=== PATIENT | female | born 1945 | race Caucasian/White ===

== ENCOUNTER 2016-05-15 10:58 | Inpatient (IN) | payer MEDICARE, BC ==
[~2016-05-15] VITALS: Ht 157.5 cm; Wt 60.0 kg
[~2016-05-15 10:58] MED LIST: ASPI325T PO; CARB25TA12 PO; DONE10TA7 PO; DULC100C PO; HYDR-3533 PO; LYRI50CA PO; NITR1CAP36 PO; NYST15T TOPICAL; ONDA4TAB7 PO; ROTI4DIS T-DERMAL; TOVI4TAB PO; ZYPR5TAB PO
[2016-05-15 11:01] VITALS: BP 112/54; PULSE 69; RESP 16; TEMP 97.5; O2SAT 88
[2016-05-15 11:15] VITALS: BP 113/63; PULSE 65; RESP 21; O2SAT 100
[2016-05-15 11:24] VITALS: BP 113/63; PULSE 71; RESP 20; O2SAT 100
[2016-05-15] MEDS ORDERED: SODIUM CHLOR 0.9% 1000 ML INJ 1,000 ML IV SCH (11:28)
--- NOTE | 2016-05-15 12:07 | RADRPT ---
EXAM DATE/TIME: 05/15/2016 11:49 [facility] COMPARISON: CHEST SINGLE AP, April 10, 2015, 21:19. INDICATIONS : Patient has had a cough and felt weak for five days. MEDICAL HISTORY : Parkinson's. cerebrovascular disease. SURGICAL HISTORY : None. ENCOUNTER: Initial ACUITY: 4 - 6 days PAIN SCORE: 0/10 LOCATION: chest FINDINGS: The heart is normal in size. The mediastinal contours are within normal limits. There are small areas of platelike atelectasis seen in both lungs. These are improved when compared to previous. There are mild degenerative changes in the thoracic spine. CONCLUSION: 1. Small areas of platelike atelectasis seen. Improved compared to previous. No acute abnormality. Faheem Yin MD on May 15, 2016 at 12:03 Board Certified Radiologist. This report was verified electronically.
[2016-05-15 12:20] LABS: AUTOMATED NEUTROPHIL # 11.7 TH/MM3 (1.8-7.7); BASOPHIL # 0.1 TH/MM3 (0-0.2); BASOPHIL % 0.4 % (0.0-2.0); EOSINOPHIL # 0.2 TH/MM3 (0-0.4); EOSINOPHIL % 1.5 % (0.0-4.0); HEMATOCRIT 41.6 % (35.0-46.0); HEMO FLAGS DIFF FINAL; LYMPHOCYTE # 2.3 TH/MM3 (1.0-4.8); MEAN CELL VOLUME 86.3 FL (80.0-100.0); MEAN CORPUSCULAR HEMOGLOBIN 28.9 PG (27.0-34.0); MEAN CORPUSCULAR HGB CONC 33.4 % (32.0-36.0); MONO % 8.1 % (0.0-8.0); PLATELET COUNT 256 TH/MM3 (150-450); RED BLOOD COUNT 4.83 MIL/MM3 (4.00-5.30); RED CELL DISTRIBUTION WIDTH 16.5 % (11.6-17.2); WHITE BLOOD COUNT 15.6 TH/MM3 (4.0-11.0)
[2016-05-15 12:33] LABS: APTT (PATIENT) 28.5 SEC (24.3-30.1); PROTHROMBIN TIME - PATIENT 10.6 SEC (9.8-11.6)
[2016-05-15 12:37] LABS: ALT (GPT) 6 U/L (10-53); ANION GAP 11 MEQ/L (5-15); AST (GOT) 12 U/L (15-37); BICARBONATE 25.6 MEQ/L (21.0-32.0); BLOOD UREA NITROGEN 26 MG/DL (7-18); CHLORIDE 105 MEQ/L (98-107); GLOMERULAR FILTRATION RATE 97 ML/MIN (>89); MAGNESIUM 2.2 MG/DL (1.5-2.5); POTASSIUM 3.9 MEQ/L (3.5-5.1); SODIUM (NA) 142 MEQ/L (136-145)
[2016-05-15 12:39] LABS: ALKALINE PHOSPHATASE 96 U/L (45-117); TOTAL BILIRUBIN ADULT 0.8 MG/DL (0.2-1.0)
[2016-05-15 13:37] VITALS: BP 122/58; PULSE 61; RESP 20; O2SAT 5; O2SAT 98
--- NOTE | 2016-05-15 14:05 | PD ---
HPI Chief Complaint: Abnormal Results Time Seen by Provider: 13:58 Travel History International Travel<30 days: No Contact w/Intl Traveler<30days: No Traveled to known affect area: No History of Present Illness HPI 70-year-old female that presents to the ED for evaluation of hypertension as well as hypoxia. Patient reports that she was being seen by her doctor Dr. Lucio today for her regular checkup for cough that she's developed for the past 5 days and they found out that she was hypotensive and hypoxic on exam. Patient was told to come here immediately. Patient reports no complaints other than the cough. Patient does have a history of Parkinson's and is essentially bedridden. She does have a history of decubitus ulcer to the buttox that has been seen and evaluated by the physician. She denies any problems with it. She states that the main reason she was being seen today for the cough that is productive for the past 5 days. She states that she does have some family members sick in the house. Including a small child. Patient has a suprapubic urinary catheter secondary to urinary retention and being bedridden. Patient has a history of MRSA. No chest pain or shortness of breath. She voices no major complaints other than the cough. No pain. PFSH Past Medical History Hx Anticoagulant Therapy: Yes (325 MG ASA DAILY) Arthritis: No Asthma: Yes Autoimmune Disease: No Blood Disorders: No Anxiety: No Depression: No Heart Rhythm Problems: No Cancer: No Cardiovascular Problems: Yes (ORTHOSTATIC HYPOTENSION) High Cholesterol: No Chemotherapy: No Congestive Heart Failure: No COPD: No Cerebrovascular Accident: Yes (TIA 2013) Diabetes: No Diminished Hearing: No Endocrine: No Gastrointestinal Disorders: Yes (hx constipation) GERD: No Glaucoma: No Genitourinary: Yes (incontinence, frequent UTI's,suprapubic cath ) Headaches: No Hepatitis: No Hiatal Hernia: No Hypertension: No Immune Disorder: No Implanted Vascular Access Dvce: Yes Kidney Stones: No Medical other: Yes (CONFUSION/DISORIENTATION, PRESSURE ULCER LEFT BUTTOCKS WITH WOUND VAC) Musculoskeletal: Yes (non ambulatory hx of back surgery and cervical spine) Neurologic: Yes (NEUROPATHY FEET, PARKINSON'S, short term memory loss, confusion) Parkinson's Disease: Yes Psychiatric: Yes (r/t parkinson's, confused, short term memory loss) Reproductive: No Respiratory: Yes (ASTHMA) Integumentary: Yes (PRESSURE ULCER LEFT BUTTOCKS WITH WOUND VAC @ 120HHMG) Immunizations Current: Yes Migraines: No Myocardial Infarction: No Radiation Therapy: No Renal Failure: No Seizures: Yes Sickle Cell Disease: No Sleep Apnea: No Thyroid Disease: No Ulcer: No PNEUMOCCOCAL Vaccine (Year): 2007 ?: Not Menopausal: Yes : 0 Past Surgical History Abdominal Surgery: No AICD: No Appendectomy: Yes Arteriovenous Shunt: No Body Medical Devices: CERVICAL HARDWARE Cardiac Surgery: No Cholecystectomy: No Ear Surgery: No Endocrine Surgery: No Eye Surgery: Yes (BILATERAL CATARACT SURGERY) Genitourinary Surgery: Yes (SP CATHETER PLACED X 3 LAST PLACEMENT ONE MONTH AGO ) Gynecologic Surgery: Yes (HYSTERECTOMY) Hysterectomy: Yes Insulin Pump: No Joint Replacement: No Neurologic Surgery: Yes (LUMBAR SURGERY X 2, CERVICAL FUSION) Oral Surgery: No Pacemaker: No Thoracic Surgery: No Other Surgery: Yes (ULNAR NERVE REPAIR LEFT- 1996) Social History Alcohol Use: Yes (RARELY) Tobacco Use: No Substance Use: No Allergies-Medications (Allergen,Severity, Reaction): Coded Allergies: *MDRO Multi-Drug Resistant Organism (Verified Adverse Reaction, Unknown, ) ESBL+E.COLI (urine) - 2011, 2012, 2014, 01/04/16; (blood) - 2011 VRE (urine/blood) - 2011 Reported Meds & Prescriptions Reported Meds & Active Scripts Active Toviaz ER (Fesoterodine Fumarate) 4 mg Chevy 4 Mg PO DAILY Reported Nitrofurantoin Macrocrystal 100 Mg Cap 100 Mg PO QID Donepezil 10 Mg Tab 10 Mg PO DAILY Lyrica (Pregabalin) 50 Mg Cap 50 Mg PO TID Zyprexa (Olanzapine) 5 Mg Tab 5 Mg PO HS Neupro Patch 24 HR (Rotigotine Patch 24 HR) 4 Mg/24 Hr Patch 4 Mg T-DERMAL DAILY Nystatin Topical (Nystatin) 100,000 unit/gm Cream 1 Applic TOPICAL DAILY PRN Carbidopa-Levodopa 25-250 Mg Tab 1 Tab PO TID Review of Systems General / Constitutional: Positive: Fever, Chills Eyes: No: Diploplia, Blurred Vision, Photophobia, Drainage, Redness, Foreign Body Sensation, Pain, Tearing, Blind Spots, Visual changes, Blindness, Other HENT: Positive: Rhinitis, No: Headaches, Vertigo, Lightheadedness, Sore Throat , Rhinorrhea, Congestion, Nosebleed, Neck Stiffness, Neck Pain, Masses, Gingival Bleeding, Dental Difficulties, Ear Discharge, Earache, Other Cardiovascular: No: Chest Pain or Discomfort, Palpitations, Irregular Rhythm, Tachycardia, Diaphoresis, Syncope, Dyspnea on exertion, Varicosities, Edema, Cyanosis, Varicosities, Phlebitis, Claudication, Other Respiratory: Positive: Cough, No: Shortness of Breath, Wheezing, Sneezing, Orthopnea, Hemoptysis, Stridor, Night Sweats, Pleuritic Pain, Other Gastrointestinal: No: Nausea, Vomiting, Diarrhea, Abdominal Pain, Hematemesis, Hematochezia, Constipation, Changes in Bowel Habits, Indigestion, Dysphagia, Loss of Appetite, Other Genitourinary: No: Urgency, Frequency, Dysuria, Nocturia, Hematuria, Decreased Urinary Output, Oliguria, Hesitancy, Dribbling, Incontinence, Pelvic Pain, Flank Pain, Dyspareunia, Discharge, Dysmenorrhea, Menorrhagia, Metorrhagia, Vaginal Bleeding, Other Musculoskeletal: No: Myalgias, Arthralgias, Limited ROM, Weakness, Cramping, Edema, Pain, Atrophy, Other Skin: No Rash, No Itching, No Dryness, No Lumps, No Hives, No Change in Pigmentation, No Change in nails, No Alopecia, No Lesions, No Breast Lumps, No Breast Tenderness, No Breast Swelling, No Other Neurologic: No: Weakness, Dizziness, Syncope, Focal Abnormalities, Coordination Problem, Tremor, Ataxia, Headache, Change in Mentation, Slurred Speech, Paresthesia, Incontinence, Seizures, Sensory Disturbance, Other Psychiatric: No: Anxiety, Depression, Suicidal Ideations, Disorder of Thought, Mood Disorder, Substance Abuse, Homicidal Ideation, Other Endocrine: No: Heat Intolerance, Cold Intolerance, Polyuria, Polydipsia, Other Hematologic/Lymphatic: No: Easy Bruising, Lymph Node Enlargement, Other Physical Exam Narrative GENERAL: SKIN: Warm and dry. Patient has a stage III decubitus ulcer to the back of the sacrum. Some discharge noted but no sign of severe infection. Per seems to be improving. Slightly tender to touch. HEAD: Atraumatic. Normocephalic. EYES: Pupils equal and round 4 mm reactive to light and accommodation. No scleral icterus. No injection or drainage. ENT: No nasal bleeding or discharge. Mucous membranes pink and moist. Tongue is midline. No uvula deviation. NECK: Trachea midline. No JVD. CARDIOVASCULAR: Regular rate and rhythm. Tongue is midline. No uvula deviation. RESPIRATORY: No accessory muscle use. Clear to auscultation. Breath sounds equal bilaterally. GASTROINTESTINAL: Abdomen soft, non-tender, nondistended. Hepatic and splenic margins not palpable. MUSCULOSKELETAL: Extremities without clubbing, cyanosis, or edema. No obvious deformities. Full range of motion of the upper and lower extremities bilaterally. 2+ pulses bilaterally. NEUROLOGICAL: Awake and alert. No obvious cranial nerve deficits. Motor grossly within normal limits. Five out of 5 muscle strength in the arms and legs. Normal speech. PSYCHIATRIC: Appropriate mood and affect; insight and judgment normal. Data Data Last Documented VS Vital Signs Date Time Temp Pulse Resp B/P Pulse Ox O2 Delivery O2 Flow Rate FiO2 05/15/16 14:21 61 20 130/57 98 Room Air 05/15/16 11:01 97.5 Orders Electrocardiogram (05/15/16 11:28) Complete Blood Count With Diff (05/15/16 11:28) Comprehensive Metabolic Panel (05/15/16 11:28) Prothrombin Time / Inr (Pt) (05/15/16 11:28) Act Partial Throm Time (Ptt) (05/15/16 11:28) Blood Culture (05/15/16 11:28) Urinalysis - C+S If Indicated (05/15/16 11:28) Magnesium (Mg) (05/15/16 11:28) Influenzae A/B Antigen (05/15/16 11:28) Chest, Single Ap (05/15/16 11:28) Iv Access Insert/Monitor (05/15/16 11:28) Ecg Monitoring (05/15/16 11:28) Oximetry (05/15/16 11:28) Lactic Acid (05/15/16 11:28) Sodium Chlor 0.9% 1000 Ml Inj (Ns 1000 M (05/15/16 11:28) Ceftriaxone Inj (Rocephin Inj) (05/15/16 14:15) Continue Castorena/Suprapubic Cath (05/15/16 14:05) Ct Pulmonary Angiogram (05/15/16 14:20) Admit To Inpatient (05/15/16 ) Inpatient Certification (05/15/16 ) Diet Regular Basic (05/15/16 Dinner) Vital Signs (Adult) HAMMAD.Q4H (05/15/16 14:22) Consult Wound / Ostomy Nurse (05/15/16 ) Dext 5%-Nacl 0.9% 1... W/Potassium Chlor (05/15/16 16:00) Admit Order (Ed Use Only) (05/15/16 15:26) Labs Laboratory Tests Test 05/15/16 05/15/16 11:40 15:25 White Blood Count 15.6 TH/MM3 Red Blood Count 4.83 MIL/MM3 Hemoglobin 13.9 GM/DL Hematocrit 41.6 % Mean Corpuscular Volume 86.3 FL Mean Corpuscular Hemoglobin 28.9 PG Mean Corpuscular Hemoglobin 33.4 % Concent Red Cell Distribution Width 16.5 % Platelet Count 256 TH/MM3 Mean Platelet Volume 8.1 FL Neutrophils (%) (Auto) 75.0 % Lymphocytes (%) (Auto) 15.0 % Monocytes (%) (Auto) 8.1 % Eosinophils (%) (Auto) 1.5 % Basophils (%) (Auto) 0.4 % Neutrophils # (Auto) 11.7 TH/MM3 Lymphocytes # (Auto) 2.3 TH/MM3 Monocytes # (Auto) 1.3 TH/MM3 Eosinophils # (Auto) 0.2 TH/MM3 Basophils # (Auto) 0.1 TH/MM3 CBC Comment DIFF FINAL Differential Comment Prothrombin Time 10.6 SEC Prothromb Time International 1.0 RATIO Ratio Activated Partial 28.5 SEC Thromboplast Time Sodium Level 142 MEQ/L Potassium Level 3.9 MEQ/L Chloride Level 105 MEQ/L Carbon Dioxide Level 25.6 MEQ/L Anion Gap 11 MEQ/L Blood Urea Nitrogen 26 MG/DL Creatinine 0.61 MG/DL Estimat Glomerular Filtration 97 ML/MIN Rate Random Glucose 100 MG/DL Lactic Acid Level 1.0 mmol/L Calcium Level 9.9 MG/DL Magnesium Level 2.2 MG/DL Total Bilirubin 0.8 MG/DL Aspartate Amino Transf 12 U/L (AST/SGOT) Alanine Aminotransferase 6 U/L (ALT/SGPT) Alkaline Phosphatase 96 U/L Total Protein 7.5 GM/DL Albumin 3.6 GM/DL Urine Color YELLOW Urine Turbidity CLOUDY Urine pH 5.5 Urine Specific [place] 1.019 Urine Protein 30 mg/dL Urine Glucose (UA) NEG mg/dL Urine Ketones 40 mg/dL Urine Occult Blood MOD Urine Nitrite POS Urine Bilirubin NEG Urine Urobilinogen LESS THAN 2.0 MG/DL Urine Leukocyte Esterase LARGE Urine RBC 182 /hpf Urine WBC /hpf Urine WBC Clumps MANY Urine Squamous Epithelial 3 /hpf Cells Urine Bacteria MANY /hpf Microscopic Urinalysis Comment CULTURE INDICATED MDM Medical Decision Making Medical Screen Exam Complete: Yes Emergency Medical Condition: Yes Medical Record Reviewed: Yes Interpretation(s) CBC & BMP Diagram 05/15/16 11:40 lactic WNL Last Impressions Chest X-Ray 05/15/16 1128 Signed Impressions: Service Date/Time: , May 15, 2016 11:49 - CONCLUSION: 1. Small areas of platelike atelectasis seen. Improved compared to previous. No acute abnormality. Faheem Yin MD Differential Diagnosis Pneumonia versus leukocytosis versus sepsis versus electrolyte abnormality versus hypotension versus bacteremia versus cystitis Narrative Course 70-year-old female that presents to the ED for evaluation of hypotension and hypoxia. Patient was properly examined here and was found to have signs and symptoms consistent with appears to be infection. No sign of sepsis at this time. Patient's vitals are reassuring here. O2 stat is within normal limits. Labs and imaging were ordered. Labs and imaging showed leukocytosis but no sign of obvious infection but from patient's history this is likely UTI. Case was discussed in my attending Dr Hernandez who recommends admission. Case discussed with Dr. Valencia that over the phone who recommends CTA to rule out PE and agrees to admission. Patient was admitted to her. Sepsis Criteria SIRS Criteria (2 or more): WBC > 87330, < 4000 or > 10% bands Diagnosis Primary Impression: UTI (urinary tract infection) Qualified Code: N30.00 - Acute cystitis without hematuria Additional Impression: Encephalopathy acute Parveen Fisher May 15, 2016 14:05
[2016-05-15] MEDS ORDERED: cefTRIAXone INJ 1,000 MG in SODIUM CHLORIDE 0.9% INJ 100 ML IV ONE (14:15)
[2016-05-15 14:21] VITALS: BP 130/57; PULSE 61; RESP 20; O2SAT 98
[2016-05-15] MEDS ORDERED: IOHEXOL 350 MG/ML 10 ML VIAL (for RAD DIAG) IV ONE (15:45)
[2016-05-15 15:50] LABS: BACTERIA, URINE MANY /hpf; BLOOD, URINE MOD (NEG); COMMENT (UR) CULTURE INDICATED; CULTURE IF INDICATED CULTURE INDICATED; GLUCOSE,URINE NEG (NEG); KETONE, URINE 40 mg/dL (NEG); NITRITE,URINE POS (NEG); PH, URINE 5.5 (5.0-8.5); SQUAMOUS EPITHELIAL CELL URINE 3 /hpf (0-5); URINE COLOR YELLOW (YELLW/STRAW)
--- NOTE | 2016-05-15 16:04 | RADRPT ---
EXAM DATE/TIME: 05/15/2016 15:43 [facility] COMPARISON: No previous studies available for comparison. INDICATIONS : Abnormal labs with chest pain and shortness of breath. IV CONTRAST: 75 cc Omnipaque 350 (iohexol) IV RADIATION DOSE: 23.20 CTDIvol (mGy) MEDICAL HISTORY : Cardiovascular disease. Seizures. SURGICAL HISTORY : Hysterectomy. Appendectomy. ENCOUNTER: Initial ACUITY: 1 day PAIN SCALE: 6/10 LOCATION: chest TECHNIQUE: Volumetric scanning of the chest was performed using a pulmonary embolism protocol MIP images were re constructed. Using automated exposure control and adjustment of the mA and/or kV according to patien t size, radiation dose was kept as low as reasonably achievable to obtain optimal diagnostic quality images. FINDINGS: PULMONARY ARTERIES: No filling defects are seen in the pulmonary arteries through the segmental level. LUNGS: There is no consolidation or pneumothorax . No concerning pulmonary nodule is visualized. PLEURAE: There is no pleural thickening or pleural effusion. MEDIASTINUM: There is good visualization of the great vessels of the middle mediastinum. No evidence of mediastin al or hilar adenopathy/mass. MUSCULOSKELETAL: Within normal limits for patient age. MISCELLANEOUS: The visualized upper abdominal organs demonstrate no acute abnormality. CONCLUSION: Normal examination. Mild atelectasis both lung bases Bon Quiroz MD on May 15, 2016 at 16:01 Board Certified Radiologist. This report was verified electronically.
--- NOTE | 2016-05-15 16:45 | HHI.HP ---
HPI Service [facility] Primary Care Physician Shira Drake MD Admission Diagnosis acute cystitis, leukocytosis, hypotension Diagnoses: Chief Complaint: Cough, low blood pressures and decreased oxygen saturation Travel History International Travel<30 Days: No Contact w/Intl Traveler <30 Da: No Traveled to Known Affected Are: No History of Present Illness Patient is a 70-year-old female with advanced Parkinson's disease, total care, bedbound for over a year now, she has a suprapubic catheter in place for the last 15 months this was just changed yesterday by a nurse electrical controls technician and change every month. Baseline she is incontinent of stools and urine. She was brought in today because patient was complaining of cough and on evaluation by the nurses electrical controls technician he had a systolic blood pressure of 70 with decreased oxygen saturation. I called primary physician and was instructed to come here. Patient and family states she eats well there was no fever or chills. As stated has been having 5 days of nonproductive cough. Denies any difficulty in swallowing. Stools are occasionally constipation occasionally would need manual disimpaction periodically. She also has a chronic wound sacral decubitus stage II which is dressed with alginate dressing daily. She also doesn't care center every 2 weeks. Per family was very involved his wound is improving. At the ER patient was given 1 L of normal saline bolus, and placed on O2 nasal cannula. Right now on evaluation blood pressures is improved. Her O2 sat is 98% on room air. Review of Systems Constitutional: DENIES: Diaphoretic episodes, Fatigue, Fever, Weight gain, Weight loss, Chills, Dizziness, Change in appetite, Night Sweats Endocrine: DENIES: Abnorml menstrual pattern, Heat/cold intolerance, Polydipsia , Polyuria, Polyphagia Eyes: DENIES: Blurred vision, Diplopia, Eye inflammation, Eye pain, Vision loss , Photosensitivity, Double Vision Ears, nose, mouth, throat: DENIES: Tinnitus, Hearing loss, Vertigo, Nasal discharge, Oral lesions, Throat pain, Hoarseness, Ear Pain, Running Nose, Epistaxis, Sinus Pain, Toothache, Odynophagia Respiratory: COMPLAINS OF: Cough Cardiovascular: DENIES: Chest pain, Palpitations, Syncope, Dyspnea on Exertion , PND, Lower Extremity Edema, Orthopnea, Claudication Gastrointestinal: DENIES: Abdominal pain, Black stools, Bloody stools, Constipation, Diarrhea, Nausea, Vomiting, Difficulty Swallowing, Anorexia Genitourinary: DENIES: Abnormal vaginal bleeding, Dysmenorrhea, Dyspareunia, Sexual dysfunction, Urinary frequency, Urinary incontinence, Urgency, Hematuria , Dysuria, Nocturia, Vaginal discharge Musculoskeletal: DENIES: Joint pain, Muscle aches, Stiffness, Joint Swelling, Back pain, Neck pain Integumentary: DENIES: Abnormal pigmentation, Pruritus, Rash, Nail changes, Breast masses, Breast skin changes, Nipple discharge Hematologic/lymphatic: DENIES: Bruising, Lymphadenopathy Immunologic/allergic: DENIES: Eczema, Urticaria Neurologic: COMPLAINS OF: Poor Balance (patient is bedbound) Psychiatric: DENIES: Anxiety, Confusion, Mood changes, Depression, Hallucinations, Agitation, Suicidal Ideation, Homicidal Ideation, Delusions Past Family Social History Past Medical History Advanced Parkinson's disease History of recurrent cystitis/sepsis. She was out he was here last on last admission with wound infection growing Arely, ESBL Escherichia coli, Pseudomonas, She completed a course of Zosyn and micafungin. Stage II decubitus ulcer, Past Surgical History Suprapubic catheter placement Reported Medications A, 50 mg 3 times a day Nystatin oral 4 times a day 12 I as ER 4 mg daily Zyprexa 5 mg at bedtime Levodopa 25/253 times a day Neptazane 10 mg daily Macrodantin 100 mg 4 times a day Rivastigmine patch 4 mg every 24 hours Allergies: Coded Allergies: *MDRO Multi-Drug Resistant Organism (Verified Adverse Reaction, Unknown, ) ESBL+E.COLI (urine) - 2011, 2012, 2014, 01/04/16; (blood) - 2011 VRE (urine/blood) - 2011 Family History Noncontributory Social History Not currently smoking or drinking alcohol Physical Exam Vital Signs Vital Signs Date Time Temp Pulse Resp B/P Pulse Ox O2 Delivery O2 Flow Rate FiO2 05/15/16 14:21 61 20 130/57 98 Room Air 05/15/16 13:37 61 20 122/58 98 Room Air 05/15/16 11:24 71 20 113/63 100 Room Air 05/15/16 11:15 65 21 113/63 100 05/15/16 11:01 97.5 69 16 112/54 88 Room Air Physical Exam GENERAL: Awake alert oriented 3 in no apparent distress. SKIN: No rashes, ecchymoses or lesions. Cool and dry. HEAD: Atraumatic. Normocephalic. No temporal or scalp tenderness. EYES: Pupils equal round and reactive. Extraocular motions intact. No scleral icterus. ENT: Nose without bleeding,Throat without erythema, tonsillar hypertrophy or exudate. Uvula midline. No oral thrush NECK: Trachea midline. No JVD or lymphadenopathy. Supple, nontender, no meningeal signs. CARDIOVASCULAR: Regular rate and rhythm without murmurs, gallops, or rubs. RESPIRATORY: Clear to auscultation. Breath sounds equal bilaterally. No wheezes , rales, or rhonchi. GASTROINTESTINAL: Abdomen soft, non-tender, nondistended. No guarding. Positive suprapubic catheter in place, mild erythema opening MUSCULOSKELETAL: Extremities without clubbing, cyanosis, or edema. No joint tenderness, effusion, or edema noted. No calf tenderness. Negative Homans sign bilaterally. Sacral area with stage III decubitus ulcer NEUROLOGICAL: Awake and alert. Cranial nerves II through XII intact. Motor with advanced Parkinson's very limited movement Normal speech. Laboratory Laboratory Tests Test 05/15/16 05/15/16 11:40 15:25 White Blood Count 15.6 Red Blood Count 4.83 Hemoglobin 13.9 Hematocrit 41.6 Mean Corpuscular Volume 86.3 Mean Corpuscular Hemoglobin 28.9 Mean Corpuscular Hemoglobin 33.4 Concent Red Cell Distribution Width 16.5 Platelet Count 256 Mean Platelet Volume 8.1 Neutrophils (%) (Auto) 75.0 Lymphocytes (%) (Auto) 15.0 Monocytes (%) (Auto) 8.1 Eosinophils (%) (Auto) 1.5 Basophils (%) (Auto) 0.4 Neutrophils # (Auto) 11.7 Lymphocytes # (Auto) 2.3 Monocytes # (Auto) 1.3 Eosinophils # (Auto) 0.2 Basophils # (Auto) 0.1 CBC Comment DIFF FINAL Differential Comment Prothrombin Time 10.6 Prothromb Time International 1.0 Ratio Activated Partial 28.5 Thromboplast Time Sodium Level 142 Potassium Level 3.9 Chloride Level 105 Carbon Dioxide Level 25.6 Anion Gap 11 Blood Urea Nitrogen 26 Creatinine 0.61 Estimat Glomerular Filtration 97 Rate Random Glucose 100 Lactic Acid Level 1.0 Calcium Level 9.9 Magnesium Level 2.2 Total Bilirubin 0.8 Aspartate Amino Transf 12 (AST/SGOT) Alanine Aminotransferase 6 (ALT/SGPT) Alkaline Phosphatase 96 Total Protein 7.5 Albumin 3.6 Urine Color YELLOW Urine Turbidity CLOUDY Urine pH 5.5 Urine Specific [place] 1.019 Urine Protein 30 Urine Glucose (UA) NEG Urine Ketones 40 Urine Occult Blood MOD Urine Nitrite POS Urine Bilirubin NEG Urine Urobilinogen LESS THAN 2.0 Urine Leukocyte Esterase LARGE Urine RBC 182 Urine WBC Urine WBC Clumps MANY Urine Squamous Epithelial 3 Cells Urine Bacteria MANY Microscopic Urinalysis Comment CULTURE INDICATED Date/Time Procedure Status Source Growth 05/15/16 15:25 Urine Culture Received Urine Random Urine Pending 05/15/16 11:40 Aerobic Blood Culture Received Blood Peripheral Pending 05/15/16 11:40 Anaerobic Blood Culture Received Blood Peripheral Pending 05/15/16 11:28 Influenza Types A,B Antigen (ALONA) - Final Complete Nasal Washing NEGATIVE FOR FLU A AND B ANTIGEN.... Result Diagram: 05/15/16 1140 05/15/[address] Angiography 05/15/16 1420 Signed Impressions: Service Date/Time: May 15:43 - CONCLUSION: Normal examination. Mild atelectasis both lung bases Bon Quiroz MD Chest X-Ray 05/15/16 1128 Signed Impressions: Service Date/Time: May 11:49 - CONCLUSION: 1. Small areas of platelike atelectasis seen. Improved compared to previous. No acute abnormality. Faheem Yin MD Septic Shock Reassessment Heart: Regular rate and rhythm Lungs: Clear Skin: Warm Peripheral Pulses: Bounding Right Radial Bounding Left Radial Bounding Right Popliteal Bounding Left Popliteal Bounding Right Dorsalis Pedis Bounding Left Dorsalis Pedis Bounding Right Posterior Tibial Bounding Left Posterior Tibial Capillary Refill: Brisk Assessment and Plan Assessment and Plan Patient is a very pleasant 70-year-old female with history of advanced Parkinson 's disease bedbound presenting with Hypotension hypoxemia improved with fluids Sepsis secondary to recurrent cystitis - persistent pyuria from suprapubic catheter last- per family the suprapubic catheter was just changed yesterday We'll change her suprapubic catheter again today Blood and urine Cultures has been sent Based on last cultures from previous admission+ ESBL, Pseudomonas, Arely start on meropenem IV and IV Fluconazole- d/w pharmacy re- dosing We'll get ID consult for recommendation Transient hypoxemia - resolved with IV fluids get a CTA of the chest to rule out pulmonary embolism since patient is bedbound this was negative. History of advanced Parkinson's We'll continue on medications Acute kidney injury prerenal Status post 1 L normal saline bolus Start patient on normal saline IV Stage III decubitus ulcer. We'll continue on alginate wound dressing change daily We'll ask our wound care team to follow patient in-house Lovenox for DVT prophylaxis We did discuss advanced directives with her and family at bedside. Patient is a DO NOT RESUSCITATE Code Status DO NOT RESUSCITATE Physician Certification 2 Midnight Certification Type: Admission for Inpatient Services Order for Inpatient Services The services are ordered in accordance with Medicare regulations or non- Medicare payer requirements, as applicable. In the case of services not specified as inpatient-only, they are appropriately provided as inpatient services in accordance with the 2-midnight benchmark. Estimated LOS (days): 3 days is the estimated time the patient will need to remain in the hospital, assuming treatment plan goals are met and no additional complications. Post-Hospital Plan: Not yet determined Nilda Valencia MD May 15, 2016 16:45
[2016-05-15] MEDS: POTASSIUM CHLORIDE INJ 10 MEQ in DEXT 5%-NACL 0.9% 1000 ML INJ 1,000 ML IV SCH (17:25)
[2016-05-15] MEDS ORDERED: cefTAZidime INJ 1,000 MG in SODIUM CHLORIDE 0.9% INJ 100 ML IV SCH (18:00)
[2016-05-15] MEDS ORDERED: AZTREONAM INJ 1,000 MG in SODIUM CHLORIDE 0.9% INJ 100 ML IV SCH (18:00)
[2016-05-15] MEDS ORDERED: VANCOMYCIN INJ 1,000 MG in SODIUM CHLOR 0.9% 250 ML INJ 250 ML IV SCH (18:15)
[2016-05-15] MEDS ORDERED: Vancomycin Consult Pharmacy XX SCH (18:30)
[2016-05-15] MEDS ORDERED: VANCOMYCIN INJ 1,250 MG in SODIUM CHLOR 0.9% 250 ML INJ 250 ML IV SCH (20:00)
[2016-05-15] MEDS ORDERED: FLUCONAZOLE 100 MG PREMIX BAG 50 ML IV SCH (20:00)
[2016-05-15] MEDS: ENOXAPARIN SODIUM 30 MG/0.3 ML SYRINGE SQ SCH (20:28)
[2016-05-15] MEDS: MEROPENEM 1000 MG/NS 100 ML IV SCH ×2 (20:28)
[2016-05-15 20:50] VITALS: BP 97/60; PULSE 106; RESP 17; TEMP 96.2; O2SAT 93
[2016-05-16 00:11] VITALS: BP 94/59; PULSE 102; RESP 18; TEMP 98.8; O2SAT 93
[2016-05-16] MEDS: MEROPENEM 1000 MG/NS 100 ML IV SCH ×6 (03:40→21:03)
[2016-05-16 04:24] VITALS: BP 99/60; PULSE 97; RESP 17; TEMP 97.7; O2SAT 97
[2016-05-16] MEDS: POTASSIUM CHLORIDE INJ 10 MEQ in DEXT 5%-NACL 0.9% 1000 ML INJ 1,000 ML IV SCH ×2 (04:45→16:52)
[2016-05-16 08:00] VITALS: BP 87/53; PULSE 83; RESP 13; TEMP 97.5; O2SAT 93
[2016-05-16] MEDS ORDERED: SODIUM CHLOR 0.9% 1000 ML INJ 1,000 ML IV ONE (09:30)
--- NOTE | 2016-05-16 09:46 | HHI.PR ---
Subjective Remarks awake and alert, no complains no fever or chills riddle draining concentrated dark urine Objective Vitals Vital Signs Date Time Temp Pulse Resp B/P Pulse Ox O2 Delivery O2 Flow Rate FiO2 05/16/16 08:00 97.5 83 13 87/53 93 05/16/16 04:24 97.7 97 17 99/60 97 05/16/16 00:11 98.8 102 18 94/59 93 05/15/16 20:50 96.2 106 17 97/60 93 05/15/16 14:21 61 20 130/57 98 Room Air 05/15/16 13:37 61 20 122/58 98 Room Air 05/15/16 11:24 71 20 113/63 100 Room Air 05/15/16 11:15 65 21 113/63 100 05/15/16 11:01 97.5 69 16 112/54 88 Room Air I/O 05/15/16 05/15/16 05/15/16 05/16/16 05/16/16 05/16/16 07:00 15:00 23:00 07:00 15:00 23:00 Intake Total 586 ml 1115 ml Output Total 70 ml 50 ml Balance 516 ml 1065 ml Intake Oral 360 ml 280 ml IV Total 226 ml 835 ml Output Urine Total 70 ml 50 ml # Voids 3 4 # Bowel Movements 0 Result Diagram: 05/15/16 1140 05/16/16 [address] Angiography 05/15/16 1420 Signed Impressions: Service Date/Time: May 15:43 - CONCLUSION: Normal examination. Mild atelectasis both lung bases Bon Quiroz MD Chest X-Ray 05/15/16 1128 Signed Impressions: Service Date/Time: May 11:49 - CONCLUSION: 1. Small areas of platelike atelectasis seen. Improved compared to previous. No acute abnormality. Faheem Yin MD Objective Remarks awake and alert, oriented x 3 anicteric lungs no rales regular rhythm abdomen- suprapubic catheter -opening with erythema extremities no edema, both UE- flexed across the chest A/P Assessment and Plan Patient is a very pleasant 70-year-old female with history of advanced Parkinson 's disease bedbound presenting with Sepsis secondary to recurrent cystitis - persistent pyuria on chronic SC We'll change her suprapubic catheter again today Blood and urine Cultures has been sent- ff Based on last cultures from previous admission+ ESBL, Pseudomonas, Arely. Cultires from yesterday still pending started on meropenem IV , Fluconazole, and IV Vancomycin- d/w pharmacy re- dosing We'll get ID consult for recommendation bolus 1 L increase IV rate Transient hypoxemia - resolved with IV fluids CTA negative for PE History of advanced Parkinson's We'll continue on medications Acute kidney injury prerenal normal saline bolus Increase IV rate 125 cc/hr Stage III decubitus ulcer. We'll continue on alginate wound dressing change q 3 days wound care team to follow patient in-house Lovenox for DVT prophylaxis Patient is a DO NOT RESUSCITATE Consider hospice if condition deteriorates Nilda Valencia MD May 16, 2016 09:46
[2016-05-16] MEDS ORDERED: INFLUENZA VIRUS VACCINE (QUADRIVALENT) 0.5 ML SYR IM ONE (10:00)
[2016-05-16] MEDS ORDERED: PNEUMOCOCCAL POLYVALENT INJ 25 MCG/0.5 ML SYR IM ONE (10:00)
[2016-05-16 10:55] LABS: AUTOMATED NEUTROPHIL # 7.6 TH/MM3 (1.8-7.7); BASOPHIL % 0.4 % (0.0-2.0); EOSINOPHIL # 0.2 TH/MM3 (0-0.4); EOSINOPHIL % 2.2 % (0.0-4.0); HEMATOCRIT 38.4 % (35.0-46.0); HEMO FLAGS DIFF FINAL; LYMPH % 20.8 % (9.0-44.0); LYMPHOCYTE # 2.4 TH/MM3 (1.0-4.8); MEAN CELL VOLUME 87.4 FL (80.0-100.0); MEAN CORPUSCULAR HEMOGLOBIN 28.5 PG (27.0-34.0); MEAN CORPUSCULAR HGB CONC 32.6 % (32.0-36.0); MONO % 10.6 % (0.0-8.0); PLATELET COUNT 224 TH/MM3 (150-450); RED BLOOD COUNT 4.39 MIL/MM3 (4.00-5.30); RED CELL DISTRIBUTION WIDTH 16.4 % (11.6-17.2); WHITE BLOOD COUNT 11.5 TH/MM3 (4.0-11.0)
[2016-05-16 11:17] LABS: BICARBONATE 23.1 MEQ/L (21.0-32.0); POTASSIUM 3.3 MEQ/L (3.5-5.1)
[2016-05-16 12:00] VITALS: BP 105/72; PULSE 95; RESP 20; TEMP 96.4; O2SAT 99
[2016-05-16 12:40] LABS: LACTIC ACID GHOST NOT REPORTABLE
--- NOTE | 2016-05-16 12:58 | PD.ID.CON ---
History of Present Illness Service ID Consult Requested By Dr Valencia Reason for Consult UTI Primary Care Physician Shira Drake MD Diagnoses: History of Present Illness Pt is a poor historian 2/2 dementia History from the chart and from the who is at b/s 70 yo F with advanced Parkinson dz, bed ridden was admitted to the hospital with lethargy and dry cough Earlier she was seen at her PCP office and was noted to be hjypoxic and hypotensive She has abnormal UA with prominent pyuria SHe has SP catheter in place and it was changed 2 days ago - per changed monthly She has h/o recurrent UTIs including urosepsis, H/o ESBL Her CTA was negative for infiltrates or PE Pt's MS is back to her normal now Her bl clx are negative @ 24 hrs, urineis growing GNB Review of Systems ROS Limitations: Poor Historian Past Family Social History Allergies: Coded Allergies: *MDRO Multi-Drug Resistant Organism (Verified Adverse Reaction, Unknown, ) ESBL+E.COLI (urine) - 2011, 2012, 2014, 01/04/16; (blood) - 2011 VRE (urine/blood) - 2011 Past Medical History Advanced Parkinson's disease History of recurrent cystitis/sepsis. She was out he was here last on last admission with wound infection growing Arely, ESBL Escherichia coli, Pseudomonas, She completed a course of Zosyn and micafungin. Stage II decubitus ulcer, Past Surgical History Suprapubic catheter placement Active Ordered Medications Medications where reviewed in EMR Antibiotics Include: fluconazol vanco meropenem Family History Noncontributory Social History No drugs Not currently smoking or drinking alcohol Lives amd cared for at home Physical Exam Vital Signs Vital Signs Date Time Temp Pulse Resp B/P Pulse Ox O2 Delivery O2 Flow Rate FiO2 05/16/16 12:00 96.4 95 20 105/72 99 05/16/16 08:00 97.5 83 13 87/53 93 05/16/16 04:24 97.7 97 17 99/60 97 05/16/16 00:11 98.8 102 18 94/59 93 05/15/16 20:50 96.2 106 17 97/60 93 05/15/16 14:21 61 20 130/57 98 Room Air 05/15/16 13:37 61 20 122/58 98 Room Air Physical Exam CONSTITUTIONAL/GENERAL: This is an adequately nourished elderly female patient , in no apparent distress. TUBES/LINES/DRAINS: SKIN: No jaundice, rashes, or lesions. Ecchymoses on upper extremities. + Stage III- IV sacral wound with minimal odorless drainage no e/o infx. Skin temperature appropriate. Not diaphoretic. HEAD: Atraumatic. Normocephalic. EYES: Pupils equal and round and reactive. Extraocular motions intact. No scleral icterus. No injection or drainage. Fundi not examined. ENT: Hearing grossly normal. Nose without bleeding or purulent drainage. Throat without visible erythema, exudates, masses, or lesions. NECK: Trachea midline. Supple, nontender. No palpable thyroid enlargement or nodularity. CARDIOVASCULAR: Regular rate and rhythm without murmurs, gallops, or rubs. No JVD. Peripheral pulses symmetric. RESPIRATORY/CHEST: Symmetric, unlabored respirations. Clear to auscultation. Breath sounds equal bilaterally. No wheezes, rales, or rhonchi. GASTROINTESTINAL: Abdomen soft, non-tender, nondistended. No hepato-splenomegaly , or palpable masses. No guarding. Bowel sounds present. GENITOURINARY: Without palpable bladder distension. Sp catheter in place with clear yellow urine MUSCULOSKELETAL: Extremities without clubbing, cyanosis, or edema. No joint tenderness or effusion noted. No calf tenderness. No mottling or clubbing. Cogwheel rigidity present LYMPHATICS: No palpable cervical or supraclavicular adenopathy. NEUROLOGICAL: Awake and alert. Motor and sensory grossly within normal limits. Follows commands. Talks, Mildly confused (at baseline) Moves all extremities. PSYCHIATRIC: calm and coperative Laboratory Laboratory Tests Test 05/15/16 05/16/16 05/16/16 15:25 04:16 10:36 Urine Color YELLOW Urine Turbidity CLOUDY Urine pH 5.5 Urine Specific [place] 1.019 Urine Protein 30 Urine Glucose (UA) NEG Urine Ketones 40 Urine Occult Blood MOD Urine Nitrite POS Urine Bilirubin NEG Urine Urobilinogen LESS THAN 2.0 Urine Leukocyte Esterase LARGE Urine RBC 182 Urine WBC Urine WBC Clumps MANY Urine Squamous Epithelial 3 Cells Urine Bacteria MANY Microscopic Urinalysis Comment CULTURE INDICATED Creatinine 0.54 0.72 Estimat Glomerular Filtration 112 80 Rate White Blood Count 11.5 Red Blood Count 4.39 Hemoglobin 12.5 Hematocrit 38.4 Mean Corpuscular Volume 87.4 Mean Corpuscular Hemoglobin 28.5 Mean Corpuscular Hemoglobin 32.6 Concent Red Cell Distribution Width 16.4 Platelet Count 224 Mean Platelet Volume 7.8 Neutrophils (%) (Auto) 66.0 Lymphocytes (%) (Auto) 20.8 Monocytes (%) (Auto) 10.6 Eosinophils (%) (Auto) 2.2 Basophils (%) (Auto) 0.4 Neutrophils # (Auto) 7.6 Lymphocytes # (Auto) 2.4 Monocytes # (Auto) 1.2 Eosinophils # (Auto) 0.2 Basophils # (Auto) 0.0 CBC Comment DIFF FINAL Differential Comment Sodium Level 144 Potassium Level 3.3 Chloride Level 112 Carbon Dioxide Level 23.1 Anion Gap 9 Blood Urea Nitrogen 11 Random Glucose 107 Lactic Acid Level 2.4 Calcium Level 8.7 Date/Time Procedure Status Source Growth 05/15/16 15:25 Urine Culture Received Urine Random Urine Pending 05/15/16 11:40 Aerobic Blood Culture - Preliminary Resulted Blood Peripheral NO GROWTH IN 1 DAY 05/15/16 11:40 Anaerobic Blood Culture - Preliminary Resulted Blood Peripheral NO GROWTH IN 1 DAY 05/15/16 11:28 Influenza Types A,B Antigen (ALONA) - Final Complete Nasal Washing NEGATIVE FOR FLU A AND B ANTIGEN.... Result Diagram: 05/16/16 1036 05/16/[address] Angiography 05/15/16 1420 Signed Impressions: Service Date/Time: May 15:43 - CONCLUSION: Normal examination. Mild atelectasis both lung bases Bon Quiroz MD Chest X-Ray 05/15/16 1128 Signed Impressions: Service Date/Time: May 11:49 - CONCLUSION: 1. Small areas of platelike atelectasis seen. Improved compared to previous. No acute abnormality. Faheem Yin MD Assessment and Plan Assessment and Plan UTI, growing GNB H/o ESBL, PSAE Cough, no e/o PNA ? URI Sepsis, MS back to normal - cont meropenem - dc vanco - dc fluiconzole - fu urine and blood clx - final rec's per clx report Discussed Condition With family @ b/s Mine Wolf MD 3, 2017 12:58
[2016-05-16 16:00] VITALS: BP 100/68; PULSE 84; RESP 16; TEMP 99.5; O2SAT 97
[2016-05-16] MEDS: ENOXAPARIN SODIUM 30 MG/0.3 ML SYRINGE SQ SCH (16:52)
[2016-05-16] MEDS ORDERED: POTASSIUM CHLORIDE 10 MEQ CONTROLLED RELEASE TAB PO ONE (17:15)
[2016-05-16 20:38] VITALS: BP 98/66; PULSE 92; RESP 16; TEMP 98.6; O2SAT 95
--- NOTE | 2016-05-16 23:37 | EKG ---
Date Performed: 05/15/2016 Time Performed: 12:31:17 PTAGE: 70 years EKG: SINUS BRADYCARDIA MODERATE T-WAVE ABNORMALITY, CONSIDER ANTERIOR ISCHEMIA ABNORMAL ECG INTE RPRETATION BASED ON A DEFAULT AGE OF 40 YEARS PREVIOUS TRACING : 04/10/2015 21.50 DOCTOR: Garrett Gonzalez Interpretating Date/Time 05/16/2016 23:34:41
[2016-05-17 00:27] VITALS: BP 128/84; PULSE 94; RESP 17; TEMP 98.2; O2SAT 95
[2016-05-17 05:12] VITALS: BP 123/56; PULSE 89; RESP 17; TEMP 97.4; O2SAT 99
[2016-05-17 06:12] LABS: BICARBONATE 22.5 MEQ/L (21.0-32.0); POTASSIUM 3.6 MEQ/L (3.5-5.1)
[2016-05-17] MEDS: POTASSIUM CHLORIDE INJ 10 MEQ in DEXT 5%-NACL 0.9% 1000 ML INJ 1,000 ML IV SCH ×2 (06:14→08:07)
[2016-05-17] MEDS: MEROPENEM 1000 MG/NS 100 ML IV SCH ×6 (06:15→22:05)
[2016-05-17 08:00] VITALS: BP 118/72; PULSE 72; RESP 16; TEMP 98.2; O2SAT 96
--- NOTE | 2016-05-17 11:55 | HHI.PR ---
Subjective Remarks at bedside po intake very good patient with o complains of chills, feels "good" Objective Vitals Vital Signs Date Time Temp Pulse Resp B/P Pulse Ox O2 Delivery O2 Flow Rate FiO2 05/17/16 08:00 98.2 72 16 118/72 96 05/17/16 05:12 97.4 89 17 123/56 99 05/17/16 00:27 98.2 94 17 128/84 95 05/16/16 20:38 98.6 92 16 98/66 95 05/16/16 16:00 99.5 84 16 100/68 97 05/16/16 12:00 96.4 95 20 105/72 99 I/O 05/16/16 05/16/16 05/16/16 05/17/16 05/17/16 05/17/16 07:00 15:00 23:00 07:00 15:00 23:00 Intake Total 1115 ml 2264 ml 360 ml 280 ml Output Total 50 ml 100 ml 600 ml 500 ml Balance 1065 ml 2164 ml -240 ml -220 ml Intake Oral 280 ml 360 ml 360 ml 280 ml IV Total 835 ml 904 ml Other 1000 ml Output Urine Total 50 ml 100 ml 600 ml 500 ml # Voids 4 2 # Bowel Movements 0 1 Result Diagram: 05/16/16 1036 05/17/16 [address] Angiography 05/15/16 1420 Signed Impressions: Service Date/Time: May 15:43 - CONCLUSION: Normal examination. Mild atelectasis both lung bases Bon Quiroz MD Chest X-Ray 05/15/16 1128 Signed Impressions: Service Date/Time: May 11:49 - CONCLUSION: 1. Small areas of platelike atelectasis seen. Improved compared to previous. No acute abnormality. Faheem Yin MD Objective Remarks awake and alert, oriented x 3 anicteric lungs no rales regular rhythm abdomen- suprapubic catheter site dry with mild erythema extremities no edema, both UE- flexed across the chest stage 2 sacral decubitus ulcer Urinary Catheter: Yes [place] insert reason: Prolonged Immobilization Date of Insertion: May 16, 2016 A/P Assessment and Plan Patient is a very pleasant 70-year-old female with history of advanced Parkinson 's disease bedbound presenting with Gram negative UTI secondary to recurrent cystitis - with chronic Suprapubic catheter septic on presentation Gram + cocci on 1 set of blood culture- possibly contaminant- will d/w ID SC changed 3/3 Blood culture- negative so far. ID ff. On Meropenem Transient hypoxemia - resolved CTA negative for PE History of advanced Parkinson's We'll continue on medications Acute kidney injury prerenal- improved Mild hypernatremia Hypokalemia change IVF to D51/2 NS + KCL - decrease rate 70 cc/hr KCL 20 meq po daily Stage III decubitus ulcer. We'll continue on alginate wound dressing change q 3 days wound care team to follow patient in-house Lovenox for DVT prophylaxis Patient is a DO NOT RESUSCITATE takes care of all her needs- he does decubitus care, everything for her Nilda Valencia MD May 17, 2016 11:55
[2016-05-17 12:00] VITALS: BP 119/57; PULSE 99; RESP 18; TEMP 98.2; O2SAT 93
[2016-05-17] MEDS ORDERED: Vancomycin Consult Pharmacy 1 EA OTHER SCH (12:45)
[2016-05-17] MEDS: D5-1/2 NS + KCL 20 MEQ INJ 1,000 ML IV SCH (14:13)
[2016-05-17 16:00] VITALS: BP 130/58; PULSE 95; RESP 16; TEMP 98.7; O2SAT 95
[2016-05-17] MEDS: ENOXAPARIN SODIUM 30 MG/0.3 ML SYRINGE SQ SCH (17:40)
[2016-05-17] MEDS: VANCOMYCIN INJ 1,250 MG in SODIUM CHLOR 0.9% 250 ML INJ 250 ML IV SCH (17:41)
[2016-05-17 20:00] VITALS: BP 117/72; PULSE 95; RESP 16; TEMP 99; O2SAT 95
[2016-05-18] VITALS: BP 104/56; PULSE 84; RESP 16; TEMP 98.7; O2SAT 95
[2016-05-18] MEDS: D5-1/2 NS + KCL 20 MEQ INJ 1,000 ML IV SCH ×2 (02:03→05:46)
[2016-05-18] MEDS: MEROPENEM 1000 MG/NS 100 ML IV SCH ×6 (05:13→20:43)
[2016-05-18 07:13] LABS: AUTOMATED NEUTROPHIL # 5.5 TH/MM3 (1.8-7.7); BASOPHIL # 0.1 TH/MM3 (0-0.2); BASOPHIL % 0.5 % (0.0-2.0); EOSINOPHIL # 0.4 TH/MM3 (0-0.4); EOSINOPHIL % 3.6 % (0.0-4.0); HEMATOCRIT 39.4 % (35.0-46.0); HEMO FLAGS DIFF FINAL; LYMPH % 28.7 % (9.0-44.0); LYMPHOCYTE # 2.9 TH/MM3 (1.0-4.8); MEAN CELL VOLUME 86.3 FL (80.0-100.0); MEAN CORPUSCULAR HEMOGLOBIN 28.5 PG (27.0-34.0); MONO % 11.9 % (0.0-8.0); NEUT % 55.3 % (16.0-70.0); PLATELET COUNT 229 TH/MM3 (150-450); RED BLOOD COUNT 4.57 MIL/MM3 (4.00-5.30)
[2016-05-18 07:21] LABS: BICARBONATE 25.8 MEQ/L (21.0-32.0); POTASSIUM 3.5 MEQ/L (3.5-5.1)
[2016-05-18 08:00] VITALS: BP 126/70; PULSE 84; RESP 16; TEMP 97.3; O2SAT 97
[2016-05-18 12:00] VITALS: BP 108/56; PULSE 78; RESP 17; TEMP 96.1; O2SAT 98
--- NOTE | 2016-05-18 13:21 | HHI.PR ---
Subjective Remarks No acute events overnight. Afebrile, vital signs stable. Patient is confused this morning, per her this is baseline. Urine is clear. She complains of lower abdominal pain. Last bowel movement approximately 6 days ago. Objective Vitals Vital Signs Date Time Temp Pulse Resp B/P Pulse Ox O2 Delivery O2 Flow Rate FiO2 05/18/16 12:00 96.1 78 17 108/56 98 05/18/16 08:00 97.3 84 16 126/70 97 05/18/16 00:00 98.7 84 16 104/56 95 05/17/16 20:00 99.0 95 16 117/72 95 05/17/16 16:00 98.7 95 16 130/58 95 I/O 05/17/16 05/17/16 05/17/16 05/18/16 05/18/16 05/18/16 06:59 14:59 22:59 06:59 14:59 22:59 Intake Total 280 ml 1138 ml 240 ml 120 ml 140 ml Output Total 500 ml 1100 ml 650 ml 1000 ml Balance -220 ml 38 ml -410 ml -880 ml 140 ml Intake Oral 280 ml 360 ml 240 ml 120 ml IV Total 778 ml 140 ml Output Urine Total 500 ml 1100 ml 650 ml 1000 ml # Bowel Movements 0 0 0 Result Diagram: 05/18/16 0545 05/18/16 [address] Angiography 05/15/16 1420 Signed Impressions: Service Date/Time: May 15:43 - CONCLUSION: Normal examination. Mild atelectasis both lung bases Bon Quiroz MD Chest X-Ray 05/15/16 1128 Signed Impressions: Service Date/Time: May 11:49 - CONCLUSION: 1. Small areas of platelike atelectasis seen. Improved compared to previous. No acute abnormality. Faheem Yin MD Objective Remarks Gen.: No acute distress Head: Normocephalic. Atraumatic. EENT: Pupils equal round and reactive to light. Nose without drainage. Airway intact. Throat without injection. Cardiovascular: Regular rate and rhythm. No murmurs, rubs or gallops. Respiratory: Lungs clear to auscultation bilaterally. No wheezes or rhonchi. Abdomen: Soft, diffusely tender to palpation, nondistended. No peritoneal signs. : [place] with clear yellow urine Musculoskeletal: No gross deformities. No edema. Skin: No obvious rashes or erythema. Neuro: Sensory and motor grossly intact. Cranial nerves II through XII grossly intact. 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 (2) Bacteremia ICD Code: R78.81 Status: Resolved (3) UTI (urinary tract infection) ICD Code: N39.0 Status: Acute (4) Parkinsons disease ICD Code: G20 Status: Chronic (5) Neurogenic bladder ICD Code: N31.9 Status: Chronic (6) Constipation ICD Code: K59.00 Status: Acute (7) Hypokalemia ICD Code: E87.6 Status: Acute (8) Hypernatremia ICD Code: E87.0 Status: Acute Assessment and Plan Patient is a very pleasant 70-year-old female with history of advanced Parkinson 's disease bedbound presenting with: Gram negative UTI secondary to recurrent cystitis - with chronic Suprapubic catheter septic on presentation Urine culture positive for Pseudomonas Suprapubic catheter changed 3/3 ID following, on meropenem Gram + cocci on 1 set of blood culture- likely contaminant Started Vanc per ID Repeat blood cultures no growth 3 days Transient hypoxemia - resolved CTA negative for PE History of advanced Parkinson's We'll continue on medications Acute kidney injury prerenal-resolved Mild hypernatremia-resolved Hypokalemia Continue IVF to D51/2 NS + KCL at 70 cc/hour KCL 20 meq po daily Stage III decubitus ulcer. We'll continue on alginate wound dressing change q 3 days Rotate patient every 2 hours wound care team to follow patient in-house Constipation Started Colace Lovenox for DVT prophylaxis Patient is a DO NOT RESUSCITATE takes care of all her needs- he does decubitus care, everything for her Problem Qualifiers (1) UTI (urinary tract infection): Qualified Code: N30.00 - Acute cystitis without hematuria Bess Bethea MD R3 May 18, 2016 13:21
[2016-05-18 16:00] VITALS: BP 111/58; PULSE 84; RESP 18; TEMP 98.1; O2SAT 96
[2016-05-18] MEDS: ENOXAPARIN SODIUM 30 MG/0.3 ML SYRINGE SQ SCH (17:36)
[2016-05-18] MEDS: VANCOMYCIN INJ 1,250 MG in SODIUM CHLOR 0.9% 250 ML INJ 250 ML IV SCH (17:37)
[2016-05-18] MEDS ORDERED: PHARMACY ORDERED LAB XX ONE (19:45)
[2016-05-18 20:00] VITALS: BP 105/57; PULSE 96; RESP 16; TEMP 97; O2SAT 96
[2016-05-18] MEDS ORDERED: DOCUSATE SODIUM 100 MG CAP PO SCH (21:00)
[2016-05-19] VITALS: BP 115/78; PULSE 93; RESP 16; TEMP 98.8; O2SAT 95
[2016-05-19] MEDS: MEROPENEM 1000 MG/NS 100 ML IV SCH ×4 (04:47→12:00)
[2016-05-19] MEDS: D5-1/2 NS + KCL 20 MEQ INJ 1,000 ML IV SCH (04:48)
[2016-05-19 05:52] LABS: AUTOMATED NEUTROPHIL # 5.5 TH/MM3 (1.8-7.7); BASOPHIL # 0.1 TH/MM3 (0-0.2); BASOPHIL % 1.1 % (0.0-2.0); EOSINOPHIL # 0.4 TH/MM3 (0-0.4); EOSINOPHIL % 3.4 % (0.0-4.0); HEMATOCRIT 39.7 % (35.0-46.0); HEMO FLAGS DIFF FINAL; LYMPHOCYTE # 3.2 TH/MM3 (1.0-4.8); MEAN CELL VOLUME 85.6 FL (80.0-100.0); MEAN CORPUSCULAR HEMOGLOBIN 28.6 PG (27.0-34.0); MEAN CORPUSCULAR HGB CONC 33.4 % (32.0-36.0); MONO % 13.3 % (0.0-8.0); NEUT % 52.2 % (16.0-70.0); PLATELET COUNT 231 TH/MM3 (150-450); RED BLOOD COUNT 4.63 MIL/MM3 (4.00-5.30); WHITE BLOOD COUNT 10.6 TH/MM3 (4.0-11.0)
[2016-05-19 06:12] LABS: BICARBONATE 22.6 MEQ/L (21.0-32.0)
[2016-05-19 08:00] VITALS: BP 119/58; PULSE 100; RESP 18; TEMP 97.1; O2SAT 98
[2016-05-19 12:00] VITALS: BP 125/57; PULSE 95; RESP 16; TEMP 96.3; O2SAT 97
--- NOTE | 2016-05-19 13:26 | HHI.PR ---
Subjective Remarks Follow up UTI, electrolyte abnormalities. The patient has no complaints at this time. She and her state that she is ready to go home. Objective Vitals Vital Signs Date Time Temp Pulse Resp B/P Pulse Ox O2 Delivery O2 Flow Rate FiO2 05/19/16 12:00 96.3 95 16 125/57 97 05/19/16 08:00 97.1 100 18 119/58 98 05/19/16 00:00 98.8 93 16 115/78 95 05/18/16 20:00 97.0 96 16 105/57 96 05/18/16 16:00 98.1 84 18 111/58 96 I/O 05/18/16 05/18/16 05/18/16 05/19/16 05/19/16 05/19/16 07:00 15:00 23:00 07:00 15:00 23:00 Intake Total 120 ml 1266 ml 240 ml 120 ml 1248 ml Output Total 1000 ml 1850 ml 300 ml 1400 ml Balance -880 ml -584 ml -60 ml -1280 ml 1248 ml Intake Oral 120 ml 480 ml 240 ml 120 ml IV Total 786 ml 1248 ml Output Urine Total 1000 ml 1850 ml 300 ml 1400 ml # Bowel Movements 0 0 0 0 Result Diagram: 05/19/16 0539 05/19/16 [address] Angiography 05/15/16 1420 Signed Impressions: Service Date/Time: May 15:43 - CONCLUSION: Normal examination. Mild atelectasis both lung bases Bon Quiroz MD Chest X-Ray 05/15/16 1128 Signed Impressions: Service Date/Time: May 11:49 - CONCLUSION: 1. Small areas of platelike atelectasis seen. Improved compared to previous. No acute abnormality. Faheem Yin MD Objective Remarks General: Elderly female in no acute distress. Heart: Regular rate and rhythm. No murmur. Lungs: Clear to auscultation bilaterally. No wheezes, rales, or rhonchi. Breathing is nonlabored. Abdomen: Soft, nontender, nondistended. Extremities: No lower extremity edema. Psych: Alert, confused. 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 Sepsis secondary to UTI: Patient had tachycardia, leukocytosis, lactic acidosis. Improved. Continue antibiotics. 2. Recurrent cystitis, gram-negative UTI: Urine culture growing Pseudomonas. Patient has chronic indwelling suprapubic catheter. Appreciate infectious disease recommendations. 3. Bacteremia: Staph epidermidis in 1 culture bottle. Antibiotics per infectious disease. Repeat blood cultures are negative so far. 4. Advanced Parkinson's disease: Continue home medications. 5. Acute kidney injury: Prerenal. Resolved. 6. Hypernatremia: Resolved. 7. Hypokalemia: Resolved. 8. Stage III decubitus ulcer: Continue alginate wound dressing change every 3 days. Rotate patient every 2 hours. Appreciate wound care recommendations. 9. Constipation: Continue Colace. 10. DVT prophylaxis: Lovenox. 11. CODE STATUS: DO NOT RESUSCITATE Discharge Planning Discharge home today. Problem Qualifiers (1) UTI (urinary tract infection): Qualified Code: N30.00 - Acute cystitis without hematuria Anastacio Bravo MD May 19, 2016 13:26
[2016-05-19] MEDS ORDERED: LEVO500T3 PO (13:49)
--- NOTE | 2016-05-19 13:51 | HHI.DCPOC ---
Discharge Care Plan Diagnosis: (1) Parkinsons disease (2) Neurogenic bladder (3) UTI (urinary tract infection) (4) Sacral wound (5) Encephalopathy acute (6) Sepsis (7) Hypokalemia (8) Bacteremia (9) Hypernatremia Goals to Promote Your Health * To prevent worsening of your condition and complications * To maintain your health at the optimal level Directions to Meet Your Goals Take your medications as prescribed Follow your dietary instruction Follow activity as directed Keep your appointments as scheduled Take your immunizations and boosters as scheduled If your symptoms worsen call your PCP, if no PCP go to Urgent Care Center or Emergency Room Smoking is Dangerous to Your Health. Avoid second hand smoke Call the 24-hour hour crisis hotline for domestic abuse at Anastacio Bravo MD May 19, 2016 13:51
--- NOTE | 2016-05-19 13:52 | HHI.FF ---
Face to Face Verification Diagnosis: (1) Neurogenic bladder (2) Parkinsons disease (3) Sepsis (4) Sacral wound (5) UTI (urinary tract infection) Physical Therapy Order: Evaluate and Treat Home Health Nursing Order: Wound care and dressing changes Nursing assessment with vital signs Cast[place]na catheter maintenance I have seen patient Anastasiya Cali on 05/19/16. My clinical findings support the need for the requested home health care services because: Ltd mobility - disease progression Limited ability to care for self I certify that my clinical findings support that this patient is homebound because: [id number] bed/chair Anastacio Bravo MD May 19, 2016 13:52
--- NOTE | 2016-05-19 14:37 | HHI.IDPN ---
Subjective Subjective Remarks afebrile per MS back to b/l Antibiotics meropenem vanco Allergies: Coded Allergies: *MDRO Multi-Drug Resistant Organism (Verified Adverse Reaction, Unknown, ) ESBL+E.COLI (urine) - 2011, 2012, 2014, 01/04/16; (blood) - 2011 VRE (urine/blood) - 2011 Objective . Vital Signs Date Time Temp Pulse Resp B/P Pulse Ox O2 Delivery O2 Flow Rate FiO2 05/19/16 12:00 96.3 95 16 125/57 97 05/19/16 08:00 97.1 100 18 119/58 98 05/19/16 00:00 98.8 93 16 115/78 95 05/18/16 20:00 97.0 96 16 105/57 96 05/18/16 16:00 98.1 84 18 111/58 96 05/18/16 05/18/16 05/19/16 15:00 23:00 07:00 Intake Total 1266 ml 240 ml 120 ml Output Total 1850 ml 300 ml 1400 ml Balance -584 ml -60 ml -1280 ml Intake Oral 480 ml 240 ml 120 ml IV Total 786 ml Output Urine Total 1850 ml 300 ml 1400 ml # Bowel Movements 0 0 0 . Laboratory Tests Test 05/18/16 05/19/16 05:45 05:39 White Blood Count 10.0 TH/MM3 10.6 TH/MM3 Red Blood Count 4.57 MIL/MM3 4.63 MIL/MM3 Hemoglobin 13.0 GM/DL 13.2 GM/DL Hematocrit 39.4 % 39.7 % Mean Corpuscular Volume 86.3 FL 85.6 FL Mean Corpuscular Hemoglobin 28.5 PG 28.6 PG Mean Corpuscular Hemoglobin 33.0 % 33.4 % Concent Red Cell Distribution Width 16.0 % 16.0 % Platelet Count 229 TH/MM3 231 TH/MM3 Mean Platelet Volume 8.1 FL 7.8 FL Neutrophils (%) (Auto) 55.3 % 52.2 % Lymphocytes (%) (Auto) 28.7 % 30.0 % Monocytes (%) (Auto) 11.9 % 13.3 % Eosinophils (%) (Auto) 3.6 % 3.4 % Basophils (%) (Auto) 0.5 % 1.1 % Neutrophils # (Auto) 5.5 TH/MM3 5.5 TH/MM3 Lymphocytes # (Auto) 2.9 TH/MM3 3.2 TH/MM3 Monocytes # (Auto) 1.2 TH/MM3 1.4 TH/MM3 Eosinophils # (Auto) 0.4 TH/MM3 0.4 TH/MM3 Basophils # (Auto) 0.1 TH/MM3 0.1 TH/MM3 CBC Comment DIFF FINAL DIFF FINAL Differential Comment Hematology Comments Laboratory Tests Test 05/18/16 05/19/16 05:45 05:39 Sodium Level 145 MEQ/L 143 MEQ/L Potassium Level 3.5 MEQ/L 4.0 MEQ/L Chloride Level 111 MEQ/L 110 MEQ/L Carbon Dioxide Level 25.8 MEQ/L 22.6 MEQ/L Anion Gap 8 MEQ/L 10 MEQ/L Blood Urea Nitrogen 3 MG/DL 6 MG/DL Creatinine 0.49 MG/DL 0.58 MG/DL Estimat Glomerular Filtration 125 ML/MIN 103 ML/MIN Rate Random Glucose 85 MG/DL 89 MG/DL Calcium Level 9.1 MG/DL 9.0 MG/DL Imaging Last Impressions CT Angiography 05/15/16 1420 Signed Impressions: Service Date/Time: May 15:43 - CONCLUSION: Normal examination. Mild atelectasis both lung bases Bon Quiroz MD Chest X-Ray 05/15/16 1128 Signed Impressions: Service Date/Time: May 11:49 - CONCLUSION: 1. Small areas of platelike atelectasis seen. Improved compared to previous. No acute abnormality. Faheem Yin MD Physical Exam CONSTITUTIONAL/GENERAL: This is an adequately nourished elderly female patient , in no apparent distress. TUBES/LINES/DRAINS: SKIN: No jaundice, rashes, or lesions EYES: No scleral icterus. No injection or drainage. Fundi not examined. CARDIOVASCULAR: Regular rate and rhythm without murmurs, gallops, or rubs. No JVD. Peripheral pulses symmetric. RESPIRATORY/CHEST: Symmetric, unlabored respirations. Clear to auscultation. Breath sounds equal bilaterally. No wheezes, rales, or rhonchi. GASTROINTESTINAL: Abdomen soft, non-tender, nondistended. No hepato-splenomegaly , or palpable masses. No guarding. Bowel sounds present. GENITOURINARY: Without palpable bladder distension. Sp catheter in place with clear yellow urine MUSCULOSKELETAL: Extremities without clubbing, cyanosis, or edema. N NEUROLOGICAL: Awake and alert. Less interactive today Assessment & Plan Remarks UTI, growing GNB H/o ESBL, PSAE lacy S Cough, no e/o PNA ? URI Sepsis, MS back to normal Staph epi low grade bactermeia, doubt clin significance -dc meropenem - dc vanco - start levaquine 500 x 10 days to complete 2 week course dw at b/s dw Dr Lyle OK to dc home Mine Wolf MD May 19, 2016 14:36
[2016-05-19] MEDS ORDERED: LEVOFLOXACIN 500 MG TAB PO SCH (14:45)
[2016-05-20] MEDS ORDERED: LEVOFLOXACIN 500 MG TAB PO SCH (09:00)
[2016-05-20] MEDS ORDERED: PHARMACY ORDERED LAB XX ONE (16:45)
[2016-06-04] MEDS ORDERED: BENZ100 PO (15:34)
[2016-06-04] MEDS ORDERED: ASCO500C PO (15:34)
--- NOTE | 2016-07-15 15:02 | HHI.DS ---
cc: Shira Drake MD Discharge Summary Admission Date May 15, 2016 at 15:29 Discharge Date: May 19, 2016 Admitting Diagnosis acute cystitis, leukocytosis, hypotension (1) UTI (urinary tract infection) ICD Code: N39.0 (2) Sacral wound ICD Code: S31.000A (3) Bacteremia ICD Code: R78.81 (4) Parkinsons disease ICD Code: G20 (5) Neurogenic bladder ICD Code: N31.9 (6) Constipation ICD Code: K59.00 (7) Hypokalemia ICD Code: E87.6 (8) Hypernatremia ICD Code: E87.0 Procedures None Brief History - From Admission Patient is a 70-year-old female with advanced Parkinson's disease, total care, bedbound for over a year now, she has a suprapubic catheter in place for the last 15 months this was just changed yesterday by a nurse button maker and installer and change every month. Baseline she is incontinent of stools and urine. She was brought in today because patient was complaining of cough and on evaluation by the nurses button maker and installer he had a systolic blood pressure of 70 with decreased oxygen saturation. I called primary physician and was instructed to come here. Patient and family states she eats well there was no fever or chills. As stated has been having 5 days of nonproductive cough. Denies any difficulty in swallowing. Stools are occasionally constipation occasionally would need manual disimpaction periodically. She also has a chronic wound sacral decubitus stage II which is dressed with alginate dressing daily. She also doesn't care center every 2 weeks. Per family was very involved his wound is improving. At the ER patient was given 1 L of normal saline bolus, and placed on O2 nasal cannula. Right now on evaluation blood pressures is improved. Her O2 sat is 98% on room air. Imaging Last Impressions CT Angiography 05/15/16 1420 Signed Impressions: Service Date/Time: May 15:43 - CONCLUSION: Normal examination. Mild atelectasis both lung bases Bon Quiroz MD Chest X-Ray 05/15/16 1128 Signed Impressions: Service Date/Time: May 11:49 - CONCLUSION: 1. Small areas of platelike atelectasis seen. Improved compared to previous. No acute abnormality. Faheem Yin MD PE at Discharge General: Elderly female in no acute distress. Heart: Regular rate and rhythm. No murmur. Lungs: Clear to auscultation bilaterally. No wheezes, rales, or rhonchi. Breathing is nonlabored. Abdomen: Soft, nontender, nondistended. Extremities: No lower extremity edema. Psych: Alert, confused. Hospital Course The patient was admitted for management of sepsis secondary to recurrent cystitis. Hypotension improved with IV fluids. Infectious disease was consulted. She was continued on IV antibiotics. She continued to improve throughout the hospitalization. Infectious disease changed her to oral Levaquin. She was cleared for discharge home. Pt Condition on Discharge: Stable Discharge Disposition: Disch w/ Home Health Serv Discharge Time: > 30 minutes Discharge Instructions DIET: Follow Instructions for: As Tolerated, No Restrictions Activities you can perform: Regular-No Restrictions Follow up Referrals: PCP Follow-up - 1 Week SNF/[facility]/ with Nurse practice management consultant [phone] Continued Medications: Donepezil (Donepezil) 10 Mg Tab 10 MG PO DAILY Dementia #30 Ref 0 TAB Fesoterodine ER (Toviaz ER) 4 mg Chevy 4 MG PO DAILY Overactive bladder #60 Ref 2 TAB Nystatin Topical (Nystatin Topical) 100,000 unit/gm Cream 1 APPLIC TOPICAL DAILY PRN RASH #15 Ref 0 GM Olanzapine (Zyprexa) 5 Mg Tab 5 MG PO HS #30 Ref 0 TAB Pregabalin (Lyrica) 50 Mg Cap 50 MG PO TID #90 Ref 0 CAP Rotigotine Patch 24 HR (Neupro Patch 24 HR) 4 Mg/24 Hr Patch 4 MG T-DERMAL DAILY Parkinson Disease Mgmt Ref 0 PATCH Discontinued Medications: Nitrofurantoin Macrocrystal (Nitrofurantoin Macrocrystal) 100 Mg Cap 100 MG PO QID CAP Anastacio Bravo MD July 15, 2016 15:02
== END 2016-05-19 15:50 | disposition home health service (06) | DRG 698 ==
LOC: NEPE 10:58 → NEDA 15:29 → N07A 18:08
PROVIDERS: ADMIT Family Medicine; ATTEND Family Medicine
PROC: 0T9B70Z Drainage of Bladder with Drainage Device, Via Natural or Artificial Opening (ICD-10-PCS; principal; 2016-05-16)
DX: T83.510A Infection and inflammatory reaction due to cystostomy catheter, initial encounter (principal); A41.9 Sepsis, unspecified organism; G93.40 Encephalopathy, unspecified; N17.9 Acute kidney failure, unspecified; L89.153 Pressure ulcer of sacral region, stage 3; N30.00 Acute cystitis without hematuria; E87.2 Acidosis; G20 Parkinson's disease; R09.02 Hypoxemia; Z74.01 Bed confinement status; Z66 Do not resuscitate; Y73.1 Therapeutic (nonsurgical) and rehabilitative gastroenterology and urology devices associated with adverse incidents; Z86.14 Personal history of Methicillin resistant Staphylococcus aureus infection; J45.909 Unspecified asthma, uncomplicated; Z86.73 Personal history of transient ischemic attack (TIA), and cerebral infarction without residual deficits; Z87.440 Personal history of urinary (tract) infections; R41.3 Other amnesia; G62.9 Polyneuropathy, unspecified; F03.90 Unspecified dementia, unspecified severity, without behavioral disturbance, psychotic disturbance, mood disturbance, and anxiety; N31.9 Neuromuscular dysfunction of bladder, unspecified; E87.6 Hypokalemia; K59.00 Constipation, unspecified; Z23 Encounter for immunization
CPT/HCPCS: 71010; 71275; 80048; 80053; 81001; 82565; 83605; 83735; 85025; 85610; 85730; 87040; 87077; 87086; 87186; 87205; 87804; 90471; 90472; 90686; 90732; 93005; 96374; G0008; G0009; J0696; J1450; J1650; J2185; J3370; J3480; J7030; J7042; J7050; Q2038; Q9967

== ENCOUNTER 2016-06-05 14:40 | Inpatient (IN) | payer MEDICARE, BC ==
[~2016-06-05] VITALS: Ht 165.1 cm; Wt 64.8 kg
[2016-06-05] VITALS (13 sets, daily range): BP systolic 74–150; BP diastolic 54–89; PULSE 82–113; RESP 14–18; TEMP 99.7; O2SAT 93–100
[~2016-06-05 14:40] MED LIST changes: +ASCO500C PO; -ASPI325T PO; +BENZ100 PO; -DULC100C PO; -HYDR-3533 PO; -NITR1CAP36 PO; -ONDA4TAB7 PO
[2016-06-05] MEDS ORDERED: CARBIDOPA/LEVODOPA 25 MG/250 MG TAB PO ONE ×2 (15:15→15:30)
[2016-06-05] MEDS ORDERED: SODIUM CHLOR 0.9% 1000 ML INJ 1,000 ML IV SCH (15:16)
[2016-06-05] MEDS ORDERED: VANCOMYCIN INJ 1,000 MG in SODIUM CHLOR 0.9% 250 ML INJ 250 ML IV ONE (15:30)
[2016-06-05] MEDS ORDERED: SODIUM CHLOR 0.9% 1000 ML INJ 1,000 ML IV ONE ×2 (15:30)
[2016-06-05] MEDS ORDERED: SODIUM CHLORIDE 0.9% FLUSH 10 ML FLUSH IVF PRN (15:30)
[2016-06-05] MEDS ORDERED: PIPERACIL-TAZO 4.5 GM PREMIX 100 ML IV ONE (15:30)
[2016-06-05 15:38] LABS: AUTOMATED NEUTROPHIL # 29.1 TH/MM3 (1.8-7.7); BASOPHIL # 0.1 TH/MM3 (0-0.2); BASOPHIL % 0.3 % (0.0-2.0); HEMATOCRIT 41.6 % (35.0-46.0); LYMPH % 4.1 % (9.0-44.0); LYMPHOCYTE # 1.3 TH/MM3 (1.0-4.8); MEAN CELL VOLUME 86.1 FL (80.0-100.0); MEAN CORPUSCULAR HEMOGLOBIN 28.3 PG (27.0-34.0); MEAN CORPUSCULAR HGB CONC 32.9 % (32.0-36.0); MONO % 5.7 % (0.0-8.0); NEUT % 89.9 % (16.0-70.0); PLATELET COUNT 262 TH/MM3 (150-450); RED BLOOD COUNT 4.83 MIL/MM3 (4.00-5.30); RED CELL DISTRIBUTION WIDTH 15.4 % (11.6-17.2); WHITE BLOOD COUNT 32.4 TH/MM3 (4.0-11.0)
[2016-06-05 15:46] LABS: BLOOD GAS BASE EXCESS -6.9 mmol/L (-2-2); BLOOD GAS HCO3 18 mmol/L (22-26); BLOOD GAS METHEMOGLOBIN 0.5 % (0-2); BLOOD GAS O2 HGB SATURATION 96 % (90-100); BLOOD GAS OXYGEN CONTENT 15.1 Vol % (12.0-20.0); BLOOD GAS PCO2 31 mmHg (38-42); BLOOD GAS PO2 98 mmHG (61-120); BLOOD GAS TOTAL HGB 11.1 G/DL (12.0-16.0); CRITICAL VALUE NO; DRAW SITE RT RADIAL; LITER FLOW 2 L/M; NUMBER OF ARTERIAL PUNCTURES 1; OXYGEN DEVICE NASAL CANNULA; STAT YES; TEMP CORR TO 98.6; ULNAR PULSE PRESENT
--- NOTE | 2016-06-05 15:46 | PD ---
HPI Chief Complaint: Altered Mental Status Time Seen by Provider: 15:16 Travel History International Travel<30 days: No Contact w/Intl Traveler<30days: No Traveled to known affect area: No History of Present Illness HPI 70-year-old female came to the emergency room with history of unresponsiveness/ altered mental status. She came from home and her called 911 when he could not wake her up this afternoon. Unknown last time she was seen to be her baseline mental status which is GCS of 15 as per paramedics. Patient has history of dementia and Parkinson's disease. As per the paramedics her temperature was 100.2 axillary and blood pressure was in the 90s systolic. Her GCS was 8 upon arrival but she was maintaining her airway and oxygen saturation was 97% on 2 L of oxygen. Heart rate was in the 90s. Her rectal temperature in the emergency room was 99.2. Blood sugar as per EMS was 122. Patient has an indwelling suprapubic catheter. [facility] Past Medical History Narrative Medical List of her past medical, surgical, social and family history was reviewed from the nursing note. Hx Anticoagulant Therapy: Yes (325 MG ASA DAILY) Arthritis: No Asthma: Yes Autoimmune Disease: No Blood Disorders: No Anxiety: No Depression: No Heart Rhythm Problems: No Cancer: No Cardiovascular Problems: Yes (ORTHOSTATIC HYPOTENSION) High Cholesterol: No Chemotherapy: No Congestive Heart Failure: No COPD: No Cerebrovascular Accident: Yes (TIA 2013) Dementia: Yes Diabetes: No Diminished Hearing: No Endocrine: No Gastrointestinal Disorders: Yes (hx constipation) GERD: No Glaucoma: No Genitourinary: Yes (incontinence, frequent UTI's,suprapubic cath ) Headaches: No Hepatitis: No Hiatal Hernia: No Hypertension: No Immune Disorder: No Implanted Vascular Access Dvce: Yes Kidney Stones: No Musculoskeletal: Yes (non ambulatory hx of back surgery and cervical spine) Neurologic: Yes (NEUROPATHY FEET, PARKINSON'S, short term memory loss, confusion) Parkinson's Disease: Yes Psychiatric: Yes (r/t parkinson's, confused, short term memory loss) Reproductive: No Respiratory: Yes (ASTHMA) Integumentary: Yes (PRESSURE ULCER LEFT BUTTOCKS WITH WOUND VAC @ 120HHMG) Immunizations Current: Yes Migraines: No Myocardial Infarction: No Radiation Therapy: No Renal Failure: No Seizures: Yes Sickle Cell Disease: No Sleep Apnea: No Thyroid Disease: No Ulcer: No PNEUMOCCOCAL Vaccine (Year): 2007 Menopausal: Yes : 0 Past Surgical History Abdominal Surgery: No AICD: No Appendectomy: Yes Arteriovenous Shunt: No Body Medical Devices: CERVICAL HARDWARE Cardiac Surgery: No Cholecystectomy: No Ear Surgery: No Endocrine Surgery: No Eye Surgery: Yes (BILATERAL CATARACT SURGERY) Genitourinary Surgery: Yes (SP CATHETER PLACED X 3 LAST PLACEMENT ONE MONTH AGO ) Gynecologic Surgery: Yes (HYSTERECTOMY) Hysterectomy: Yes Insulin Pump: No Joint Replacement: No Neurologic Surgery: Yes (LUMBAR SURGERY X 2, CERVICAL FUSION) Oral Surgery: No Pacemaker: No Thoracic Surgery: No Other Surgery: Yes (ULNAR NERVE REPAIR LEFT- 1996) Social History Alcohol Use: No Tobacco Use: No Substance Use: No Allergies-Medications (Allergen,Severity, Reaction): Coded Allergies: *MDRO Multi-Drug Resistant Organism (Verified Adverse Reaction, Unknown, ) ESBL+E.COLI (urine) - 2011, 2012, 2014, 01/04/16; (blood) - 2011; (urine & blood)-06/05/16 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 Reported Meds & Prescriptions Reported Meds & Active Scripts Active Toviaz ER (Fesoterodine Fumarate) 4 mg Chevy 4 Mg PO DAILY Reported Vitamin C (Ascorbic Acid) 500 Mg Cap 500 Mg PO BID Tessalon Perles (Benzonatate) 100 Mg Cap 100 Mg PO TID PRN Donepezil 10 Mg Tab 10 Mg PO DAILY Lyrica (Pregabalin) 50 Mg Cap 50 Mg PO TID Zyprexa (Olanzapine) 5 Mg Tab 5 Mg PO HS Neupro Patch 24 HR (Rotigotine Patch 24 HR) 4 Mg/24 Hr Patch 4 Mg T-DERMAL DAILY Nystatin Topical (Nystatin) 100,000 unit/gm Cream 1 Applic TOPICAL DAILY PRN Carbidopa-Levodopa 25-250 Mg Tab 1 Tab PO 4 X DAILY Narrative Medication Rest of her home medications reviewed from the nursing note. Review of Systems Except as stated in HPI: all other systems reviewed are Neg Physical Exam Narrative GENERAL: Unresponsive, GCS of 8, mouth open and breathing spontaneously, rigid SKIN: Warm and dry. HEAD: Atraumatic. Normocephalic. EYES: Pupils equal and round. No scleral icterus. No injection or drainage. ENT: No nasal bleeding or discharge. Dry mucous membrane NECK: Trachea midline. No JVD. CARDIOVASCULAR: Regular rate and rhythm. No murmur appreciated. RESPIRATORY: No accessory muscle use. Clear to auscultation. Breath sounds equal bilaterally. GASTROINTESTINAL: Abdomen soft, non-tender, nondistended. Hepatic and splenic margins not palpable. MUSCULOSKELETAL: No obvious deformities. No clubbing. No cyanosis. No edema. NEUROLOGICAL: GCS of 8, rigid PSYCHIATRIC: Unable to assess Data Data Last Documented VS Orders Carbidopa-Levodopa 25-250 Mg (Sinemet 25 (06/05/16 15:15) Electrocardiogram (06/05/16 15:16) Ammonia (06/05/16 15:16) Complete Blood Count With Diff (06/05/16 15:16) Comprehensive Metabolic Panel (06/05/16 15:16) Creatine Kinase (Cpk) (06/05/16 15:16) Prothrombin Time / Inr (Pt) (06/05/16 15:16) Troponin I (06/05/16 15:16) Thyroid Stimulating Hormone (06/05/16 15:16) Lactic Acid Sepsis Protocol (06/05/16 15:16) Urinalysis - C+S If Indicated (06/05/16 15:16) Arterial Blood Gas (Abg) (06/05/16 15:16) Blood Culture (06/05/16 15:16) Chest, Single Ap (06/05/16 15:16) Ct Brain W/O Iv Contrast(Rout) (06/05/16 15:16) Blood Glucose (06/05/16 15:16) Ecg Monitoring (06/05/16 15:16) Iv Access Insert/Monitor (06/05/16 15:16) Oximetry (06/05/16 15:16) Sodium Chloride 0.9% Flush (Ns Flush) (06/05/16 15:30) Sodium Chlor 0.9% 1000 Ml Inj (Ns 1000 M (06/05/16 15:16) Drug Screen, Random Urine (06/05/16 15:16) Alcohol (Ethanol) (06/05/16 15:16) Salicylates (Aspirin) (06/05/16 15:16) Tylenol (Acetaminophen) (06/05/16 15:16) Sodium Chlor 0.9% 1000 Ml Inj (Ns 1000 M (06/05/16 15:30) Sodium Chlor 0.9% 1000 Ml Inj (Ns 1000 M (06/05/16 15:30) Piperacil-Tazo 4.5 Gm Premix (Zosyn 4.5 (06/05/16 15:30) Vancomycin Inj (Vancomycin Inj) (06/05/16 15:30) Carbidopa-Levodopa 25-250 Mg (Sinemet 25 (06/05/16 15:30) Urine Culture (06/05/16 15:23) ^ Infusion (06/05/16 ) Norepinephrine-Dextrose Drip (Levophed-D (06/05/16 16:15) Lactic Acid Sepsis Protocol (06/05/16 16:01) Piperacil-Tazo 2.25 Gm Premix (Zosyn 2.2 (06/05/16 23:00) Vancomycin Consult Pharmacy (Vancomycin (06/05/16 16:15) Admit Order (Ed Use Only) (06/05/16 16:13) Carbidopa-Levodopa 25-250 Mg (Sinemet 25 (06/06/16 09:00) CKMB (06/05/16 15:23) CKMB% (06/05/16 15:23) Labs Laboratory Tests Test 06/05/16 15:23 White Blood Count 32.4 TH/MM3 Red Blood Count 4.83 MIL/MM3 Hemoglobin 13.7 GM/DL Hematocrit 41.6 % Mean Corpuscular Volume 86.1 FL Mean Corpuscular Hemoglobin 28.3 PG Mean Corpuscular Hemoglobin 32.9 % Concent Red Cell Distribution Width 15.4 % Platelet Count 262 TH/MM3 Mean Platelet Volume 8.6 FL Neutrophils (%) (Auto) 89.9 % Lymphocytes (%) (Auto) 4.1 % Monocytes (%) (Auto) 5.7 % Eosinophils (%) (Auto) 0.0 % Basophils (%) (Auto) 0.3 % Neutrophils # (Auto) 29.1 TH/MM3 Lymphocytes # (Auto) 1.3 TH/MM3 Monocytes # (Auto) 1.9 TH/MM3 Eosinophils # (Auto) 0.0 TH/MM3 Basophils # (Auto) 0.1 TH/MM3 CBC Comment AUTO DIFF Differential Total Cells 100 Counted Neutrophils % (Manual) 78 % Band Neutrophils % 8 % Lymphocytes % 9 % Monocytes % 5 % Neutrophils # (Manual) 27.9 TH/MM3 Differential Comment FINAL DIFF MANUAL Platelet Estimate NORMAL Platelet Morphology Comment NORMAL Acanthocytes OCC Urine Color DARK-YELLOW Urine Turbidity CLOUDY Urine pH 6.0 Urine Specific [place] 1.023 Urine Protein 300 mg/dL Urine Glucose (UA) NEG mg/dL Urine Ketones TRACE mg/dL Urine Occult Blood LARGE Urine Nitrite POS Urine Bilirubin NEG Urine Urobilinogen LESS THAN 2.0 MG/DL Urine Leukocyte Esterase LARGE Urine RBC /hpf Urine WBC /hpf Urine WBC Clumps MOD Urine Squamous Epithelial 5 /hpf Cells Urine Bacteria MANY /hpf Urine Mucus MANY /lpf Urine Yeast (Budding) FEW Microscopic Urinalysis Comment CATH-CULTURE IND MDM Medical Decision Making Medical Screen Exam Complete: Yes Emergency Medical Condition: Yes Medical Record Reviewed: Yes Interpretation(s) Twelve-lead EKG was reviewed by me. Normal sinus rhythm, normal axis, nonspecific ST-T wave changes, motion artifact. Heart rate of 99 bpm. Differential Diagnosis Sepsis, hypovolemic shock, catatonia from Parkinson Narrative Course 3:43 PM patient after arrival was given 1 L of IV fluid bolus under pressure bag and blood pressure slowly went up to 111 systolic. Nurses were having a hard time getting a second line and labs. Given her soft blood pressure decided to put a central line. Please refer to my procedure note. Patient tolerated the central line procedure well. 2 more liters were ordered through the central line. Patient's blood pressure has continued to be above 100 systolic. I have also ordered Zosyn and vancomycin for sepsis coverage. In addition my opinion patient seems to be rigid from her Parkinson's. I ordered her Sinemet 2 tablets to be crushed and given here NICOLE. Awaiting for the blood test result and the chest x-ray for line placement. Patient has been taken over for CAT scan. Awaiting for the CAT scan to be done and resulted. Patient will require admission. 3:56 PM patient has significant leukocytosis with a white count of 34,000 and left shift. Lactic acid is elevated. Awaiting for the rest of the chemistry and the CAT scan to come back. The UA was grossly infected. Chest x-ray does not show any infiltrate and the line is in good place. I put a call out for the pharmacy clinical coordinator. Patient is in septic shock. Patient seems to be a little more awake at this point. GCS is 12. 4 PM the fourth liter finished and her recent cycle blood pressure is 88 systolic. GCS was 10 at this point. I have ordered norepinephrine drip to be started. She continues to maintain her airway and oxygen saturation is 96%. Awaiting for the pharmacy clinical coordinator to call back. Critical Care Narrative Aggregate critical care time was 75 minutes. Time to perform other separately billable procedures was not included in the critical care time. My time did not include minutes spent treating any other patients simultaneously or on activities that did not directly contribute to the patient's treatment. The services I provided to this patient were to treat and/or prevent clinically significant deterioration that could result in: Altered mental status, hypotension I provided critical care services requiring my management, as noted below: Chart data review, documentation time, medication orders and management, vital sign assessments/reviewing monitor data, ordering and reviewing lab tests, ordering and interpreting/reviewing x-rays and diagnostic studies, care of the patient and discussion of the patient with the admitting physicians. Procedures Procedure Narrative CENTRAL VENOUS LINE: The site was prepped with Betadine and sterilely draped. It was infiltrated with 1% lidocaine plain. The deep vein was cannulated using normal Seldinger technique. A triple lumen central line was placed in the right subclavian site and secured with simple interrupted suture. The site was sterilely dressed. The patient tolerated the procedure well. EKG Prior to Arrival: No Diagnosis Primary Impression: Septic shock Additional Impressions: Altered mental status Qualified Code: R40.1 - Stupor UTI (urinary tract infection) Qualified Code: N39.0 - Urinary tract infection without hematuria, site unspecified Renal failure Elevated troponin I level Admitting Information Admitting Physician Requests: Admit Margie Romo MD Jun 05, 2016 15:46 Arterial Blood 1.0 % Carboxyhemoglobin Arterial Blood Methemoglobin 0.5 % Blood Gas Hemoglobin 11.1 G/DL Oxygen Delivery Device NASAL CANNULA Blood Gas Liter Flow 2 L/M MDM Medical Decision Making Medical Screen Exam Complete: Yes Emergency Medical Condition: Yes Medical Record Reviewed: Yes Interpretation(s) Twelve-lead EKG was reviewed by me. Normal sinus rhythm, normal axis, nonspecific ST-T wave changes, motion artifact. Heart rate of 99 bpm. Differential Diagnosis Sepsis, hypovolemic shock, catatonia from Parkinson Narrative Course 3:43 PM patient after arrival was given 1 L of IV fluid bolus under pressure bag and blood pressure slowly went up to 111 systolic. Nurses were having a hard time getting a second line and labs. Given her soft blood pressure decided to put a central line. Please refer to my procedure note. Patient tolerated the central line procedure well. 2 more liters were ordered through the central line. Patient's blood pressure has continued to be above 100 systolic. I have also ordered Zosyn and vancomycin for sepsis coverage. In addition my opinion patient seems to be rigid from her Parkinson's. I ordered her Sinemet 2 tablets to be crushed and given here NICOLE. Awaiting for the blood test result and the chest x-ray for line placement. Patient has been taken over for CAT scan. Awaiting for the CAT scan to be done and resulted. Patient will require admission. 3:56 PM patient has significant leukocytosis with a white count of 34,000 and left shift. Lactic acid is elevated. Awaiting for the rest of the chemistry and the CAT scan to come back. The UA was grossly infected. Chest x-ray does not show any infiltrate and the line is in good place. I put a call out for the pharmacy clinical coordinator. Patient is in septic shock. Patient seems to be a little more awake at this point. GCS is 12. 4 PM the fourth liter finished and her recent cycle blood pressure is 88 systolic. GCS was 10 at this point. I have ordered norepinephrine drip to be started. She continues to maintain her airway and oxygen saturation is 96%. Awaiting for the pharmacy clinical coordinator to call back. Critical Care Narrative Aggregate critical care time was 75 minutes. Time to perform other separately billable procedures was not included in the critical care time. My time did not include minutes spent treating any other patients simultaneously or on activities that did not directly contribute to the patient's treatment. The services I provided to this patient were to treat and/or prevent clinically significant deterioration that could result in: Altered mental status, hypotension I provided critical care services requiring my management, as noted below: Chart data review, documentation time, medication orders and management, vital sign assessments/reviewing monitor data, ordering and reviewing lab tests, ordering and interpreting/reviewing x-rays and diagnostic studies, care of the patient and discussion of the patient with the admitting physicians. Procedures Procedure Narrative CENTRAL VENOUS LINE: The site was prepped with Betadine and sterilely draped. It was infiltrated with 1% lidocaine plain. The deep vein was cannulated using normal Seldinger technique. A triple lumen central line was placed in the right subclavian site and secured with simple interrupted suture. The site was sterilely dressed. The patient tolerated the procedure well. EKG Prior to Arrival: No Diagnosis Primary Impression: Septic shock Additional Impressions: Altered mental status Qualified Code: R40.1 - Stupor UTI (urinary tract infection) Qualified Code: N39.0 - Urinary tract infection without hematuria, site unspecified Renal failure Elevated troponin I level Admitting Information Admitting Physician Requests: Admit Margie Romo MD Jun 05, 2016 15:46
[2016-06-05 15:51] LABS: HEMO FLAGS AUTO DIFF
--- NOTE | 2016-06-05 15:51 | RADRPT ---
EXAM DATE/TIME: 06/05/2016 15:28 [facility] COMPARISON: CHEST SINGLE AP, May 15, 2016, 11:49. INDICATIONS : Syncope. MEDICAL HISTORY : Cardiovascular disease. Seizures. SURGICAL HISTORY : Hysterectomy. Appendectomy. ENCOUNTER: Initial ACUITY: 1 day PAIN SCORE: Non-responsive. LOCATION: Bilateral chest FINDINGS: There is minimal scarring in the left lower lobe. Right lung is clear. No effusion is present. Cardia c contours are stable. Right subclavian central line is present in satisfactory position. CONCLUSION: No acute disease Roverto Johnson MD on June 05, 2016 at 15:48 Board Certified Radiologist. This report was verified electronically.
[2016-06-05 15:52] LABS: BACTERIA, URINE MANY /hpf; BLOOD, URINE LARGE (NEG); GLUCOSE,URINE NEG (NEG); KETONE, URINE TRACE mg/dL (NEG); MUCUS URINE MANY /lpf (OCC); NITRITE,URINE POS (NEG); SQUAMOUS EPITHELIAL CELL URINE 5 /hpf (0-5); URINE COLOR DARK-YELLOW (YELLW/STRAW)
[2016-06-05 15:53] LABS: COMMENT (UR) CATH-CULTURE IND; CULTURE IF INDICATED CATH CULTURE IND
[2016-06-05 16:00] LABS: AMPHETAMINE, URINE NEG (NEG); BARBITURATES, URINE NEG (NEG); COCAINE, URINE NEG (NEG)
[2016-06-05 16:02] LABS: ALT (GPT) 9 U/L (10-53); ANION GAP 10 MEQ/L (5-15); AST (GOT) 26 U/L (15-37); BICARBONATE 24.6 MEQ/L (21.0-32.0); BLOOD UREA NITROGEN 36 MG/DL (7-18); CHLORIDE 107 MEQ/L (98-107); GLOMERULAR FILTRATION RATE 21 ML/MIN (>89); SODIUM (NA) 142 MEQ/L (136-145)
[2016-06-05 16:04] LABS: ACETAMINOPHEN LESS THAN 2.0 MCG/ML (10.0-30.0); POTASSIUM 4.4 MEQ/L (3.5-5.1)
--- NOTE | 2016-06-05 16:10 | RADRPT ---
EXAM DATE/TIME: 06/05/2016 15:49 [facility] COMPARISON: CT BRAIN W/O CONTRAST, April 10, 2015, 22:28. INDICATIONS : Altered mental status. RADIATION DOSE: 32.25 CTDIvol (mGy) MEDICAL HISTORY : Cerebrovascular disease. Parkinsons. Dementia.Seizures. SURGICAL HISTORY : Fusion, cervical. ENCOUNTER: Initial ACUITY: 1 day PAIN SCALE: Non-responsive LOCATION: cranial TECHNIQUE: Multiple contiguous axial images were obtained of the head. Using automated exposure control and adj ustment of the mA and/or kV according to patient size, radiation dose was kept as low as reasonably a chievable to obtain optimal diagnostic quality images. FINDINGS: CEREBRUM: The ventricles are normal for age. No evidence of midline shift, mass lesion, hemorrhage or acute in farction. No extra-axial fluid collections are seen. Mild periventricular and subcortical white carolann er small vessel ischemic changes are noted bilaterally. POSTERIOR FOSSA: The cerebellum and brainstem are intact. The 4th ventricle is midline. The cerebellopontine angle i s unremarkable. EXTRACRANIAL: The visualized portion of the orbits is intact. SKULL: The calvaria is intact. No evidence of skull fracture. CONCLUSION: 1. Mild periventricular and subcortical white matter small vessel ischemic changes bilaterally. 2. No acute infarct, acute hemorrhage, mass effect or extra-axial fluid collections. Ruy Donahue MD on June 05, 2016 at 16:07 Board Certified Radiologist. This report was verified electronically.
[2016-06-05] MEDS ORDERED: Vancomycin Consult Pharmacy 1 EA OTHER SCH (16:15)
--- NOTE | 2016-06-05 16:15 | HHI.HP ---
HPI Service Critical Care Medicine Primary Care Physician Shira Drake MD Admission Diagnosis septic shock, UTI, altered mental status Diagnosis: (1) Septic shock Diagnosis: Principal (2) UTI (urinary tract infection) Diagnosis: Principal (3) Acute metabolic encephalopathy Diagnosis: Principal (4) Acute kidney failure Diagnosis: Principal (5) Lactic acidosis Diagnosis: Principal (6) Infection due to ESBL-producing Escherichia coli Diagnosis: Secondary (7) Parkinsons disease Diagnosis: Secondary (8) Neurogenic bladder Diagnosis: Secondary (9) Sacral decubitus ulcer, stage IV Diagnosis: Secondary Chief Complaint: Septic shock Acute metabolic encephalopathy Travel History International Travel<30 Days: No Contact w/Intl Traveler <30 Da: No Traveled to Known Affected Are: No Sepsis Criteria SIRS Criteria (2 or more): Temp > 100.9 or < 96.8, WBC > 43718, < 4000 or > 10 % bands Sepsis Criteria (SIRS+source): Infect source susp/known Severe Sepsis (+one): Lactate >2, Acute Oliguria/Renal Failure Septic Shock Criteria: Unresponsive to 30ml/kg fluid bolus Criteria Outcome: Meets septic shock criteria History of Present Illness Patient is a 70-year-old female who is bedbound from advanced Parkinson's disease, dementia, sacral decubitus ulcer, history of TIA who was brought to emergency room with history of unresponsiveness and altered mental status. Apparently was unable to wake her up this afternoon. Her baseline GCS is 15 as per paramedics. EMS reported a temperature of 100.2 axillary and blood pressure was in the 90s systolic, GCS 8 and maintaining airway. In the ER initial systolic blood pressure was 65, patient received a total of 5 L normal saline boluses. Despite aggressive resuscitation patient remained hypotensive and Dr. Romo placed the right subclavian central line. Levophed to be started. I evaluated the patient in the emergency department, she looks critically ill and in septic shock. White count was 32.4 with 90% neutrophils, creatinine was 2.28 and UA showed evidence of UTI. Patient received vancomycin and Zosyn in the ED. I will continue vancomycin and start patient on meropenem renally dosed due to history of ESBL E coli. Also placed on Diflucan 100 mg IV daily. Patient has a large stage IV sacral decubitus ulcer but this does not look infected. Patient has a history of recurrent cystitis and sepsis. Previous urine cultures were reviewed. 05/15/16 culture PSAE sensitive to Zosyn, urine culture on 01/04/16 had ESBL Escherichia coli, Pseudomonas and enterococcus. Review of Systems ROS Limitations: Clinical Condition, Altered Mental Status Past Family Social History Allergies: Coded Allergies: *MDRO Multi-Drug Resistant Organism (Verified Adverse Reaction, Unknown, ) ESBL+E.COLI (urine) - 2011, 2012, 2014, 01/04/16; (blood) - 2011 VRE (urine/blood) - 2011 Past Medical History Advanced Parkinson's disease History of recurrent cystitis and sepsis. Previous UTI with Arely, ESBL Escherichia coli, Pseudomonas, and enterococcus Stage II decubitus ulcer, TIA Past Surgical History Suprapubic catheter placement Appendectomy Hysterectomy Spinal surgery Reported Medications Vitamin C (Ascorbic Acid) 500 Mg Cap 500 Mg PO BID Tessalon Perles (Benzonatate) 100 Mg Cap 100 Mg PO TID PRN Donepezil 10 Mg Tab 10 Mg PO DAILY Lyrica (Pregabalin) 50 Mg Cap 50 Mg PO TID Zyprexa (Olanzapine) 5 Mg Tab 5 Mg PO HS Neupro Patch 24 HR (Rotigotine Patch 24 HR) 4 Mg/24 Hr Patch 4 Mg T-DERMAL DAILY Nystatin Topical (Nystatin) 100,000 unit/gm Cream 1 Applic TOPICAL DAILY PRN Carbidopa-Levodopa 25-250 Mg Tab 1 Tab PO 4 X DAILY Active Ordered Medications Reviewed Family History Reviewed Social History No current alcohol or tobacco use Physical Exam Vital Signs Vital Signs Date Time Temp Pulse Resp B/P Pulse Ox O2 Delivery O2 Flow Rate FiO2 06/05/16 15:51 96 Nasal Cannula 2 06/05/16 15:14 101 18 106/54 93 Nasal Cannula 2 06/05/16 14:57 99.7 96 18 119/68 95 Room Air 06/05/16 14:44 91 18 74/89 Physical Exam GENERAL: Unresponsive, opens eyes to the nurse with care activity. Appears dehydrated hypotensive and critically ill SKIN: Warm and dry. Stage IV sacral decubitus ulcer without evidence of infection HEAD: Atraumatic. Normocephalic. EYES: Pupils equal and round. No scleral icterus. No injection or drainage. ENT: No nasal bleeding or discharge. Dry mucous membrane. Airway patent NECK: Trachea midline. No JVD. CARDIOVASCULAR: Regular rate and rhythm. No murmur appreciated. Hypotensive RESPIRATORY: No accessory muscle use. Clear to auscultation except for few coarse rhonchi GASTROINTESTINAL: Abdomen soft, non-tender, nondistended. Hepatic and splenic margins not palpable. Suprapubic catheter in place with cloudy urine output MUSCULOSKELETAL: 3+ pedal edema of bilateral extremities. Extension deformity of bilateral foot. Upper extremity with contractures NEUROLOGICAL: GCS probably 8-9, rigid. Partially opens eyes to sternal rub. No spontaneous movements noted. Hard to assess GCS due to advanced Parkinson's disease and dementia Laboratory Laboratory Tests Test 06/05/16 06/05/16 15:23 15:36 White Blood Count 32.4 Red Blood Count 4.83 Hemoglobin 13.7 Hematocrit 41.6 Mean Corpuscular Volume 86.1 Mean Corpuscular Hemoglobin 28.3 Mean Corpuscular Hemoglobin 32.9 Concent Red Cell Distribution Width 15.4 Platelet Count 262 Mean Platelet Volume 8.6 Neutrophils (%) (Auto) 89.9 Lymphocytes (%) (Auto) 4.1 Monocytes (%) (Auto) 5.7 Eosinophils (%) (Auto) 0.0 Basophils (%) (Auto) 0.3 Neutrophils # (Auto) 29.1 Lymphocytes # (Auto) 1.3 Monocytes # (Auto) 1.9 Eosinophils # (Auto) 0.0 Basophils # (Auto) 0.1 CBC Comment AUTO DIFF Urine Color DARK-YELLOW Urine Turbidity CLOUDY Urine pH 6.0 Urine Specific [place] 1.023 Urine Protein 300 Urine Glucose (UA) NEG Urine Ketones TRACE Urine Occult Blood LARGE Urine Nitrite POS Urine Bilirubin NEG Urine Urobilinogen LESS THAN 2.0 Urine Leukocyte Esterase LARGE Urine RBC Urine WBC Urine WBC Clumps MOD Urine Squamous Epithelial 5 Cells Urine Bacteria MANY Urine Mucus MANY Urine Yeast (Budding) FEW Microscopic Urinalysis Comment CATH-CULTURE IND Sodium Level 142 Potassium Level 4.4 Chloride Level 107 Carbon Dioxide Level 24.6 Anion Gap 10 Blood Urea Nitrogen 36 Creatinine 2.28 Estimat Glomerular Filtration 21 Rate Random Glucose 111 Lactic Acid Level 2.8 Calcium Level 10.0 Aspartate Amino Transf 26 (AST/SGOT) Alanine Aminotransferase 9 (ALT/SGPT) Ammonia 30 Albumin 3.0 Salicylates Level LESS THAN 1.7 Urine Opiates Screen NEG Acetaminophen Level LESS THAN 2.0 Urine Barbiturates Screen NEG Urine Amphetamines Screen NEG Urine Benzodiazepines Screen NEG Urine Cocaine Screen NEG Urine Cannabinoids Screen NEG Ethyl Alcohol Level 3 Blood Gas Puncture Site RT RADIAL Blood Gas Patient Temperature 98.6 Blood Gas HCO3 18 Blood Gas Base Excess -6.9 Blood Gas Oxygen Saturation 96 Arterial Blood pH 7.36 Arterial Blood Partial 31 Pressure CO2 Arterial Blood Partial 98 Pressure O2 Arterial Blood Oxygen Content 15.1 Arterial Blood 1.0 Carboxyhemoglobin Arterial Blood Methemoglobin 0.5 Blood Gas Hemoglobin 11.1 Oxygen Delivery Device NASAL CANNULA Blood Gas Liter Flow 2 Date/Time Procedure Status Source Growth 06/05/16 15:25 Aerobic Blood Culture Received Blood Peripheral Pending 06/05/16 15:25 Anaerobic Blood Culture Received Blood Peripheral Pending 06/05/16 15:23 Urine Culture Received Urine Catheterized Urine Pending Result Diagram: 06/05/16 1523 06/05/16 1523 Imaging Chest x-ray without acute infiltrate Septic Shock Reassessment Heart: Regular rate and rhythm Lungs: Course Skin: Dry Peripheral Pulses: Weak Right Radial Weak Left Radial Capillary Refill: >2 seconds Assessment and Plan Assessment and Plan NEURO: Acute metabolic encephalopathy Advanced Parkinson's disease -Continue Neupro patch and Sinemet -Hold Zyprexa and Lyrica -Avoid sedation. Encephalopathy seems to be metabolic RESP: Respiratory insufficiency -Nasal cannula oxygen -GCS 8-9, protecting airway at this time -DuoNeb every 6 hours when necessary, aggressive pulmonary toilet CV: Septic shock Lactic acidosis Mild troponin elevation -Normal saline IV fluids 5L bolus and 150 ml per dian -Levophed to keep MAP>65 -Trend lactic acid -Mild troponin elevation due to sepsis and renal failure. GI: -Nothing by mouth, IV Protonix : Acute kidney failure -Renal failure secondary to dehydration and HTN -Monitor renal function closely. Continue suprapubic catheter. -Aggressive hydration as above ID: Septic shock UTI History of ESBL Escherichia coli UTI in the past Stage IV decubitus ulcer -IV vancomycin and Zosyn given in the ED. -Previous urine cultures from 01/04/16 growing ESBL Escherichia coli, Pseudomonas and enterococcus -Continue IV vancomycin. Start renally dosed meropenem and consult ID -Wound care consulted HEME: Leukocytosis -Monitor CBC, CMP, coags ENDO: -Electrolyte replacement as needed PROPH: -Bilateral lower extremity SCDs. Lovenox 30 mg subcutaneous daily. IV Protonix 40 mg daily LINES: -Right subclavian central line placed by Dr. Romo 06/05/16 CC time 82 min Code Status Full Discussed Condition With Dr. Romo Problem Qualifiers (1) UTI (urinary tract infection): Qualified Code: N39.0 - Urinary tract infection without hematuria, site unspecified Saima Layne MD Jun 05, 2016 16:15
[2016-06-05 16:22] LABS: ALKALINE PHOSPHATASE 91 U/L (45-117); CREATINE KINASE 333 U/L (26-192); TOTAL BILIRUBIN ADULT 0.8 MG/DL (0.2-1.0)
[2016-06-05] MEDS ORDERED: MISCELLANEOUS PHARMACY INFORMATION XX PRN (16:30)
[2016-06-05] MEDS ORDERED: ASP: Path resistant to other antimicrobials, culture proven XX PRN (16:30)
[2016-06-05] MEDS ORDERED: MISCELLANEOUS NURSING INFORMATION XX SCH (16:30)
[2016-06-05] MEDS ORDERED: RESP: ALBUTEROL 2.5 MG/IPRATROPIUM 0.5 MG NEB (PRN) INH (16:30)
[2016-06-05] MEDS ORDERED: CHLORHEXIDINE GLUCONATE 2 % 1 PACK (2 CLOTHS) TOP PRN (16:30)
[2016-06-05 16:35] LABS: CKMB 4.2 NG/ML (0.5-3.6)
[2016-06-05] MEDS ORDERED: VANCOMYCIN 500 MG/NS 100 ML IV ONE ×2 (17:00)
[2016-06-05 17:03] LABS: BANDS 8 % (0-6); NEUTROPHIL # MANUAL DIFF 27.9 TH/MM3 (1.8-7.7); POLYS (SEG NEUTROPHILS) 78 % (16-70); WBC DIFF SAMPLE 100
[2016-06-05 17:05] LABS: ACANTHOCYTES OCC (NORMAL); PLATELET ESTIMATE SMEAR NORMAL (NORMAL); PLATELET MORPHOLOGY NORMAL (NORMAL); SCAN/DIFF FINAL DIFF MANUAL
[2016-06-05] MEDS: NOREPINEPHRINE-DEXTROSE DRIP 250 ML IV SCH (17:07)
[2016-06-05 17:29] LABS: LACTIC ACID GHOST NOT REPORTABLE
[2016-06-05] MEDS ORDERED: FLUCONAZOLE 100 MG PREMIX BAG 50 ML IV SCH (18:00)
[2016-06-05] MEDS: ENOXAPARIN SODIUM 30 MG/0.3 ML SYRINGE SQ SCH (18:15)
[2016-06-05] MEDS: SODIUM CHLOR 0.9% 1000 ML INJ 1,000 ML IV SCH (18:16)
[2016-06-05] MEDS: MEROPENEM INJ 500 MG in SODIUM CHLORIDE 0.9% INJ 100 ML IV SCH (18:29)
[2016-06-05 19:24] LABS: INTERNATIONAL NORMALIZED RATIO 1.2 RATIO; PROTHROMBIN TIME - PATIENT 13.5 SEC (9.8-11.6)
[2016-06-05] MEDS ORDERED: PIPERACIL-TAZO 2.25 GM PREMIX 50 ML IV SCH (23:00)
[2016-06-06] VITALS (16 sets, daily range): BP systolic 97–130; BP diastolic 50–70; PULSE 79–102; RESP 14–23; TEMP 98–99.4; O2SAT 99–100
[2016-06-06] MEDS: SODIUM CHLOR 0.9% 1000 ML INJ 1,000 ML IV SCH ×4 (01:18→19:07)
[2016-06-06] MEDS: CHLORHEXIDINE GLUCONATE 2 % 1 PACK (2 CLOTHS) TOP SCH (04:00)
[2016-06-06] MEDS: MEROPENEM INJ 500 MG in SODIUM CHLORIDE 0.9% INJ 100 ML IV SCH (05:10)
[2016-06-06 06:06] LABS: BASOPHIL % 0.1 % (0.0-2.0); EOSINOPHIL % 0.2 % (0.0-4.0); HEMATOCRIT 35.9 % (35.0-46.0); HEMO FLAGS DIFF FINAL; LYMPH % 7.2 % (9.0-44.0); LYMPHOCYTE # 1.9 TH/MM3 (1.0-4.8); MEAN CELL VOLUME 87.2 FL (80.0-100.0); MEAN CORPUSCULAR HEMOGLOBIN 28.5 PG (27.0-34.0); MEAN CORPUSCULAR HGB CONC 32.6 % (32.0-36.0); MONO % 6.6 % (0.0-8.0); NEUT % 85.9 % (16.0-70.0); PLATELET COUNT 201 TH/MM3 (150-450); RED BLOOD COUNT 4.12 MIL/MM3 (4.00-5.30); RED CELL DISTRIBUTION WIDTH 15.8 % (11.6-17.2); WHITE BLOOD COUNT 26.8 TH/MM3 (4.0-11.0)
[2016-06-06 06:34] LABS: ALKALINE PHOSPHATASE 86 U/L (45-117); ALT (GPT) 8 U/L (10-53); ANION GAP 10 MEQ/L (5-15); AST (GOT) 35 U/L (15-37); BICARBONATE 21.2 MEQ/L (21.0-32.0); BLOOD UREA NITROGEN 23 MG/DL (7-18); CHLORIDE 117 MEQ/L (98-107); GLOMERULAR FILTRATION RATE 68 ML/MIN (>89); MAGNESIUM 1.6 MG/DL (1.5-2.5); SODIUM (NA) 148 MEQ/L (136-145); TOTAL BILIRUBIN ADULT 0.6 MG/DL (0.2-1.0)
--- NOTE | 2016-06-06 08:22 | RADRPT ---
EXAM DATE/TIME: 06/06/2016 03:22 [facility] COMPARISON: CHEST SINGLE AP, June 05, 2016, 15:28. INDICATIONS : Short of breath MEDICAL HISTORY : Cardiovascular disease. SURGICAL HISTORY : Hysterectomy. Appendectomy. ENCOUNTER: Subsequent ACUITY: 2 days PAIN SCORE: Non-responsive. LOCATION: chest FINDINGS: Right subclavian central line is stable in position. Aeration is diminished with bilateral basilar an d perihilar infiltrates or atelectasis. No significant effusion suspected heart size is grossly stabl e. CONCLUSION: Worsening aeration Roverto Johnson MD on June 06, 2016 at 8:20 Board Certified Radiologist. This report was verified electronically.
[2016-06-06] MEDS: CARBIDOPA/LEVODOPA 25 MG/250 MG TAB PO SCH ×3 (08:28→20:25)
[2016-06-06] MEDS: PANTOPRAZOLE SODIUM 40 MG VIAL IV SCH (08:28)
[2016-06-06] MEDS ORDERED: SODIUM PHOSPHATE INJ 30 MMOL in SODIUM CHLOR 0.9% 250 ML INJ 240 ML IV PRN (08:45)
[2016-06-06] MEDS ORDERED: POTASSIUM PHOSPHATE MONOBASIC 500 MG TAB PO PRN (08:45)
[2016-06-06] MEDS ORDERED: POTASSIUM CHLOR 20 MEQ PREMIX 100 ML IV PRN ×2 (08:45)
[2016-06-06] MEDS ORDERED: POTASSIUM PHOSPHATE INJ 30 MMOL in SODIUM CHLOR 0.9% 250 ML INJ 250 ML IV PRN (08:45)
[2016-06-06] MEDS ORDERED: POTASSIUM PHOSPHATE MONOBASIC 500 MG TAB PO/TUBE PRN (08:45)
[2016-06-06] MEDS ORDERED: MAGNESIUM SULFATE INJ 4 GM in SODIUM CHLORIDE 0.9% INJ 92 ML IV PRN (08:45)
[2016-06-06] MEDS ORDERED: POTASSIUM CHLOR 40 MEQ PREMIX 100 ML IV PRN (08:45)
[2016-06-06] MEDS ORDERED: MAGNESIUM SULFATE INJ 2 GM in SODIUM CHLORIDE 0.9% INJ 96 ML IV PRN (08:45)
[2016-06-06] MEDS ORDERED: MAGNESIUM OXIDE 400 MG TAB PO PRN (08:45)
[2016-06-06] MEDS ORDERED: ROTIGOTINE TOPICAL SCH (09:00)
[2016-06-06] MEDS ORDERED: CARBIDOPA/LEVODOPA 25 MG/250 MG TAB PO SCH (09:00)
[2016-06-06] MEDS ORDERED: FLUCONAZOLE 100 MG PREMIX BAG 50 ML IV SCH (09:30)
--- NOTE | 2016-06-06 09:33 | HHI.CCPN ---
Subjective Remarks/Hospital Course Patient is a 70-year-old female who is bedbound from advanced Parkinson's disease, dementia, sacral decubitus ulcer, history of TIA who was brought to emergency room with history of unresponsiveness and altered mental status. Apparently was unable to wake her up this afternoon. Her baseline GCS is 15 as per paramedics. EMS reported a temperature of 100.2 axillary and blood pressure was in the 90s systolic, GCS 8 and maintaining airway. In the ER initial systolic blood pressure was 65, patient received a total of 5 L normal saline boluses. Despite aggressive resuscitation patient remained hypotensive and Dr. Romo placed the right subclavian central line. Levophed to be started. I evaluated the patient in the emergency department, she looks critically ill and in septic shock. White count was 32.4 with 90% neutrophils, creatinine was 2.28 and UA showed evidence of UTI. Patient received vancomycin and Zosyn in the ED. I will continue vancomycin and start patient on meropenem renally dosed due to history of ESBL E coli. Also placed on Diflucan 100 mg IV daily. Patient has a large stage IV sacral decubitus ulcer but this does not look infected. Patient has a history of recurrent cystitis and sepsis. Previous urine cultures were reviewed. 05/15/16 culture PSAE sensitive to Zosyn, urine culture on 01/04/16 had ESBL Escherichia coli, Pseudomonas and enterococcus. SUBJ 06/06: Clinically improving, On 3 mcg /min of Levophed. Creatinine has normalized. Patient starting to verbalize able to state her name. Gram- negative rods and 4 out of 4 bottle. Urine output adequate. Currently receiving vancomycin, meropenem and Diflucan. ID consult is pending at this time Objective Vital Signs Date Time Temp Pulse Resp B/P Pulse Ox O2 Delivery O2 Flow Rate FiO2 06/06/16 08:16 100 Nasal Cannula 2.00 06/06/16 05:21 98.9 96 22 130/62 Intake and Output 06/05/16 06/05/16 06/05/16 07:59 15:59 23:59 Intake Total 921 ml Output Total 600 ml Balance 321 ml Result Diagram: 06/06/16 0500 06/06/16 0500 Other Results Laboratory Tests Test 06/05/16 15:36 Blood Gas Puncture Site RT RADIAL Blood Gas Patient Temperature 98.6 Blood Gas HCO3 18 mmol/L (22-26) Blood Gas Base Excess -6.9 mmol/L (-2-2) Blood Gas Oxygen Saturation 96 % (90-100) Arterial Blood pH 7.36 (7.380-7.420) Arterial Blood Partial 31 mmHg (38-42) Pressure CO2 Arterial Blood Partial 98 mmHG Pressure O2 (61-120) Arterial Blood Oxygen Content 15.1 Vol % (12.0-20.0) Arterial Blood 1.0 % (0-4) Carboxyhemoglobin Arterial Blood Methemoglobin 0.5 % (0-2) Blood Gas Hemoglobin 11.1 G/DL (12.0-16.0) Oxygen Delivery Device NASAL CANNULA Blood Gas Liter Flow 2 L/M Imaging Chest x-ray without acute infiltrate Objective Remarks GENERAL: More responsive today opens eyes states her name. SKIN: Warm and dry. Stage IV sacral decubitus ulcer without evidence of infection HEAD: Atraumatic. Normocephalic. EYES: Pupils equal and round. No scleral icterus. No injection or drainage. ENT: No nasal bleeding or discharge. Dry mucous membrane. Airway patent NECK: Trachea midline. No JVD. CARDIOVASCULAR: Regular rate and rhythm. No murmur appreciated. Hypotensive RESPIRATORY: No accessory muscle use. Clear to auscultation except for few coarse rhonchi GASTROINTESTINAL: Abdomen soft, mildly tender. Suprapubic catheter in place with cloudy urine output MUSCULOSKELETAL: 3+ pedal edema of bilateral extremities. Extension deformity of bilateral foot. NEUROLOGICAL: Opens eyes spontaneously, able to state her name. Moves, withdraws bilateral upper extremities. A/P Assessment and Plan NEURO: Acute metabolic encephalopathy Advanced Parkinson's disease -Continue Neupro patch and Sinemet -Holding Zyprexa and Lyrica -Avoid sedation. Encephalopathy seems to be metabolic, now improving RESP: Respiratory insufficiency -Nasal cannula oxygen -Protecting airway at this time -DuoNeb every 6 hours when necessary, aggressive pulmonary toilet CV: Septic shock Lactic acidosis Mild troponin elevation -s/p Normal saline IV fluids 5L bolus and continue 150 ml per hour infusion -Levophed to keep MAP>65-currently on 3 mcg/m wean to DC -Trend lactic acid -Mild troponin elevation due to sepsis and renal failure. GI: -Nothing by mouth, IV Protonix -Speech consulted for swallow eval-diet per speech recommendation : Acute kidney failure -Renal failure secondary to dehydration and hypotension -Monitor renal function closely. Continue suprapubic catheter. -Aggressive hydration as above ID: Septic shock Gram-negative bacteremia 4 out of 4 bottles UTI History of ESBL Escherichia coli UTI in the past Stage IV decubitus ulcer -Continue IV vancomycin, meropenem and Diflucan. IV vancomycin and Zosyn given in the ED. -Previous urine cultures from 01/04/16 growing ESBL Escherichia coli, Pseudomonas and enterococcus -06/05 blood culture 06/17 bottles GNR -06/05 Urine culture pending -Wound care consulted HEME: Leukocytosis -Monitor CBC, CMP, coags ENDO: -Electrolyte replacement as needed PROPH: -Bilateral lower extremity SCDs. Lovenox 30 mg subcutaneous daily. IV Protonix 40 mg daily LINES: -Right subclavian central line placed by Dr. Romo 06/05/16 CC time 32 min PT/OT/Speech consulted Saima Layne MD Jun 06, 2016 09:33
[2016-06-06] MEDS: NOREPINEPHRINE-DEXTROSE DRIP 250 ML IV SCH (11:43)
[2016-06-06] MEDS ORDERED: SODIUM CHLOR 0.9% 1000 ML INJ 1,000 ML IV ONE (12:00)
[2016-06-06] MEDS ORDERED: MEROPENEM INJ 1,000 MG in SODIUM CHLORIDE 0.9% INJ 100 ML IV SCH (13:00)
[2016-06-06] MEDS: MEROPENEM 1000 MG/NS 100 ML IV SCH ×4 (13:26→20:25)
[2016-06-06] MEDS: POTASSIUM CHLOR 40 MEQ PREMIX 100 ML IV PRN ×2 (13:27→15:08)
--- NOTE | 2016-06-06 14:57 | PD.ID.CON ---
History of Present Illness Service ID Consult Requested By Dr Muller Reason for Consult ESBL + E.coli bactermeia Primary Care Physician Shira Drake MD Diagnoses: History of Present Illness Pt is demented, unable to provide history Pt known to gilberto from her recent hospitalisation 2/2 UTI (pseudomonas) Hx from chart and her family at /s Pt is 70 yo female with h/o recurrent UTIs who has SP cath which is changed monthly SHe ws recently dc'd on levaquine for tx of her lacy S PSAE UTI and was doing OK. [facility] nurse had a trouble with her SP cath and she was taken to Dr Dunn office (her urologist) Apparently Dr Dunn was able to fix the problem and pt went home Next day family took her to the hospital because they found her unresponsive On ER presentation she has leukocytosis of 32 K and low grade fever; markedly abnormal UA with innumerable WBC, many bacteria, +LE and blood Today her blood clx and urine clx are growing GNB. Blood isolate was ID" d by [employer] as POSITIVE FOR ESCHERICHIA COLI with CTX-M CLASS A EXTENDED SPECTRUM BETA-LACTAMASE RESISTANCE MARKER (ESBL) DETECTED BY [employer] NUCLEIC ACID TEST. THE FOLLOWING RESISTANCE MARKERS WERE NOT DETECTED BY [employer] NUCLEIC ACID TEST: KPC, NDM, VIM, IMP, OXA. Pt was started on Meropenem yday SHe is doing much better She is on small dose of pressors and she is awake and conversant and almost at b /l with her mmental status Review of Systems ROS Limitations: Clinical Condition, Altered Mental Status, Poor Historian Past Family Social History Allergies: Coded Allergies: *MDRO Multi-Drug Resistant Organism (Verified Adverse Reaction, Unknown, ) ESBL+E.COLI (urine) - 2011, 2012, 2014, 01/04/16; (blood) - 2011 VRE (urine/blood) - 2011 MRSA PCR Screen POSITIVE- 06/05/16 Past Medical History Advanced Parkinson's disease History of recurrent cystitis/sepsis. She was out he was here last on last admission with wound infection growing Arely, ESBL Escherichia coli, Pseudomonas, She completed a course of Zosyn and micafungin. Stage II decubitus ulcer, Past Surgical History Suprapubic catheter placement Active Ordered Medications Medications where reviewed in EMR Antibiotics Include: meropenem vancomycin Family History Noncontributory Social History No drugs Not currently smoking or drinking alcohol Lives amd cared for at home Physical Exam Vital Signs Vital Signs Date Time Temp Pulse Resp B/P Pulse Ox O2 Delivery O2 Flow Rate FiO2 06/06/16 12:00 79 06/06/16 12:00 98.6 79 14 110/56 99 06/06/16 10:00 94 06/06/16 08:16 100 Nasal Cannula 2.00 06/06/16 08:00 89 06/06/16 08:00 99.4 89 17 115/54 100 06/06/16 07:00 100 Nasal Cannula 2.00 06/06/16 07:00 86 06/06/16 05:21 98.9 96 22 130/62 100 06/06/16 05:00 96 06/06/16 03:00 95 06/06/16 01:00 100 06/06/16 00:00 98.0 96 18 97/50 100 06/05/16 23:00 93 06/05/16 23:00 93 06/05/16 21:20 100 Nasal Cannula 2.00 06/05/16 21:00 113 06/05/16 20:30 100 Nasal Cannula 2.00 06/05/16 20:30 99.7 109 14 150/57 100 06/05/16 20:00 98 Nasal Cannula 2.00 06/05/16 19:06 123/56 06/05/16 18:51 98 18 123/56 99 Nasal Cannula 2 06/05/16 18:35 102 18 119/60 97 Nasal Cannula 2 06/05/16 17:12 82 18 112/59 96 Nasal Cannula 2 06/05/16 15:51 96 Nasal Cannula 2 06/05/16 15:14 101 18 106/54 93 Nasal Cannula 2 06/05/16 14:57 99.7 96 18 119/68 95 Room Air Physical Exam CONSTITUTIONAL/GENERAL: This is an adequately nourished elderly female patient , in no apparent distress. TUBES/LINES/DRAINS: SKIN: No jaundice, rashes, or lesions. Ecchymoses on upper extremities. Skin temperature appropriate. Not diaphoretic. HEAD: Atraumatic. Normocephalic. EYES: Pupils equal and round and reactive. Extraocular motions intact. No scleral icterus. No injection or drainage. Fundi not examined. ENT: Hearing grossly normal. Nose without bleeding or purulent drainage. Throat without visible erythema, exudates, masses, or lesions. NECK: Trachea midline. Supple, nontender. No palpable thyroid enlargement or nodularity. CARDIOVASCULAR: Regular rate and rhythm without murmurs, gallops, or rubs. No JVD. Peripheral pulses symmetric. RESPIRATORY/CHEST: Symmetric, unlabored respirations. Clear to auscultation. Breath sounds equal bilaterally. No wheezes, rales, or rhonchi. GASTROINTESTINAL: Abdomen soft, non-tender, nondistended. No hepato-splenomegaly , or palpable masses. No guarding. Bowel sounds present. GENITOURINARY: Without palpable bladder distension. Sp catheter in place with cloudy yellow urine MUSCULOSKELETAL: Extremities without clubbing, cyanosis, or edema. No joint tenderness or effusion noted. No calf tenderness. No mottling or clubbing. Cogwheel rigidity present LYMPHATICS: No palpable cervical or supraclavicular adenopathy. NEUROLOGICAL: Awake but somewhat lethargic. Motor and sensory grossly within normal limits. Follows commands. Talks, More confused than baseline Moves all extremities. PSYCHIATRIC: calm and coperative Laboratory Laboratory Tests Test 06/05/16 06/05/16 06/05/16 06/05/16 15:23 15:36 17:54 18:27 Sodium Level 142 Potassium Level 4.4 Chloride Level 107 Carbon Dioxide Level 24.6 Anion Gap 10 Blood Urea Nitrogen 36 Creatinine 2.28 Estimat Glomerular Filtration 21 Rate Random Glucose 111 Lactic Acid Level 2.8 1.6 Calcium Level 10.0 Total Bilirubin 0.8 Aspartate Amino Transf 26 (AST/SGOT) Alanine Aminotransferase 9 (ALT/SGPT) Alkaline Phosphatase 91 Ammonia 30 Total Creatine Kinase 333 Creatine Kinase MB 4.2 Creatine Kinase MB % 1.3 Troponin I 0.32 0.33 Total Protein 7.6 Albumin 3.0 Thyroid Stimulating Hormone 0.946 3rd Gen Salicylates Level LESS THAN 1.7 Urine Opiates Screen NEG Acetaminophen Level LESS THAN 2.0 Urine Barbiturates Screen NEG Urine Amphetamines Screen NEG Urine Benzodiazepines Screen NEG Urine Cocaine Screen NEG Urine Cannabinoids Screen NEG Ethyl Alcohol Level 3 White Blood Count 32.4 Red Blood Count 4.83 Hemoglobin 13.7 Hematocrit 41.6 Mean Corpuscular Volume 86.1 Mean Corpuscular Hemoglobin 28.3 Mean Corpuscular Hemoglobin 32.9 Concent Red Cell Distribution Width 15.4 Platelet Count 262 Mean Platelet Volume 8.6 Neutrophils (%) (Auto) 89.9 Lymphocytes (%) (Auto) 4.1 Monocytes (%) (Auto) 5.7 Eosinophils (%) (Auto) 0.0 Basophils (%) (Auto) 0.3 Neutrophils # (Auto) 29.1 Lymphocytes # (Auto) 1.3 Monocytes # (Auto) 1.9 Eosinophils # (Auto) 0.0 Basophils # (Auto) 0.1 CBC Comment AUTO DIFF Differential Total Cells 100 Counted Neutrophils % (Manual) 78 Band Neutrophils % 8 Lymphocytes % 9 Monocytes % 5 Neutrophils # (Manual) 27.9 Differential Comment FINAL DIFF MANUAL Platelet Estimate NORMAL Platelet Morphology Comment NORMAL Acanthocytes OCC Urine Color DARK-YELLOW Urine Turbidity CLOUDY Urine pH 6.0 Urine Specific [place] 1.023 Urine Protein 300 Urine Glucose (UA) NEG Urine Ketones TRACE Urine Occult Blood LARGE Urine Nitrite POS Urine Bilirubin NEG Urine Urobilinogen LESS THAN 2.0 Urine Leukocyte Esterase LARGE Urine RBC Urine WBC Urine WBC Clumps MOD Urine Squamous Epithelial 5 Cells Urine Bacteria MANY Urine Mucus MANY Urine Yeast (Budding) FEW Microscopic Urinalysis Comment CATH-CULTURE IND Blood Gas Puncture Site RT RADIAL Blood Gas Patient Temperature 98.6 Blood Gas HCO3 18 Blood Gas Base Excess -6.9 Blood Gas Oxygen Saturation 96 Arterial Blood pH 7.36 Arterial Blood Partial 31 Pressure CO2 Arterial Blood Partial 98 Pressure O2 Arterial Blood Oxygen Content 15.1 Arterial Blood 1.0 Carboxyhemoglobin Arterial Blood Methemoglobin 0.5 Blood Gas Hemoglobin 11.1 Oxygen Delivery Device NASAL CANNULA Blood Gas Liter Flow 2 Prothrombin Time 13.5 Prothromb Time International 1.2 Ratio Test 06/05/16 06/06/16 20:15 05:00 Nasal Screen MRSA (PCR) POSITIVE White Blood Count 26.8 Red Blood Count 4.12 Hemoglobin 11.7 Hematocrit 35.9 Mean Corpuscular Volume 87.2 Mean Corpuscular Hemoglobin 28.5 Mean Corpuscular Hemoglobin 32.6 Concent Red Cell Distribution Width 15.8 Platelet Count 201 Mean Platelet Volume 8.0 Neutrophils (%) (Auto) 85.9 Lymphocytes (%) (Auto) 7.2 Monocytes (%) (Auto) 6.6 Eosinophils (%) (Auto) 0.2 Basophils (%) (Auto) 0.1 Neutrophils # (Auto) 23.0 Lymphocytes # (Auto) 1.9 Monocytes # (Auto) 1.8 Eosinophils # (Auto) 0.0 Basophils # (Auto) 0.0 CBC Comment DIFF FINAL Differential Comment Sodium Level 148 Potassium Level 3.0 Chloride Level 117 Carbon Dioxide Level 21.2 Anion Gap 10 Blood Urea Nitrogen 23 Creatinine 0.83 Estimat Glomerular Filtration 68 Rate Random Glucose 98 Calcium Level 9.0 Phosphorus Level 1.8 Magnesium Level 1.6 Total Bilirubin 0.6 Aspartate Amino Transf 35 (AST/SGOT) Alanine Aminotransferase 8 (ALT/SGPT) Alkaline Phosphatase 86 Total Protein 5.9 Albumin 2.3 Date/Time Procedure Status Source Growth 06/06/16 12:53 Urine Culture Received Urine Catheterized Urine Pending 06/05/16 15:25 Aerobic Blood Culture - Preliminary Resulted Blood Peripheral Escherichia Coli 06/05/16 15:25 Anaerobic Blood Culture - Preliminary Resulted Gram Negative Jah 06/05/16 15:23 Urine Culture - Preliminary Resulted Urine Catheterized Urine Gram Negative Jah Result Diagram: 06/06/16 0500 06/06/16 0500 Imaging Last Impressions Chest X-Ray 06/06/16 0000 Signed Impressions: Service Date/Time: Monday, June 06, 2016 03:22 - CONCLUSION: Worsening aeration Roverto Johnson MD Head CT 06/05/16 1516 Signed Impressions: Service Date/Time: May 15:49 - CONCLUSION: 1. Mild periventricular and subcortical white matter small vessel ischemic changes bilaterally. 2. No acute infarct, acute hemorrhage, mass effect or extra- axial fluid collections. Ruy Donahue MD Assessment and Plan Assessment and Plan Sepsis 2/2 UTI; ESBL+ E.coli - clinically improved UTI, growing GNB, probably E.coli H/o ESBL, PSAE H/o recent PSAE UTI - cont meropenem - dc vanco; fluconazol - can change to ertapenem once urine clx final and no e/o co-inf with PSAE Discussed Condition With Dr Roverto JERRY family @ b/s Mine Wolf MD Jun 06, 2016 14:57
--- NOTE | 2016-06-06 16:31 | PQ ---
Physician Query Response Document PATIENT: WILBER MARVIN : 1945 ADMIT DATE: 06/05/2016 4:15 PM DISCH DATE: RESPONDING PROVIDER #: sjohn QUERY TEXT: Cause and Effect Relationship Please clarify in documentation the relationship, if any, between UTI _and_SUPRAPUBIC CATHETER Such as: -- Conditions are due to or associated -- Unrelated to each other -- Other, please specify FOR ANY QUESTIONS, [place] [id number] - [facility] DEPT The patient's Clinical Indicators include: 06/05/16 Admission Diagnosis septic shock, UTI, altered mental status PER H PER ASSESSMENT AND PLAN: ID: Septic shock UTI History of ESBL Escherichia coli UTI in the past Stage IV decubitus ulcer -IV vancomycin and Zosyn given in the ED. -Previous urine cultures from 01/04/16 growing ESBL Escherichia coli, Pseudomonas and enterococcus -Continue IV vancomycin. Start renally dosed meropenem and consult ID -Wound care consulted Query created by: Homa Layne on 06/06/2016 12:20 PM RESPONSE TEXT: UTI associated with chronic suprapubic catheter Electronically signed by: Saima Layne MD 06/06/2016 4:28 PM
[2016-06-06] MEDS ORDERED: FOSPHENYTOIN INJ 1,000 MGPE in SODIUM CHLORIDE 0.9% INJ 50 ML IV ONE (17:30)
--- NOTE | 2016-06-06 17:50 | MG ---
cc: MEGAN AGUILAR MD Lab No: [id number] Date: 06/06/2016 Age: 70 Sex: F Race: DATE OF : 1945 70-year-old female with history of mental status changes. Frontal periodic discharges at times occurring in generalized fashion triphasic waveforms frontal sharps with underlying 1-3 Hz delta activity and theta intrusion 20-75 microvolts. Photic stimulation. No change. Single lead Electrocardiogram showing alot of artifact making it uninterpretable INTERPRETATION Moderate to severe encephalopathy with frequent sometimes rhythmic frontal sharp waves, bipolar type of appearance, still triphasic waveforms. Clinical correlation. eMgan Aguilar MD MG/ /5:09 PM /5:46 PM
[2016-06-06] MEDS ORDERED: VANCOMYCIN INJ 1,250 MG in SODIUM CHLOR 0.9% 250 ML INJ 250 ML IV SCH (18:00)
[2016-06-06] MEDS: PREGABALIN 25 MG CAP PO SCH (18:16)
[2016-06-06] MEDS: DONEPEZIL HCL 5 MG TAB PO SCH (18:16)
[2016-06-06] MEDS: ENOXAPARIN SODIUM 30 MG/0.3 ML SYRINGE SQ SCH (18:16)
[2016-06-06] MEDS: FOSPHENYTOIN INJ 200 MGPE in SODIUM CHLORIDE 0.9% INJ 50 ML IV SCH (20:24)
[2016-06-06] MEDS: OLANZapine 5 MG TAB PO SCH (20:25)
[2016-06-06] MEDS ORDERED: FOSPHENYTOIN SODIUM 100 MG PE/2 ML VIAL IV SCH (21:00)
[2016-06-07] VITALS (13 sets, daily range): BP systolic 86–133; BP diastolic 52–104; PULSE 68–99; RESP 13–20; TEMP 98.2–101.6; O2SAT 97–100
[2016-06-07] MEDS: ACETAMINOPHEN 325 MG TAB PO PRN (00:19)
[2016-06-07] MEDS: SODIUM CHLOR 0.9% 1000 ML INJ 1,000 ML IV SCH ×4 (01:47→21:19)
[2016-06-07] MEDS: CARBIDOPA/LEVODOPA 25 MG/250 MG TAB PO SCH ×4 (03:00→21:18)
[2016-06-07] MEDS: CHLORHEXIDINE GLUCONATE 2 % 1 PACK (2 CLOTHS) TOP SCH (04:00)
[2016-06-07] MEDS: MEROPENEM 1000 MG/NS 100 ML IV SCH ×6 (05:00→21:18)
[2016-06-07 06:05] LABS: AUTOMATED NEUTROPHIL # 14.6 TH/MM3 (1.8-7.7); BASOPHIL # 0.1 TH/MM3 (0-0.2); BASOPHIL % 0.4 % (0.0-2.0); EOSINOPHIL # 0.2 TH/MM3 (0-0.4); HEMATOCRIT 37.2 % (35.0-46.0); HEMO FLAGS DIFF FINAL; LYMPH % 8.1 % (9.0-44.0); LYMPHOCYTE # 1.4 TH/MM3 (1.0-4.8); MEAN CELL VOLUME 86.2 FL (80.0-100.0); MEAN CORPUSCULAR HEMOGLOBIN 27.9 PG (27.0-34.0); MEAN CORPUSCULAR HGB CONC 32.4 % (32.0-36.0); MONO % 7.2 % (0.0-8.0); NEUT % 83.3 % (16.0-70.0); PLATELET COUNT 166 TH/MM3 (150-450); RED BLOOD COUNT 4.32 MIL/MM3 (4.00-5.30); RED CELL DISTRIBUTION WIDTH 15.8 % (11.6-17.2); WHITE BLOOD COUNT 17.5 TH/MM3 (4.0-11.0)
[2016-06-07 06:53] LABS: ALT (GPT) 9 U/L (10-53); ANION GAP 9 MEQ/L (5-15); AST (GOT) 28 U/L (15-37); BICARBONATE 22.7 MEQ/L (21.0-32.0); BLOOD UREA NITROGEN 9 MG/DL (7-18); CHLORIDE 114 MEQ/L (98-107); GLOMERULAR FILTRATION RATE 114 ML/MIN (>89); MAGNESIUM 1.5 MG/DL (1.5-2.5); POTASSIUM 3.5 MEQ/L (3.5-5.1); SODIUM (NA) 146 MEQ/L (136-145)
[2016-06-07 07:00] LABS: ALKALINE PHOSPHATASE 89 U/L (45-117); TOTAL BILIRUBIN ADULT 0.7 MG/DL (0.2-1.0)
[2016-06-07] MEDS: PREGABALIN 25 MG CAP PO SCH ×3 (08:41→18:13)
[2016-06-07] MEDS: PANTOPRAZOLE SODIUM 40 MG VIAL IV SCH (08:42)
[2016-06-07] MEDS: FOSPHENYTOIN INJ 200 MGPE in SODIUM CHLORIDE 0.9% INJ 50 ML IV SCH ×2 (08:42→21:21)
[2016-06-07] MEDS: DONEPEZIL HCL 5 MG TAB PO SCH (08:42)
--- NOTE | 2016-06-07 09:26 | HHI.CCPN ---
Subjective Remarks/Hospital Course Patient is a 70-year-old female who is bedbound from advanced Parkinson's disease, dementia, sacral decubitus ulcer, history of TIA who was brought to emergency room with history of unresponsiveness and altered mental status. Apparently was unable to wake her up this afternoon. Her baseline GCS is 15 as per paramedics. EMS reported a temperature of 100.2 axillary and blood pressure was in the 90s systolic, GCS 8 and maintaining airway. In the ER initial systolic blood pressure was 65, patient received a total of 5 L normal saline boluses. Despite aggressive resuscitation patient remained hypotensive and Dr. Romo placed the right subclavian central line. Levophed to be started. I evaluated the patient in the emergency department, she looks critically ill and in septic shock. White count was 32.4 with 90% neutrophils, creatinine was 2.28 and UA showed evidence of UTI. Patient received vancomycin and Zosyn in the ED. I will continue vancomycin and start patient on meropenem renally dosed due to history of ESBL E coli. Also placed on Diflucan 100 mg IV daily. Patient has a large stage IV sacral decubitus ulcer but this does not look infected. Patient has a history of recurrent cystitis and sepsis. Previous urine cultures were reviewed. 05/15/16 culture PSAE sensitive to Zosyn, urine culture on 01/04/16 had ESBL Escherichia coli, Pseudomonas and enterococcus. SUBJ 06/06: Clinically improving, On 3 mcg /min of Levophed. Creatinine has normalized. Patient starting to verbalize able to state her name. Gram- negative rods and 4 out of 4 bottle. Urine output adequate. Currently receiving vancomycin, meropenem and Diflucan. ID consult is pending at this time 06/07: Improved mentation. On 3mcg Levophed, just turned off. Tmax 101.4. Urine output excellent. WBC count has decreased to 17.5. EKG from yesterday showed bifrontal sharps-neurology consult is pending Objective Vital Signs Date Time Temp Pulse Resp B/P Pulse Ox O2 Delivery O2 Flow Rate FiO2 06/07/16 06:00 86 06/07/16 04:00 98.2 13 133/62 100 06/06/16 20:28 Nasal Cannula 2.00 Intake and Output 06/06/16 06/06/16 06/07/16 08:00 16:00 00:00 Intake Total 1246 ml 2788 ml 1127 ml Output Total 700 ml 1000 ml 700 ml Balance 546 ml 1788 ml 427 ml Result Diagram: 06/07/1630 06/07/16 0530 Imaging Chest x-ray without acute infiltrate Objective Remarks GENERAL: More responsive today opens eyes states her name, much more alert SKIN: Warm and dry. Stage IV sacral decubitus ulcer without evidence of infection HEAD: Atraumatic. Normocephalic. EYES: Pupils equal and round. No scleral icterus. No injection or drainage. ENT: No nasal bleeding or discharge. Dry mucous membrane. Airway patent NECK: Trachea midline. No JVD. CARDIOVASCULAR: Regular rate and rhythm. No murmur appreciated. = RESPIRATORY: No accessory muscle use. Clear to auscultation except for few coarse rhonchi GASTROINTESTINAL: Abdomen soft, mildly tender. Suprapubic catheter in place with cloudy urine output MUSCULOSKELETAL: 3+ pedal edema of bilateral extremities. Extension deformity of bilateral foot. NEUROLOGICAL: Opens eyes spontaneously, more awake, alert, oriented. Moves bilateral upper extremities. Urinary Catheter: Yes Assessment to: Continue A/P Assessment and Plan NEURO: Acute metabolic encephalopathy Advanced Parkinson's disease Bifrontal sharps on EEG -Continue Neupro patch and Sinemet -Resumed Zyprexa and Lyrica 06/06 -Avoid sedation. Encephalopathy seems to be metabolic, now resolved -D/W Dr. Brown 06/07/16- he may start AED RESP: Respiratory insufficiency -Nasal cannula oxygen -DuoNeb every 6 hours when necessary, aggressive pulmonary toilet CV: Septic shock Lactic acidosis Mild troponin elevation -s/p Normal saline IV fluids 5L bolus and continue 150 ml per hour infusion -Levophed to keep MAP>65-currently on 3 mcg/m wean to DC -Trend lactic acid -Mild troponin elevation due to sepsis and renal failure. GI: -Diet per speech recommendation : Acute kidney failure -Renal failure secondary to dehydration and hypotension-resolved -Monitor renal function closely. Continue suprapubic catheter. -Aggressive hydration as above ID: Septic shock ESBL Ecoi bacteremia 4 out of 4 bottles UTI with GNR, possible ESBL Escherichia coli History of ESBL Escherichia coli UTI in the past Stage IV decubitus ulcer -Continue IV meropenem. Vanc and Diflucan DCd by ID on 06/06/16. IV vancomycin and Zosyn given in the ED. -Previous urine cultures from 01/04/16 growing ESBL Escherichia coli, Pseudomonas and enterococcus -06/05 blood culture 06/17 bottles GNR -06/05 Urine culture pending -Wound care on board HEME: Leukocytosis -Monitor CBC, CMP, coags ENDO: -Electrolyte replacement as needed PROPH: -Bilateral lower extremity SCDs. Lovenox 40 mg subcutaneous daily. IV Protonix 40 mg daily LINES: -Right subclavian central line placed by Dr. Romo 06/05/16 CC time 30 min PT/OT/Speech following D/W Saima Stark MD Jun 07, 2016 09:26
--- NOTE | 2016-06-07 11:18 | EKG ---
Date Performed: 06/05/2016 Time Performed: 15:34:40 PTAGE: 70 years EKG: Sinus rhythm LOW QRS VOLTAGE IN PRECORDIAL LEADS BORDERLINE ECG PREVIOUS TRACING : 05/15/2016 12.31 DOCTOR: Garrett Gonzalez Interpretating Date/Time 06/07/2016 11:15:19
--- NOTE | 2016-06-07 12:50 | PD.CONS ---
History of Present Illness Service Neurology Consult Requested By [facility] Reason for Consult confusion,abnormal eeg Primary Care Physician Shira Drake MD History of Present Illness 70-year-old female who is bedbound from advanced Parkinson's disease, dementia, sacral decubitus ulcer, history of TIA who was brought to emergency room with history of unresponsiveness and altered mental status. found to be hypotensive. started on pressors and sent to icu. on iv abx for uti. found to have e.coli bacteremia. has had multiple admissions for uti/cystitis. uses a walker at baseline. takes sinemet qid. states she see's Dr. Zambrano for PD tx. denies vo, cp, dyspnea. Review of Systems ROS Limitations: as above and admit hp Past Family Social History Allergies: Coded Allergies: *MDRO Multi-Drug Resistant Organism (Verified Adverse Reaction, Unknown, ) ESBL+E.COLI (urine) - 2011, 2012, 2014, 01/04/16; (blood) - 2011 VRE (urine/blood) - 2011 Past Medical History Advanced Parkinson's disease History of recurrent cystitis and sepsis. Previous UTI with Arely, ESBL Escherichia coli, Pseudomonas, and enterococcus Stage II decubitus ulcer, TIA Past Surgical History Suprapubic catheter placement Appendectomy Hysterectomy Spinal surgery Reported Medications Vitamin C (Ascorbic Acid) 500 Mg Cap 500 Mg PO BID Tessalon Perles (Benzonatate) 100 Mg Cap 100 Mg PO TID PRN Donepezil 10 Mg Tab 10 Mg PO DAILY Lyrica (Pregabalin) 50 Mg Cap 50 Mg PO TID Zyprexa (Olanzapine) 5 Mg Tab 5 Mg PO HS Neupro Patch 24 HR (Rotigotine Patch 24 HR) 4 Mg/24 Hr Patch 4 Mg T-DERMAL DAILY Nystatin Topical (Nystatin) 100,000 unit/gm Cream 1 Applic TOPICAL DAILY PRN Carbidopa-Levodopa 25-250 Mg Tab 1 Tab PO 4 X DAILY Active Ordered Medications Reviewed Family History Reviewed Social History No current alcohol or tobacco use Review of Systems All other ROS: ROS reviewed as documented in chart Past Family Social History Allergies: Coded Allergies: *MDRO Multi-Drug Resistant Organism (Verified Adverse Reaction, Unknown, ) ESBL+E.COLI (urine) - 2011, 2012, 2014, 01/04/16; (blood) - 2011 VRE (urine/blood) - 2011 MRSA PCR Screen POSITIVE- 06/05/16 Active Ordered Medications Current Medications Medications (Trade) Dose Ordered Sig/Johnny Route Start Time Stop Time Status Last Admin (NS Flush) 2 ml UNSCH PRN IVF 06/05/16 15:30 Patient Own Medication PT OWN MED: NEUPRO PATCH 4 MG/24 ... DAILY TOPICAL 06/06/16 09:00 Hold Carbidopa/ Levodopa 1 tab 1 tab Q6H PO 06/06/16 09:00 06/07/16 08:42 (NS 1000 ml Inj) 1,000 ml @ 150 mls/hr Q6H40M IV 06/05/16 16:27 06/07/16 01:47 (Tylenol) 650 mg Q6H PRN PO 06/05/16 16:30 06/07/16 00:19 (Protonix Inj) 40 mg DAILY IV 06/06/16 09:00 06/07/16 08:42 (Lovenox Inj) 30 mg Q24H SQ 06/05/16 17:00 06/06/16 18:16 Miscellaneous Information 1 Q361D XX 06/05/16 16:30 (Chlorhexidine 2% Cloth) 3 pack Taper DAILY@04 TOP 06/06/16 04:00 06/02/17 03:59 06/07/16 04:00 Chlorhexidine Gluconate 3 pack 3 pack UNSCH PRN TOP 06/05/16 16:30 Potassium Chloride 100 ml @ 50 mls/hr Q2H PRN IV 06/06/16 08:45 06/06/16 15:08 Potassium Chloride 100 ml @ 50 mls/hr Q2H PRN IV 06/06/16 08:45 Potassium Chloride 100 ml @ 25 mls/hr UNSCH PRN IV 06/06/16 08:45 06/07/16 08:41 Potassium Chloride 100 ml @ 50 mls/hr Q2H PRN IV 06/06/16 08:45 (Magnesium Sulfate Inj/NS Inj) 100 ml @ 50 mls/hr UNSCH PRN IV 06/06/16 08:45 Magnesium Oxide 800 mg 800 mg UNSCH PRN PO 06/06/16 08:45 (Magnesium Sulfate Inj/NS Inj) 100 ml @ 50 mls/hr UNSCH PRN IV 06/06/16 08:45 Potassium Phosphate 2000 mg 2,000 mg Q4H PRN PO 06/06/16 08:45 (Sodium Phosphate Inj/NS 250 ml Inj) 250 ml @ 42 mls/hr UNSCH PRN IV 06/06/16 08:45 Potassium Phosphate 2000 mg 2,000 mg UNSCH PRN PO/TUBE 06/06/16 08:45 Potassium Phosphate 30 mmol/ Sodium Chloride 260 ml @ 42 mls/hr UNSCH PRN IV 06/06/16 08:45 (Merrem Inj/NS Inj) 100 ml @ 200 mls/hr Q8H IV 06/06/16 13:00 06/07/16 05:00 (Aricept) 10 mg DAILY PO 06/06/16 17:00 06/07/16 08:42 (ZyPREXA) 5 mg HS PO 06/06/16 21:00 06/06/16 20:25 Pregabalin 50 mg 50 mg TID PO 06/06/16 18:00 06/07/16 08:41 (Cerebyx Inj/NS Inj) 54 ml @ 216 mls/hr Q12HR IV 06/06/16 21:00 06/07/16 08:42 Exam I&O / VS 06/06/16 06/06/16 06/07/16 15:00 23:00 07:00 Intake Total 2788 ml 1127 ml 1566 ml Output Total 1000 ml 700 ml 2200 ml Balance 1788 ml 427 ml -634 ml Intake Oral 300 ml IV Total 2488 ml 1127 ml 1566 ml Output Urine Total 1000 ml 700 ml 2200 ml # Bowel Movements 0 Vital Signs Date Time Temp Pulse Resp B/P Pulse Ox O2 Delivery O2 Flow Rate FiO2 06/07/16 12:00 83 06/07/16 10:00 80 06/07/16 08:00 85 06/07/16 07:00 98 Nasal Cannula 2.00 06/07/16 06:00 86 06/07/16 04:00 98.2 69 13 133/62 100 06/07/16 04:00 89 06/07/16 02:00 89 06/07/16 00:00 89 06/07/16 00:00 101.4 82 13 125/57 100 06/06/16 22:00 98 06/06/16 20:28 99 Nasal Cannula 2.00 06/06/16 20:25 14 06/06/16 20:00 98.5 102 23 118/68 100 06/06/16 20:00 102 06/06/16 19:30 100 Nasal Cannula 2.00 06/06/16 18:00 91 06/06/16 16:00 98.7 99 17 125/70 100 06/06/16 16:00 99 06/06/16 14:00 97 General: Alert and Oriented, No acute distress Neurologic: Alert Psychiatric: Cooperative Exam Comments awake, ox 2-3. pcp [place], follows, facial hypomimia, severe bradykinesia, hypophonic speech, slow eom, face sym, moderate ue rigidity, minimal tremors, able to move arms slowly, legs weak 1-2/5, msr tr-1+, no clonus, planter flexor Review/Management Diagnosis/Plan: (1) Acute metabolic encephalopathy Plan: 2/2 infection/cerebral hypoperfusion improved after iv abx and bp augmentation e.coli bacteremia eeg reviewed; changes likely 2/2 infection; also possibly 2/2 iv abx alb 2.2, dil 2.8, corrected 5.185 recs iv cerebryx while being tx'd for infection follow levels; continue same dose of cerebryx for now follow exam d/w ccm (2) Parkinsons disease Plan: increase sinemet to 1.5 tabs 5x/day (3) Infection due to ESBL-producing Escherichia coli Plan: iv abx (4) Sepsis Plan: ccm following Problem Qualifiers (1) Sepsis: Qualified Code: A41.51 - Sepsis due to Escherichia coli Marvin Brown MD Jun 07, 2016 12:50
[2016-06-07] MEDS ORDERED: PILL SPLITTER OTHER PRN (13:15)
[2016-06-07] MEDS: REMOVE OLD PATCH T-DERMAL SCH (14:00)
--- NOTE | 2016-06-07 14:25 | HHI.IDPN ---
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 Vital Signs Date Time Temp Pulse Resp B/P Pulse Ox O2 Delivery O2 Flow Rate FiO2 06/07/16 12:00 83 06/07/16 10:00 80 06/07/16 08:19 100 Nasal Cannula 2.00 06/07/16 08:00 85 06/07/16 07:00 98 Nasal Cannula 2.00 06/07/16 06:00 86 06/07/16 04:00 98.2 69 13 133/62 100 06/07/16 04:00 89 06/07/16 02:00 89 06/07/16 00:00 89 06/07/16 00:00 101.4 82 13 125/57 100 06/06/16 22:00 98 06/06/16 20:28 99 Nasal Cannula 2.00 06/06/16 20:25 14 06/06/16 20:00 98.5 102 23 118/68 100 06/06/16 20:00 102 06/06/16 19:30 100 Nasal Cannula 2.00 06/06/16 18:00 91 06/06/16 16:00 98.7 99 17 125/70 100 06/06/16 16:00 99 06/06/16 06/06/16 06/07/16 15:00 23:00 07:00 Intake Total 2788 ml 1127 ml 1566 ml Output Total 1000 ml 700 ml 2200 ml Balance 1788 ml 427 ml -634 ml Intake Oral 300 ml IV Total 2488 ml 1127 ml 1566 ml Output Urine Total 1000 ml 700 ml 2200 ml # Bowel Movements 0 . Laboratory Tests Test 06/05/16 06/06/16 06/07/16 15:23 05:00 05:30 White Blood Count 32.4 TH/MM3 26.8 TH/MM3 17.5 TH/MM3 Red Blood Count 4.83 MIL/MM3 4.12 MIL/MM3 4.32 MIL/MM3 Hemoglobin 13.7 GM/DL 11.7 GM/DL 12.1 GM/DL Hematocrit 41.6 % 35.9 % 37.2 % Mean Corpuscular Volume 86.1 FL 87.2 FL 86.2 FL Mean Corpuscular Hemoglobin 28.3 PG 28.5 PG 27.9 PG Mean Corpuscular Hemoglobin 32.9 % 32.6 % 32.4 % Concent Red Cell Distribution Width 15.4 % 15.8 % 15.8 % Platelet Count 262 TH/MM3 201 TH/MM3 166 TH/MM3 Mean Platelet Volume 8.6 FL 8.0 FL 7.8 FL Neutrophils (%) (Auto) 89.9 % 85.9 % 83.3 % Lymphocytes (%) (Auto) 4.1 % 7.2 % 8.1 % Monocytes (%) (Auto) 5.7 % 6.6 % 7.2 % Eosinophils (%) (Auto) 0.0 % 0.2 % 1.0 % Basophils (%) (Auto) 0.3 % 0.1 % 0.4 % Neutrophils # (Auto) 29.1 TH/MM3 23.0 TH/MM3 14.6 TH/MM3 Lymphocytes # (Auto) 1.3 TH/MM3 1.9 TH/MM3 1.4 TH/MM3 Monocytes # (Auto) 1.9 TH/MM3 1.8 TH/MM3 1.3 TH/MM3 Eosinophils # (Auto) 0.0 TH/MM3 0.0 TH/MM3 0.2 TH/MM3 Basophils # (Auto) 0.1 TH/MM3 0.0 TH/MM3 0.1 TH/MM3 CBC Comment AUTO DIFF DIFF FINAL DIFF FINAL Differential Total Cells 100 Counted Neutrophils % (Manual) 78 % Band Neutrophils % 8 % Lymphocytes % 9 % Monocytes % 5 % Neutrophils # (Manual) 27.9 TH/MM3 Differential Comment FINAL DIFF MANUAL Platelet Estimate NORMAL Platelet Morphology Comment NORMAL Acanthocytes OCC Laboratory Tests Test 06/05/16 06/05/16 06/05/16 06/06/16 15:23 17:54 18:27 05:00 Sodium Level 142 MEQ/L 148 MEQ/L Potassium Level 4.4 MEQ/L 3.0 MEQ/L Chloride Level 107 MEQ/L 117 MEQ/L Carbon Dioxide Level 24.6 MEQ/L 21.2 MEQ/L Anion Gap 10 MEQ/L 10 MEQ/L Blood Urea Nitrogen 36 MG/DL 23 MG/DL Creatinine 2.28 MG/DL 0.83 MG/DL Estimat Glomerular Filtration 21 ML/MIN 68 ML/MIN Rate Random Glucose 111 MG/DL 98 MG/DL Lactic Acid Level 2.8 mmol/L 1.6 mmol/L Calcium Level 10.0 MG/DL 9.0 MG/DL Total Bilirubin 0.8 MG/DL 0.6 MG/DL Aspartate Amino Transf 26 U/L 35 U/L (AST/SGOT) Alanine Aminotransferase 9 U/L 8 U/L (ALT/SGPT) Alkaline Phosphatase 91 U/L 86 U/L Ammonia 30 MCMOL/L Total Creatine Kinase 333 U/L Creatine Kinase MB 4.2 NG/ML Creatine Kinase MB % 1.3 % Troponin I 0.32 NG/ML 0.33 NG/ML Total Protein 7.6 GM/DL 5.9 GM/DL Albumin 3.0 GM/DL 2.3 GM/DL Thyroid Stimulating Hormone 0.946 uIU/ML 3rd Gen Phosphorus Level 1.8 MG/DL Magnesium Level 1.6 MG/DL Test 06/06/16 06/07/16 21:20 05:30 Potassium Level 3.4 MEQ/L 3.5 MEQ/L Sodium Level 146 MEQ/L Chloride Level 114 MEQ/L Carbon Dioxide Level 22.7 MEQ/L Anion Gap 9 MEQ/L Blood Urea Nitrogen 9 MG/DL Creatinine 0.53 MG/DL Estimat Glomerular Filtration 114 ML/MIN Rate Random Glucose 102 MG/DL Calcium Level 9.0 MG/DL Magnesium Level 1.5 MG/DL Total Bilirubin 0.7 MG/DL Aspartate Amino Transf 28 U/L (AST/SGOT) Alanine Aminotransferase 9 U/L (ALT/SGPT) Alkaline Phosphatase 89 U/L Total Protein 5.9 GM/DL Albumin 2.2 GM/DL Microbiology Date/Time Procedure Status Source Growth 06/05/16 15:20 Aerobic Blood Culture - Preliminary Resulted Blood Peripheral Escherichia Coli Esbl Positive 06/05/16 15:20 Anaerobic Blood Culture - Preliminary Resulted Escherichia Coli Esbl Positive 06/05/16 15:23 Urine Culture - Preliminary Resulted Urine Catheterized Urine Gram Negative Jah 06/05/16 15:25 Aerobic Blood Culture - Preliminary Resulted Blood Peripheral Escherichia Coli 06/05/16 15:25 Anaerobic Blood Culture - Preliminary Resulted Escherichia Coli Esbl Positive 06/06/16 12:53 Urine Culture - Preliminary Resulted Urine Catheterized Urine Gram Negative Jah Imaging Last Impressions Chest X-Ray 06/06/16 0000 Signed Impressions: Service Date/Time: Monday, June 06, 2016 03:22 - CONCLUSION: Worsening aeration Roverto Johnson MD Head CT 06/05/16 1516 Signed Impressions: Service Date/Time: May 15:49 - CONCLUSION: 1. Mild periventricular and subcortical white matter small vessel ischemic changes bilaterally. 2. No acute infarct, acute hemorrhage, mass effect or extra- axial fluid collections. Ruy Donahue MD Physical Exam CONSTITUTIONAL/GENERAL: This is an adequately nourished elderly female patient , in no apparent distress. TUBES/LINES/DRAINS: SKIN: No jaundice, rashes, or lesions. Ecchymoses on upper extremities. Skin temperature appropriate. Not diaphoretic. CARDIOVASCULAR: Regular rate and rhythm without murmurs, gallops, or rubs. No JVD. Peripheral pulses symmetric. RESPIRATORY/CHEST: Symmetric, unlabored respirations. Clear to auscultation. Breath sounds equal bilaterally. No wheezes, rales, or rhonchi. GASTROINTESTINAL: Abdomen soft, non-tender, nondistended. No hepato-splenomegaly , or palpable masses. No guarding. Bowel sounds present. GENITOURINARY: Without palpable bladder distension. SP catheter in place with cloudy yellow urine MUSCULOSKELETAL: Extremities without clubbing, cyanosis, + trace edema. Cogwheel rigidity present LYMPHATICS: No palpable cervical or supraclavicular adenopathy. NEUROLOGICAL: Awake but remains lethargic. Motor and sensory grossly within normal limits. Follows commands. Talks incoherently More confused than baseline Moves all extremities. PSYCHIATRIC: flat affect Assessment & Plan Remarks Sepsis 2/2 UTI; ESBL+ E.coli - clinically improved UTI, growing GNB, probably E.coli - dw micro: E.coli ; a;so another GNB which is beta hemolytic in the a'1 sdt one; H/o ESBL, PSAE H/o recent PSAE UTI Fever Improving WBC - cont meropenem for now - change to ertapenem if urine has just E.coli, no PSAE - fu urine and bl clx untill final - rechk bl clx if persistent fever dw family @ bs dw RN Luciano,Mine A. MD Jun 07, 2016 14:25
[2016-06-07] MEDS: ROTIGOTINE TOPICAL SCH (16:22)
[2016-06-07] MEDS: ENOXAPARIN SODIUM 30 MG/0.3 ML SYRINGE SQ SCH (16:22)
[2016-06-07] MEDS ORDERED: PHARMACY ORDERED LAB XX ONE (17:45)
[2016-06-07] MEDS: OLANZapine 5 MG TAB PO SCH (21:00)
[2016-06-07] MEDS ORDERED: TERBUTALINE INJ 1 MG/ML AMP SQ PRN (23:45)
[2016-06-07] MEDS ORDERED: NOREPINEPHRINE-DEXTROSE DRIP 250 ML IV SCH (23:45)
[2016-06-08] VITALS (12 sets, daily range): BP systolic 80–123; BP diastolic 46–66; PULSE 70–96; RESP 16–20; TEMP 98.2–99.2; O2SAT 94–100
[2016-06-08] MEDS: CHLORHEXIDINE GLUCONATE 2 % 1 PACK (2 CLOTHS) TOP SCH (04:00)
[2016-06-08] MEDS: SODIUM CHLOR 0.9% 1000 ML INJ 1,000 ML IV SCH ×4 (04:10→21:59)
--- NOTE | 2016-06-08 04:28 | RADRPT ---
EXAM DATE/TIME: 06/08/2016 03:17 [facility] COMPARISON: CHEST SINGLE AP, June 06, 2016, 3:22. INDICATIONS : Shortness of breath, possible pulmonary disease. MEDICAL HISTORY : Cardiovascular disease. SURGICAL HISTORY : Appendectomy. Hysterectomy. ENCOUNTER: Subsequent ACUITY: 4 - 6 days PAIN SCORE: Non-responsive. LOCATION: Bilateral chest FINDINGS: A single portable frontal view of the chest shows a new left lower lobe infiltrate. Right lung is steve ar. No effusions. Heart is normal in size. Right subclavian central line observed. Tip within the mid right atrium. A degenerative spine. CONCLUSION: Left lower lobe infiltrate. Shaun Cuellar Jr., MD on June 08, 2016 at 4:25 Board Certified Radiologist. This report was verified electronically.
[2016-06-08 05:16] LABS: AUTOMATED NEUTROPHIL # 8.9 TH/MM3 (1.8-7.7); BASOPHIL % 0.4 % (0.0-2.0); EOSINOPHIL # 0.2 TH/MM3 (0-0.4); EOSINOPHIL % 1.6 % (0.0-4.0); HEMATOCRIT 31.6 % (35.0-46.0); HEMO FLAGS DIFF FINAL; LYMPH % 12.5 % (9.0-44.0); LYMPHOCYTE # 1.5 TH/MM3 (1.0-4.8); MEAN CELL VOLUME 84.8 FL (80.0-100.0); MEAN CORPUSCULAR HEMOGLOBIN 29.3 PG (27.0-34.0); MEAN CORPUSCULAR HGB CONC 34.5 % (32.0-36.0); MONO % 10.8 % (0.0-8.0); NEUT % 74.7 % (16.0-70.0); PLATELET COUNT 144 TH/MM3 (150-450); RED BLOOD COUNT 3.73 MIL/MM3 (4.00-5.30); RED CELL DISTRIBUTION WIDTH 15.3 % (11.6-17.2); WHITE BLOOD COUNT 11.8 TH/MM3 (4.0-11.0)
[2016-06-08 05:21] LABS: ALT (GPT) LESS THAN 6 U/L (10-53); ANION GAP 6 MEQ/L (5-15); AST (GOT) 15 U/L (15-37); BICARBONATE 24.6 MEQ/L (21.0-32.0); BLOOD UREA NITROGEN 5 MG/DL (7-18); CHLORIDE 111 MEQ/L (98-107); GLOMERULAR FILTRATION RATE 205 ML/MIN (>89); MAGNESIUM 1.8 MG/DL (1.5-2.5); SODIUM (NA) 142 MEQ/L (136-145)
[2016-06-08 05:23] LABS: ALKALINE PHOSPHATASE 70 U/L (45-117); TOTAL BILIRUBIN ADULT 0.5 MG/DL (0.2-1.0)
[2016-06-08] MEDS: MEROPENEM 1000 MG/NS 100 ML IV SCH ×6 (05:51→21:59)
[2016-06-08] MEDS: CARBIDOPA/LEVODOPA 25 MG/250 MG TAB PO SCH ×5 (05:52→21:59)
[2016-06-08] MEDS ORDERED: ALBUMIN HUMAN 25% 25 GM/100 ML BAGP IV ONE (08:00)
[2016-06-08] MEDS: POTASSIUM CHLOR 40 MEQ PREMIX 100 ML IV PRN ×2 (08:52→11:40)
[2016-06-08] MEDS: FOSPHENYTOIN INJ 200 MGPE in SODIUM CHLORIDE 0.9% INJ 50 ML IV SCH ×2 (08:52→21:59)
[2016-06-08] MEDS: PREGABALIN 25 MG CAP PO SCH ×3 (08:53→17:22)
[2016-06-08] MEDS: DONEPEZIL HCL 5 MG TAB PO SCH (08:53)
[2016-06-08] MEDS: PANTOPRAZOLE SODIUM 40 MG VIAL IV SCH (08:54)
--- NOTE | 2016-06-08 09:38 | HHI.CCPN ---
Subjective Remarks/Hospital Course Patient is a 70-year-old female who is bedbound from advanced Parkinson's disease, dementia, sacral decubitus ulcer, history of TIA who was brought to emergency room with history of unresponsiveness and altered mental status. Apparently was unable to wake her up this afternoon. Her baseline GCS is 15 as per paramedics. EMS reported a temperature of 100.2 axillary and blood pressure was in the 90s systolic, GCS 8 and maintaining airway. In the ER initial systolic blood pressure was 65, patient received a total of 5 L normal saline boluses. Despite aggressive resuscitation patient remained hypotensive and Dr. Romo placed the right subclavian central line. Levophed to be started. I evaluated the patient in the emergency department, she looks critically ill and in septic shock. White count was 32.4 with 90% neutrophils, creatinine was 2.28 and UA showed evidence of UTI. Patient received vancomycin and Zosyn in the ED. I will continue vancomycin and start patient on meropenem renally dosed due to history of ESBL E coli. Also placed on Diflucan 100 mg IV daily. Patient has a large stage IV sacral decubitus ulcer but this does not look infected. Patient has a history of recurrent cystitis and sepsis. Previous urine cultures were reviewed. 05/15/16 culture PSAE sensitive to Zosyn, urine culture on 01/04/16 had ESBL Escherichia coli, Pseudomonas and enterococcus. SUBJ 06/06: Clinically improving, On 3 mcg /min of Levophed. Creatinine has normalized. Patient starting to verbalize able to state her name. Gram- negative rods and 4 out of 4 bottle. Urine output adequate. Currently receiving vancomycin, meropenem and Diflucan. ID consult is pending at this time 06/07: Improved mentation. On 3mcg Levophed, just turned off. Tmax 101.4. Urine output excellent. WBC count has decreased to 17.5. EKG from yesterday showed bifrontal sharps-neurology consult is pending 06/08: Patient was started back on Levophed overnight for hypotension currently remains on 1 mcg/min. I will start IV albumin and midodrine in an attempt to wean Levophed. Chest x-ray today shows new left lower lobe infiltrate. Sputum culture ordered and vancomycin added. Tmax 101.6 but currently afebrile. Objective Vital Signs Date Time Temp Pulse Resp B/P Pulse Ox O2 Delivery O2 Flow Rate FiO2 06/08/16 07:38 Nasal Cannula 2.00 06/08/16 06:00 84 06/08/16 04:00 98.2 16 104/55 98 Intake and Output 06/07/16 06/07/16 06/08/16 08:00 16:00 00:00 Intake Total 1566 ml 1623 ml 1070 ml Output Total 2200 ml 1000 ml 500 ml Balance -634 ml 623 ml 570 ml Result Diagram: 06/08/16 0450 06/08/16 0450 Other Results Microbiology Date/Time Procedure Status Source Growth 06/05/16 15:20 Aerobic Blood Culture - Final Complete Blood Peripheral Escherichia Coli Esbl Positive 06/05/16 15:20 Anaerobic Blood Culture - Final Complete Escherichia Coli Esbl Positive 06/05/16 15:25 Aerobic Blood Culture - Final Complete Blood Peripheral Escherichia Coli Esbl Positive 06/05/16 15:25 Anaerobic Blood Culture - Final Complete Escherichia Coli Esbl Positive Imaging Chest x-ray without acute infiltrate Objective Remarks GENERAL: Alert awake oriented SKIN: Warm and dry. Stage IV sacral decubitus ulcer without evidence of infection HEAD: Atraumatic. Normocephalic. EYES: Pupils equal and round. No scleral icterus. No injection or drainage. ENT: No nasal bleeding or discharge. Dry mucous membrane. Airway patent NECK: Trachea midline. No JVD. CARDIOVASCULAR: Regular rate and rhythm. No murmur appreciated. RESPIRATORY: No accessory muscle use. Clear to auscultation except for few coarse rhonchi GASTROINTESTINAL: Abdomen soft, mildly tender. Suprapubic catheter in place with cloudy urine output MUSCULOSKELETAL: 3+ pedal edema of bilateral extremities. Extension deformity of bilateral foot. NEUROLOGICAL: Opens eyes spontaneously, more awake, alert, oriented. Moves bilateral upper extremities. A/P Assessment and Plan NEURO: Acute metabolic encephalopathy Advanced Parkinson's disease Bifrontal sharps on EEG -Continue Neupro patch and Sinemet -Resumed Zyprexa and Lyrica 06/06 -Encephalopathy seems to be metabolic, now resolved -Neurology Dr. Brown seen patient on 06/07/16- started on fosphenytoin for bifrontal spikes -Dilantin level remains subtherapeutic-defer to neurology RESP: Respiratory insufficiency Left lower lobe infiltrate/pneumonia -Nasal cannula oxygen -DuoNeb every 6 hours when necessary, aggressive pulmonary toilet -See ID section for antibiotics CV: Septic shock Lactic acidosis Mild troponin elevation -s/p Normal saline IV fluids 5L bolus and 75 ml per hour infusion -Levophed to keep MAP>65-currently on 1 mcg/m wean to DC -Start midodrine 5 mg by mouth 3 times a day. IV albumin 25 g 1 and every 12 -Mild troponin elevation due to sepsis and renal failure. GI: -Diet per speech recommendation. IV Protonix : Acute kidney failure -Renal failure secondary to dehydration and hypotension-resolved -Monitor renal function closely. Continue suprapubic catheter. -Aggressive hydration as above ID: Septic shock ESBL Ecoi bacteremia 4 out of 4 bottles UTI with GNR, possible ESBL Escherichia coli Left lower lobe infiltrate/pneumonia History of ESBL Escherichia coli UTI in the past Stage IV decubitus ulcer -Continue IV meropenem. Vanc and Diflucan DCd by ID on 06/06/16. Restart IV vancomycin and pharmacy to dose due to new left lower lobe infiltrate, Tmax 101.6 -06/05 blood culture 4/4 bottles ESBL Escherichia coli -06/05 Urine culture ESBL Escherichia coli -Wound care following -Previous urine cultures from 01/04/16 growing ESBL Escherichia coli, Pseudomonas and enterococcus HEME: Leukocytosis -improving -Monitor CBC, CMP, coags ENDO: -Electrolyte replacement as needed PROPH: -Bilateral lower extremity SCDs. Lovenox 40 mg subcutaneous daily. IV Protonix 40 mg daily LINES: -Right subclavian central line placed by Dr. Romo 06/05/16 Level [address] [facility] [address]. Flores to assume care in am PT/OT/Speech following D/W Saima Stark MD Jun 08, 2016 09:38
[2016-06-08] MEDS ORDERED: Vancomycin Consult Pharmacy 1 EA OTHER SCH (09:45)
--- NOTE | 2016-06-08 09:54 | HHI.PR ---
Review/Management Diagnosis/Plan: (1) Acute metabolic encephalopathy Plan: 2/2 infection/cerebral hypoperfusion improved after iv abx and bp augmentation e.coli bacteremia eeg reviewed; changes likely 2/2 infection; also possibly 2/2 iv abx 06/08 alb 1.9, dil 5.2, corrected 10.8 recs neuro stable follow exam (2) Parkinsons disease Plan: sinemet has been increased to 1.5 tabs 5x/day (3) Infection due to ESBL-producing Escherichia coli Plan: iv abx (4) Sepsis Plan: ccm following Subjective Subjective Comments bp drops No headache No chest pain No dyspnea Active Medications Current Medications Medications (Trade) Dose Ordered Sig/Johnny Route Start Time Stop Time Status Last Admin Sodium Chloride 2 ml 2 ml UNSCH PRN IVF 06/05/16 15:30 (NS 1000 ml Inj) 1,000 ml @ 150 mls/hr Q6H40M IV 06/05/16 16:27 06/08/16 04:10 (Tylenol) 650 mg Q6H PRN PO 06/05/16 16:30 06/07/16 00:19 (Protonix Inj) 40 mg DAILY IV 06/06/16 09:00 06/08/16 08:54 (Lovenox Inj) 30 mg Q24H SQ 06/05/16 17:00 06/07/16 16:22 Miscellaneous Information 1 Q361D XX 06/05/16 16:30 (Chlorhexidine 2% Cloth) 3 pack Taper DAILY@04 TOP 06/06/16 04:00 06/02/17 03:59 06/08/16 04:00 Chlorhexidine Gluconate 3 pack 3 pack UNSCH PRN TOP 06/05/16 16:30 Potassium Chloride 100 ml @ 50 mls/hr Q2H PRN IV 06/06/16 08:45 06/08/16 08:52 Potassium Chloride 100 ml @ 50 mls/hr Q2H PRN IV 06/06/16 08:45 Potassium Chloride 100 ml @ 25 mls/hr UNSCH PRN IV 06/06/16 08:45 06/07/16 08:41 Potassium Chloride 100 ml @ 50 mls/hr Q2H PRN IV 06/06/16 08:45 (Magnesium Sulfate Inj/NS Inj) 100 ml @ 50 mls/hr UNSCH PRN IV 06/06/16 08:45 Magnesium Oxide 800 mg 800 mg UNSCH PRN PO 06/06/16 08:45 (Magnesium Sulfate Inj/NS Inj) 100 ml @ 50 mls/hr UNSCH PRN IV 06/06/16 08:45 06/07/16 13:38 Potassium Phosphate 2000 mg 2,000 mg Q4H PRN PO 06/06/16 08:45 (Sodium Phosphate Inj/NS 250 ml Inj) 250 ml @ 42 mls/hr UNSCH PRN IV 06/06/16 08:45 Potassium Phosphate 2000 mg 2,000 mg UNSCH PRN PO/TUBE 06/06/16 08:45 Potassium Phosphate 30 mmol/ Sodium Chloride 260 ml @ 42 mls/hr UNSCH PRN IV 06/06/16 08:45 (Merrem Inj/NS Inj) 100 ml @ 200 mls/hr Q8H IV 06/06/16 13:00 06/08/16 05:51 (Aricept) 10 mg DAILY PO 06/06/16 17:00 06/08/16 08:53 (ZyPREXA) 5 mg HS PO 06/06/16 21:00 06/07/16 21:00 Pregabalin 50 mg 50 mg TID PO 06/06/16 18:00 06/08/16 08:53 (Cerebyx Inj/NS Inj) 54 ml @ 216 mls/hr Q12HR IV 06/06/16 21:00 06/08/16 08:52 Patient Own Medication PT OWN MED: NEUPRO PATCH 4 MG/24 ... Q24H TOPICAL 06/07/16 14:00 06/07/16 16:22 Miscellaneous Information 1 Q24H T-DERMAL 06/07/16 14:00 06/07/16 14:00 Miscellaneous 1 ea 1 ea UNSCH PRN OTHER 06/07/16 13:15 (Levophed-Dextrose Drip) 250 ml @ 0 mls/hr TITRATE IV 06/07/16 23:45 06/08/16 05:51 (Brethine Inj) 1 mg UNSCH PRN SQ 06/07/16 23:45 (Albumin 25% Inj) 25 gm Q12H IV 06/08/16 08:00 06/10/16 07:59 Midodrine 5 mg 5 mg TID@,,17 PO 06/08/16 12:00 Vancomycin HCl 1000 mg/Sodium Chloride 250 ml @ 250 mls/hr ONCE ONCE IV 06/08/16 11:00 06/08/16 11:59 (Vancomycin Consult Pharmacy) 0 ml @ 0 mls/hr UNSCH OTHER 06/08/16 09:45 Allergies Allergies Coded Allergies *MDRO Multi-Drug Resistant Organism (Verified Adverse Reaction, Unknown, ) Review of Systems All other ROS: ROS reviewed as documented in chart Exam I&O / VS 06/07/16 06/07/16 06/08/16 15:00 23:00 07:00 Intake Total 1623 ml 1070 ml 1287 ml Output Total 1000 ml 500 ml 600 ml Balance 623 ml 570 ml 687 ml Intake Oral 100 ml IV Total 1623 ml 1070 ml 1187 ml Output Urine Total 1000 ml 500 ml 600 ml Vital Signs Date Time Temp Pulse Resp B/P Pulse Ox O2 Delivery O2 Flow Rate FiO2 06/08/16 07:38 Nasal Cannula 2.00 06/08/16 06:00 84 06/08/16 04:00 72 06/08/16 04:00 98.2 72 16 104/55 98 06/08/16 02:00 75 06/08/16 00:00 80 06/08/16 00:00 99.2 80 18 123/60 98 06/07/16 22:00 87 06/07/16 20:00 101.6 95 20 86/52 97 06/07/16 20:00 95 06/07/16 19:00 97 Nasal Cannula 2.00 06/07/16 18:00 74 06/07/16 16:00 99.8 99 17 118/58 99 06/07/16 16:00 82 06/07/16 14:00 77 06/07/16 12:00 83 06/07/16 12:00 99.5 81 16 87/58 99 06/07/16 10:00 80 General: Alert and Oriented, No acute distress Neurologic: Alert Psychiatric: Cooperative Exam Comments awake, ox 2-3. being fed breakfast by nurse, follows, facial hypomimia, severe bradykinesia, hypophonic speech, slow eom, face sym, moving ue to gravity Objective Micro and Labs Laboratory Tests Test 06/08/16 04:50 White Blood Count 11.8 Red Blood Count 3.73 Hemoglobin 10.9 Hematocrit 31.6 Mean Corpuscular Volume 84.8 Mean Corpuscular Hemoglobin 29.3 Mean Corpuscular Hemoglobin 34.5 Concent Red Cell Distribution Width 15.3 Platelet Count 144 Mean Platelet Volume 8.2 Neutrophils (%) (Auto) 74.7 Lymphocytes (%) (Auto) 12.5 Monocytes (%) (Auto) 10.8 Eosinophils (%) (Auto) 1.6 Basophils (%) (Auto) 0.4 Neutrophils # (Auto) 8.9 Lymphocytes # (Auto) 1.5 Monocytes # (Auto) 1.3 Eosinophils # (Auto) 0.2 Basophils # (Auto) 0.0 CBC Comment DIFF FINAL Differential Comment Sodium Level 142 Potassium Level 3.0 Chloride Level 111 Carbon Dioxide Level 24.6 Anion Gap 6 Blood Urea Nitrogen 5 Creatinine 0.32 Estimat Glomerular Filtration 205 Rate Random Glucose 95 Calcium Level 8.3 Magnesium Level 1.8 Total Bilirubin 0.5 Aspartate Amino Transf 15 (AST/SGOT) Alanine Aminotransferase LESS THAN 6 (ALT/SGPT) Alkaline Phosphatase 70 Total Protein 5.0 Albumin 1.9 Phenytoin (Dilantin) Level 5.2 Date/Time Procedure Status Source Growth 06/08/16 09:08 Aerobic Blood Culture Received Blood Peripheral Pending 06/08/16 09:08 Anaerobic Blood Culture Received Blood Peripheral Pending 06/06/16 12:53 Urine Culture - Preliminary Resulted Urine Catheterized Urine Gram Negative Jah 06/05/16 15:25 Aerobic Blood Culture - Final Complete Blood Peripheral Escherichia Coli Esbl Positive 06/05/16 15:25 Anaerobic Blood Culture - Final Complete Escherichia Coli Esbl Positive Problem Qualifiers (1) Sepsis: Qualified Code: A41.51 - Sepsis due to Escherichia coli Marvin Brown MD Jun 08, 2016 09:53
[2016-06-08] MEDS ORDERED: VANCOMYCIN INJ 1,000 MG in SODIUM CHLOR 0.9% 250 ML INJ 250 ML IV ONE (11:00)
[2016-06-08] MEDS: MIDODRINE 5 MG TAB PO SCH ×2 (11:35→17:22)
[2016-06-08] MEDS: ALBUMIN HUMAN 25% 25 GM/100 ML BAGP IV SCH ×2 (11:36→20:06)
--- NOTE | 2016-06-08 12:42 | HHI.IDPN ---
Subjective Subjective Remarks ID Xcover for , asked to see pt by is a 70 yo CF with Parkinsons disease advanced, h/o recurrent UTIs who has SP cath which is changed monthly H/o leakage around the suprapubic cath, follows Family took her to the hospital because they found her unresponsive On ER presentation she has leukocytosis of 32 K and low grade fever; markedly abnormal UA with innumerable WBC, many bacteria, +LE and blood Continues to spike fever overnight. Concern for seizures started on Cerebyx IV. No overt witnessed seizures per RN s/b neurologist. off all pressors awake but still appears confused, mumbles away. ESBL E.coli in urine, pseudomonas species plus dar in urine. ESBL E.coli bacteremia and Pseudomonas bacteremia No rash No diarrhea Antibiotics meropenem IV Vanco IV Lines Line sites with no e.o infection Past Medical History reviewed Allergies: Coded Allergies: *MDRO Multi-Drug Resistant Organism (Verified Adverse Reaction, Unknown, ) ESBL+E.COLI (urine) - 2011, 2012, 2014, 01/04/16; (blood) - 2011 VRE (urine/blood) - 2011 MRSA PCR Screen POSITIVE- 06/05/16 Objective . Vital Signs Date Time Temp Pulse Resp B/P Pulse Ox O2 Delivery O2 Flow Rate FiO2 06/08/16 12:00 87 06/08/16 10:00 85 06/08/16 08:00 95 Nasal Cannula 2.00 06/08/16 08:00 82 06/08/16 07:38 Nasal Cannula 2.00 06/08/16 06:00 84 06/08/16 04:00 72 06/08/16 04:00 98.2 72 16 104/55 98 06/08/16 02:00 75 06/08/16 00:00 80 06/08/16 00:00 99.2 80 18 123/60 98 06/07/16 22:00 87 06/07/16 20:00 101.6 95 20 86/52 97 06/07/16 20:00 95 06/07/16 19:00 97 Nasal Cannula 2.00 06/07/16 18:00 74 06/07/16 16:00 99.8 99 17 118/58 99 06/07/16 16:00 82 06/07/16 14:00 77 06/07/16 06/07/16 06/08/16 15:00 23:00 07:00 Intake Total 1623 ml 1070 ml 1287 ml Output Total 1000 ml 500 ml 600 ml Balance 623 ml 570 ml 687 ml Intake Oral 100 ml IV Total 1623 ml 1070 ml 1187 ml Output Urine Total 1000 ml 500 ml 600 ml . Laboratory Tests Test 06/07/16 06/08/16 05:30 04:50 White Blood Count 17.5 TH/MM3 11.8 TH/MM3 Red Blood Count 4.32 MIL/MM3 3.73 MIL/MM3 Hemoglobin 12.1 GM/DL 10.9 GM/DL Hematocrit 37.2 % 31.6 % Mean Corpuscular Volume 86.2 FL 84.8 FL Mean Corpuscular Hemoglobin 27.9 PG 29.3 PG Mean Corpuscular Hemoglobin 32.4 % 34.5 % Concent Red Cell Distribution Width 15.8 % 15.3 % Platelet Count 166 TH/MM3 144 TH/MM3 Mean Platelet Volume 7.8 FL 8.2 FL Neutrophils (%) (Auto) 83.3 % 74.7 % Lymphocytes (%) (Auto) 8.1 % 12.5 % Monocytes (%) (Auto) 7.2 % 10.8 % Eosinophils (%) (Auto) 1.0 % 1.6 % Basophils (%) (Auto) 0.4 % 0.4 % Neutrophils # (Auto) 14.6 TH/MM3 8.9 TH/MM3 Lymphocytes # (Auto) 1.4 TH/MM3 1.5 TH/MM3 Monocytes # (Auto) 1.3 TH/MM3 1.3 TH/MM3 Eosinophils # (Auto) 0.2 TH/MM3 0.2 TH/MM3 Basophils # (Auto) 0.1 TH/MM3 0.0 TH/MM3 CBC Comment DIFF FINAL DIFF FINAL Differential Comment Laboratory Tests Test 06/06/16 06/07/16 06/08/16 21:20 05:30 04:50 Potassium Level 3.4 MEQ/L 3.5 MEQ/L 3.0 MEQ/L Sodium Level 146 MEQ/L 142 MEQ/L Chloride Level 114 MEQ/L 111 MEQ/L Carbon Dioxide Level 22.7 MEQ/L 24.6 MEQ/L Anion Gap 9 MEQ/L 6 MEQ/L Blood Urea Nitrogen 9 MG/DL 5 MG/DL Creatinine 0.53 MG/DL 0.32 MG/DL Estimat Glomerular Filtration 114 ML/MIN 205 ML/MIN Rate Random Glucose 102 MG/DL 95 MG/DL Calcium Level 9.0 MG/DL 8.3 MG/DL Magnesium Level 1.5 MG/DL 1.8 MG/DL Total Bilirubin 0.7 MG/DL 0.5 MG/DL Aspartate Amino Transf 28 U/L 15 U/L (AST/SGOT) Alanine Aminotransferase 9 U/L LESS THAN 6 U/L (ALT/SGPT) Alkaline Phosphatase 89 U/L 70 U/L Total Protein 5.9 GM/DL 5.0 GM/DL Albumin 2.2 GM/DL 1.9 GM/DL Microbiology Date/Time Procedure Status Source Growth 06/05/16 15:20 Aerobic Blood Culture - Final Complete Blood Peripheral Escherichia Coli Esbl Positive 06/05/16 15:20 Anaerobic Blood Culture - Final Complete Escherichia Coli Esbl Positive 06/05/16 15:23 Urine Culture - Preliminary Resulted Urine Catheterized Urine Escherichia Coli Esbl Positive Pseudomonas Species 06/05/16 15:25 Aerobic Blood Culture - Final Complete Blood Peripheral Escherichia Coli Esbl Positive 06/05/16 15:25 Anaerobic Blood Culture - Final Complete Escherichia Coli Esbl Positive 06/06/16 12:53 Urine Culture - Preliminary Resulted Urine Catheterized Urine Escherichia Coli Esbl Positive Pseudomonas Species Yeast Species 06/08/16 09:00 Aerobic Blood Culture Received Blood Peripheral Pending 06/08/16 09:00 Anaerobic Blood Culture Received Blood Peripheral Pending 06/08/16 09:08 Aerobic Blood Culture Received Blood Peripheral Pending 06/08/16 09:08 Anaerobic Blood Culture Received Blood Peripheral Pending Imaging Last 24 hours Impressions Chest X-Ray 06/08/16 0600 Signed Impressions: Service Date/Time: Wednesday, June 08, 2016 03:17 - CONCLUSION: Left lower lobe infiltrate. Shaun Cuellar Jr., MD Chest X-Ray 06/06/16 0000 Signed Impressions: Service Date/Time: Monday, June 06, 2016 03:22 - CONCLUSION: Worsening aeration Roverto Johnson MD Head CT 06/05/16 1516 Signed Impressions: Service Date/Time: May 15:49 - CONCLUSION: 1. Mild periventricular and subcortical white matter small vessel ischemic changes bilaterally. 2. No acute infarct, acute hemorrhage, mass effect or extra- axial fluid collections. Ruy Donahue MD Physical Exam CONSTITUTIONAL/GENERAL: This is an adequately nourished elderly female patient , in no apparent distress. TUBES/LINES/DRAINS: SKIN: No jaundice, rashes, or lesions. Ecchymoses on upper extremities. Skin temperature appropriate. Not diaphoretic. CARDIOVASCULAR: Regular rate and rhythm without murmurs, gallops, or rubs. No JVD. Peripheral pulses symmetric. RESPIRATORY/CHEST: Symmetric, unlabored respirations. Clear to auscultation. Breath sounds equal bilaterally. No wheezes, rales, or rhonchi. GASTROINTESTINAL: Abdomen soft, non-tender, nondistended. No hepato-splenomegaly , or palpable masses. No guarding. Bowel sounds present. GENITOURINARY: Without palpable bladder distension. SP catheter in place with cloudy yellow urine MUSCULOSKELETAL: Extremities without clubbing, cyanosis, + trace edema. Cogwheel rigidity present LYMPHATICS: No palpable cervical or supraclavicular adenopathy. NEUROLOGICAL: Awake but remains lethargic. Motor and sensory grossly within normal limits. Follows commands. Talks incoherently More confused than baseline Moves all extremities. PSYCHIATRIC: flat affect Assessment & Plan Remarks Sepsis 2/2 bacteremia and UTI ESBL E.coli in urine, pseudomonas species plus dar in urine: Suprapubic cath related cystitis. ESBL E.coli bacteremia and Pseudomonas bacteremia Aspiration pneumonia in health care setting. acute metabolic encephalopathy: ? seizures, metabolic, meds. Advanced parkinsons disease. H/o ESBL, PSAE UTIs in past. H/o recent PSAE UTI was on levaquin. Fever persistent. Improving WBC Recs: Continue Meropenem IV (if overt seizures would recommend switching to Zerbaxa IV as Meropenem can reduce seizure threshold: d/w ) Continue Vanco IV for now. Start high dose diflucan ? fungemia vs fungal cystitis. Sputum cultures if possible. follow repeat blood cultures Urology consult to address suprapubic catheter ok to place order on Thursday. rechk bl clx if persistent fever Swallow eval: concern for ongoing aspiration. jasvir JERRY and to place pt NPO irina if seizure concerns and aspiration risk. dw family @ [facility]y RN Reviewed MAR has several meds that can cause fevers as well. Critical thinking, decision making. Fabienne Vidales MD Jun 08, 2016 12:42
[2016-06-08] MEDS: ROTIGOTINE TOPICAL SCH (13:07)
[2016-06-08] MEDS: REMOVE OLD PATCH T-DERMAL SCH (13:07)
[2016-06-08] MEDS: FLUCONAZOLE 400 MG PREMIX BAG 200 ML IV SCH (17:22)
[2016-06-08] MEDS: ENOXAPARIN SODIUM 30 MG/0.3 ML SYRINGE SQ SCH (17:22)
[2016-06-08] MEDS: OLANZapine 5 MG TAB PO SCH (21:00)
[2016-06-08] MEDS: VANCOMYCIN INJ 750 MG in SODIUM CHLOR 0.9% 250 ML INJ 250 ML IV SCH (21:59)
[2016-06-09] VITALS (15 sets, daily range): BP systolic 109–128; BP diastolic 54–68; PULSE 69–92; RESP 15–22; TEMP 97.8–98.8; O2SAT 95–99
[2016-06-09] MEDS: CHLORHEXIDINE GLUCONATE 2 % 1 PACK (2 CLOTHS) TOP SCH (04:00)
[2016-06-09 05:09] LABS: AUTOMATED NEUTROPHIL # 7.5 TH/MM3 (1.8-7.7); BASOPHIL % 0.3 % (0.0-2.0); EOSINOPHIL # 0.3 TH/MM3 (0-0.4); EOSINOPHIL % 2.9 % (0.0-4.0); HEMATOCRIT 34.1 % (35.0-46.0); HEMO FLAGS DIFF FINAL; LYMPH % 15.7 % (9.0-44.0); LYMPHOCYTE # 1.7 TH/MM3 (1.0-4.8); MEAN CORPUSCULAR HEMOGLOBIN 27.9 PG (27.0-34.0); MEAN CORPUSCULAR HGB CONC 32.8 % (32.0-36.0); MONO % 11.8 % (0.0-8.0); NEUT % 69.3 % (16.0-70.0); PLATELET COUNT 142 TH/MM3 (150-450); RED BLOOD COUNT 4.01 MIL/MM3 (4.00-5.30); RED CELL DISTRIBUTION WIDTH 15.7 % (11.6-17.2); WHITE BLOOD COUNT 10.8 TH/MM3 (4.0-11.0)
[2016-06-09 05:11] LABS: ALKALINE PHOSPHATASE 69 U/L (45-117); ALT (GPT) LESS THAN 6 U/L (10-53); ANION GAP 8 MEQ/L (5-15); AST (GOT) 12 U/L (15-37); BICARBONATE 28.4 MEQ/L (21.0-32.0); BLOOD UREA NITROGEN 5 MG/DL (7-18); CHLORIDE 105 MEQ/L (98-107); GLOMERULAR FILTRATION RATE 205 ML/MIN (>89); POTASSIUM 3.3 MEQ/L (3.5-5.1); SODIUM (NA) 141 MEQ/L (136-145); TOTAL BILIRUBIN ADULT 0.6 MG/DL (0.2-1.0)
--- NOTE | 2016-06-09 05:51 | RADRPT ---
EXAM DATE/TIME: 06/09/2016 03:49 [facility] COMPARISON: CHEST SINGLE AP, June 08, 2016, 3:17. INDICATIONS : Shortness of breath, possible pulmonary disease. MEDICAL HISTORY : Cardiovascular disease. SURGICAL HISTORY : Appendectomy. Hysterectomy. ENCOUNTER: Subsequent ACUITY: 1 week PAIN SCORE: Non-responsive. LOCATION: Bilateral chest FINDINGS: A single view of the chest demonstrates worsening left basilar density and small pleural effusion. Mi nimal atelectasis in the right lung base. Right subclavian central line in stable position.. Osseous structures are intact. CONCLUSION: Worsening left basilar density and probable small pleural effusion. Jay Araujo MD on June 09, 2016 at 5:49 Board Certified Radiologist. This report was verified electronically.
[2016-06-09] MEDS: CARBIDOPA/LEVODOPA 25 MG/250 MG TAB PO SCH ×5 (06:21→20:56)
[2016-06-09] MEDS: MEROPENEM 1000 MG/NS 100 ML IV SCH ×6 (06:21→20:56)
[2016-06-09] MEDS: MIDODRINE 5 MG TAB PO SCH ×4 (06:21→16:59)
[2016-06-09] MEDS: SODIUM CHLOR 0.9% 1000 ML INJ 1,000 ML IV SCH (06:41)
[2016-06-09] MEDS: ALBUMIN HUMAN 25% 25 GM/100 ML BAGP IV SCH ×2 (08:01→20:59)
[2016-06-09] MEDS: PREGABALIN 25 MG CAP PO SCH ×3 (08:03→16:59)
[2016-06-09] MEDS: FOSPHENYTOIN INJ 200 MGPE in SODIUM CHLORIDE 0.9% INJ 50 ML IV SCH (08:04)
[2016-06-09] MEDS: PANTOPRAZOLE SODIUM 40 MG VIAL IV SCH (08:05)
[2016-06-09] MEDS: DONEPEZIL HCL 5 MG TAB PO SCH (08:06)
--- NOTE | 2016-06-09 09:30 | HHI.PR ---
Subjective Remarks in no acute distress. afebrile. BP fairly stable. reportedly had some questionable leakage around the suprapubic cath. the family at the bedside. d/w the RN and . Objective Vitals Vital Signs Date Time Temp Pulse Resp B/P Pulse Ox O2 Delivery O2 Flow Rate FiO2 06/09/16 08:09 95 Nasal Cannula 2.00 06/09/16 06:00 92 06/09/16 04:11 99 Nasal Cannula 2.00 06/09/16 04:00 82 06/09/16 04:00 97.8 82 20 128/63 98 06/09/16 02:00 79 06/09/16 00:00 80 06/09/16 00:00 97.8 80 22 109/57 99 06/08/16 22:00 82 06/08/16 20:00 98.6 80 20 91/46 97 06/08/16 20:00 80 06/08/16 19:00 97 Nasal Cannula 2.00 06/08/16 18:00 86 06/08/16 16:00 98.7 96 17 100/52 100 06/08/16 16:00 85 06/08/16 14:00 90 06/08/16 12:00 87 06/08/16 12:00 98.9 85 18 112/66 06/08/16 10:00 85 I/O 06/08/16 06/08/16 06/08/16 06/09/16 06/09/16 06/09/16 07:00 15:00 23:00 07:00 15:00 23:00 Intake Total 1287 ml 1666 ml 1164 ml 1402 ml Output Total 600 ml 1900 ml 1500 ml 1250 ml Balance 687 ml -234 ml -336 ml 152 ml Intake Oral 100 ml 20 ml IV Total 1187 ml 1666 ml 1164 ml 1382 ml Output Urine Total 600 ml 1900 ml 1500 ml 1250 ml # Bowel Movements 0 0 Result Diagram: 06/09/1641406/09/16414 Imaging Last Impressions Chest X-Ray 06/09/16 06 Signed Impressions: Service Date/Time: Thursday, June 09, 2016 03:49 - CONCLUSION: Worsening left basilar density and probable small pleural effusion. Jay Araujo MD Head CT 06/05/16 2216 Signed Impressions: Service Date/Time: May 15:49 - CONCLUSION: 1. Mild periventricular and subcortical white matter small vessel ischemic changes bilaterally. 2. No acute infarct, acute hemorrhage, mass effect or extra- axial fluid collections. Ruy Donahue MD Objective Remarks GENERAL: This is a well-nourished, well-developed patient, in no apparent distress. CARDIOVASCULAR: Regular rate and regular rhythm without murmurs, gallops, or rubs. RESPIRATORY: Clear to auscultation. Breath sounds equal bilaterally. No wheezes , rales, or rhonchi. GASTROINTESTINAL: Abdomen soft, non-tender, nondistended. Normal, active bowel sounds MUSCULOSKELETAL: Extremities without clubbing, cyanosis, or edema. NEURO: awake Medications and IVs Current Medications Carbidopa/Levodopa (Sinemet 25-250 Mg) 1 tab ONCE ONCE PO Last administered on 06/05/16 15:42; Start 06/05/16 at 15:15; Stop 06/05/16 at 15:16; Status DC Sodium Chloride 2 ml 2 ml UNSCH PRN IVF FLUSH AFTER USING IV ACCESS; Start at 15:30 Sodium Chloride 1,000 ml @ 1,000 mls/hr Q1H IV Last administered on 06/05/16 15:43; Start 06/05/16 at 15:16; Stop 06/05/16 at 16:15; Status DC Sodium Chloride 1,000 ml @ 999 mls/hr BOLUS ONCE IV Last administered on 06/05 15:43; Start 06/05/16 at 15:30; Stop 06/05/16 at 16:32; Status DC Sodium Chloride 1,000 ml @ 999 mls/hr BOLUS ONCE IV Last administered on 06/05 15:43; Start 06/05/16 at 15:30; Stop 06/05/16 at 16:32; Status DC Piperacillin Sod/ Tazobactam Sod 100 ml @ 200 mls/hr ONCE ONCE IV Last administered on 06/05/16 16:18; Start 06/05/16 at 15:30; Stop 06/05/16 at 15:59 ; Status DC Vancomycin HCl/ Sodium Chloride (Vancomycin Inj/ NS 250 ml Inj) 250 ml @ 250 mls/hr ONCE ONCE IV Last administered on 06/05/16 15:44; Start 06/05/16 at 15 :30; Stop 06/05/16 at 16:32; Status DC Carbidopa/ Levodopa 1 tab 1 tab ONCE ONCE PO Last administered on 06/05/16 16 :25; Start 06/05/16 at 15:30; Stop 06/05/16 at 15:32; Status DC Norepinephrine Bitartrate 250 ml @ 0 mls/hr TITRATE IV Last administered on 11:43; Start 06/05/16 at 16:15; Stop 06/07/16 at 09:13; Status DC Piperacillin Sod/ Tazobactam Sod 50 ml @ 100 mls/hr Q6H IV ; Start 06/05/16 at 23:00; Stop 06/05/16 at 23:00; Status DC Pharmacy Profile Note (Vancomycin Consult Pharmacy) 0 ml @ 0 mls/hr UNSCH OTHER ; Start 06/05/16 at 16:15; Stop 06/06/16 at 14:58; Status DC Carbidopa/Levodopa (Sinemet 25-250 Mg) 1 tab DAILY PO ; Start 06/06/16 at 09:00 ; Stop 06/06/16 at 09:00; Status DC Patient Own Medication PT OWN MED: NEUPRO PATCH 4 MG/24 ... DAILY TOPICAL ; Start 06/06/16 at 09:00; Status Cancel Carbidopa/Levodopa (Sinemet 25-250 Mg) 1 tab Q6H PO Last administered on 08:42; Start 06/06/16 at 09:00; Stop 06/07/16 at 12:51; Status DC Miscellaneous Medication (ASP Crit: Path resist to other, cult proven) 1 UNSCH X1 PRN XX PHARMACY DOCUMENTATION; Start 06/05/16 at 16:30; Stop 06/06/16 at 16: 29; Status DC Miscellaneous Medication 1 1 UNSCH X1 PRN XX PHARMACY DOCUMENTATION; Start at 16:30; Stop 06/06/16 at 16:29; Status DC Meropenem 500 mg/ Sodium Chloride 100 ml @ 200 mls/hr Q12H IV Last administered on 06/06/16 05:10; Start 06/05/16 at 17:00; Stop 06/06/16 at 11:26 ; Status DC Vancomycin HCl 500 mg/Sodium Chloride 100 ml @ 200 mls/hr ONCE ONCE IV Last administered on 06/05/16 18:30; Start 06/05/16 at 17:00; Stop 06/05/16 at 17:29 ; Status DC Sodium Chloride (NS 1000 ml Inj) 1,000 ml @ 150 mls/hr Q6H40M IV Last administered on 06/09/16 06:41; Start 06/05/16 at 16:27 Acetaminophen (Tylenol) 650 mg Q6H PRN PO PAIN 1-10 AND/OR FEVER >101F Last administered on 06/07/16 00:19; Start 06/05/16 at 16:30 Pantoprazole Sodium (Protonix Inj) 40 mg DAILY IV Last administered on 08:05; Start 06/06/16 at 09:00 Albuterol/ Ipratropium (Duoneb Neb) 1 ampule Q2HR NEB PRN INH WHEEZING; Start 06/05/16 at 16:30 Enoxaparin Sodium (Lovenox Inj) 30 mg Q24H SQ Last administered on 06/08/16 17 :22; Start 06/05/16 at 17:00 Miscellaneous Information 1 Q361D XX ; Start 06/05/16 at 16:30 Chlorhexidine Gluconate (Chlorhexidine 2% Cloth) 3 pack Taper DAILY@04 TOP Last administered on 06/09/16 04:00; Start 06/06/16 at 04:00; Stop 06/02/17 at 03:59 Chlorhexidine Gluconate 3 pack 3 pack UNSCH PRN TOP HYGIENIC CARE; Start at 16:30 Fluconazole/ Sodium Chloride 50 ml @ 50 mls/hr Q24H IV Last administered on 18:29; Start 06/05/16 at 18:00; Stop 06/06/16 at 14:59; Status DC Potassium Chloride 100 ml @ 50 mls/hr Q2H PRN IV For Potassium 2.8 - 3.2 mEq/ L Last administered on 06/08/16 11:40; Start 06/06/16 at 08:45 Potassium Chloride 100 ml @ 50 mls/hr Q2H PRN IV For Potassium 2.8 - 3.2 mEq/L ; Start 06/06/16 at 08:45 Potassium Chloride 100 ml @ 25 mls/hr UNSCH PRN IV For Potassium 3.3 - 3.5 mEq /L Last administered on 06/07/16 08:41; Start 06/06/16 at 08:45 Potassium Chloride 100 ml @ 50 mls/hr Q2H PRN IV For Potassium 3.3 - 3.5 mEq/ L Last administered on 06/09/16 08:06; Start 06/06/16 at 08:45 Magnesium Sulfate/ Sodium Chloride (Magnesium Sulfate Inj/NS Inj) 100 ml @ 50 mls/hr UNSCH PRN IV For Magnesium 0.9 - 1.1 mg/dL; Start 06/06/16 at 08:45 Magnesium Oxide 800 mg 800 mg UNSCH PRN PO For Magnesium 1.2 - 1.6 mg/dL; Start 06/06/16 at 08:45 Magnesium Sulfate/ Sodium Chloride (Magnesium Sulfate Inj/NS Inj) 100 ml @ 50 mls/hr UNSCH PRN IV For Magnesium 1.2 - 1.6 mg/dL Last administered on 13:38; Start 06/06/16 at 08:45 Potassium Phosphate 2000 mg 2,000 mg Q4H PRN PO For Phosphorus < 2.5 mg/dL; Start 06/06/16 at 08:45 Sodium Phosphate/ Sodium Chloride (Sodium Phosphate Inj/NS 250 ml Inj) 250 ml @ 42 mls/hr UNSCH PRN IV For Phosphorus < 2.5 mg/dL; Start 06/06/16 at 08:45 Potassium Phosphate 2000 mg 2,000 mg UNSCH PRN PO/TUBE SEE LABEL COMMENTS; Start 06/06/16 at 08:45 Potassium Phosphate 30 mmol/ Sodium Chloride 260 ml @ 42 mls/hr UNSCH PRN IV SEE LABEL COMMENTS; Start 06/06/16 at 08:45 Fluconazole/ Sodium Chloride 50 ml @ 50 mls/hr Q24H IV ; Start 06/06/16 at 09:30 ; Status UNV Vancomycin HCl/ Sodium Chloride (Vancomycin Inj/ NS 250 ml Inj) 262.5 ml @ 250 mls/hr Q24H IV ; Start 06/06/16 at 18:00; Stop 06/06/16 at 18:00; Status DC Miscellaneous Information SPECIFIC LAB TO BE DRAWN:VANCOMYCIN TROUGH DATE TO... ONCE ONCE XX ; Start 06/07/16 at 17:45; Stop 06/07/16 at 17:45; Status DC Meropenem 1000 mg/ Sodium Chloride 100 ml @ 200 mls/hr Q8H IV ; Start 06/06/16 at 13:00; Status UNV Sodium Chloride 1,000 ml @ 999 mls/hr BOLUS ONCE IV Last administered on 06/06 11:44; Start 06/06/16 at 12:00; Stop 06/06/16 at 13:00; Status DC Meropenem/Sodium Chloride (Merrem Inj/NS Inj) 100 ml @ 200 mls/hr Q8H IV Last administered on 06/09/16 06:21; Start 06/06/16 at 13:00 Donepezil HCl (Aricept) 10 mg DAILY PO Last administered on 06/09/16 08:06; Start 06/06/16 at 17:00 Olanzapine (ZyPREXA) 5 mg HS PO Last administered on 06/08/16 21:00; Start at 21:00 Pregabalin (Lyrica) 50 mg TID PO Last administered on 06/09/16 08:03; Start at 18:00 Fosphenytoin Sodium 200 mgpe 200 mgpe Q12HR IV ; Start 06/06/16 at 21:00; Stop 06/06/16 at 21:00; Status DC Fosphenytoin Sodium 1000 mgpe/ Sodium Chloride 70 ml @ 280 mls/hr ONCE ONCE IV Last administered on 06/06/16 17:30; Start 06/06/16 at 17:30; Stop at 18:01; Status DC Fosphenytoin Sodium/Sodium Chloride (Cerebyx Inj/NS Inj) 54 ml @ 216 mls/hr Q12HR IV Last administered on 06/09/16 08:04; Start 06/06/16 at 21:00 Carbidopa/Levodopa (Sinemet 25-250 Mg) 1.5 tab 5 TIMES A DAY PO Last administered on 06/09/16 06:21; Start 06/07/16 at 18:00 Patient Own Medication PT OWN MED: NEUPRO PATCH 4 MG/24 ... Q24H TOPICAL Last administered on 06/08/16 13:07; Start 06/07/16 at 14:00 Miscellaneous Information 1 Q24H T-DERMAL Last administered on 06/08/16 13:07 ; Start 06/07/16 at 14:00 Miscellaneous 1 ea 1 ea UNSCH PRN OTHER SEE LABEL COMMENTS; Start 06/07/16 at 13:15 Norepinephrine Bitartrate (Levophed-Dextrose Drip) 250 ml @ 0 mls/hr TITRATE IV Last administered on 06/08/16 05:51; Start 06/07/16 at 23:45 Terbutaline Sulfate (Brethine Inj) 1 mg UNSCH PRN SQ For Extravasation; Start 06/07/16 at 23:45 Albumin Human (Albumin 25% Inj) 25 gm ONCE ONCE IV Last administered on 08:52; Start 06/08/16 at 08:00; Stop 06/08/16 at 08:01; Status DC Albumin Human (Albumin 25% Inj) 25 gm Q12H IV Last administered on 06/09/16 08 :01; Start 06/08/16 at 08:00; Stop 06/10/16 at 07:59 Midodrine 5 mg 5 mg TID@07,12,17 PO Last administered on 06/09/16 06:21; Start 06/08/16 at 12:00 Vancomycin HCl 1000 mg/Sodium Chloride 250 ml @ 250 mls/hr ONCE ONCE IV Last administered on 06/08/16 11:35; Start 06/08/16 at 11:00; Stop 06/08/16 at 11:59 ; Status DC Pharmacy Profile Note 0 ml @ 0 mls/hr UNSCH OTHER ; Start 06/08/16 at 09:45 Vancomycin HCl/ Sodium Chloride (Vancomycin Inj/ NS 250 ml Inj) 257.5 ml @ 250 mls/hr Q12H IV Last administered on 06/08/16 21:59; Start 06/08/16 at 23:00 Miscellaneous Information SPECIFIC LAB TO BE MYRNA... ONCE ONCE XX ; Start at 22:45; Stop 06/09/16 at 22:46 Fluconazole/ Sodium Chloride (Diflucan 400 Mg Premix Bag) 200 ml @ 100 mls/hr Q24H IV Last administered on 06/08/16 17:22; Start 06/08/16 at 13:00 A/P Assessment and Plan A/P Acute metabolic encephalopathy Advanced Parkinson's disease Bifrontal sharps on EEG -Continue Sinemet -Resumed Zyprexa and Lyrica 06/06 -Encephalopathy seems to be metabolic -Neurology Dr. Brown seen patient - started on fosphenytoin for bifrontal spikes Respiratory insufficiency Left lower lobe infiltrate/pneumonia -Nasal cannula oxygen -DuoNeb every 6 hours when necessary, aggressive pulmonary toilet -See ID section for antibiotics Septic shock Lactic acidosis Mild troponin elevation -Levophed was dc'ed. -Started midodrine 5 mg by mouth 3 times a day. IV albumin 25 g 1 and every 12 -Mild troponin elevation due to sepsis and renal failure. -Diet per speech recommendation. IV Protonix Acute kidney failure questionable leak around the suprapubic cath. -Renal failure secondary to dehydration and hypotension-resolved -Monitor renal function closely. Continue suprapubic catheter. -Aggressive hydration as above -consult urology consult Septic shock ESBL Ecoi bacteremia 4 out of 4 bottles UTI with GNR, possible ESBL Escherichia coli Left lower lobe infiltrate/pneumonia History of ESBL Escherichia coli UTI in the past Stage IV decubitus ulcer -Continue IV meropenem. Vanc and Diflucan. -ID is following. -06/05 blood culture 4/4 bottles ESBL Escherichia coli -06/05 Urine culture ESBL Escherichia coli -Wound care following -Previous urine cultures from 01/04/16 growing ESBL Escherichia coli, Pseudomonas and enterococcus -repeated blood cultures pending. Leukocytosis -improving -Monitor CBC, CMP, coags hypokalemia -Electrolyte replacement as needed PROPH: -Bilateral lower extremity SCDs. Lovenox 40 mg subcutaneous daily. IV Protonix 40 mg daily will keep in ICU for now for close monitoring. Shantanu Galicia MD Jun 09, 2016 09:30
--- NOTE | 2016-06-09 09:53 | HHI.PR ---
Review/Management Diagnosis/Plan: (1) Acute metabolic encephalopathy Plan: 2/2 infection/cerebral hypoperfusion improved after iv abx and bp augmentation e.coli bacteremia eeg reviewed; changes likely 2/2 infection; also possibly 2/2 iv abx 06/09 alb 1.9, dil 10 corrected 20.8 recs hold dil today; reduce dose for am repeat eeg pd stable d/w pt/partner/sister follow exam (2) Parkinsons disease Plan: sinemet has been increased to 1.5 tabs 5x/day (3) Infection due to ESBL-producing Escherichia coli Plan: iv abx (4) Sepsis Plan: ccm following Subjective Subjective Comments No acute events reported No headache No chest pain No dyspnea Active Medications Current Medications Medications (Trade) Dose Ordered Sig/Johnny Route Start Time Stop Time Status Last Admin Sodium Chloride 2 ml 2 ml UNSCH PRN IVF 06/05/16 15:30 (NS 1000 ml Inj) 1,000 ml @ 150 mls/hr Q6H40M IV 06/05/16 16:27 06/09/16 06:41 (Tylenol) 650 mg Q6H PRN PO 06/05/16 16:30 06/07/16 00:19 (Protonix Inj) 40 mg DAILY IV 06/06/16 09:00 06/09/16 08:05 (Lovenox Inj) 30 mg Q24H SQ 06/05/16 17:00 06/08/16 17:22 Miscellaneous Information 1 Q361D XX 06/05/16 16:30 (Chlorhexidine 2% Cloth) 3 pack Taper DAILY@04 TOP 06/06/16 04:00 06/02/17 03:59 06/09/16 04:00 Chlorhexidine Gluconate 3 pack 3 pack UNSCH PRN TOP 06/05/16 16:30 Potassium Chloride 100 ml @ 50 mls/hr Q2H PRN IV 06/06/16 08:45 06/08/16 11:40 Potassium Chloride 100 ml @ 50 mls/hr Q2H PRN IV 06/06/16 08:45 Potassium Chloride 100 ml @ 25 mls/hr UNSCH PRN IV 06/06/16 08:45 06/07/16 08:41 Potassium Chloride 100 ml @ 50 mls/hr Q2H PRN IV 06/06/16 08:45 06/09/16 08:06 (Magnesium Sulfate Inj/NS Inj) 100 ml @ 50 mls/hr UNSCH PRN IV 06/06/16 08:45 Magnesium Oxide 800 mg 800 mg UNSCH PRN PO 06/06/16 08:45 (Magnesium Sulfate Inj/NS Inj) 100 ml @ 50 mls/hr UNSCH PRN IV 06/06/16 08:45 06/07/16 13:38 Potassium Phosphate 2000 mg 2,000 mg Q4H PRN PO 06/06/16 08:45 (Sodium Phosphate Inj/NS 250 ml Inj) 250 ml @ 42 mls/hr UNSCH PRN IV 06/06/16 08:45 Potassium Phosphate 2000 mg 2,000 mg UNSCH PRN PO/TUBE 06/06/16 08:45 Potassium Phosphate 30 mmol/ Sodium Chloride 260 ml @ 42 mls/hr UNSCH PRN IV 06/06/16 08:45 (Merrem Inj/NS Inj) 100 ml @ 200 mls/hr Q8H IV 06/06/16 13:00 06/09/16 06:21 (Aricept) 10 mg DAILY PO 06/06/16 17:00 06/09/16 08:06 (ZyPREXA) 5 mg HS PO 06/06/16 21:00 06/08/16 21:00 Pregabalin 50 mg 50 mg TID PO 06/06/16 18:00 06/09/16 08:03 (Cerebyx Inj/NS Inj) 54 ml @ 216 mls/hr Q12HR IV 06/06/16 21:00 06/09/16 08:04 Patient Own Medication PT OWN MED: NEUPRO PATCH 4 MG/24 ... Q24H TOPICAL 06/07/16 14:00 06/08/16 13:07 Miscellaneous Information 1 Q24H T-DERMAL 06/07/16 14:00 06/08/16 13:07 Miscellaneous 1 ea 1 ea UNSCH PRN OTHER 06/07/16 13:15 (Levophed-Dextrose Drip) 250 ml @ 0 mls/hr TITRATE IV 06/07/16 23:45 06/08/16 05:51 (Brethine Inj) 1 mg UNSCH PRN SQ 06/07/16 23:45 (Albumin 25% Inj) 25 gm Q12H IV 06/08/16 08:00 06/10/16 07:59 06/09/16 08:01 Midodrine 5 mg 5 mg TID@07,12,17 PO 06/08/16 12:00 06/09/16 06:21 Pharmacy Profile Note 0 ml @ 0 mls/hr UNSCH OTHER 06/08/16 09:45 (Vancomycin Inj/ NS 250 ml Inj) 257.5 ml @ 250 mls/hr Q12H IV 06/08/16 23:00 06/08/16 21:59 Miscellaneous Information SPECIFIC LAB TO BE MYRNA... ONCE ONCE XX 06/09/16 22:45 06/09/16 22:46 (Diflucan 400 Mg Premix Bag) 200 ml @ 100 mls/hr Q24H IV 06/08/16 13:00 06/08/16 17:22 Allergies Allergies Coded Allergies *MDRO Multi-Drug Resistant Organism (Verified Adverse Reaction, Unknown, ) Review of Systems All other ROS: ROS reviewed as documented in chart Exam I&O / VS 06/08/16 06/08/16 06/09/16 15:00 23:00 07:00 Intake Total 1666 ml 1164 ml 1402 ml Output Total 1900 ml 1500 ml 1250 ml Balance -234 ml -336 ml 152 ml Intake Oral 20 ml IV Total 1666 ml 1164 ml 1382 ml Output Urine Total 1900 ml 1500 ml 1250 ml # Bowel Movements 0 0 Vital Signs Date Time Temp Pulse Resp B/P Pulse Ox O2 Delivery O2 Flow Rate FiO2 06/09/16 09:03 19 06/09/16 08:09 95 Nasal Cannula 2.00 06/09/16 08:00 98.8 81 19 114/54 99 06/09/16 08:00 81 06/09/16 07:00 99 Nasal Cannula 2.00 06/09/16 06:00 92 06/09/16 04:11 99 Nasal Cannula 2.00 06/09/16 04:00 82 06/09/16 04:00 97.8 82 20 128/63 98 06/09/16 02:00 79 06/09/16 00:00 80 06/09/16 00:00 97.8 80 22 109/57 99 06/08/16 22:00 82 06/08/16 20:00 98.6 80 20 91/46 97 06/08/16 20:00 80 06/08/16 19:00 97 Nasal Cannula 2.00 06/08/16 18:00 86 06/08/16 16:00 98.7 96 17 100/52 100 06/08/16 16:00 85 06/08/16 14:00 90 06/08/16 12:00 87 06/08/16 12:00 98.9 85 18 112/66 06/08/16 10:00 85 General: Alert and Oriented, No acute distress Neurologic: Alert Psychiatric: Cooperative Exam Comments awake, ox 2-3. follows, facial hypomimia, severe bradykinesia, hypophonic speech , slow eom, face sym, moving ue to gravity; paraplegia x >1 yr Objective Micro and Labs Laboratory Tests Test 06/08/16 06/09/16 18:00 04:15 Potassium Level 3.6 3.3 White Blood Count 10.8 Red Blood Count 4.01 Hemoglobin 11.2 Hematocrit 34.1 Mean Corpuscular Volume 85.0 Mean Corpuscular Hemoglobin 27.9 Mean Corpuscular Hemoglobin 32.8 Concent Red Cell Distribution Width 15.7 Platelet Count 142 Mean Platelet Volume 8.2 Neutrophils (%) (Auto) 69.3 Lymphocytes (%) (Auto) 15.7 Monocytes (%) (Auto) 11.8 Eosinophils (%) (Auto) 2.9 Basophils (%) (Auto) 0.3 Neutrophils # (Auto) 7.5 Lymphocytes # (Auto) 1.7 Monocytes # (Auto) 1.3 Eosinophils # (Auto) 0.3 Basophils # (Auto) 0.0 CBC Comment DIFF FINAL Differential Comment Sodium Level 141 Chloride Level 105 Carbon Dioxide Level 28.4 Anion Gap 8 Blood Urea Nitrogen 5 Creatinine 0.32 Estimat Glomerular Filtration 205 Rate Random Glucose 94 Calcium Level 8.4 Total Bilirubin 0.6 Aspartate Amino Transf 12 (AST/SGOT) Alanine Aminotransferase LESS THAN 6 (ALT/SGPT) Alkaline Phosphatase 69 Total Protein 5.6 Albumin 2.9 Phenytoin (Dilantin) Level 10.0 Date/Time Procedure Status Source Growth 06/08/16 09:08 Aerobic Blood Culture Received Blood Peripheral Pending 06/08/16 09:08 Anaerobic Blood Culture Received Blood Peripheral Pending 06/06/16 12:53 Urine Culture - Preliminary Resulted Urine Catheterized Urine Escherichia Coli Esbl Positive Pseudomonas Species Yeast Species 06/05/16 15:25 Aerobic Blood Culture - Final Complete Blood Peripheral Escherichia Coli Esbl Positive 06/05/16 15:25 Anaerobic Blood Culture - Final Complete Escherichia Coli Esbl Positive Problem Qualifiers (1) Sepsis: Qualified Code: A41.51 - Sepsis due to Escherichia coli Marvin Brown MD Jun 09, 2016 09:53
[2016-06-09] MEDS: VANCOMYCIN INJ 750 MG in SODIUM CHLOR 0.9% 250 ML INJ 250 ML IV SCH (11:13)
--- NOTE | 2016-06-09 11:16 | PD.CONS ---
Consult Service Palliative Care Consult Requested By Dr Layne . Primary Care Physician Shira Drake MD Reason for Consultation a. To assist with evaluation and management of symptoms including: pain, agitation/hallucinations b. To assist medical decision maker(s) with: better understanding of current medical conditions; weighing benefits/burdens of medical treatment options; making medical treatment decisions. HPI History of Present Illness This 70-year-old female presents to the ED on 06/05/16, via EMS. She presented due to unresponsiveness/AMS, her notified EMS when he could not arouse her at afternoon. Not known when she was last at her normal mental status. Patient with history of dementia, Parkinson's disease. EMS noted temperature 100.2, hypotension 90s systolic, GCS 8, able to maintain her airway 97% on 2 L. Blood glucose 122. * ED course: Temperature 99.2. Patient noted to have an indwelling suprapubic catheter (changed monthly--follows outpatient with urology). Central line placed in the ED, initiated on IV fluids. Started on Zosyn and vancomycin,+ leukocytosis WBC 34. Lactic acid elevated at 2.8 . UA positive for UTI. Started on Sinemet for rigidity presumed to be secondary to Parkinson's. Admitted for further evaluation and management of sepsis. Later during ED course with persistent hypotension in the 80s, started on norepinephrine drip. Maintaining her airway. Patient noted to have prior culture from 05/15/69 =PSAE sensitive to Zosyn. * ID consulted 06/06 for ESBL + E.coli bactermeia; UTI= GNB, probably Escherichia coli. ID continues meropenem, DC Vanco and fluconazole, changed to ertapenem when cultures finalize * Neurology consultEEG done 06/06= moderate to severe encephalopathy with frequent sometimes rhythmic frontal sharp waves. Neurology notes acute metabolic encephalopathy likely secondary to infection, cerebral hypoperfusion some improvement after IV antibiotics and BP support. Notes EEG finding likely secondary to infection possibly secondary to IV antibiotics. Orders IV Cerebyx while in treated for infection, follow levels. Increased Sinemet dosing. * patient tolerating mechanical soft diet with thin liquids as per speech therapy evaluation. * 06/08 ESBL E.coli in urine, pseudomonas species plus dar in urine. ESBL E.coli bacteremia and Pseudomonas bacteremia--ID continues meropenem unless patient with seizures, continue Vanco, start high-dose Diflucan for fungemia versus fungal cystitis. Obtain sputum cultures if possible. Consult urology to follow and address suprapubic catheter. Concern for aspiration risk speech therapy repeat evaluation requested, CXR worsening: Worsening left basilar density and probable small pleural effusion * Palliative care was consulted to assist with clarification of goals of treatment. repeat swallow eval no ss/sx aspiration per ST Seen in room w family @ bedside. Also Present Sallie Terry, [employer] medical student. Pt is lethargic, awake at times, does not really participate. Confused , oriented to and family only. Appears comfortable. Function/Cognitive Trajectory Lives at home with spouse, niece. Per EMR has been bedbound for just over a year, and dependent for all care. Spouse is Primary caregiver. Suprapubic catheter has been in place for 15 months, changed monthly. She is incontinent of bowel and bladder. Reported to eat well. Nurse on-call visits in the home setting. Review of Systems ROS Limitations: Clinical Condition, Altered Mental Status, Poor Historian Constitutional: COMPLAINS OF: Weight loss (est 60 lbs in 1 yr), Change in appetite, Pain (buttock) Ears, nose, mouth, throat: COMPLAINS OF: Throat pain (recent sore throat, resolved few wk ago), DENIES: Oral lesions Respiratory: COMPLAINS OF: Cough (chronic x 6 mos), DENIES: Shortness of breath Cardiovascular: DENIES: Lower Extremity Edema Gastrointestinal: COMPLAINS OF: Constipation (intermittent), Diarrhea ( intermittent ), Difficulty Swallowing (? intermittent diff. 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 Reported Medications Toviaz ER (Fesoterodine Fumarate) 4 mg Chevy 4 Mg PO DAILY Vitamin C (Ascorbic Acid) 500 Mg Cap 500 Mg PO BID Tessalon Perles (Benzonatate) 100 Mg Cap 100 Mg PO TID PRN Donepezil 10 Mg Tab 10 Mg PO DAILY Lyrica (Pregabalin) 50 Mg Cap 50 Mg PO TID Zyprexa (Olanzapine) 5 Mg Tab 5 Mg PO HS Neupro Patch 24 HR (Rotigotine Patch 24 HR) 4 Mg/24 Hr Patch 4 Mg T-DERMAL DAILY Nystatin Topical (Nystatin) 100,000 unit/gm Cream 1 Applic TOPICAL DAILY PRN Carbidopa-Levodopa 25-250 Mg Tab 1 Tab PO 4 X DAILY . Current Medications Medications (Trade) Dose Ordered Sig/Johnny Route Start Time Stop Time Status Last Admin Sodium Chloride 2 ml 2 ml UNSCH PRN IVF 06/05/16 15:30 (NS 1000 ml Inj) 1,000 ml @ 150 mls/hr Q6H40M IV 06/05/16 16:27 06/09/16 06:41 (Tylenol) 650 mg Q6H PRN PO 06/05/16 16:30 06/07/16 00:19 (Protonix Inj) 40 mg DAILY IV 06/06/16 09:00 06/09/16 08:05 (Lovenox Inj) 30 mg Q24H SQ 06/05/16 17:00 06/08/16 17:22 Miscellaneous Information 1 Q361D XX 06/05/16 16:30 (Chlorhexidine 2% Cloth) 3 pack Taper DAILY@04 TOP 06/06/16 04:00 06/02/17 03:59 06/09/16 04:00 Chlorhexidine Gluconate 3 pack 3 pack UNSCH PRN TOP 06/05/16 16:30 Potassium Chloride 100 ml @ 50 mls/hr Q2H PRN IV 06/06/16 08:45 06/08/16 11:40 Potassium Chloride 100 ml @ 50 mls/hr Q2H PRN IV 06/06/16 08:45 Potassium Chloride 100 ml @ 25 mls/hr UNSCH PRN IV 06/06/16 08:45 06/07/16 08:41 Potassium Chloride 100 ml @ 50 mls/hr Q2H PRN IV 06/06/16 08:45 06/09/16 08:06 (Magnesium Sulfate Inj/NS Inj) 100 ml @ 50 mls/hr UNSCH PRN IV 06/06/16 08:45 Magnesium Oxide 800 mg 800 mg UNSCH PRN PO 06/06/16 08:45 (Magnesium Sulfate Inj/NS Inj) 100 ml @ 50 mls/hr UNSCH PRN IV 06/06/16 08:45 06/07/16 13:38 Potassium Phosphate 2000 mg 2,000 mg Q4H PRN PO 06/06/16 08:45 (Sodium Phosphate Inj/NS 250 ml Inj) 250 ml @ 42 mls/hr UNSCH PRN IV 06/06/16 08:45 Potassium Phosphate 2000 mg 2,000 mg UNSCH PRN PO/TUBE 06/06/16 08:45 Potassium Phosphate 30 mmol/ Sodium Chloride 260 ml @ 42 mls/hr UNSCH PRN IV 06/06/16 08:45 (Merrem Inj/NS Inj) 100 ml @ 200 mls/hr Q8H IV 06/06/16 13:00 06/09/16 06:21 (Aricept) 10 mg DAILY PO 06/06/16 17:00 06/09/16 08:06 (ZyPREXA) 5 mg HS PO 06/06/16 21:00 06/08/16 21:00 (Lyrica) 50 mg TID PO 06/06/16 18:00 06/09/16 08:03 Patient Own Medication PT OWN MED: NEUPRO PATCH 4 MG/24 ... Q24H TOPICAL 06/07/16 14:00 06/08/16 13:07 Miscellaneous Information 1 Q24H T-DERMAL 06/07/16 14:00 06/08/16 13:07 Miscellaneous 1 ea 1 ea UNSCH PRN OTHER 06/07/16 13:15 (Levophed-Dextrose Drip) 250 ml @ 0 mls/hr TITRATE IV 06/07/16 23:45 06/08/16 05:51 (Brethine Inj) 1 mg UNSCH PRN SQ 06/07/16 23:45 (Albumin 25% Inj) 25 gm Q12H IV 06/08/16 08:00 06/10/16 07:59 06/09/16 08:01 Midodrine 5 mg 5 mg TID@07,12,17 PO 06/08/16 12:00 06/09/16 06:21 Pharmacy Profile Note 0 ml @ 0 mls/hr UNSCH OTHER 06/08/16 09:45 (Vancomycin Inj/ NS 250 ml Inj) 257.5 ml @ 250 mls/hr Q12H IV 06/08/16 23:00 06/08/16 21:59 Miscellaneous Information SPECIFIC LAB TO BE ... ONCE ONCE XX 06/09/16 22:45 06/09/16 22:46 Fluconazole/ Sodium Chloride 200 ml @ 100 mls/hr Q24H IV 06/08/16 13:00 06/08/16 17:22 (Cerebyx Inj/NS Inj) 52.6 ml @ 216 mls/hr Q12HR IV 06/10/16 06:00 Family History family hx hypertension . Substance Use Tobacco:nonsmoker Alcohol:none Prescription med abuse:none Illicits:none . Psychosocial History to her spouse 50+ yrs. Lives at home w spouse, he is PCG. Bedbound/ dependent for at least the past year. Is a triplet, supported by her 2 sisters, as well as niece, and Spiritual/Cultural Factors Amish . Living Will: Copy in medical record Health Care Surrogate: Copy in medical record Date completed: August 2009 Health Care Surrogate(s): Fausto Cali, juan jose Leung . Documented care wishes: Living will details in the usual verbiage that if patient with terminal, end- stage or persistent vegetative condition with no chance of reasonable medical probability of recovery to [place] life-prolonging procedures be withheld for withdrawn when they would only serve to prolong artificially the process of dying, and be permitted to naturally with only the administration of medication deemed necessary to provide comfort care or alleviate pain. Ethical and Legal Issues Patient unable to participate in decision-making due to dementia, AMS. Her is designated HCS per her living will. Niece is secondary. Physical Exam Vital Signs Date Time Temp Pulse Resp B/P Pulse Ox O2 Delivery O2 Flow Rate FiO2 06/09/16 09:03 19 06/09/16 08:09 95 Nasal Cannula 2.00 06/09/16 08:00 98.8 81 19 114/54 99 06/09/16 08:00 81 06/09/16 07:00 99 Nasal Cannula 2.00 06/09/16 06:00 92 06/09/16 04:11 99 Nasal Cannula 2.00 06/09/16 04:00 82 06/09/16 04:00 97.8 82 20 128/63 98 06/09/16 02:00 79 06/09/16 00:00 80 06/09/16 00:00 97.8 80 22 109/57 99 06/08/16 22:00 82 06/08/16 20:00 98.6 80 20 91/46 97 06/08/16 20:00 80 06/08/16 19:00 97 Nasal Cannula 2.00 06/08/16 18:00 86 06/08/16 16:00 98.7 96 17 100/52 100 06/08/16 16:00 85 06/08/16 14:00 90 06/08/16 12:00 87 06/08/16 12:00 98.9 85 18 112/66 06/08/16 06/09/16 19:00 07:00 Intake Total 1666 ml 2566 ml Output Total 1900 ml 2750 ml Balance -234 ml -184 ml Intake Oral 20 ml IV Total 1666 ml 2546 ml Output Urine Total 1900 ml 2750 ml # Bowel Movements 0 Exam CONSTITUTIONAL/GENERAL: This is a frail, chronically ill appearing pt TUBES/LINES/DRAINS: PIV upper extremity, + subclavian central line , SP catheter with drainage back around; not visualized reported buttock wound , SCDs , NC SKIN: No jaundice, rashes, or lesions. No wounds seen anteriorly. Skin temperature appropriate. Not diaphoretic. HEAD: Atraumatic. Normocephalic. EYES: Pupils equal and round and reactive. Extraocular motions intact. No scleral icterus. No injection or drainage. Fundi not examined. ENT: Nose without bleeding or purulent drainage. Throat without visible erythema, exudates, masses, or lesions. NECK: Trachea midline. Supple, nontender. No palpable thyroid enlargement or nodularity. CARDIOVASCULAR: Regular rate and rhythm without murmurs. No JVD. Peripheral pulses symmetric.trace peripheral edema. RESPIRATORY/CHEST: Symmetric, unlabored respirations. On 2L. Clear to auscultation, decreased airmovement, she doesn't participate in requested deep breathing. Breath sounds equal bilaterally. GASTROINTESTINAL: Abdomen soft, non-tender, nondistended. No hepato-splenomegaly , or palpable masses. No guarding. Bowel sounds present. GENITOURINARY: Without palpable bladder distension. SP catheter in place. Wound bag around SP cath. MUSCULOSKELETAL: Extremities without clubbing, cyanosis. trace periph edema. No mottling or clubbing. LYMPHATICS: No palpable cervical or supraclavicular adenopathy. NEUROLOGICAL: Awake at times, falls asleep other times. Follows some simple commands though intermittently. Does move all 4 extremities weakly to command. Oriented to self and family only, confused to place, year etc. PSYCHIATRIC: No obvious anxiety/depression. + Hallucination, tells her the ceiling in the bathroom is following . Diagnostic Tests Laboratory Laboratory Tests Test 06/06/16 06/07/16 06/08/16 06/08/16 21:20 05:30 04:50 18:00 Potassium Level 3.4 MEQ/L 3.5 MEQ/L 3.0 MEQ/L 3.6 MEQ/L (3.5-5.1) (3.5-5.1) (3.5-5.1) (3.5-5.1) White Blood Count 17.5 TH/MM3 11.8 TH/MM3 (4.0-11.0) (4.0-11.0) Red Blood Count 4.32 MIL/MM3 3.73 MIL/MM3 (4.00-5.30) (4.00-5.30) Hemoglobin 12.1 GM/DL 10.9 GM/DL (11.6-15.3) (11.6-15.3) Hematocrit 37.2 % 31.6 % (35.0-46.0) (35.0-46.0) Mean Corpuscular Volume 86.2 FL 84.8 FL (80.0-100.0) (80.0-100.0) Mean Corpuscular Hemoglobin 27.9 PG 29.3 PG (27.0-34.0) (27.0-34.0) Mean Corpuscular Hemoglobin 32.4 % 34.5 % Concent (32.0-36.0) (32.0-36.0) Red Cell Distribution Width 15.8 % 15.3 % (11.6-17.2) (11.6-17.2) Platelet Count 166 TH/MM3 144 TH/MM3 (150-450) (150-450) Mean Platelet Volume 7.8 FL 8.2 FL (7.0-11.0) (7.0-11.0) Neutrophils (%) (Auto) 83.3 % 74.7 % (16.0-70.0) (16.0-70.0) Lymphocytes (%) (Auto) 8.1 % 12.5 % (9.0-44.0) (9.0-44.0) Monocytes (%) (Auto) 7.2 % (0.0-8.0) 10.8 % (0.0-8.0) Eosinophils (%) (Auto) 1.0 % (0.0-4.0) 1.6 % (0.0-4.0) Basophils (%) (Auto) 0.4 % (0.0-2.0) 0.4 % (0.0-2.0) Neutrophils # (Auto) 14.6 TH/MM3 8.9 TH/MM3 (1.8-7.7) (1.8-7.7) Lymphocytes # (Auto) 1.4 TH/MM3 1.5 TH/MM3 (1.0-4.8) (1.0-4.8) Monocytes # (Auto) 1.3 TH/MM3 1.3 TH/MM3 (0-0.9) (0-0.9) Eosinophils # (Auto) 0.2 TH/MM3 0.2 TH/MM3 (0-0.4) (0-0.4) Basophils # (Auto) 0.1 TH/MM3 0.0 TH/MM3 (0-0.2) (0-0.2) CBC Comment DIFF FINAL DIFF FINAL Differential Comment Sodium Level 146 MEQ/L 142 MEQ/L (136-145) (136-145) Chloride Level 114 MEQ/L 111 MEQ/L (98-107) (98-107) Carbon Dioxide Level 22.7 MEQ/L 24.6 MEQ/L (21.0-32.0) (21.0-32.0) Anion Gap 9 MEQ/L (5-15) 6 MEQ/L (5-15) Blood Urea Nitrogen 9 MG/DL (7-18) 5 MG/DL (7-18) Creatinine 0.53 MG/DL 0.32 MG/DL (0.50-1.00) (0.50-1.00) Estimat Glomerular Filtration 114 ML/MIN 205 ML/MIN Rate (>89) (>89) Random Glucose 102 MG/DL 95 MG/DL (74-106) (74-106) Calcium Level 9.0 MG/DL 8.3 MG/DL (8.5-10.1) (8.5-10.1) Magnesium Level 1.5 MG/DL 1.8 MG/DL (1.5-2.5) (1.5-2.5) Total Bilirubin 0.7 MG/DL 0.5 MG/DL (0.2-1.0) (0.2-1.0) Aspartate Amino Transf 28 U/L (15-37) 15 U/L (15-37) (AST/SGOT) Alanine Aminotransferase 9 U/L (10-53) LESS THAN 6 (ALT/SGPT) U/L (10-53) Alkaline Phosphatase 89 U/L (45-117) 70 U/L (45-117) Total Protein 5.9 GM/DL 5.0 GM/DL (6.4-8.2) (6.4-8.2) Albumin 2.2 GM/DL 1.9 GM/DL (3.4-5.0) (3.4-5.0) Random Vancomycin Level 4.0 COMMENT Phenytoin (Dilantin) Level 2.8 MCG/ML 5.2 MCG/ML (10.0-20.0) (10.0-20.0) Test 06/09/16 04:15 White Blood Count 10.8 TH/MM3 (4.0-11.0) Red Blood Count 4.01 MIL/MM3 (4.00-5.30) Hemoglobin 11.2 GM/DL (11.6-15.3) Hematocrit 34.1 % (35.0-46.0) Mean Corpuscular Volume 85.0 FL (80.0-100.0) Mean Corpuscular Hemoglobin 27.9 PG (27.0-34.0) Mean Corpuscular Hemoglobin 32.8 % Concent (32.0-36.0) Red Cell Distribution Width 15.7 % (11.6-17.2) Platelet Count 142 TH/MM3 (150-450) Mean Platelet Volume 8.2 FL (7.0-11.0) Neutrophils (%) (Auto) 69.3 % (16.0-70.0) Lymphocytes (%) (Auto) 15.7 % (9.0-44.0) Monocytes (%) (Auto) 11.8 % (0.0-8.0) Eosinophils (%) (Auto) 2.9 % (0.0-4.0) Basophils (%) (Auto) 0.3 % (0.0-2.0) Neutrophils # (Auto) 7.5 TH/MM3 (1.8-7.7) Lymphocytes # (Auto) 1.7 TH/MM3 (1.0-4.8) Monocytes # (Auto) 1.3 TH/MM3 (0-0.9) Eosinophils # (Auto) 0.3 TH/MM3 (0-0.4) Basophils # (Auto) 0.0 TH/MM3 (0-0.2) CBC Comment DIFF FINAL Differential Comment Sodium Level 141 MEQ/L (136-145) Potassium Level 3.3 MEQ/L (3.5-5.1) Chloride Level 105 MEQ/L (98-107) Carbon Dioxide Level 28.4 MEQ/L (21.0-32.0) Anion Gap 8 MEQ/L (5-15) Blood Urea Nitrogen 5 MG/DL (7-18) Creatinine 0.32 MG/DL (0.50-1.00) Estimat Glomerular Filtration 205 ML/MIN Rate (>89) Random Glucose 94 MG/DL (74-106) Calcium Level 8.4 MG/DL (8.5-10.1) Phosphorus Level 1.2 MG/DL (2.5-4.9) Total Bilirubin 0.6 MG/DL (0.2-1.0) Aspartate Amino Transf 12 U/L (15-37) (AST/SGOT) Alanine Aminotransferase LESS THAN 6 (ALT/SGPT) U/L (10-53) Alkaline Phosphatase 69 U/L (45-117) Total Protein 5.6 GM/DL (6.4-8.2) Albumin 2.9 GM/DL (3.4-5.0) Phenytoin (Dilantin) Level 10.0 MCG/ML (10.0-20.0) Result Diagram: 06/09/16 0415 06/09/16 0415 Microbiology Microbiology Date/Time Procedure Status Source Growth 06/06/16 12:53 Urine Culture - Preliminary Resulted Urine Catheterized Urine Escherichia Coli Esbl Positive Pseudomonas Species Yeast Species 06/08/16 09:00 Aerobic Blood Culture Received Blood Peripheral Pending 06/08/16 09:00 Anaerobic Blood Culture Received Blood Peripheral Pending 06/08/16 09:08 Aerobic Blood Culture Received Blood Peripheral Pending 06/08/16 09:08 Anaerobic Blood Culture Received Blood Peripheral Pending Imaging Last Impressions Chest X-Ray 06/09/16 0600 Signed Impressions: Service Date/Time: Thursday, June 09, 2016 03:49 - CONCLUSION: Worsening left basilar density and probable small pleural effusion. Jay Araujo MD Head CT 06/05/16 1516 Signed Impressions: Service Date/Time: May 15:49 - CONCLUSION: 1. Mild periventricular and subcortical white matter small vessel ischemic changes bilaterally. 2. No acute infarct, acute hemorrhage, mass effect or extra- axial fluid collections. Ruy Donahue MD Procedures 06/05 Triple-lumen right subclavian Patient/Family Conference Present at Family Conference: 2 sisters, Family Conference Time (mins): 60 Family Conference Location: Bedside Issues Discussed: Met at length with patient , 2 sisters at bedside. Discussion included: * Palliative care role, purpose, approach * Additional medical, psychosocial, and spiritual history * Patients general health, functional status, and cognitive changes in the months leading up to the current hospitalization * Patient/family understanding of the current medical problems * Patient/family understanding of prognosis * Patients goals of care as best understood from advance directives and/or conversations and/or values * Current medical treatment options and benefits/burdens of those options * Advanced directives, legally designated healthcare surrogate * CODE STATUSthey're going to talk more about resuscitation status for now full code * Questions answered to the best of my ability * Palliative care contact information provided Lengthy discussion with family members as per above. Much review of disease progression and trajectory; as well as recent hospitalizations in recurrent infections. Exploration patient remains high risk for continued infections, other combinations and setbacks related to both disease progression and debilitated status. Review of possible interventions in the future including feeding tube, resuscitation etc. All questions answered. No changes elected as of today however they're going to talk more regarding CODE STATUS. Goals for now semi-aggressive though they will be continuing to review her living will which details she would not want heroic or artificial measures and the presence of end-stage, terminal, or vegetative conditions. They also share that patient had about a year ago verbalized she had no quality of life and "just wanted to ". They are open to ongoing discussions regarding conditions prognosis and goals. Assessment and Plan Disease Oriented Problem List: (1) Suprapubic catheter dysfunction (2) Neuropathy (3) Urinary incontinence (4) Altered mental status (5) Renal failure (6) Septic shock (7) Lactic acidosis (8) Acute kidney failure (9) UTI (urinary tract infection) (10) Infection due to ESBL-producing Escherichia coli (11) Acute metabolic encephalopathy (12) Sacral decubitus ulcer, stage IV (13) Parkinsons disease (14) Neurogenic bladder Symptom Scale: (1) Neuropathy 0-10 Scale: Unable to quantify Comment: *chronic (2) Dyspnea 0-10 Scale: Unable to quantify Comment: worsening left basilar density, probable effusion -- ? aspiration . (3) Hallucinations (4) Malnutrition Pertinent Non-Medical Issues Psychosocial: to her spouse 50+ yrs. Lives at home w spouse, he is PCG. Bedbound/dependent for at least the past year. Is a triplet, supported by her 2 sisters, as well as niece, and Spiritual: Amish Legal:Patient unable to participate in decision-making due to dementia, AMS. Her is designated HCS per her living will. Niece is secondary. Ethical issues impacting care: Important Contacts Healthcare surrogate /spouse Fausto Viraj [phone] //[phone] alternate HCS niece Mere Leung [phone] . Prognosis This pt was admitted for AMS; metabolic encephalopathy 2/2 UTI, sepsis. She has known hx dementia, parkinson's, dependent for all care. Appears she can get through current acute hospitalization, however remains very high risk from complications, setbacks, and ongoing hospitalizations. . Code Status: Full Code Plan * Legal decision maker: Healthcare surrogate /spouse Fausto Cali [phone] //[phone] ; alternate [facility] niece Mere Leung [phone] * Goals: Lengthy discussion with family members as per above. Much review of disease progression and trajectory; as well as recent hospitalizations in recurrent infections. Exploration patient remains high risk for continued infections, other combinations and setbacks related to both disease progression and debilitated status. Review of possible interventions in the future including feeding tube, resuscitation etc. All questions answered. No changes elected as of today however they're going to talk more regarding CODE STATUS. Goals for now semi-aggressive though they will be continuing to review her living will which details she would not want heroic or artificial measures and the presence of end-stage, terminal, or vegetative conditions. They also share that patient had about a year ago verbalized she had no quality of life and "just wanted to ". They are open to ongoing discussions regarding conditions prognosis and goals. * CODE STATUS: Full code * SYMPTOMS: --neuropathy -chronic neuropathy bilateral lower extremities; currently appears comfortable, on lyrica --pain- reports pt has had ongoing pain to buttocks wound, and discomfort w turning/repositioning--likely multifactorial; on lyrica, has prn Tylenol available-- appearing comfortable now, could consider low dose opiates though cautious use 2/2 risk for resp decline r/t AMS --dyspnea - worsening CXR, passed swallowing eval, risk for further resp decline -- hallucinations/confusion- ongoing hx confusion/hallucinations, 2/2 disease process, likely worsened by sepsis. hallucinations do not appear distressing to pt at this time per family- could consider low dose Haldol if hallucinations/agitation becomes severe- avoid benzos, sedating agents . --Malnutrition--weight loss estimated 60 pounds in one year. Eats 2 small meals a day. Requires feeding by her . This will likely continue high risk for further decline, likely not consistently meet caloric demands. Likely require PEG tube at some point. * Palliative care will continue to follow during hospital course as condition evolves, to assist patient/decision-maker with understanding of medical conditions, weighing benefits/burdens of treatment options, for clarification of goals of treatment. Additionally will assist with any symptoms of palliative concern . Time Spent Total Floor Time (mins): 75 >50% Counseling/Coord of Care: Yes (d/w RN) Thank you for the opportunity to participate in the care of Ms. Cali. Attestation To help prompt me to consider important information that might be impacting today's encounter and assessment, information from prior notes written by myself or my colleagues may have been "brought forward" into today's note. My signature on this note, however, is an attestation that I personally performed the exam, history, and/or decision-making noted today, and, unless otherwise indicated, the interactions with patient, family, and staff as well as the review of records all occurred today. I also attest that the listed assessment and stated plan reflect my best clinical judgment today based on the combination of historical information, prior notes, and today's exam/ interactions. When time spent is documented, it refers only to time spent today by the signer, or if indicated, combined time spent today by collaborating physician/nurse practitioner. Sheryl Mckeon Jun 09, 2016 11:16
--- NOTE | 2016-06-09 13:12 | HHI.IDPN ---
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 Vital Signs Date Time Temp Pulse Resp B/P Pulse Ox O2 Delivery O2 Flow Rate FiO2 06/09/16 09:03 19 06/09/16 08:09 95 Nasal Cannula 2.00 06/09/16 08:00 98.8 81 19 114/54 99 06/09/16 08:00 81 06/09/16 07:00 99 Nasal Cannula 2.00 06/09/16 06:00 92 06/09/16 04:11 99 Nasal Cannula 2.00 06/09/16 04:00 82 06/09/16 04:00 97.8 82 20 128/63 98 06/09/16 02:00 79 06/09/16 00:00 80 06/09/16 00:00 97.8 80 22 109/57 99 06/08/16 22:00 82 06/08/16 20:00 98.6 80 20 91/46 97 06/08/16 20:00 80 06/08/16 19:00 97 Nasal Cannula 2.00 06/08/16 18:00 86 06/08/16 16:00 98.7 96 17 100/52 100 06/08/16 16:00 85 06/08/16 14:00 90 06/08/16 06/08/16 06/09/16 15:00 23:00 07:00 Intake Total 1666 ml 1164 ml 1402 ml Output Total 1900 ml 1500 ml 1250 ml Balance -234 ml -336 ml 152 ml Intake Oral 20 ml IV Total 1666 ml 1164 ml 1382 ml Output Urine Total 1900 ml 1500 ml 1250 ml # Bowel Movements 0 0 . Laboratory Tests Test 06/08/16 06/09/16 04:50 04:15 White Blood Count 11.8 TH/MM3 10.8 TH/MM3 Red Blood Count 3.73 MIL/MM3 4.01 MIL/MM3 Hemoglobin 10.9 GM/DL 11.2 GM/DL Hematocrit 31.6 % 34.1 % Mean Corpuscular Volume 84.8 FL 85.0 FL Mean Corpuscular Hemoglobin 29.3 PG 27.9 PG Mean Corpuscular Hemoglobin 34.5 % 32.8 % Concent Red Cell Distribution Width 15.3 % 15.7 % Platelet Count 144 TH/MM3 142 TH/MM3 Mean Platelet Volume 8.2 FL 8.2 FL Neutrophils (%) (Auto) 74.7 % 69.3 % Lymphocytes (%) (Auto) 12.5 % 15.7 % Monocytes (%) (Auto) 10.8 % 11.8 % Eosinophils (%) (Auto) 1.6 % 2.9 % Basophils (%) (Auto) 0.4 % 0.3 % Neutrophils # (Auto) 8.9 TH/MM3 7.5 TH/MM3 Lymphocytes # (Auto) 1.5 TH/MM3 1.7 TH/MM3 Monocytes # (Auto) 1.3 TH/MM3 1.3 TH/MM3 Eosinophils # (Auto) 0.2 TH/MM3 0.3 TH/MM3 Basophils # (Auto) 0.0 TH/MM3 0.0 TH/MM3 CBC Comment DIFF FINAL DIFF FINAL Differential Comment Laboratory Tests Test 06/08/16 06/08/16 06/09/16 04:50 18:00 04:15 Sodium Level 142 MEQ/L 141 MEQ/L Potassium Level 3.0 MEQ/L 3.6 MEQ/L 3.3 MEQ/L Chloride Level 111 MEQ/L 105 MEQ/L Carbon Dioxide Level 24.6 MEQ/L 28.4 MEQ/L Anion Gap 6 MEQ/L 8 MEQ/L Blood Urea Nitrogen 5 MG/DL 5 MG/DL Creatinine 0.32 MG/DL 0.32 MG/DL Estimat Glomerular Filtration 205 ML/MIN 205 ML/MIN Rate Random Glucose 95 MG/DL 94 MG/DL Calcium Level 8.3 MG/DL 8.4 MG/DL Magnesium Level 1.8 MG/DL Total Bilirubin 0.5 MG/DL 0.6 MG/DL Aspartate Amino Transf 15 U/L 12 U/L (AST/SGOT) Alanine Aminotransferase LESS THAN 6 U/L LESS THAN 6 U/L (ALT/SGPT) Alkaline Phosphatase 70 U/L 69 U/L Total Protein 5.0 GM/DL 5.6 GM/DL Albumin 1.9 GM/DL 2.9 GM/DL Phosphorus Level 1.2 MG/DL Microbiology Date/Time Procedure Status Source Growth 06/08/16 09:00 Aerobic Blood Culture - Preliminary Resulted Blood Peripheral NO GROWTH IN 1 DAY 06/08/16 09:00 Anaerobic Blood Culture - Preliminary Resulted Blood Peripheral NO GROWTH IN 1 DAY 06/08/16 09:08 Aerobic Blood Culture - Preliminary Resulted Blood Peripheral NO GROWTH IN 1 DAY 06/08/16 09:08 Anaerobic Blood Culture - Preliminary Resulted Blood Peripheral NO GROWTH IN 1 DAY Imaging Last Impressions Chest X-Ray 06/09/16 0600 Signed Impressions: Service Date/Time: Thursday, June 09, 2016 03:49 - CONCLUSION: Worsening left basilar density and probable small pleural effusion. Jay Araujo MD Head CT 06/05/16 1516 Signed Impressions: Service Date/Time: May 15:49 - CONCLUSION: 1. Mild periventricular and subcortical white matter small vessel ischemic changes bilaterally. 2. No acute infarct, acute hemorrhage, mass effect or extra- axial fluid collections. Ruy Donahue MD Physical Exam CONSTITUTIONAL/GENERAL: This is an adequately nourished elderly female patient , in no apparent distress. TUBES/LINES/DRAINS: SKIN: No jaundice, rashes, or lesions. Ecchymoses on upper extremities. Skin temperature appropriate. Not diaphoretic. CARDIOVASCULAR: Regular rate and rhythm without murmurs, gallops, or rubs. No JVD. Peripheral pulses symmetric. RESPIRATORY/CHEST: Symmetric, unlabored respirations. Clear to auscultation. Breath sounds equal bilaterally. No wheezes, rales, or rhonchi. GASTROINTESTINAL: Abdomen soft, non-tender, nondistended. No hepato-splenomegaly , or palpable masses. No guarding. Bowel sounds present. GENITOURINARY: Without palpable bladder distension. SP catheter in place with clear yellow urine MUSCULOSKELETAL: Extremities without clubbing, cyanosis, + trace edema. Cogwheel rigidity present LYMPHATICS: No palpable cervical or supraclavicular adenopathy. NEUROLOGICAL: Awake, more alert today . Motor and sensory grossly within normal limits. Follows commands. Talks incoherently and not much More confused than baseline Moves all extremities. PSYCHIATRIC: flat affect Assessment & Plan Remarks Sepsis 2/2 bacteremia and UTI ESBL E.coli in urine, pseudomonas species plus dar in urine: Suprapubic cath related cystitis. ESBL E.coli bacteremia and Pseudomonas bacteremia Aspiration pneumonia in health care setting. acute metabolic encephalopathy: ? seizures, metabolic, meds. Advanced parkinsons disease. H/o ESBL, PSAE UTIs in past. H/o recent PSAE UTI was on levaquin. Fever persistent. Improving WBC Recs: Continue Meropenem IV (if overt seizures would recommend switching to Zerbaxa IV as Meropenem can reduce seizure threshold: d/w ) dc Vanco IV if repeat BC remains neg for MRSA/MRSE cont high dose diflucan ? fungemia vs fungal cystitis. Sputum cultures if possible. follow repeat blood cultures dw Mine Barcenas MD Jun 09, 2016 13:12
[2016-06-09] MEDS: FLUCONAZOLE 400 MG PREMIX BAG 200 ML IV SCH (13:30)
[2016-06-09] MEDS: ROTIGOTINE TOPICAL SCH (13:31)
[2016-06-09] MEDS: REMOVE OLD PATCH T-DERMAL SCH (13:31)
[2016-06-09] MEDS: ENOXAPARIN SODIUM 30 MG/0.3 ML SYRINGE SQ SCH (16:59)
[2016-06-09] MEDS ORDERED: ALTEPLASE RECOMBINANT 2 MG VIAL IV FLUSH ONE (18:00)
[2016-06-09] MEDS: OLANZapine 5 MG TAB PO SCH (21:00)
[2016-06-09] MEDS ORDERED: PHARMACY ORDERED LAB XX ONE (22:45)
[2016-06-10] VITALS (14 sets, daily range): BP systolic 98–138; BP diastolic 51–68; PULSE 67–83; RESP 14–19; TEMP 97.4–98.6; O2SAT 95–98
[2016-06-10] MEDS: VANCOMYCIN INJ 750 MG in SODIUM CHLOR 0.9% 250 ML INJ 250 ML IV SCH ×3 (02:47→22:17)
[2016-06-10] MEDS: CHLORHEXIDINE GLUCONATE 2 % 1 PACK (2 CLOTHS) TOP SCH (04:00)
[2016-06-10] MEDS: MEROPENEM 1000 MG/NS 100 ML IV SCH ×6 (04:35→20:46)
[2016-06-10] MEDS: MIDODRINE 5 MG TAB PO SCH ×3 (04:35→17:37)
[2016-06-10] MEDS: CARBIDOPA/LEVODOPA 25 MG/250 MG TAB PO SCH ×5 (04:35→22:17)
[2016-06-10] MEDS ORDERED: FOSPHENYTOIN IV SCH (06:00)
[2016-06-10] MEDS ORDERED: SODIUM CHLORIDE IV SCH (06:00)
--- NOTE | 2016-06-10 08:35 | HHI.PR ---
Subjective Remarks in no acute distress. denies pain. afebrile. d/w the RN and no acute issues over night. Objective Vitals Vital Signs Date Time Temp Pulse Resp B/P Pulse Ox O2 Delivery O2 Flow Rate FiO2 06/10/16 06:00 67 06/10/16 04:00 75 06/10/16 04:00 98.6 75 14 138/68 98 06/10/16 02:00 75 06/10/16 00:00 78 06/10/16 00:00 98.1 81 15 109/53 96 06/09/16 22:00 74 06/09/16 20:00 76 06/09/16 20:00 98.4 73 21 111/68 99 06/09/16 19:21 98 Nasal Cannula 2.00 06/09/16 19:00 99 Nasal Cannula 2.00 06/09/16 18:00 75 06/09/16 16:00 98.4 69 17 127/68 99 06/09/16 16:00 69 06/09/16 14:30 16 06/09/16 14:00 75 06/09/16 12:00 98.6 75 15 113/59 99 06/09/16 12:00 75 06/09/16 10:00 81 06/09/16 10:00 82 I/O 06/09/16 06/09/16 06/09/16 06/10/16 06/10/16 06/10/16 07:00 15:00 23:00 07:00 15:00 23:00 Intake Total 1402 ml 2186 ml 768 ml 618 ml Output Total 1250 ml 1800 ml 2000 ml 1900 ml Balance 152 ml 386 ml -1232 ml -1282 ml Intake Oral 20 ml 60 ml 100 ml IV Total 1382 ml 2126 ml 768 ml 518 ml Output Urine Total 1250 ml 1800 ml 2000 ml 1900 ml # Bowel Movements 0 0 0 0 Result Diagram: 06/09/1641406/09/16414 Imaging Last Impressions Chest X-Ray 06/09/16 0600 Signed Impressions: Service Date/Time: Thursday, June 09, 2016 03:49 - CONCLUSION: Worsening left basilar density and probable small pleural effusion. Jay Araujo MD Head CT 06/05/16 1516 Signed Impressions: Service Date/Time: May 15:49 - CONCLUSION: 1. Mild periventricular and subcortical white matter small vessel ischemic changes bilaterally. 2. No acute infarct, acute hemorrhage, mass effect or extra- axial fluid collections. Ruy Donahue MD Objective Remarks GENERAL: in no apparent distress. CARDIOVASCULAR: Regular rate and regular rhythm without murmurs, gallops, or rubs. RESPIRATORY: Clear to auscultation. Breath sounds equal bilaterally. No wheezes , rales, or rhonchi. GASTROINTESTINAL: Abdomen soft, non-tender, nondistended. Normal, active bowel sounds MUSCULOSKELETAL: Extremities without clubbing, cyanosis, or edema. NEURO: awake and alert Medications and IVs Current Medications Carbidopa/Levodopa (Sinemet 25-250 Mg) 1 tab ONCE ONCE PO Last administered on 06/05/16 15:42; Start 06/05/16 at 15:15; Stop 06/05/16 at 15:16; Status DC Sodium Chloride 2 ml 2 ml UNSCH PRN IVF FLUSH AFTER USING IV ACCESS; Start at 15:30 Sodium Chloride 1,000 ml @ 1,000 mls/hr Q1H IV Last administered on 06/05/16 15:43; Start 06/05/16 at 15:16; Stop 06/05/16 at 16:15; Status DC Sodium Chloride 1,000 ml @ 999 mls/hr BOLUS ONCE IV Last administered on 06/05 15:43; Start 06/05/16 at 15:30; Stop 06/05/16 at 16:32; Status DC Sodium Chloride 1,000 ml @ 999 mls/hr BOLUS ONCE IV Last administered on 06/05 15:43; Start 06/05/16 at 15:30; Stop 06/05/16 at 16:32; Status DC Piperacillin Sod/ Tazobactam Sod 100 ml @ 200 mls/hr ONCE ONCE IV Last administered on 06/05/16 16:18; Start 06/05/16 at 15:30; Stop 06/05/16 at 15:59 ; Status DC Vancomycin HCl/ Sodium Chloride (Vancomycin Inj/ NS 250 ml Inj) 250 ml @ 250 mls/hr ONCE ONCE IV Last administered on 06/05/16 15:44; Start 06/05/16 at 15 :30; Stop 06/05/16 at 16:32; Status DC Carbidopa/ Levodopa 1 tab 1 tab ONCE ONCE PO Last administered on 06/05/16 16 :25; Start 06/05/16 at 15:30; Stop 06/05/16 at 15:32; Status DC Norepinephrine Bitartrate 250 ml @ 0 mls/hr TITRATE IV Last administered on 11:43; Start 06/05/16 at 16:15; Stop 06/07/16 at 09:13; Status DC Piperacillin Sod/ Tazobactam Sod 50 ml @ 100 mls/hr Q6H IV ; Start 06/05/16 at 23:00; Stop 06/05/16 at 23:00; Status DC Pharmacy Profile Note (Vancomycin Consult Pharmacy) 0 ml @ 0 mls/hr UNSCH OTHER ; Start 06/05/16 at 16:15; Stop 06/06/16 at 14:58; Status DC Carbidopa/Levodopa (Sinemet 25-250 Mg) 1 tab DAILY PO ; Start 06/06/16 at 09:00 ; Stop 06/06/16 at 09:00; Status DC Patient Own Medication PT OWN MED: NEUPRO PATCH 4 MG/24 ... DAILY TOPICAL ; Start 06/06/16 at 09:00; Status Cancel Carbidopa/Levodopa (Sinemet 25-250 Mg) 1 tab Q6H PO Last administered on 08:42; Start 06/06/16 at 09:00; Stop 06/07/16 at 12:51; Status DC Miscellaneous Medication (ASP Crit: Path resist to other, cult proven) 1 UNSCH X1 PRN XX PHARMACY DOCUMENTATION; Start 06/05/16 at 16:30; Stop 06/06/16 at 16: 29; Status DC Miscellaneous Medication 1 1 UNSCH X1 PRN XX PHARMACY DOCUMENTATION; Start at 16:30; Stop 06/06/16 at 16:29; Status DC Meropenem 500 mg/ Sodium Chloride 100 ml @ 200 mls/hr Q12H IV Last administered on 06/06/16 05:10; Start 06/05/16 at 17:00; Stop 06/06/16 at 11:26 ; Status DC Vancomycin HCl 500 mg/Sodium Chloride 100 ml @ 200 mls/hr ONCE ONCE IV Last administered on 06/05/16 18:30; Start 06/05/16 at 17:00; Stop 06/05/16 at 17:29 ; Status DC Sodium Chloride (NS 1000 ml Inj) 1,000 ml @ 60 mls/hr [id number] IV Last administered on 06/09/16 06:41; Start 06/05/16 at 16:27 Acetaminophen (Tylenol) 650 mg Q6H PRN PO PAIN 1-10 AND/OR FEVER >101F Last administered on 06/07/16 00:19; Start 06/05/16 at 16:30 Pantoprazole Sodium (Protonix Inj) 40 mg DAILY IV Last administered on 08:05; Start 06/06/16 at 09:00 Albuterol/ Ipratropium (Duoneb Neb) 1 ampule Q2HR NEB PRN INH WHEEZING; Start 06/05/16 at 16:30 Enoxaparin Sodium (Lovenox Inj) 30 mg Q24H SQ Last administered on 06/09/16 16 :59; Start 06/05/16 at 17:00 Miscellaneous Information 1 [id number] XX ; Start 06/05/16 at 16:30 Chlorhexidine Gluconate (Chlorhexidine 2% Cloth) 3 pack Taper DAILY@04 TOP Last administered on 06/10/16 04:00; Start 06/06/16 at 04:00; Stop 06/02/17 at 03:59 Chlorhexidine Gluconate 3 pack 3 pack UNSCH PRN TOP HYGIENIC CARE; Start at 16:30 Fluconazole/ Sodium Chloride 50 ml @ 50 mls/hr Q24H IV Last administered on 18:29; Start 06/05/16 at 18:00; Stop 06/06/16 at 14:59; Status DC Potassium Chloride 100 ml @ 50 mls/hr Q2H PRN IV For Potassium 2.8 - 3.2 mEq/ L Last administered on 06/08/16 11:40; Start 06/06/16 at 08:45 Potassium Chloride 100 ml @ 50 mls/hr Q2H PRN IV For Potassium 2.8 - 3.2 mEq/L ; Start 06/06/16 at 08:45 Potassium Chloride 100 ml @ 25 mls/hr UNSCH PRN IV For Potassium 3.3 - 3.5 mEq /L Last administered on 06/07/16 08:41; Start 06/06/16 at 08:45 Potassium Chloride 100 ml @ 50 mls/hr Q2H PRN IV For Potassium 3.3 - 3.5 mEq/ L Last administered on 06/09/16 08:06; Start 06/06/16 at 08:45 Magnesium Sulfate/ Sodium Chloride (Magnesium Sulfate Inj/NS Inj) 100 ml @ 50 mls/hr UNSCH PRN IV For Magnesium 0.9 - 1.1 mg/dL; Start 06/06/16 at 08:45 Magnesium Oxide 800 mg 800 mg UNSCH PRN PO For Magnesium 1.2 - 1.6 mg/dL; Start 06/06/16 at 08:45 Magnesium Sulfate/ Sodium Chloride (Magnesium Sulfate Inj/NS Inj) 100 ml @ 50 mls/hr UNSCH PRN IV For Magnesium 1.2 - 1.6 mg/dL Last administered on 13:38; Start 06/06/16 at 08:45 Potassium Phosphate 2000 mg 2,000 mg Q4H PRN PO For Phosphorus < 2.5 mg/dL Last administered on 06/09/16 17:00; Start 06/06/16 at 08:45 Sodium Phosphate/ Sodium Chloride (Sodium Phosphate Inj/NS 250 ml Inj) 250 ml @ 42 mls/hr UNSCH PRN IV For Phosphorus < 2.5 mg/dL; Start 06/06/16 at 08:45 Potassium Phosphate 2000 mg 2,000 mg UNSCH PRN PO/TUBE SEE LABEL COMMENTS; Start 06/06/16 at 08:45 Potassium Phosphate 30 mmol/ Sodium Chloride 260 ml @ 42 mls/hr UNSCH PRN IV SEE LABEL COMMENTS; Start 06/06/16 at 08:45 Fluconazole/ Sodium Chloride 50 ml @ 50 mls/hr Q24H IV ; Start 06/06/16 at 09:30 ; Status UNV Vancomycin HCl/ Sodium Chloride (Vancomycin Inj/ NS 250 ml Inj) 262.5 ml @ 250 mls/hr Q24H IV ; Start 06/06/16 at 18:00; Stop 06/06/16 at 18:00; Status DC Miscellaneous Information SPECIFIC LAB TO BE DRAWN:VANCOMYCIN TROUGH DATE TO... ONCE ONCE XX ; Start 06/07/16 at 17:45; Stop 06/07/16 at 17:45; Status DC Meropenem 1000 mg/ Sodium Chloride 100 ml @ 200 mls/hr Q8H IV ; Start 06/06/16 at 13:00; Status UNV Sodium Chloride 1,000 ml @ 999 mls/hr BOLUS ONCE IV Last administered on 06/06 11:44; Start 06/06/16 at 12:00; Stop 06/06/16 at 13:00; Status DC Meropenem/Sodium Chloride (Merrem Inj/NS Inj) 100 ml @ 200 mls/hr Q8H IV Last administered on 06/10/16 04:35; Start 06/06/16 at 13:00 Donepezil HCl (Aricept) 10 mg DAILY PO Last administered on 06/09/16 08:06; Start 06/06/16 at 17:00 Olanzapine (ZyPREXA) 5 mg HS PO Last administered on 06/09/16 21:00; Start at 21:00 Pregabalin (Lyrica) 50 mg TID PO Last administered on 06/09/16 16:59; Start at 18:00 Fosphenytoin Sodium 200 mgpe 200 mgpe Q12HR IV ; Start 06/06/16 at 21:00; Stop 06/06/16 at 21:00; Status DC Fosphenytoin Sodium 1000 mgpe/ Sodium Chloride 70 ml @ 280 mls/hr ONCE ONCE IV Last administered on 06/06/16 17:30; Start 06/06/16 at 17:30; Stop at 18:01; Status DC Fosphenytoin Sodium/Sodium Chloride (Cerebyx Inj/NS Inj) 54 ml @ 216 mls/hr Q12HR IV Last administered on 06/09/16 08:04; Start 06/06/16 at 21:00; Stop at 09:53; Status DC Carbidopa/Levodopa (Sinemet 25-250 Mg) 1.5 tab 5 TIMES A DAY PO Last administered on 06/10/16 04:35; Start 06/07/16 at 18:00 Patient Own Medication PT OWN MED: NEUPRO PATCH 4 MG/24 ... Q24H TOPICAL Last administered on 06/09/16 13:31; Start 06/07/16 at 14:00 Miscellaneous Information 1 Q24H T-DERMAL Last administered on 06/09/16 13:31 ; Start 06/07/16 at 14:00 Miscellaneous 1 ea 1 ea UNSCH PRN OTHER SEE LABEL COMMENTS; Start 06/07/16 at 13:15 Norepinephrine Bitartrate (Levophed-Dextrose Drip) 250 ml @ 0 mls/hr TITRATE IV Last administered on 06/08/16 05:51; Start 06/07/16 at 23:45; Stop 06/09/16 at 11:30; Status DC Terbutaline Sulfate (Brethine Inj) 1 mg UNSCH PRN SQ For Extravasation; Start 06/07/16 at 23:45 Albumin Human (Albumin 25% Inj) 25 gm ONCE ONCE IV Last administered on 08:52; Start 06/08/16 at 08:00; Stop 06/08/16 at 08:01; Status DC Albumin Human (Albumin 25% Inj) 25 gm Q12H IV Last administered on 06/09/16 20 :59; Start 06/08/16 at 08:00; Stop 06/10/16 at 07:59; Status DC Midodrine 5 mg 5 mg TID@07,12,17 PO Last administered on 06/09/16 11:13; Start 06/08/16 at 12:00; Stop 06/09/16 at 11:30; Status DC Vancomycin HCl 1000 mg/Sodium Chloride 250 ml @ 250 mls/hr ONCE ONCE IV Last administered on 06/08/16 11:35; Start 06/08/16 at 11:00; Stop 06/08/16 at 11:59 ; Status DC Pharmacy Profile Note 0 ml @ 0 mls/hr UNSCH OTHER ; Start 06/08/16 at 09:45 Vancomycin HCl/ Sodium Chloride (Vancomycin Inj/ NS 250 ml Inj) 257.5 ml @ 250 mls/hr Q12H IV Last administered on 06/10/16 02:47; Start 06/08/16 at 23:00 Miscellaneous Information SPECIFIC LAB TO BE MYRNA... ONCE ONCE XX Last administered on 06/09/16 22:45; Start 06/09/16 at 22:45; Stop 06/09/16 at 22:46 ; Status DC Fluconazole/ Sodium Chloride 200 ml @ 100 mls/hr Q24H IV Last administered on 06/09/16 13:30; Start 06/08/16 at 13:00 Fosphenytoin Sodium/Sodium Chloride (Cerebyx Inj/NS Inj) 52.6 ml @ 216 mls/hr Q12HR IV Last administered on 06/10/16 04:39; Start 06/10/16 at 06:00 Midodrine (Proamatine) 10 mg TID@07,12,17 PO Last administered on 06/10/16 04: 35; Start 06/09/16 at 12:00 Alteplase, Recombinant (Cathflo Activase Inj) 2 mg ONCE ONCE IV FLUSH Last administered on 06/09/16 21:00; Start 06/09/16 at 18:00; Stop 06/09/16 at 18:01 ; Status DC A/P Assessment and Plan A/P Acute metabolic encephalopathy Advanced Parkinson's disease Bifrontal sharps on EEG -Continue Sinemet -Resumed Zyprexa and Lyrica 06/06 -Encephalopathy seems to be metabolic -Neurology Dr. Brown following - started on fosphenytoin for bifrontal spikes Respiratory insufficiency Left lower lobe infiltrate/pneumonia -Nasal cannula oxygen -DuoNeb every 6 hours when necessary, aggressive pulmonary toilet -See ID section for antibiotics Septic shock -resolved Lactic acidosis Mild troponin elevation -BP stable-off Levophed -continue midodrine . -Mild troponin elevation due to sepsis and renal failure. -Diet per speech recommendation. IV Protonix Acute kidney failure -resolved questionable leak around the suprapubic cath. -Renal failure secondary to dehydration and hypotension-resolved -Monitor renal function closely. -consulted urology Septic shock ESBL Ecoi bacteremia 4 out of 4 bottles UTI with GNR, possible ESBL Escherichia coli Left lower lobe infiltrate/pneumonia History of ESBL Escherichia coli UTI in the past Stage IV decubitus ulcer -Continue IV meropenem. Vanc and Diflucan. -ID is following. -06/05 blood culture 4/4 bottles ESBL Escherichia coli -06/05 Urine culture ESBL Escherichia coli -06/08 blood cultures negative so far -Wound care following -Previous urine cultures from 01/04/16 growing ESBL Escherichia coli, Pseudomonas and enterococcus -Abx per ID Leukocytosis -improving -Monitor CBC, CMP, coags hypokalemia -Electrolyte replacement as needed PROPH: -Bilateral lower extremity SCDs. Lovenox 40 mg subcutaneous daily. IV Protonix 40 mg daily palliative care consult appreciated. will consult PT. transfer to floor soon if BP remains stable. Shantanu Galicia MD Jun 10, 2016 08:35
--- NOTE | 2016-06-10 08:35 | MG ---
cc: MARY CHARLES M.D. Lab No: [id number] Date: Age: 70 Sex: F TECHNIQUE Hyperventilation not performed. INDICATION Parkinson's disease, tremors, change in mental status, fever. DESCRIPTION Diffuse 5 Hz slowing is seen to 60 microvolts. The recording overall is synchronous and symmetric. Photic stimulation was performed without significant posterior driving. No epileptiform or seizure activity is noted. A lot of bitemporal muscle artifact is seen. She is hallucinating and chewing at times. Some bitemporal 4 Hz slowing is at times seen and some bifrontal bitemporal slightly sharply contoured alpha waves stand out at times, although they appear to be synchronous and symmetric, more apparent on the transverse montage, although the patient is not noted to be asleep. IMPRESSION Diffuse slowing consistent with a moderate diffuse encephalopathy and some bitemporal frontal sharply contoured alpha waves are seen. No spikes or sharp waves are noted. Clinical correlation is needed. MD LISA Galan/ASA /8:14 AM /8:23 AM
--- NOTE | 2016-06-10 08:37 | HHI.PR ---
Review/Management Diagnosis/Plan: (1) Acute metabolic encephalopathy Plan: 2/2 infection/cerebral hypoperfusion improved after iv abx and bp augmentation e.coli bacteremia eeg reviewed; changes likely 2/2 infection; also possibly 2/2 iv abx 06/10, dil 9 corrected 18.75 recs bp's improved; off pressor; on midodrine start cerebryx in am pd stable d/w rn follow exam (2) Parkinsons disease Plan: sinemet has been increased to 1.5 tabs 5x/day (3) Infection due to ESBL-producing Escherichia coli Plan: iv abx (4) Sepsis Plan: ccm following Subjective Subjective Comments No acute events reported No headache No chest pain No dyspnea Active Medications Current Medications Medications (Trade) Dose Ordered Sig/Johnny Route Start Time Stop Time Status Last Admin Sodium Chloride 2 ml 2 ml UNSCH PRN IVF 06/05/16 15:30 (NS 1000 ml Inj) 1,000 ml @ 60 mls/hr [id number] IV 06/05/16 16:27 06/09/16 06:41 (Tylenol) 650 mg Q6H PRN PO 06/05/16 16:30 06/07/16 00:19 (Protonix Inj) 40 mg DAILY IV 06/06/16 09:00 06/09/16 08:05 (Lovenox Inj) 30 mg Q24H SQ 06/05/16 17:00 06/09/16 16:59 Miscellaneous Information 1 Q361D XX 06/05/16 16:30 (Chlorhexidine 2% Cloth) 3 pack Taper DAILY@04 TOP 06/06/16 04:00 06/02/17 03:59 06/10/16 04:00 Chlorhexidine Gluconate 3 pack 3 pack UNSCH PRN TOP 06/05/16 16:30 Potassium Chloride 100 ml @ 50 mls/hr Q2H PRN IV 06/06/16 08:45 06/08/16 11:40 Potassium Chloride 100 ml @ 50 mls/hr Q2H PRN IV 06/06/16 08:45 Potassium Chloride 100 ml @ 25 mls/hr UNSCH PRN IV 06/06/16 08:45 06/07/16 08:41 Potassium Chloride 100 ml @ 50 mls/hr Q2H PRN IV 06/06/16 08:45 06/09/16 08:06 (Magnesium Sulfate Inj/NS Inj) 100 ml @ 50 mls/hr UNSCH PRN IV 06/06/16 08:45 Magnesium Oxide 800 mg 800 mg UNSCH PRN PO 06/06/16 08:45 (Magnesium Sulfate Inj/NS Inj) 100 ml @ 50 mls/hr UNSCH PRN IV 06/06/16 08:45 06/07/16 13:38 Potassium Phosphate 2000 mg 2,000 mg Q4H PRN PO 06/06/16 08:45 06/09/16 17:00 (Sodium Phosphate Inj/NS 250 ml Inj) 250 ml @ 42 mls/hr UNSCH PRN IV 06/06/16 08:45 Potassium Phosphate 2000 mg 2,000 mg UNSCH PRN PO/TUBE 06/06/16 08:45 Potassium Phosphate 30 mmol/ Sodium Chloride 260 ml @ 42 mls/hr UNSCH PRN IV 06/06/16 08:45 (Merrem Inj/NS Inj) 100 ml @ 200 mls/hr Q8H IV 06/06/16 13:00 06/10/16 04:35 (Aricept) 10 mg DAILY PO 06/06/16 17:00 06/09/16 08:06 (ZyPREXA) 5 mg HS PO 06/06/16 21:00 06/09/16 21:00 (Lyrica) 50 mg TID PO 06/06/16 18:00 06/09/16 16:59 Patient Own Medication PT OWN MED: NEUPRO PATCH 4 MG/24 ... Q24H TOPICAL 06/07/16 14:00 06/09/16 13:31 Miscellaneous Information 1 Q24H T-DERMAL 06/07/16 14:00 06/09/16 13:31 (Pill Splitter) 1 ea UNSCH PRN OTHER 06/07/16 13:15 Terbutaline Sulfate 1 mg 1 mg UNSCH PRN SQ 06/07/16 23:45 Pharmacy Profile Note 0 ml @ 0 mls/hr UNSCH OTHER 06/08/16 09:45 Vancomycin HCl 750 mg/Sodium Chloride 257.5 ml @ 250 mls/hr Q12H IV 06/08/16 23:00 06/10/16 02:47 Fluconazole/ Sodium Chloride 200 ml @ 100 mls/hr Q24H IV 06/08/16 13:00 06/09/16 13:30 (Cerebyx Inj/NS Inj) 52.6 ml @ 216 mls/hr Q12HR IV 06/10/16 06:00 06/10/16 04:39 (Proamatine) 10 mg TID@07,12,17 PO 06/09/16 12:00 06/10/16 04:35 Allergies Allergies Coded Allergies *MDRO Multi-Drug Resistant Organism (Verified Adverse Reaction, Unknown, ) Review of Systems All other ROS: ROS reviewed as documented in chart Exam I&O / VS 06/09/16 06/09/16 06/10/16 15:00 23:00 07:00 Intake Total 2186 ml 768 ml 618 ml Output Total 1800 ml 2000 ml 1900 ml Balance 386 ml -1232 ml -1282 ml Intake Oral 60 ml 100 ml IV Total 2126 ml 768 ml 518 ml Output Urine Total 1800 ml 2000 ml 1900 ml # Bowel Movements 0 0 0 Vital Signs Date Time Temp Pulse Resp B/P Pulse Ox O2 Delivery O2 Flow Rate FiO2 06/10/16 06:00 67 06/10/16 04:00 75 06/10/16 04:00 98.6 75 14 138/68 98 06/10/16 02:00 75 06/10/16 00:00 78 06/10/16 00:00 98.1 81 15 109/53 96 06/09/16 22:00 74 06/09/16 20:00 76 06/09/16 20:00 98.4 73 21 111/68 99 06/09/16 19:21 98 Nasal Cannula 2.00 06/09/16 19:00 99 Nasal Cannula 2.00 06/09/16 18:00 75 06/09/16 16:00 98.4 69 17 127/68 99 06/09/16 16:00 69 06/09/16 14:30 16 06/09/16 14:00 75 06/09/16 12:00 98.6 75 15 113/59 99 06/09/16 12:00 75 06/09/16 10:00 81 06/09/16 10:00 82 General: Alert and Oriented, No acute distress Neurologic: Alert Psychiatric: Cooperative Exam Comments awake, ox 2, not to place. follows, facial hypomimia, severe bradykinesia, hypophonic speech, slow eom, face sym, moving ue to gravity; paraplegia x >1 yr Objective Micro and Labs Laboratory Tests Test 06/09/16 06/10/16 23:30 06:30 Vancomycin Level Trough 13.6 Phenytoin (Dilantin) Level 9.1 Date/Time Procedure Status Source Growth 06/08/16 09:08 Aerobic Blood Culture - Preliminary Resulted Blood Peripheral NO GROWTH IN 1 DAY 06/08/16 09:08 Anaerobic Blood Culture - Preliminary Resulted Blood Peripheral NO GROWTH IN 1 DAY 06/06/16 12:53 Urine Culture - Final Complete Urine Catheterized Urine Escherichia Coli Esbl Positive Pseudomonas Aeruginosa Arely Parapsilosis 06/05/16 15:25 Aerobic Blood Culture - Final Complete Blood Peripheral Escherichia Coli Esbl Positive 06/05/16 15:25 Anaerobic Blood Culture - Final Complete Escherichia Coli Esbl Positive 06/05/16 15:23 Urine Culture - Preliminary Resulted Urine Catheterized Urine Escherichia Coli Esbl Positive Pseudomonas Aeruginosa Problem Qualifiers (1) Sepsis: Qualified Code: A41.51 - Sepsis due to Escherichia coli Marvin Brown MD Jun 10, 2016 08:36
[2016-06-10] MEDS ORDERED: DOCUSATE SODIUM 100 MG CAP PO PRN (08:45)
[2016-06-10] MEDS: PREGABALIN 25 MG CAP PO SCH ×3 (10:14→17:38)
[2016-06-10] MEDS: DONEPEZIL HCL 5 MG TAB PO SCH (10:14)
[2016-06-10] MEDS: PANTOPRAZOLE SODIUM 40 MG VIAL IV SCH (10:14)
[2016-06-10] MEDS: SODIUM CHLOR 0.9% 1000 ML INJ 1,000 ML IV SCH ×2 (10:15→20:46)
--- NOTE | 2016-06-10 11:09 | HHI.HCPN ---
Reason for visit a. To assist with evaluation and management of symptoms including: pain, agitation/hallucinations b. To assist medical decision maker(s) with: better understanding of current medical conditions; weighing benefits/burdens of medical treatment options; making medical treatment decisions. Subjective/Interval History Pt seen today to follow up on comfort, as well as goals/update to family per request today. She has remained stable overnight. No new imaging. Off of levophed, BP stable for most of the morning, however at time of my arrival having some hypotension 80s systolic. Nursing has discussed w attending, receiving IVF bolus currently. No new labs today. BC from 06/08 w no growth. Met again w pt sister, at bedside approximately 30 minutes. Review of conditions, in assessment, current diagnostics. Again review possible trajectory, potential complications/setbacks. Again explore nutritional status , ongoing concern that patient is not meeting caloric needs which will further impede any recovery. Gently explore that given recurrent hospitalizations for UTIs, trajectory of decline in the past year, patient will likely continue to experience decline until her conditions are end-stage. Family is not certain if they would pursue feeding tube, and enc. family to consider whatever patient treatment preferences would be, and to further review her living will documentation for guidance. No changes elected in CODE STATUS. All questions answered. . Advance Directives Living Will: Copy in medical record Health Care Surrogate: Copy in medical record Advance Directive Specifics Date completed: August 2009 Health Care Surrogate(s): juan jose Gallegos . Documented care wishes: Living will details in the usual verbiage that if patient with terminal, end- stage or persistent vegetative condition with no chance of reasonable medical probability of recovery to [place] life-prolonging procedures be withheld for withdrawn when they would only serve to prolong artificially the process of dying, and be permitted to naturally with only the administration of medication deemed necessary to provide comfort care or alleviate pain. Objective Vital Signs Date Time Temp Pulse Resp B/P Pulse Ox O2 Delivery O2 Flow Rate FiO2 06/10/16 10:00 80 06/10/16 08:00 97.4 73 19 117/56 98 06/10/16 08:00 73 06/10/16 07:00 98 Nasal Cannula 2.00 06/10/16 06:00 67 06/10/16 04:00 75 06/10/16 04:00 98.6 75 14 138/68 98 06/10/16 02:00 75 06/10/16 00:00 78 06/10/16 00:00 98.1 81 15 109/53 96 06/09/16 22:00 74 06/09/16 20:00 76 06/09/16 20:00 98.4 73 21 111/68 99 06/09/16 19:21 98 Nasal Cannula 2.00 06/09/16 19:00 99 Nasal Cannula 2.00 06/09/16 18:00 75 06/09/16 16:00 98.4 69 17 127/68 99 06/09/16 16:00 69 06/09/16 14:30 16 06/09/16 14:00 75 06/09/16 12:00 98.6 75 15 113/59 99 06/09/16 12:00 75 Intake & Output 06/10/16 06/10/16 07:00 19:00 Intake Total 1386 ml Output Total 3900 ml Balance -2514 ml Intake Oral 100 ml IV Total 1286 ml Output Urine Total 3900 ml # Bowel Movements 0 Physical Exam CONSTITUTIONAL/GENERAL: This is a frail, chronically ill appearing pt TUBES/LINES/DRAINS: PIV upper extremity, + subclavian central line , SP catheter with drainage back around; not visualized reported buttock wound , SCDs , NC CARDIOVASCULAR: Regular rate and rhythm without murmurs. No JVD. Peripheral pulses symmetric.trace peripheral edema. RESPIRATORY/CHEST: Symmetric, unlabored respirations. On 2L. Clear to auscultation, decreased air movement, she doesn't participate in requested deep breathing. Breath sounds equal bilaterally. GASTROINTESTINAL: Abdomen soft, non-tender, nondistended. No hepato-splenomegaly , or palpable masses. No guarding. Bowel sounds present. GENITOURINARY: Without palpable bladder distension. SP catheter in place. Wound bag around SP cath. MUSCULOSKELETAL: Extremities without clubbing, cyanosis. trace periph edema. No mottling or clubbing. LYMPHATICS: No palpable cervical or supraclavicular adenopathy. NEUROLOGICAL: Lethargic, awake at times stares blankly at examiner. Mumbles a few words to her . Moves 4 extremities spontaneously, very weakly. PSYCHIATRIC: No obvious anxiety/depression. . Diagnostic Tests Laboratory Laboratory Tests Test 06/08/16 06/08/16 06/09/16 3/27/17 04:50 18:00 04:15 23:30 White Blood Count 11.8 TH/MM3 10.8 TH/MM3 (4.0-11.0) (4.0-11.0) Red Blood Count 3.73 MIL/MM3 4.01 MIL/MM3 (4.00-5.30) (4.00-5.30) Hemoglobin 10.9 GM/DL 11.2 GM/DL (11.6-15.3) (11.6-15.3) Hematocrit 31.6 % 34.1 % (35.0-46.0) (35.0-46.0) Mean Corpuscular Volume 84.8 FL 85.0 FL (80.0-100.0) (80.0-100.0) Mean Corpuscular Hemoglobin 29.3 PG 27.9 PG (27.0-34.0) (27.0-34.0) Mean Corpuscular Hemoglobin 34.5 % 32.8 % Concent (32.0-36.0) (32.0-36.0) Red Cell Distribution Width 15.3 % 15.7 % (11.6-17.2) (11.6-17.2) Platelet Count 144 TH/MM3 142 TH/MM3 (150-450) (150-450) Mean Platelet Volume 8.2 FL 8.2 FL (7.0-11.0) (7.0-11.0) Neutrophils (%) (Auto) 74.7 % 69.3 % (16.0-70.0) (16.0-70.0) Lymphocytes (%) (Auto) 12.5 % 15.7 % (9.0-44.0) (9.0-44.0) Monocytes (%) (Auto) 10.8 % 11.8 % (0.0-8.0) (0.0-8.0) Eosinophils (%) (Auto) 1.6 % (0.0-4.0) 2.9 % (0.0-4.0) Basophils (%) (Auto) 0.4 % (0.0-2.0) 0.3 % (0.0-2.0) Neutrophils # (Auto) 8.9 TH/MM3 7.5 TH/MM3 (1.8-7.7) (1.8-7.7) Lymphocytes # (Auto) 1.5 TH/MM3 1.7 TH/MM3 (1.0-4.8) (1.0-4.8) Monocytes # (Auto) 1.3 TH/MM3 1.3 TH/MM3 (0-0.9) (0-0.9) Eosinophils # (Auto) 0.2 TH/MM3 0.3 TH/MM3 (0-0.4) (0-0.4) Basophils # (Auto) 0.0 TH/MM3 0.0 TH/MM3 (0-0.2) (0-0.2) CBC Comment DIFF FINAL DIFF FINAL Differential Comment Sodium Level 142 MEQ/L 141 MEQ/L (136-145) (136-145) Potassium Level 3.0 MEQ/L 3.6 MEQ/L 3.3 MEQ/L (3.5-5.1) (3.5-5.1) (3.5-5.1) Chloride Level 111 MEQ/L 105 MEQ/L (98-107) (98-107) Carbon Dioxide Level 24.6 MEQ/L 28.4 MEQ/L (21.0-32.0) (21.0-32.0) Anion Gap 6 MEQ/L (5-15) 8 MEQ/L (5-15) Blood Urea Nitrogen 5 MG/DL (7-18) 5 MG/DL (7-18) Creatinine 0.32 MG/DL 0.32 MG/DL (0.50-1.00) (0.50-1.00) Estimat Glomerular Filtration 205 ML/MIN 205 ML/MIN Rate (>89) (>89) Random Glucose 95 MG/DL 94 MG/DL (74-106) (74-106) Calcium Level 8.3 MG/DL 8.4 MG/DL (8.5-10.1) (8.5-10.1) Magnesium Level 1.8 MG/DL (1.5-2.5) Total Bilirubin 0.5 MG/DL 0.6 MG/DL (0.2-1.0) (0.2-1.0) Aspartate Amino Transf 15 U/L (15-37) 12 U/L (15-37) (AST/SGOT) Alanine Aminotransferase LESS THAN 6 LESS THAN 6 (ALT/SGPT) U/L (10-53) U/L (10-53) Alkaline Phosphatase 70 U/L (45-117) 69 U/L (45-117) Total Protein 5.0 GM/DL 5.6 GM/DL (6.4-8.2) (6.4-8.2) Albumin 1.9 GM/DL 2.9 GM/DL (3.4-5.0) (3.4-5.0) Phenytoin (Dilantin) Level 5.2 MCG/ML 10.0 MCG/ML (10.0-20.0) (10.0-20.0) Phosphorus Level 1.2 MG/DL (2.5-4.9) Vancomycin Level Trough 13.6 MCG/ML (5.0-10.0) Test 06/10/16 06:30 Phenytoin (Dilantin) Level 9.1 MCG/ML (10.0-20.0) Result Diagram: 06/09/16 0415 06/09/16 0415 Microbiology Microbiology Date/Time Procedure Status Source Growth 06/08/16 09:00 Aerobic Blood Culture - Preliminary Resulted Blood Peripheral NO GROWTH IN 1 DAY 06/08/16 09:00 Anaerobic Blood Culture - Preliminary Resulted Blood Peripheral NO GROWTH IN 1 DAY 06/08/16 09:08 Aerobic Blood Culture - Preliminary Resulted Blood Peripheral NO GROWTH IN 1 DAY 06/08/16 09:08 Anaerobic Blood Culture - Preliminary Resulted Blood Peripheral NO GROWTH IN 1 DAY Imaging Last Impressions Chest X-Ray 06/09/16 0600 Signed Impressions: Service Date/Time: Thursday, June 09, 2016 03:49 - CONCLUSION: Worsening left basilar density and probable small pleural effusion. Jay Araujo MD Head CT 06/05/16 1516 Signed Impressions: Service Date/Time: May 15:49 - CONCLUSION: 1. Mild periventricular and subcortical white matter small vessel ischemic changes bilaterally. 2. No acute infarct, acute hemorrhage, mass effect or extra- axial fluid collections. Ruy Donahue MD Procedures 06/05 Triple-lumen right subclavian Assessment and Plan Disease Oriented Problem List: (1) Suprapubic catheter dysfunction (2) Neuropathy (3) Urinary incontinence (4) Altered mental status (5) Renal failure (6) Septic shock (7) Lactic acidosis (8) Acute kidney failure (9) UTI (urinary tract infection) (10) Infection due to ESBL-producing Escherichia coli (11) Acute metabolic encephalopathy (12) Sacral decubitus ulcer, stage IV (13) Parkinsons disease (14) Neurogenic bladder Symptom Scale: (1) Neuropathy 0-10 Scale: Unable to quantify Comment: *chronic (2) Dyspnea 0-10 Scale: Unable to quantify Comment: worsening left basilar density, probable effusion -- ? aspiration . (3) Hallucinations (4) Malnutrition Pertinent Non-Medical Issues Psychosocial: to her spouse 50+ yrs. Lives at home w spouse, he is PCG. Bedbound/dependent for at least the past year. Is a triplet, supported by her 2 sisters, as well as niece, and Spiritual: Sabianism Legal:Patient unable to participate in decision-making due to dementia, AMS. Her is designated HCS per her living will. Niece is secondary. Ethical issues impacting care: Important Contacts Healthcare surrogate /spouse Fausto Cali [phone] //[phone] alternate HCS niece Mere Leung [phone] . Prognosis This pt was admitted for AMS; metabolic encephalopathy 2/2 UTI, sepsis. She has known hx dementia, parkinson's, dependent for all care. Appears she can get through current acute hospitalization, however remains very high risk from complications, setbacks, and ongoing hospitalizations. . Code Status: Full Code Plan * Legal decision maker: Healthcare surrogate /spouse Fausto Cali [phone] //[phone] ; alternate HCS niece Mere Leung [phone] * Goals: Lengthy discussion with family members 06/09/16. Much review of disease progression and trajectory; as well as recent hospitalizations in recurrent infections. Exploration patient remains high risk for continued infections, other combinations and setbacks related to both disease progression and debilitated status. Review of possible interventions in the future including feeding tube, resuscitation etc. All questions answered. No changes elected as of today however they're going to talk more regarding CODE STATUS. Goals for now semi-aggressive though they will be continuing to review her living will which details she would not want heroic or artificial measures and the presence of end-stage, terminal, or vegetative conditions. They also share that patient had about a year ago verbalized she had no quality of life and "just wanted to ". They are open to ongoing discussions regarding conditions prognosis and goals. * CODE STATUS: Full code * SYMPTOMS: --neuropathy -chronic neuropathy bilateral lower extremities; currently appears comfortable, on lyrica --pain- reports pt has had ongoing pain to buttocks wound, and discomfort w turning/repositioning--likely multifactorial; on lyrica, has prn Tylenol available-- appearing comfortable now, could consider low dose opiates though cautious use 2/2 risk for resp decline r/t AMS --dyspnea - worsening CXR, passed swallowing eval, risk for further resp decline -- hallucinations/confusion- ongoing hx confusion/hallucinations, 2/2 disease process, likely worsened by sepsis. hallucinations do not appear distressing to pt at this time per family- could consider low dose Haldol if hallucinations/agitation becomes severe- avoid benzos, sedating agents . --Malnutrition--weight loss estimated 60 pounds in one year.[ weight loss of 10 kg from Dec 2015 to current] Eats 2 small meals a day normally. Requires feeding by her . This will likely continue, high risk for further decline, likely not consistently meet caloric demands. Eating 0-10-50% of meals in hospital setting. Likely require PEG tube at some point. Albumin 2.9 * Palliative care will continue to follow during hospital course as condition evolves, to assist patient/decision-maker with understanding of medical conditions, weighing benefits/burdens of treatment options, for clarification of goals of treatment. Additionally will assist with any symptoms of palliative concern . Time Spent Total Floor Time (mins): 45 >50% Counseling/Coord of Care: Yes (discussed with RN, medical attending) Attestation To help prompt me to consider important information that might be impacting today's encounter and assessment, information from prior notes written by myself or my colleagues may have been "brought forward" into today's note. My signature on this note, however, is an attestation that I personally performed the exam, history, and/or decision-making noted today, and, unless otherwise indicated, the interactions with patient, family, and staff as well as the review of records all occurred today. I also attest that the listed assessment and stated plan reflect my best clinical judgment today based on the combination of historical information, prior notes, and today's exam/ interactions. When time spent is documented, it refers only to time spent today by the signer, or if indicated, combined time spent today by collaborating physician/nurse practitioner. Sheryl Mckeon Jun 10, 2016 11:09
[2016-06-10] MEDS: REMOVE OLD PATCH T-DERMAL SCH (14:00)
[2016-06-10] MEDS: FLUCONAZOLE 400 MG PREMIX BAG 200 ML IV SCH (14:26)
[2016-06-10] MEDS: ROTIGOTINE TOPICAL SCH (14:27)
--- NOTE | 2016-06-10 15:16 | PD.CONS ---
[facility] Service Urology Consult Requested By Reason for Consult Leakage around suprapubic catheter Primary Care Physician Shira Drake MD Diagnosis: (1) Septic shock ICD Code: A41.9 (2) UTI (urinary tract infection) ICD Code: N39.0 (3) Acute metabolic encephalopathy ICD Code: G93.41 (4) Acute kidney failure ICD Code: N17.9 (5) Lactic acidosis ICD Code: E87.2 (6) Infection due to ESBL-producing Escherichia coli ICD Code: A49.8 (7) Parkinsons disease ICD Code: G20 (8) Neurogenic bladder ICD Code: N31.9 (9) Sacral decubitus ulcer, stage IV ICD Code: L89.154 History of Present Illness 70-year-old female with history dementia, advanced Parkinson's disease, TIA and neurogenic bladder dysfunction managed with a suprapubic catheter who was admitted with altered mental status. A urology consult was placed to evaluate for proper suprapubic tube placement. Apparently the patient has been having some incontinence over the past few days. Upon discussion with the patient's nurse, it appears that the incontinence is occurring via the urethra and not from leakage around the suprapubic catheter. The catheter was last changed approximately 3-1/2 weeks ago. Patient does take Toviaz at home for bladder spasms. Patient is presently under the care of infectious disease for a urinary tract infection with Pseudomonas and Arely species isolated. 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 Ordered Medications Refer to EMR Family History Reviewed and noncontributory Social History Denies tobacco, alcohol or intravenous drug abuse Physical Exam Vital Signs Date Time Temp Pulse Resp B/P Pulse Ox O2 Delivery O2 Flow Rate FiO2 06/10/16 12:28 97 Nasal Cannula 2.00 06/10/16 12:00 69 06/10/16 12:00 97.9 69 19 98/51 96 06/10/16 11:14 19 06/10/16 10:00 80 06/10/16 08:00 97.4 73 19 117/56 98 06/10/16 08:00 73 06/10/16 07:00 98 Nasal Cannula 2.00 06/10/16 06:00 67 06/10/16 04:00 75 06/10/16 04:00 98.6 75 14 138/68 98 06/10/16 02:00 75 06/10/16 00:00 78 06/10/16 00:00 98.1 81 15 109/53 96 06/09/16 22:00 74 06/09/16 20:00 76 06/09/16 20:00 98.4 73 21 111/68 99 06/09/16 19:21 98 Nasal Cannula 2.00 06/09/16 19:00 99 Nasal Cannula 2.00 06/09/16 18:00 75 06/09/16 16:00 98.4 69 17 127/68 99 06/09/16 16:00 69 Physical Exam GENERAL: Resting quietly in bed and in no apparent distress. SKIN: No rashes, ecchymoses or lesions. Cool and dry. HEAD: Atraumatic. Normocephalic. No temporal or scalp tenderness. EYES: Pupils equal round and reactive. Extraocular motions intact. No scleral icterus. No injection or drainage. ENT: Nose without bleeding, purulent drainage or septal hematoma. Throat without erythema, tonsillar hypertrophy or exudate. Uvula midline. Airway patent. NECK: Trachea midline. No JVD or lymphadenopathy. Supple, nontender, no meningeal signs. GASTROINTESTINAL: Abdomen soft, non-tender, nondistended. No guarding. GENITOURINARY: Suprapubic tube appears to be in proper position and draining clear yellow urine. MUSCULOSKELETAL: Extremities without clubbing, cyanosis, or edema. NEUROLOGICAL: Appears confused. Laboratory Tests Test 06/09/16 06/10/16 23:30 06:30 Vancomycin Level Trough 13.6 Phenytoin (Dilantin) Level 9.1 Date/Time Procedure Status Source Growth 06/08/16 09:08 Aerobic Blood Culture - Preliminary Resulted Blood Peripheral NO GROWTH IN 2 DAYS 3/26/17 09:08 Anaerobic Blood Culture - Preliminary Resulted Blood Peripheral NO GROWTH IN 2 DAYS 06/06/16 12:53 Urine Culture - Final Complete Urine Catheterized Urine Escherichia Coli Esbl Positive Pseudomonas Aeruginosa Arely Parapsilosis 06/05/16 15:25 Aerobic Blood Culture - Final Complete Blood Peripheral Escherichia Coli Esbl Positive 06/05/16 15:25 Anaerobic Blood Culture - Final Complete Escherichia Coli Esbl Positive Result Diagram: 06/09/16 0415 06/09/16 0415 Imaging Last Impressions Chest X-Ray 06/09/16 0600 Signed Impressions: Service Date/Time: Thursday, June 09, 2016 03:49 - CONCLUSION: Worsening left basilar density and probable small pleural effusion. Jay Araujo MD Head CT 06/05/16 1516 Signed Impressions: Service Date/Time: May 15:49 - CONCLUSION: 1. Mild periventricular and subcortical white matter small vessel ischemic changes bilaterally. 2. No acute infarct, acute hemorrhage, mass effect or extra- axial fluid collections. Ruy Donahue MD Hospital Course Suprapubic catheter replaced with a 22 [place] two-way catheter with 10 cc sterile water instilled into the balloon using sterile technique. Assessment and Plan Assessment and Plan Urologic impression: Urinary incontinence related to bladder spasms Plan: #1 suprapubic catheter changed at bedside using sterile technique. #2 tolterodine LA 4 mg by mouth daily. #3 suprapubic tube will need to be changed every 3-4 weeks. Problem Qualifiers (1) UTI (urinary tract infection): Qualified Code: N39.0 - Urinary tract infection without hematuria, site unspecified Garth Kate MD Jun 10, 2016 15:16
[2016-06-10] MEDS: MAGNESIUM HYDROXIDE SUSP 30 ML CUP PO PRN (17:38)
[2016-06-10] MEDS: TOLTERODINE TARTRATE 4 MG CAP LA PO SCH (17:38)
[2016-06-10] MEDS: ENOXAPARIN SODIUM 30 MG/0.3 ML SYRINGE SQ SCH (17:38)
[2016-06-10] MEDS ORDERED: SODIUM CHLOR 0.9% 250 ML INJ 250 ML IV ONE (19:30)
[2016-06-10] MEDS: OLANZapine 5 MG TAB PO SCH (20:47)
[2016-06-11] VITALS (15 sets, daily range): BP systolic 94–144; BP diastolic 52–66; PULSE 66–92; RESP 13–16; TEMP 97.6–98.2; O2SAT 97–99
[2016-06-11] MEDS: CHLORHEXIDINE GLUCONATE 2 % 1 PACK (2 CLOTHS) TOP SCH (04:00)
[2016-06-11] MEDS: CARBIDOPA/LEVODOPA 25 MG/250 MG TAB PO SCH ×4 (05:13→21:16)
[2016-06-11] MEDS: SODIUM CHLORIDE IV SCH ×2 (05:13→17:45)
[2016-06-11] MEDS: FOSPHENYTOIN IV SCH ×2 (05:13→17:45)
[2016-06-11] MEDS: MEROPENEM 1000 MG/NS 100 ML IV SCH ×6 (05:13→21:18)
[2016-06-11] MEDS: MIDODRINE 5 MG TAB PO SCH ×3 (08:04→17:44)
[2016-06-11] MEDS: PANTOPRAZOLE SODIUM 40 MG VIAL IV SCH (08:04)
[2016-06-11] MEDS: PREGABALIN 25 MG CAP PO SCH ×3 (08:05→17:44)
[2016-06-11] MEDS: DONEPEZIL HCL 5 MG TAB PO SCH (08:07)
[2016-06-11] MEDS: TOLTERODINE TARTRATE 4 MG CAP LA PO SCH (08:08)
--- NOTE | 2016-06-11 08:19 | HHI.PR ---
Subjective Remarks in no acute distress. somewhat lethargic. d/w the RN; reportedly eating 25% of each meal. BP was low last night which improved after IV fluid blous. otherwise no other acute issues over night. Objective Vitals Vital Signs Date Time Temp Pulse Resp B/P Pulse Ox O2 Delivery O2 Flow Rate FiO2 06/11/16 07:36 99 Nasal Cannula 2.00 06/11/16 07:00 100 Nasal Cannula 2.00 06/11/16 06:00 76 06/11/16 05:15 97.9 79 14 94/52 97 06/11/16 04:00 78 06/11/16 02:00 77 06/11/16 00:00 66 06/11/16 00:00 97.7 66 15 115/57 99 06/10/16 22:00 69 06/10/16 20:00 96 Nasal Cannula 2.00 06/10/16 20:00 71 06/10/16 20:00 98.4 71 16 105/53 96 06/10/16 19:26 95 Nasal Cannula 2.00 06/10/16 18:00 75 06/10/16 16:00 97.8 74 19 131/52 97 06/10/16 16:00 74 06/10/16 14:00 83 06/10/16 12:28 97 Nasal Cannula 2.00 06/10/16 12:00 69 06/10/16 12:00 97.9 69 19 98/51 96 06/10/16 11:14 19 06/10/16 10:00 80 I/O 06/10/16 06/10/16 06/10/16 06/11/16 06/11/16 06/11/16 07:00 15:00 23:00 07:00 15:00 23:00 Intake Total 618 ml 1496 ml 932 ml 622 ml Output Total 1900 ml 1600 ml 550 ml 750 ml Balance -1282 ml -104 ml 382 ml -128 ml Intake Oral 100 ml 360 ml 240 ml IV Total 518 ml 1136 ml 692 ml 622 ml Output Urine Total 1900 ml 1600 ml 550 ml 750 ml # Bowel Movements 0 0 0 0 Result Diagram: 06/09/16 0415 06/11/16 0430 Imaging Last Impressions Chest X-Ray 06/09/16 06 Signed Impressions: Service Date/Time: Thursday, June 09, 2016 03:49 - CONCLUSION: Worsening left basilar density and probable small pleural effusion. Jay Araujo MD Head CT 06/05/16 1516 Signed Impressions: Service Date/Time: May 15:49 - CONCLUSION: 1. Mild periventricular and subcortical white matter small vessel ischemic changes bilaterally. 2. No acute infarct, acute hemorrhage, mass effect or extra- axial fluid collections. Ruy Donahue MD Objective Remarks GENERAL: in no apparent distress. CARDIOVASCULAR: Regular rate and regular rhythm without murmurs, gallops, or rubs. RESPIRATORY: Clear to auscultation. Breath sounds equal bilaterally. No wheezes , rales, or rhonchi. GASTROINTESTINAL: Abdomen soft, non-tender, nondistended. Normal, active bowel sounds MUSCULOSKELETAL: Extremities without clubbing, cyanosis, or edema. NEURO: some what lethargic but easily arousable. Medications and IVs Current Medications Carbidopa/Levodopa (Sinemet 25-250 Mg) 1 tab ONCE ONCE PO Last administered on 06/05/16 15:42; Start 06/05/16 at 15:15; Stop 06/05/16 at 15:16; Status DC Sodium Chloride 2 ml 2 ml UNSCH PRN IVF FLUSH AFTER USING IV ACCESS; Start at 15:30 Sodium Chloride 1,000 ml @ 1,000 mls/hr Q1H IV Last administered on 06/05/16 15:43; Start 06/05/16 at 15:16; Stop 06/05/16 at 16:15; Status DC Sodium Chloride 1,000 ml @ 999 mls/hr BOLUS ONCE IV Last administered on 06/05 15:43; Start 06/05/16 at 15:30; Stop 06/05/16 at 16:32; Status DC Sodium Chloride 1,000 ml @ 999 mls/hr BOLUS ONCE IV Last administered on 06/05 15:43; Start 06/05/16 at 15:30; Stop 06/05/16 at 16:32; Status DC Piperacillin Sod/ Tazobactam Sod 100 ml @ 200 mls/hr ONCE ONCE IV Last administered on 06/05/16 16:18; Start 06/05/16 at 15:30; Stop 06/05/16 at 15:59 ; Status DC Vancomycin HCl/ Sodium Chloride (Vancomycin Inj/ NS 250 ml Inj) 250 ml @ 250 mls/hr ONCE ONCE IV Last administered on 06/05/16 15:44; Start 06/05/16 at 15 :30; Stop 06/05/16 at 16:32; Status DC Carbidopa/ Levodopa 1 tab 1 tab ONCE ONCE PO Last administered on 06/05/16 16 :25; Start 06/05/16 at 15:30; Stop 06/05/16 at 15:32; Status DC Norepinephrine Bitartrate 250 ml @ 0 mls/hr TITRATE IV Last administered on 11:43; Start 06/05/16 at 16:15; Stop 06/07/16 at 09:13; Status DC Piperacillin Sod/ Tazobactam Sod 50 ml @ 100 mls/hr Q6H IV ; Start 06/05/16 at 23:00; Stop 06/05/16 at 23:00; Status DC Pharmacy Profile Note (Vancomycin Consult Pharmacy) 0 ml @ 0 mls/hr UNSCH OTHER ; Start 06/05/16 at 16:15; Stop 06/06/16 at 14:58; Status DC Carbidopa/Levodopa (Sinemet 25-250 Mg) 1 tab DAILY PO ; Start 06/06/16 at 09:00 ; Stop 06/06/16 at 09:00; Status DC Patient Own Medication PT OWN MED: NEUPRO PATCH 4 MG/24 ... DAILY TOPICAL ; Start 06/06/16 at 09:00; Status Cancel Carbidopa/Levodopa (Sinemet 25-250 Mg) 1 tab Q6H PO Last administered on 08:42; Start 06/06/16 at 09:00; Stop 06/07/16 at 12:51; Status DC Miscellaneous Medication (ASP Crit: Path resist to other, cult proven) 1 UNSCH X1 PRN XX PHARMACY DOCUMENTATION; Start 06/05/16 at 16:30; Stop 06/06/16 at 16: 29; Status DC Miscellaneous Medication 1 1 UNSCH X1 PRN XX PHARMACY DOCUMENTATION; Start at 16:30; Stop 06/06/16 at 16:29; Status DC Meropenem 500 mg/ Sodium Chloride 100 ml @ 200 mls/hr Q12H IV Last administered on 06/06/16 05:10; Start 06/05/16 at 17:00; Stop 06/06/16 at 11:26 ; Status DC Vancomycin HCl 500 mg/Sodium Chloride 100 ml @ 200 mls/hr ONCE ONCE IV Last administered on 06/05/16 18:30; Start 06/05/16 at 17:00; Stop 06/05/16 at 17:29 ; Status DC Sodium Chloride (NS 1000 ml Inj) 1,000 ml @ 60 mls/hr [id number] IV Last administered on 06/10/16 20:46; Start 06/05/16 at 16:27 Acetaminophen (Tylenol) 650 mg Q6H PRN PO PAIN 1-10 AND/OR FEVER >101F Last administered on 06/07/16 00:19; Start 06/05/16 at 16:30 Pantoprazole Sodium (Protonix Inj) 40 mg DAILY IV Last administered on 10:14; Start 06/06/16 at 09:00 Albuterol/ Ipratropium (Duoneb Neb) 1 ampule Q2HR NEB PRN INH WHEEZING; Start 06/05/16 at 16:30 Enoxaparin Sodium (Lovenox Inj) 30 mg Q24H SQ Last administered on 06/10/16 17 :38; Start 06/05/16 at 17:00 Miscellaneous Information 1 Q361D XX ; Start 06/05/16 at 16:30 Chlorhexidine Gluconate (Chlorhexidine 2% Cloth) Taper DAILY@04 TOP Last administered on 06/11/16 04:00; Start 06/06/16 at 04:00; Stop 06/02/17 at 03:59 Chlorhexidine Gluconate 3 pack 3 pack UNSCH PRN TOP HYGIENIC CARE; Start at 16:30 Fluconazole/ Sodium Chloride 50 ml @ 50 mls/hr Q24H IV Last administered on 18:29; Start 06/05/16 at 18:00; Stop 06/06/16 at 14:59; Status DC Potassium Chloride 100 ml @ 50 mls/hr Q2H PRN IV For Potassium 2.8 - 3.2 mEq/ L Last administered on 06/08/16 11:40; Start 06/06/16 at 08:45 Potassium Chloride 100 ml @ 50 mls/hr Q2H PRN IV For Potassium 2.8 - 3.2 mEq/L ; Start 06/06/16 at 08:45 Potassium Chloride 100 ml @ 25 mls/hr UNSCH PRN IV For Potassium 3.3 - 3.5 mEq /L Last administered on 06/07/16 08:41; Start 06/06/16 at 08:45 Potassium Chloride 100 ml @ 50 mls/hr Q2H PRN IV For Potassium 3.3 - 3.5 mEq/ L Last administered on 06/09/16 08:06; Start 06/06/16 at 08:45 Magnesium Sulfate/ Sodium Chloride (Magnesium Sulfate Inj/NS Inj) 100 ml @ 50 mls/hr UNSCH PRN IV For Magnesium 0.9 - 1.1 mg/dL; Start 06/06/16 at 08:45 Magnesium Oxide 800 mg 800 mg UNSCH PRN PO For Magnesium 1.2 - 1.6 mg/dL; Start 06/06/16 at 08:45 Magnesium Sulfate/ Sodium Chloride (Magnesium Sulfate Inj/NS Inj) 100 ml @ 50 mls/hr UNSCH PRN IV For Magnesium 1.2 - 1.6 mg/dL Last administered on 13:38; Start 06/06/16 at 08:45 Potassium Phosphate 2000 mg 2,000 mg Q4H PRN PO For Phosphorus < 2.5 mg/dL Last administered on 06/09/16 17:00; Start 06/06/16 at 08:45 Sodium Phosphate/ Sodium Chloride (Sodium Phosphate Inj/NS 250 ml Inj) 250 ml @ 42 mls/hr UNSCH PRN IV For Phosphorus < 2.5 mg/dL; Start 06/06/16 at 08:45 Potassium Phosphate 2000 mg 2,000 mg UNSCH PRN PO/TUBE SEE LABEL COMMENTS; Start 06/06/16 at 08:45 Potassium Phosphate 30 mmol/ Sodium Chloride 260 ml @ 42 mls/hr UNSCH PRN IV SEE LABEL COMMENTS; Start 06/06/16 at 08:45 Fluconazole/ Sodium Chloride 50 ml @ 50 mls/hr Q24H IV ; Start 06/06/16 at 09:30 ; Status UNV Vancomycin HCl/ Sodium Chloride (Vancomycin Inj/ NS 250 ml Inj) 262.5 ml @ 250 mls/hr Q24H IV ; Start 06/06/16 at 18:00; Stop 06/06/16 at 18:00; Status DC Miscellaneous Information SPECIFIC LAB TO BE DRAWN:VANCOMYCIN TROUGH DATE TO... ONCE ONCE XX ; Start 06/07/16 at 17:45; Stop 06/07/16 at 17:45; Status DC Meropenem 1000 mg/ Sodium Chloride 100 ml @ 200 mls/hr Q8H IV ; Start 06/06/16 at 13:00; Status UNV Sodium Chloride 1,000 ml @ 999 mls/hr BOLUS ONCE IV Last administered on 06/06 11:44; Start 06/06/16 at 12:00; Stop 06/06/16 at 13:00; Status DC Meropenem/Sodium Chloride (Merrem Inj/NS Inj) 100 ml @ 200 mls/hr Q8H IV Last administered on 06/11/16 05:13; Start 06/06/16 at 13:00 Donepezil HCl (Aricept) 10 mg DAILY PO Last administered on 06/10/16 10:14; Start 06/06/16 at 17:00 Olanzapine (ZyPREXA) 5 mg HS PO Last administered on 06/10/16 20:47; Start at 21:00 Pregabalin (Lyrica) 50 mg TID PO Last administered on 06/10/16 17:38; Start at 18:00 Fosphenytoin Sodium 200 mgpe 200 mgpe Q12HR IV ; Start 06/06/16 at 21:00; Stop 06/06/16 at 21:00; Status DC Fosphenytoin Sodium 1000 mgpe/ Sodium Chloride 70 ml @ 280 mls/hr ONCE ONCE IV Last administered on 06/06/16 17:30; Start 06/06/16 at 17:30; Stop at 18:01; Status DC Fosphenytoin Sodium/Sodium Chloride (Cerebyx Inj/NS Inj) 54 ml @ 216 mls/hr Q12HR IV Last administered on 06/09/16 08:04; Start 06/06/16 at 21:00; Stop at 09:53; Status DC Carbidopa/Levodopa (Sinemet 25-250 Mg) 1.5 tab 5 TIMES A DAY PO Last administered on 06/11/16 05:13; Start 06/07/16 at 18:00 Patient Own Medication PT OWN MED: NEUPRO PATCH 4 MG/24 ... Q24H TOPICAL Last administered on 06/10/16 14:27; Start 06/07/16 at 14:00 Miscellaneous Information 1 Q24H T-DERMAL Last administered on 06/10/16 14:00 ; Start 06/07/16 at 14:00 Miscellaneous 1 ea 1 ea UNSCH PRN OTHER SEE LABEL COMMENTS; Start 06/07/16 at 13:15 Norepinephrine Bitartrate (Levophed-Dextrose Drip) 250 ml @ 0 mls/hr TITRATE IV Last administered on 06/08/16 05:51; Start 06/07/16 at 23:45; Stop 06/09/16 at 11:30; Status DC Terbutaline Sulfate (Brethine Inj) 1 mg UNSCH PRN SQ For Extravasation; Start 06/07/16 at 23:45 Albumin Human (Albumin 25% Inj) 25 gm ONCE ONCE IV Last administered on 08:52; Start 06/08/16 at 08:00; Stop 06/08/16 at 08:01; Status DC Albumin Human (Albumin 25% Inj) 25 gm Q12H IV Last administered on 06/09/16 20 :59; Start 06/08/16 at 08:00; Stop 06/10/16 at 07:59; Status DC Midodrine 5 mg 5 mg TID@07,12,17 PO Last administered on 06/09/16 11:13; Start 06/08/16 at 12:00; Stop 06/09/16 at 11:30; Status DC Vancomycin HCl 1000 mg/Sodium Chloride 250 ml @ 250 mls/hr ONCE ONCE IV Last administered on 06/08/16 11:35; Start 06/08/16 at 11:00; Stop 06/08/16 at 11:59 ; Status DC Pharmacy Profile Note 0 ml @ 0 mls/hr UNSCH OTHER ; Start 06/08/16 at 09:45 Vancomycin HCl/ Sodium Chloride (Vancomycin Inj/ NS 250 ml Inj) 257.5 ml @ 250 mls/hr Q12H IV Last administered on 06/10/16 22:17; Start 06/08/16 at 23:00 Miscellaneous Information SPECIFIC LAB TO BE ... ONCE ONCE XX Last administered on 06/09/16 22:45; Start 06/09/16 at 22:45; Stop 06/09/16 at 22:46 ; Status DC Fluconazole/ Sodium Chloride 200 ml @ 100 mls/hr Q24H IV Last administered on 06/10/16 14:26; Start 06/08/16 at 13:00 Fosphenytoin Sodium/Sodium Chloride (Cerebyx Inj/NS Inj) 52.6 ml @ 216 mls/hr Q12HR IV Last administered on 06/10/16 04:39; Start 06/10/16 at 06:00; Stop at 08:36; Status DC Midodrine (Proamatine) 10 mg TID@07,12,17 PO Last administered on 06/10/16 17: 37; Start 06/09/16 at 12:00 Alteplase, Recombinant 2 mg 2 mg ONCE ONCE IV FLUSH Last administered on 21:00; Start 06/09/16 at 18:00; Stop 06/09/16 at 18:01; Status DC Fosphenytoin Sodium/Sodium Chloride (Cerebyx Inj/NS Inj) 52.6 ml @ 216 mls/hr Q12H IV Last administered on 06/11/16 05:13; Start 06/11/16 at 06:00 Docusate Sodium (Colace) 100 mg BID PRN PO CONSTIPATION; Start 06/10/16 at 08: 45 Magnesium Hydroxide (Milk Of Magnesia Liq) 30 ml DAILY PRN PO CONSTIPATION Last administered on 06/10/16 17:38; Start 06/10/16 at 08:45 Tolterodine Tartrate 4 mg 4 mg DAILY PO Last administered on 06/10/16 17:38; Start 06/10/16 at 15:30 Sodium Chloride (NS 250 ml Inj) 250 ml @ 250 mls/hr BOLUS ONCE IV Last administered on 06/10/16 19:30; Start 06/10/16 at 19:30; Stop 06/10/16 at 20:29 ; Status DC A/P Assessment and Plan A/P Acute metabolic encephalopathy Advanced Parkinson's disease Bifrontal sharps on EEG -Continue Sinemet -Resumed Zyprexa and Lyrica 06/06 -Encephalopathy seems to be metabolic -Neurology Dr. Brown following - started on fosphenytoin for bifrontal spikes Respiratory insufficiency Left lower lobe infiltrate/pneumonia -Nasal cannula oxygen -DuoNeb every 6 hours when necessary, aggressive pulmonary toilet -See ID section for antibiotics Septic shock -resolved Lactic acidosis Mild troponin elevation -BP stable-off Levophed -continue midodrine . -Mild troponin elevation due to sepsis and renal failure. -Diet per speech recommendation. IV Protonix Acute kidney failure -resolved questionable leak around the suprapubic cath. -Renal failure secondary to dehydration and hypotension-resolved -Monitor renal function closely. -urology consult appreciated; suprapubic cath was exchanged; to be changed every 3-4 weeks. Septic shock -resolved ESBL Ecoi bacteremia 4 out of 4 bottles UTI with GNR, possible ESBL Escherichia coli Left lower lobe infiltrate/pneumonia History of ESBL Escherichia coli UTI in the past Stage IV decubitus ulcer -Continue IV meropenem. Vanc and Diflucan. -ID is following. -06/05 blood culture / bottles ESBL Escherichia coli -06/05 Urine culture ESBL Escherichia coli -06/08 blood cultures negative so far -Wound care following -Previous urine cultures from 01/04/16 growing ESBL Escherichia coli, Pseudomonas and enterococcus -Abx per ID Leukocytosis -improving -Monitor CBC, CMP, coags hypokalemia -Electrolyte replacement as needed PROPH: -Bilateral lower extremity SCDs. Lovenox 40 mg subcutaneous daily. IV Protonix 40 mg daily palliative care consult appreciated. will do calorie count. continue PT. transfer to floor tomorrow if BP remains stable. Shantanu Galicia MD Jun 11, 2016 08:19
[2016-06-11] MEDS: VANCOMYCIN INJ 750 MG in SODIUM CHLOR 0.9% 250 ML INJ 250 ML IV SCH (11:09)
[2016-06-11 12:04] LABS: BICARBONATE 33.1 MEQ/L (21.0-32.0); POTASSIUM 3.2 MEQ/L (3.5-5.1)
[2016-06-11] MEDS: POTASSIUM CHLOR 40 MEQ PREMIX 100 ML IV PRN (12:32)
[2016-06-11] MEDS: FLUCONAZOLE 400 MG PREMIX BAG 200 ML IV SCH (12:32)
[2016-06-11] MEDS: REMOVE OLD PATCH T-DERMAL SCH (12:33)
[2016-06-11] MEDS: ROTIGOTINE TOPICAL SCH (12:33)
--- NOTE | 2016-06-11 12:36 | HHI.HCPN ---
Reason for visit a. To assist with evaluation and management of symptoms including: pain, agitation/hallucinations b. To assist medical decision maker(s) with: better understanding of current medical conditions; weighing benefits/burdens of medical treatment options; making medical treatment decisions. Subjective/Interval History Pt seen today to follow up on comfort, as well as goals/update to family . Remains stable in the ICU. off of Levophed/BP continues to fluctuate did require boluses yesterday. Blood culture 06/08no growth to date. Urology evaluated yesterday changed out suprapubic catheter, appears urinary leakage is from urethra not from suprapubic catheter. Still with poor oral intake, calorie count initiated. Seen in room with at bedside. Lethargic does not arouse to my exam. No apparent pain or distress. indicates she has been calm and appears comfortable. indicates she is still eating for him though very slowly and with much encouragement, falling asleep at times while eating. General update of overall condition, clinical assessment. He has no questions. No change in treatment goals, goals remain aggressive. . Advance Directives Living Will: Copy in medical record Health Care Surrogate: Copy in medical record Advance Directive Specifics Date completed: August 2009 Health Care Surrogate(s): Fausto Cali, juan jose Leung . Documented care wishes: Living will details in the usual verbiage that if patient with terminal, end- stage or persistent vegetative condition with no chance of reasonable medical probability of recovery to [place] life-prolonging procedures be withheld for withdrawn when they would only serve to prolong artificially the process of dying, and be permitted to naturally with only the administration of medication deemed necessary to provide comfort care or alleviate pain. Objective Vital Signs Date Time Temp Pulse Resp B/P Pulse Ox O2 Delivery O2 Flow Rate FiO2 06/11/16 12:00 77 06/11/16 10:00 79 06/11/16 09:05 13 06/11/16 08:00 75 06/11/16 08:00 97.8 75 13 119/54 99 06/11/16 07:36 99 Nasal Cannula 2.00 06/11/16 07:00 100 Nasal Cannula 2.00 06/11/16 06:00 76 06/11/16 05:15 97.9 79 14 94/52 97 06/11/16 04:00 78 06/11/16 02:00 77 06/11/16 00:00 66 06/11/16 00:00 97.7 66 15 115/57 99 06/10/16 22:00 69 06/10/16 20:00 96 Nasal Cannula 2.00 06/10/16 20:00 71 06/10/16 20:00 98.4 71 16 105/53 96 06/10/16 19:26 95 Nasal Cannula 2.00 06/10/16 18:00 75 06/10/16 16:00 97.8 74 19 131/52 97 06/10/16 16:00 74 06/10/16 14:00 83 Intake & Output 06/11/16 06/11/16 07:00 19:00 Intake Total 1554 ml Output Total 1300 ml Balance 254 ml Intake Oral 240 ml IV Total 1314 ml Output Urine Total 1300 ml # Bowel Movements 0 Physical Exam CONSTITUTIONAL/GENERAL: This is a frail, chronically ill appearing pt TUBES/LINES/DRAINS: PIV upper extremity, + subclavian central line , SP catheter with drainage back around; not visualized reported buttock wound , SCDs , NC CARDIOVASCULAR: Regular rate and rhythm without murmurs. No JVD. Peripheral pulses symmetric.trace peripheral edema. RESPIRATORY/CHEST: Symmetric, unlabored respirations. On 2L. Clear to auscultation, decreased air movement. Breath sounds equal bilaterally. GASTROINTESTINAL: Abdomen soft, non-tender, nondistended. No hepato-splenomegaly , or palpable masses. No guarding. Bowel sounds present. GENITOURINARY: Without palpable bladder distension. SP catheter in place, some erythema around S/P catheter MUSCULOSKELETAL: Extremities without clubbing, cyanosis. trace periph edema. No mottling or clubbing. LYMPHATICS: No palpable cervical or supraclavicular adenopathy. NEUROLOGICAL: Lethargic, does not arouse to my exam. PSYCHIATRIC: No obvious anxiety/depression/hallucinations . Diagnostic Tests Laboratory Laboratory Tests Test 06/08/16 06/09/16 06/09/16 06/10/16 18:00 04:15 23:30 06:30 Potassium Level 3.6 MEQ/L 3.3 MEQ/L (3.5-5.1) (3.5-5.1) White Blood Count 10.8 TH/MM3 (4.0-11.0) Red Blood Count 4.01 MIL/MM3 (4.00-5.30) Hemoglobin 11.2 GM/DL (11.6-15.3) Hematocrit 34.1 % (35.0-46.0) Mean Corpuscular Volume 85.0 FL (80.0-100.0) Mean Corpuscular Hemoglobin 27.9 PG (27.0-34.0) Mean Corpuscular Hemoglobin 32.8 % Concent (32.0-36.0) Red Cell Distribution Width 15.7 % (11.6-17.2) Platelet Count 142 TH/MM3 (150-450) Mean Platelet Volume 8.2 FL (7.0-11.0) Neutrophils (%) (Auto) 69.3 % (16.0-70.0) Lymphocytes (%) (Auto) 15.7 % (9.0-44.0) Monocytes (%) (Auto) 11.8 % (0.0-8.0) Eosinophils (%) (Auto) 2.9 % (0.0-4.0) Basophils (%) (Auto) 0.3 % (0.0-2.0) Neutrophils # (Auto) 7.5 TH/MM3 (1.8-7.7) Lymphocytes # (Auto) 1.7 TH/MM3 (1.0-4.8) Monocytes # (Auto) 1.3 TH/MM3 (0-0.9) Eosinophils # (Auto) 0.3 TH/MM3 (0-0.4) Basophils # (Auto) 0.0 TH/MM3 (0-0.2) CBC Comment DIFF FINAL Differential Comment Sodium Level 141 MEQ/L (136-145) Chloride Level 105 MEQ/L (98-107) Carbon Dioxide Level 28.4 MEQ/L (21.0-32.0) Anion Gap 8 MEQ/L (5-15) Blood Urea Nitrogen 5 MG/DL (7-18) Creatinine 0.32 MG/DL (0.50-1.00) Estimat Glomerular Filtration 205 ML/MIN Rate (>89) Random Glucose 94 MG/DL (74-106) Calcium Level 8.4 MG/DL (8.5-10.1) Phosphorus Level 1.2 MG/DL (2.5-4.9) Total Bilirubin 0.6 MG/DL (0.2-1.0) Aspartate Amino Transf 12 U/L (15-37) (AST/SGOT) Alanine Aminotransferase LESS THAN 6 (ALT/SGPT) U/L (10-53) Alkaline Phosphatase 69 U/L (45-117) Total Protein 5.6 GM/DL (6.4-8.2) Albumin 2.9 GM/DL (3.4-5.0) Phenytoin (Dilantin) Level 10.0 MCG/ML 9.1 MCG/ML (10.0-20.0) (10.0-20.0) Vancomycin Level Trough 13.6 MCG/ML (5.0-10.0) Test 06/11/16 06/11/16 04:30 11:15 Creatinine 0.38 MG/DL 0.46 MG/DL (0.50-1.00) (0.50-1.00) Estimat Glomerular Filtration 168 ML/MIN 135 ML/MIN Rate (>89) (>89) Phenytoin (Dilantin) Level 7.7 MCG/ML (10.0-20.0) Sodium Level 144 MEQ/L (136-145) Potassium Level 3.2 MEQ/L (3.5-5.1) Chloride Level 106 MEQ/L (98-107) Carbon Dioxide Level 33.1 MEQ/L (21.0-32.0) Anion Gap 5 MEQ/L (5-15) Blood Urea Nitrogen 5 MG/DL (7-18) Random Glucose 97 MG/DL (74-106) Calcium Level 8.8 MG/DL (8.5-10.1) Result Diagram: 06/09/16 0415 06/11/16 1115 Microbiology Microbiology Date/Time Procedure Status Source Growth 06/08/16 09:08 Aerobic Blood Culture - Preliminary Resulted Blood Peripheral NO GROWTH IN 3 DAYS 06/08/16 09:08 Anaerobic Blood Culture - Preliminary Resulted Blood Peripheral NO GROWTH IN 3 DAYS 06/06/16 12:53 Urine Culture - Final Complete Urine Catheterized Urine Escherichia Coli Esbl Positive Pseudomonas Aeruginosa Arely Parapsilosis Imaging Last Impressions Chest X-Ray 06/09/16 0600 Signed Impressions: Service Date/Time: Thursday, June 09, 2016 03:49 - CONCLUSION: Worsening left basilar density and probable small pleural effusion. Jay Araujo MD Head CT 06/05/16 1516 Signed Impressions: Service Date/Time: May 15:49 - CONCLUSION: 1. Mild periventricular and subcortical white matter small vessel ischemic changes bilaterally. 2. No acute infarct, acute hemorrhage, mass effect or extra- axial fluid collections. Ruy Donahue MD Procedures 06/05 Triple-lumen right subclavian Assessment and Plan Disease Oriented Problem List: (1) Suprapubic catheter dysfunction (2) Neuropathy (3) Urinary incontinence (4) Altered mental status (5) Renal failure (6) Septic shock (7) Lactic acidosis (8) Acute kidney failure (9) UTI (urinary tract infection) (10) Infection due to ESBL-producing Escherichia coli (11) Acute metabolic encephalopathy (12) Sacral decubitus ulcer, stage IV (13) Parkinsons disease (14) Neurogenic bladder Symptom Scale: (1) Neuropathy 0-10 Scale: Unable to quantify Comment: *chronic (2) Dyspnea 0-10 Scale: Unable to quantify Comment: worsening left basilar density, probable effusion -- ? aspiration . (3) Hallucinations (4) Malnutrition Pertinent Non-Medical Issues Psychosocial: to her spouse 50+ yrs. Lives at home w spouse, he is PCG. Bedbound/dependent for at least the past year. Is a triplet, supported by her 2 sisters, as well as niece, and Spiritual: Confucianist Legal:Patient unable to participate in decision-making due to dementia, AMS. Her is designated HCS per her living will. Niece is secondary. Ethical issues impacting care: Important Contacts Healthcare surrogate /spouse Fausto Cali [phone] //[phone] alternate HCS niece Mere Leung [phone] . Prognosis This pt was admitted for AMS; metabolic encephalopathy 2/2 UTI, sepsis. She has known hx dementia, parkinson's, dependent for all care. Appears she can get through current acute hospitalization, however remains very high risk from complications, setbacks, and ongoing hospitalizations. . Code Status: Full Code Plan * Legal decision maker: Healthcare surrogate /spouse Fausto Cali [phone] //[phone] ; alternate HCS niece Mere Leung [phone] * Goals: 06/11/16no change in treatment goalsgoals remain aggressive. Lengthy discussion with family members 06/09/16. Much review of disease progression and trajectory; as well as recent hospitalizations in recurrent infections. Exploration patient remains high risk for continued infections, other combinations and setbacks related to both disease progression and debilitated status. Review of possible interventions in the future including feeding tube, resuscitation etc. All questions answered. No changes elected as of today however they're going to talk more regarding CODE STATUS. Goals for now semi-aggressive though they will be continuing to review her living will which details she would not want heroic or artificial measures and the presence of end-stage, terminal, or vegetative conditions. They also share that patient had about a year ago verbalized she had no quality of life and "just wanted to ". They are open to ongoing discussions regarding conditions prognosis and goals. * CODE STATUS: Full code * SYMPTOMS: --neuropathy -chronic neuropathy bilateral lower extremities; currently appears comfortable, on lyrica --pain- reports pt has had ongoing pain to buttocks wound, and discomfort w turning/repositioning--likely multifactorial; on lyrica, has prn Tylenol available-- appearing comfortable now, could consider low dose opiates though cautious use 2/2 risk for resp decline r/t AMS --dyspnea - worsening CXR, passed swallowing eval, risk for further resp decline--respiratory status has remained stable no shortness of breath or increase in FiO2 requirements -- hallucinations/confusion- ongoing hx confusion/hallucinations, 2/2 disease process, likely worsened by sepsis. hallucinations do not appear distressing to pt at this time per family- could consider low dose Haldol if hallucinations/agitation becomes severe- avoid benzos, sedating agents . --Malnutrition--weight loss estimated 60 pounds in one year.[ weight loss of 10 kg from Dec 2015 to current] Eats 2 small meals a day normally. Requires feeding by her . This will likely continue, high risk for further decline, likely not consistently meet caloric demands. Eating 0-10-50% of meals in hospital setting. Likely require PEG tube at some point. Albumin 2.9. Calorie count in process. Still eating when fed, indicates eats very slowly, falls asleep during meals. * Palliative care will continue to follow during hospital course as condition evolves, to assist patient/decision-maker with understanding of medical conditions, weighing benefits/burdens of treatment options, for clarification of goals of treatment. Additionally will assist with any symptoms of palliative concern . Time Spent Total Floor Time (mins): 15 >50% Counseling/Coord of Care: Yes (discussed with primary nurse) Attestation To help prompt me to consider important information that might be impacting today's encounter and assessment, information from prior notes written by myself or my colleagues may have been "brought forward" into today's note. My signature on this note, however, is an attestation that I personally performed the exam, history, and/or decision-making noted today, and, unless otherwise indicated, the interactions with patient, family, and staff as well as the review of records all occurred today. I also attest that the listed assessment and stated plan reflect my best clinical judgment today based on the combination of historical information, prior notes, and today's exam/ interactions. When time spent is documented, it refers only to time spent today by the signer, or if indicated, combined time spent today by collaborating physician/nurse practitioner. Sheryl Mckeon Jun 11, 2016 12:36
--- NOTE | 2016-06-11 14:08 | HHI.IDPN ---
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 Vital Signs Date Time Temp Pulse Resp B/P Pulse Ox O2 Delivery O2 Flow Rate FiO2 06/11/16 12:00 77 06/11/16 10:00 79 06/11/16 09:05 13 06/11/16 08:00 75 06/11/16 08:00 97.8 75 13 119/54 99 06/11/16 07:36 99 Nasal Cannula 2.00 06/11/16 07:00 100 Nasal Cannula 2.00 06/11/16 06:00 76 06/11/16 05:15 97.9 79 14 94/52 97 06/11/16 04:00 78 06/11/16 02:00 77 06/11/16 00:00 66 06/11/16 00:00 97.7 66 15 115/57 99 06/10/16 22:00 69 06/10/16 20:00 96 Nasal Cannula 2.00 06/10/16 20:00 71 06/10/16 20:00 98.4 71 16 105/53 96 06/10/16 19:26 95 Nasal Cannula 2.00 06/10/16 18:00 75 06/10/16 16:00 97.8 74 19 131/52 97 06/10/16 16:00 74 06/10/16 06/10/16 06/11/16 15:00 23:00 07:00 Intake Total 1496 ml 932 ml 622 ml Output Total 1600 ml 550 ml 750 ml Balance -104 ml 382 ml -128 ml Intake Oral 360 ml 240 ml IV Total 1136 ml 692 ml 622 ml Output Urine Total 1600 ml 550 ml 750 ml # Bowel Movements 0 0 0 . Laboratory Tests Test 06/11/16 06/11/16 04:30 11:15 Creatinine 0.38 MG/DL 0.46 MG/DL Estimat Glomerular Filtration 168 ML/MIN 135 ML/MIN Rate Sodium Level 144 MEQ/L Potassium Level 3.2 MEQ/L Chloride Level 106 MEQ/L Carbon Dioxide Level 33.1 MEQ/L Anion Gap 5 MEQ/L Blood Urea Nitrogen 5 MG/DL Random Glucose 97 MG/DL Calcium Level 8.8 MG/DL Imaging Last Impressions Chest X-Ray 06/09/16 0600 Signed Impressions: Service Date/Time: Thursday, June 09, 2016 03:49 - CONCLUSION: Worsening left basilar density and probable small pleural effusion. Jay Araujo MD Head CT 06/05/16 1516 Signed Impressions: Service Date/Time: May 15:49 - CONCLUSION: 1. Mild periventricular and subcortical white matter small vessel ischemic changes bilaterally. 2. No acute infarct, acute hemorrhage, mass effect or extra- axial fluid collections. Ruy Donahue MD Physical Exam CONSTITUTIONAL/GENERAL: This is an adequately nourished elderly female patient , in no apparent distress. TUBES/LINES/DRAINS: R SC TLC in place wo e/o infx SKIN: No jaundice, rashes, or lesions. Ecchymoses on upper extremities. Skin temperature appropriate. Not diaphoretic. CARDIOVASCULAR: Regular rate and rhythm without murmurs, gallops, or rubs. No JVD. Peripheral pulses symmetric. RESPIRATORY/CHEST: Symmetric, unlabored respirations. Clear to auscultation. Breath sounds equal bilaterally. No wheezes, rales, or rhonchi. GASTROINTESTINAL: Abdomen soft, non-tender, nondistended. No hepato-splenomegaly , or palpable masses. No guarding. Bowel sounds present. GENITOURINARY: Without palpable bladder distension. SP catheter in place with clear yellow urine MUSCULOSKELETAL: Extremities without clubbing, cyanosis, + trace edema. Cogwheel rigidity present LYMPHATICS: No palpable cervical or supraclavicular adenopathy. NEUROLOGICAL: Very lethargic, mionimally responsive . Motor and sensory grossly within normal limits. Not follows commands.Quiete PSYCHIATRIC: unable to assess Assessment & Plan Remarks Sepsis 2/2 bacteremia and UTI ESBL E.coli in urine, pseudomonas species plus dar in urine: Suprapubic cath related cystitis. Pseudomonas bacteruria - PSAE I to imipenem ESBL E.coli bacteremia and Aspiration pneumonia in health care setting. acute metabolic encephalopathy: ? seizures, metabolic, meds. Advanced parkinsons disease. H/o ESBL, PSAE UTIs in past. H/o recent PSAE UTI was on levaquin. Fever - resolved Mo re MS change today Recs: Continue Meropenem IV (if overt seizures would recommend switching to Zerbaxa IV as Meropenem can reduce seizure threshold: d/w ) dc Vanco cont high dose diflucan ? fungemia vs fungal cystitis. repeat blood cultures rechk UA/C+S dw Mine Barcenas MD Jun 11, 2016 14:08
[2016-06-11] MEDS: ENOXAPARIN SODIUM 30 MG/0.3 ML SYRINGE SQ SCH (17:44)
[2016-06-11] MEDS: OLANZapine 5 MG TAB PO SCH (21:16)
[2016-06-11] MEDS: SODIUM CHLOR 0.9% 1000 ML INJ 1,000 ML IV SCH (21:17)
[2016-06-11 22:19] LABS: BLOOD, URINE NEG (NEG); GLUCOSE,URINE NEG (NEG); KETONE, URINE NEG (NEG); MUCUS URINE FEW /lpf (OCC); NITRITE,URINE NEG (NEG); SQUAMOUS EPITHELIAL CELL URINE 1 /hpf (0-5); URINE COLOR YELLOW (YELLW/STRAW)
[2016-06-11 22:20] LABS: COMMENT (UR) CATH-CULTURE IND; CULTURE IF INDICATED CATH CULTURE IND
[2016-06-12] VITALS (10 sets, daily range): BP systolic 111–131; BP diastolic 54–72; PULSE 63–95; RESP 15–23; TEMP 97.7–98.4; O2SAT 97–100
[2016-06-12] MEDS: CHLORHEXIDINE GLUCONATE 2 % 1 PACK (2 CLOTHS) TOP SCH (03:39)
[2016-06-12] MEDS: SODIUM CHLORIDE IV SCH ×2 (05:02→17:28)
[2016-06-12] MEDS: CARBIDOPA/LEVODOPA 25 MG/250 MG TAB PO SCH ×5 (05:02→20:51)
[2016-06-12] MEDS: MEROPENEM 1000 MG/NS 100 ML IV SCH ×6 (05:02→20:51)
[2016-06-12] MEDS: FOSPHENYTOIN IV SCH ×2 (05:02→17:28)
[2016-06-12] MEDS: MIDODRINE 5 MG TAB PO SCH ×3 (05:03→16:43)
--- NOTE | 2016-06-12 08:24 | HHI.PR ---
Subjective Remarks in no acute distress. BP stable over night. awake and alert. denies pain. d/w the RN and no acute issues over night. Objective Vitals Vital Signs Date Time Temp Pulse Resp B/P Pulse Ox O2 Delivery O2 Flow Rate FiO2 06/12/16 06:00 66 06/12/16 04:00 70 06/12/16 04:00 97.8 79 17 116/56 99 06/12/16 02:00 76 06/12/16 00:00 98.4 78 16 117/56 98 06/12/16 00:00 78 06/11/16 22:00 92 06/11/16 21:01 98 Nasal Cannula 2.00 06/11/16 20:00 76 06/11/16 20:00 99 Nasal Cannula 2.00 06/11/16 20:00 97.6 76 16 144/66 99 06/11/16 18:00 87 06/11/16 16:00 98.2 73 16 124/60 99 06/11/16 16:00 73 06/11/16 14:00 84 06/11/16 13:33 15 06/11/16 12:00 77 06/11/16 12:00 98.0 84 13 107/55 99 06/11/16 10:00 79 I/O 06/11/16 06/11/16 06/11/16 06/12/16 06/12/16 06/12/16 07:00 15:00 23:00 07:00 15:00 23:00 Intake Total 622 ml 2078 ml 461 ml 880 ml Output Total 750 ml 2200 ml 525 ml 2000 ml Balance -128 ml -122 ml -64 ml -1120 ml Intake Oral 720 ml 200 ml IV Total 622 ml 1358 ml 461 ml 680 ml Output Urine Total 750 ml 2200 ml 525 ml 2000 ml # Bowel Movements 0 0 0 Result Diagram: 06/09/16 0415 06/11/16 1115 Imaging Last Impressions Chest X-Ray 06/09/16 0600 Signed Impressions: Service Date/Time: Thursday, June 09, 2016 03:49 - CONCLUSION: Worsening left basilar density and probable small pleural effusion. Jay Araujo MD Head CT 06/05/16 1516 Signed Impressions: Service Date/Time: Thursday, June 05, 2016 15:49 - CONCLUSION: 1. Mild periventricular and subcortical white matter small vessel ischemic changes bilaterally. 2. No acute infarct, acute hemorrhage, mass effect or extra- axial fluid collections. Ruy Donahue MD Objective Remarks GENERAL: in no apparent distress. CARDIOVASCULAR: Regular rate and regular rhythm without murmurs, gallops, or rubs. RESPIRATORY: Clear to auscultation. Breath sounds equal bilaterally. No wheezes , rales, or rhonchi. GASTROINTESTINAL: Abdomen soft, non-tender, nondistended. Normal, active bowel sounds MUSCULOSKELETAL: Extremities without clubbing, cyanosis, or edema. NEURO: awake and alert- oriented to person and place. Medications and IVs Current Medications Carbidopa/Levodopa (Sinemet 25-250 Mg) 1 tab ONCE ONCE PO Last administered on 06/05/16 15:42; Start 06/05/16 at 15:15; Stop 06/05/16 at 15:16; Status DC Sodium Chloride 2 ml 2 ml UNSCH PRN IVF FLUSH AFTER USING IV ACCESS; Start at 15:30 Sodium Chloride 1,000 ml @ 1,000 mls/hr Q1H IV Last administered on 06/05/16 15:43; Start 06/05/16 at 15:16; Stop 06/05/16 at 16:15; Status DC Sodium Chloride 1,000 ml @ 999 mls/hr BOLUS ONCE IV Last administered on 06/05 15:43; Start 06/05/16 at 15:30; Stop 06/05/16 at 16:32; Status DC Sodium Chloride 1,000 ml @ 999 mls/hr BOLUS ONCE IV Last administered on 06/05 15:43; Start 06/05/16 at 15:30; Stop 06/05/16 at 16:32; Status DC Piperacillin Sod/ Tazobactam Sod 100 ml @ 200 mls/hr ONCE ONCE IV Last administered on 06/05/16 16:18; Start 06/05/16 at 15:30; Stop 06/05/16 at 15:59 ; Status DC Vancomycin HCl/ Sodium Chloride (Vancomycin Inj/ NS 250 ml Inj) 250 ml @ 250 mls/hr ONCE ONCE IV Last administered on 06/05/16 15:44; Start 06/05/16 at 15 :30; Stop 06/05/16 at 16:32; Status DC Carbidopa/ Levodopa 1 tab 1 tab ONCE ONCE PO Last administered on 06/05/16 16 :25; Start 06/05/16 at 15:30; Stop 06/05/16 at 15:32; Status DC Norepinephrine Bitartrate 250 ml @ 0 mls/hr TITRATE IV Last administered on 11:43; Start 06/05/16 at 16:15; Stop 06/07/16 at 09:13; Status DC Piperacillin Sod/ Tazobactam Sod 50 ml @ 100 mls/hr Q6H IV ; Start 06/05/16 at 23:00; Stop 06/05/16 at 23:00; Status DC Pharmacy Profile Note (Vancomycin Consult Pharmacy) 0 ml @ 0 mls/hr UNSCH OTHER ; Start 06/05/16 at 16:15; Stop 06/06/16 at 14:58; Status DC Carbidopa/Levodopa (Sinemet 25-250 Mg) 1 tab DAILY PO ; Start 06/06/16 at 09:00 ; Stop 06/06/16 at 09:00; Status DC Patient Own Medication PT OWN MED: NEUPRO PATCH 4 MG/24 ... DAILY TOPICAL ; Start 06/06/16 at 09:00; Status Cancel Carbidopa/Levodopa (Sinemet 25-250 Mg) 1 tab Q6H PO Last administered on 08:42; Start 06/06/16 at 09:00; Stop 06/07/16 at 12:51; Status DC Miscellaneous Medication (ASP Crit: Path resist to other, cult proven) 1 UNSCH X1 PRN XX PHARMACY DOCUMENTATION; Start 06/05/16 at 16:30; Stop 06/06/16 at 16: 29; Status DC Miscellaneous Medication 1 1 UNSCH X1 PRN XX PHARMACY DOCUMENTATION; Start at 16:30; Stop 06/06/16 at 16:29; Status DC Meropenem 500 mg/ Sodium Chloride 100 ml @ 200 mls/hr Q12H IV Last administered on 06/06/16 05:10; Start 06/05/16 at 17:00; Stop 06/06/16 at 11:26 ; Status DC Vancomycin HCl 500 mg/Sodium Chloride 100 ml @ 200 mls/hr ONCE ONCE IV Last administered on 06/05/16 18:30; Start 06/05/16 at 17:00; Stop 06/05/16 at 17:29 ; Status DC Sodium Chloride (NS 1000 ml Inj) 1,000 ml @ 60 mls/hr [id number] IV Last administered on 06/11/16 21:17; Start 06/05/16 at 16:27 Acetaminophen (Tylenol) 650 mg Q6H PRN PO PAIN 1-10 AND/OR FEVER >101F Last administered on 06/07/16 00:19; Start 06/05/16 at 16:30 Pantoprazole Sodium (Protonix Inj) 40 mg DAILY IV Last administered on 08:04; Start 06/06/16 at 09:00 Albuterol/ Ipratropium (Duoneb Neb) 1 ampule Q2HR NEB PRN INH WHEEZING; Start 06/05/16 at 16:30 Enoxaparin Sodium (Lovenox Inj) 30 mg Q24H SQ Last administered on 06/11/16 17 :44; Start 06/05/16 at 17:00 Miscellaneous Information 1 [id number] XX ; Start 06/05/16 at 16:30 Chlorhexidine Gluconate (Chlorhexidine 2% Cloth) Taper DAILY@04 TOP Last administered on 06/11/16 04:00; Start 06/06/16 at 04:00; Stop 06/02/17 at 03:59 Chlorhexidine Gluconate 3 pack 3 pack UNSCH PRN TOP HYGIENIC CARE; Start at 16:30 Fluconazole/ Sodium Chloride 50 ml @ 50 mls/hr Q24H IV Last administered on 18:29; Start 06/05/16 at 18:00; Stop 06/06/16 at 14:59; Status DC Potassium Chloride 100 ml @ 50 mls/hr Q2H PRN IV For Potassium 2.8 - 3.2 mEq/ L Last administered on 06/11/16 12:32; Start 06/06/16 at 08:45 Potassium Chloride 100 ml @ 50 mls/hr Q2H PRN IV For Potassium 2.8 - 3.2 mEq/L ; Start 06/06/16 at 08:45 Potassium Chloride 100 ml @ 25 mls/hr UNSCH PRN IV For Potassium 3.3 - 3.5 mEq /L Last administered on 06/07/16 08:41; Start 06/06/16 at 08:45 Potassium Chloride 100 ml @ 50 mls/hr Q2H PRN IV For Potassium 3.3 - 3.5 mEq/ L Last administered on 06/09/16 08:06; Start 06/06/16 at 08:45 Magnesium Sulfate/ Sodium Chloride (Magnesium Sulfate Inj/NS Inj) 100 ml @ 50 mls/hr UNSCH PRN IV For Magnesium 0.9 - 1.1 mg/dL; Start 06/06/16 at 08:45 Magnesium Oxide 800 mg 800 mg UNSCH PRN PO For Magnesium 1.2 - 1.6 mg/dL; Start 06/06/16 at 08:45 Magnesium Sulfate/ Sodium Chloride (Magnesium Sulfate Inj/NS Inj) 100 ml @ 50 mls/hr UNSCH PRN IV For Magnesium 1.2 - 1.6 mg/dL Last administered on 13:38; Start 06/06/16 at 08:45 Potassium Phosphate 2000 mg 2,000 mg Q4H PRN PO For Phosphorus < 2.5 mg/dL Last administered on 06/09/16 17:00; Start 06/06/16 at 08:45 Sodium Phosphate/ Sodium Chloride (Sodium Phosphate Inj/NS 250 ml Inj) 250 ml @ 42 mls/hr UNSCH PRN IV For Phosphorus < 2.5 mg/dL; Start 06/06/16 at 08:45 Potassium Phosphate 2000 mg 2,000 mg UNSCH PRN PO/TUBE SEE LABEL COMMENTS; Start 06/06/16 at 08:45 Potassium Phosphate 30 mmol/ Sodium Chloride 260 ml @ 42 mls/hr UNSCH PRN IV SEE LABEL COMMENTS; Start 06/06/16 at 08:45 Fluconazole/ Sodium Chloride 50 ml @ 50 mls/hr Q24H IV ; Start 06/06/16 at 09:30 ; Status UNV Vancomycin HCl/ Sodium Chloride (Vancomycin Inj/ NS 250 ml Inj) 262.5 ml @ 250 mls/hr Q24H IV ; Start 06/06/16 at 18:00; Stop 06/06/16 at 18:00; Status DC Miscellaneous Information SPECIFIC LAB TO BE DRAWN:VANCOMYCIN TROUGH DATE TO... ONCE ONCE XX ; Start 06/07/16 at 17:45; Stop 06/07/16 at 17:45; Status DC Meropenem 1000 mg/ Sodium Chloride 100 ml @ 200 mls/hr Q8H IV ; Start 06/06/16 at 13:00; Status UNV Sodium Chloride 1,000 ml @ 999 mls/hr BOLUS ONCE IV Last administered on 06/06 11:44; Start 06/06/16 at 12:00; Stop 06/06/16 at 13:00; Status DC Meropenem/Sodium Chloride (Merrem Inj/NS Inj) 100 ml @ 200 mls/hr Q8H IV Last administered on 06/12/16 05:02; Start 06/06/16 at 13:00 Donepezil HCl (Aricept) 10 mg DAILY PO Last administered on 06/11/16 08:07; Start 06/06/16 at 17:00 Olanzapine (ZyPREXA) 5 mg HS PO Last administered on 06/11/16 21:16; Start at 21:00 Pregabalin (Lyrica) 50 mg TID PO Last administered on 06/11/16 17:44; Start at 18:00 Fosphenytoin Sodium 200 mgpe 200 mgpe Q12HR IV ; Start 06/06/16 at 21:00; Stop 06/06/16 at 21:00; Status DC Fosphenytoin Sodium 1000 mgpe/ Sodium Chloride 70 ml @ 280 mls/hr ONCE ONCE IV Last administered on 06/06/16 17:30; Start 06/06/16 at 17:30; Stop at 18:01; Status DC Fosphenytoin Sodium/Sodium Chloride (Cerebyx Inj/NS Inj) 54 ml @ 216 mls/hr Q12HR IV Last administered on 06/09/16 08:04; Start 06/06/16 at 21:00; Stop at 09:53; Status DC Carbidopa/Levodopa (Sinemet 25-250 Mg) 1.5 tab 5 TIMES A DAY PO Last administered on 06/12/16 05:02; Start 06/07/16 at 18:00 Patient Own Medication PT OWN MED: NEUPRO PATCH 4 MG/24 ... Q24H TOPICAL Last administered on 06/11/16 12:33; Start 06/07/16 at 14:00 Miscellaneous Information 1 Q24H T-DERMAL Last administered on 06/11/16 12:33 ; Start 06/07/16 at 14:00 Miscellaneous 1 ea 1 ea UNSCH PRN OTHER SEE LABEL COMMENTS; Start 06/07/16 at 13:15 Norepinephrine Bitartrate (Levophed-Dextrose Drip) 250 ml @ 0 mls/hr TITRATE IV Last administered on 06/08/16 05:51; Start 06/07/16 at 23:45; Stop 06/09/16 at 11:30; Status DC Terbutaline Sulfate (Brethine Inj) 1 mg UNSCH PRN SQ For Extravasation; Start 06/07/16 at 23:45 Albumin Human (Albumin 25% Inj) 25 gm ONCE ONCE IV Last administered on 08:52; Start 06/08/16 at 08:00; Stop 06/08/16 at 08:01; Status DC Albumin Human (Albumin 25% Inj) 25 gm Q12H IV Last administered on 06/09/16 20 :59; Start 06/08/16 at 08:00; Stop 06/10/16 at 07:59; Status DC Midodrine 5 mg 5 mg TID@07,12,17 PO Last administered on 06/09/16 11:13; Start 06/08/16 at 12:00; Stop 06/09/16 at 11:30; Status DC Vancomycin HCl 1000 mg/Sodium Chloride 250 ml @ 250 mls/hr ONCE ONCE IV Last administered on 06/08/16 11:35; Start 06/08/16 at 11:00; Stop 06/08/16 at 11:59 ; Status DC Pharmacy Profile Note 0 ml @ 0 mls/hr UNSCH OTHER ; Start 06/08/16 at 09:45; Stop 06/11/16 at 14:09; Status DC Vancomycin HCl/ Sodium Chloride (Vancomycin Inj/ NS 250 ml Inj) 257.5 ml @ 250 mls/hr Q12H IV Last administered on 06/11/16 11:09; Start 06/08/16 at 23:00; Stop 06/11/16 at 14:09; Status DC Miscellaneous Information SPECIFIC LAB TO BE MYRNA... ONCE ONCE XX Last administered on 06/09/16 22:45; Start 06/09/16 at 22:45; Stop 06/09/16 at 22:46 ; Status DC Fluconazole/ Sodium Chloride 200 ml @ 100 mls/hr Q24H IV Last administered on 06/11/16 12:32; Start 06/08/16 at 13:00 Fosphenytoin Sodium/Sodium Chloride (Cerebyx Inj/NS Inj) 52.6 ml @ 216 mls/hr Q12HR IV Last administered on 06/10/16 04:39; Start 06/10/16 at 06:00; Stop at 08:36; Status DC Midodrine (Proamatine) 10 mg TID@07,12,17 PO Last administered on 06/12/16 05: 03; Start 06/09/16 at 12:00 Alteplase, Recombinant 2 mg 2 mg ONCE ONCE IV FLUSH Last administered on 21:00; Start 06/09/16 at 18:00; Stop 06/09/16 at 18:01; Status DC Fosphenytoin Sodium/Sodium Chloride (Cerebyx Inj/NS Inj) 52.6 ml @ 216 mls/hr Q12H IV Last administered on 06/12/16 05:02; Start 06/11/16 at 06:00 Docusate Sodium (Colace) 100 mg BID PRN PO CONSTIPATION; Start 06/10/16 at 08: 45 Magnesium Hydroxide (Milk Of Magnesia Liq) 30 ml DAILY PRN PO CONSTIPATION Last administered on 06/10/16 17:38; Start 06/10/16 at 08:45 Tolterodine Tartrate 4 mg 4 mg DAILY PO Last administered on 06/11/16 08:08; Start 06/10/16 at 15:30 Sodium Chloride (NS 250 ml Inj) 250 ml @ 250 mls/hr BOLUS ONCE IV Last administered on 06/10/16 19:30; Start 06/10/16 at 19:30; Stop 06/10/16 at 20:29 ; Status DC A/P Assessment and Plan A/P Acute metabolic encephalopathy Advanced Parkinson's disease Bifrontal sharps on EEG -Continue Sinemet -Resumed Zyprexa and Lyrica 06/06 -Encephalopathy seems to be metabolic -Neurology Dr. Brown following - started on fosphenytoin for bifrontal spikes Respiratory insufficiency Left lower lobe infiltrate/pneumonia -Nasal cannula oxygen -DuoNeb every 6 hours when necessary, aggressive pulmonary toilet -See ID section for antibiotics Septic shock -resolved Lactic acidosis Mild troponin elevation -BP stable-off Levophed -continue midodrine . -Mild troponin elevation due to sepsis and renal failure. Acute kidney failure -resolved questionable leak around the suprapubic cath. -Renal failure secondary to dehydration and hypotension-resolved -Monitor renal function closely. -urology consult appreciated; suprapubic cath was exchanged; to be changed every 3-4 weeks. Septic shock -resolved ESBL Ecoi bacteremia 4 out of 4 bottles UTI with GNR, possible ESBL Escherichia coli Left lower lobe infiltrate/pneumonia History of ESBL Escherichia coli UTI in the past Stage IV decubitus ulcer -Continue IV meropenem and Diflucan. -ID is following. -06/05 blood culture 06/17 bottles ESBL Escherichia coli -06/05 Urine culture ESBL Escherichia coli -06/08 blood cultures negative so far -06/11; blood and urine cultures pending. -Wound care following -Abx per ID Leukocytosis -improving -Monitor CBC, CMP, coags hypokalemia -replced per electrolyte replacement as needed PROPH: -Bilateral lower extremity SCDs. Lovenox 40 mg subcutaneous daily. IV Protonix 40 mg daily palliative care following. calorie count in progress- metal ceiling hanger following. continue PT. transfer to telemetry today. d/w the RN. Shantanu Galicia MD Jun 12, 2016 08:24
[2016-06-12] MEDS: PANTOPRAZOLE SODIUM 40 MG VIAL IV SCH (09:00)
[2016-06-12] MEDS: PREGABALIN 25 MG CAP PO SCH ×3 (10:28→17:28)
[2016-06-12] MEDS: TOLTERODINE TARTRATE 4 MG CAP LA PO SCH (10:28)
[2016-06-12] MEDS: DONEPEZIL HCL 5 MG TAB PO SCH (10:28)
[2016-06-12] MEDS: SODIUM CHLOR 0.9% 1000 ML INJ 1,000 ML IV SCH (11:52)
[2016-06-12] MEDS: FLUCONAZOLE 400 MG PREMIX BAG 200 ML IV SCH (13:00)
[2016-06-12] MEDS: ROTIGOTINE TOPICAL SCH (14:00)
[2016-06-12] MEDS: REMOVE OLD PATCH T-DERMAL SCH (14:00)
[2016-06-12] MEDS ORDERED: BISACODYL 10 MG SUPP RECTAL PRN (15:00)
[2016-06-12] MEDS: MAGNESIUM HYDROXIDE SUSP 30 ML CUP PO PRN (16:42)
[2016-06-12] MEDS: ENOXAPARIN SODIUM 30 MG/0.3 ML SYRINGE SQ SCH (16:43)
[2016-06-12] MEDS: OLANZapine 5 MG TAB PO SCH (20:51)
[2016-06-13] VITALS (9 sets, daily range): BP systolic 81–111; BP diastolic 41–71; PULSE 74–92; RESP 16–18; TEMP 98–98.2; O2SAT 94–98
[2016-06-13] MEDS: SODIUM CHLOR 0.9% 1000 ML INJ 1,000 ML IV SCH ×2 (02:10→20:24)
[2016-06-13] MEDS: CHLORHEXIDINE GLUCONATE 2 % 1 PACK (2 CLOTHS) TOP SCH (04:00)
[2016-06-13] MEDS: MEROPENEM 1000 MG/NS 100 ML IV SCH ×6 (05:12→20:26)
[2016-06-13] MEDS: FOSPHENYTOIN IV SCH (05:14)
[2016-06-13] MEDS: CARBIDOPA/LEVODOPA 25 MG/250 MG TAB PO SCH ×5 (05:14→20:23)
[2016-06-13] MEDS: SODIUM CHLORIDE IV SCH (05:14)
[2016-06-13] MEDS: MIDODRINE 5 MG TAB PO SCH ×3 (05:15→17:00)
[2016-06-13 05:18] LABS: BICARBONATE 35.3 MEQ/L (21.0-32.0); POTASSIUM 3.7 MEQ/L (3.5-5.1)
[2016-06-13] MEDS ORDERED: NYSTATIN 100,000 UNIT/GM CREAM 15 GM TOPICAL PRN (08:45)
--- NOTE | 2016-06-13 08:45 | HHI.PR ---
Subjective Remarks in no acute distress. denies pain. no fever. BP fairly stable. d/w the RN and no acute issues over night. Objective Vitals Vital Signs Date Time Temp Pulse Resp B/P Pulse Ox O2 Delivery O2 Flow Rate FiO2 06/13/16 07:39 98 Nasal Cannula 2.00 06/13/16 07:21 98.0 06/13/16 04:00 92 06/13/16 04:00 98.2 92 18 111/58 98 06/13/16 00:00 80 06/13/16 00:00 98.0 80 17 81/41 98 06/12/16 20:00 97.7 95 20 115/59 98 06/12/16 20:00 98 Nasal Cannula 2.00 06/12/16 20:00 95 06/12/16 19:05 99 Nasal Cannula 2.00 06/12/16 16:00 98.2 70 23 121/64 97 06/12/16 12:00 98.0 66 16 111/54 97 I/O 06/12/16 06/12/16 06/12/16 06/13/16 06/13/16 06/13/16 07:00 15:00 23:00 07:00 15:00 23:00 Intake Total 880 ml 931 ml 753 ml 518 ml Output Total 2000 ml 1750 ml 1750 ml 650 ml Balance -1120 ml -819 ml -997 ml -132 ml Intake Oral 200 ml 240 ml 120 ml 120 ml IV Total 680 ml 691 ml 633 ml 398 ml Output Urine Total 2000 ml 1750 ml 1750 ml 650 ml # Bowel Movements 0 0 1 0 Result Diagram: 06/09/16 0415 06/13/16 0445 Imaging Last Impressions Chest X-Ray 06/09/16 0600 Signed Impressions: Service Date/Time: Thursday, June 09, 2016 03:49 - CONCLUSION: Worsening left basilar density and probable small pleural effusion. Jay Araujo MD Head CT 06/05/16 1516 Signed Impressions: Service Date/Time: May 15:49 - CONCLUSION: 1. Mild periventricular and subcortical white matter small vessel ischemic changes bilaterally. 2. No acute infarct, acute hemorrhage, mass effect or extra- axial fluid collections. Ruy Donahue MD Objective Remarks GENERAL: in no apparent distress. CARDIOVASCULAR: Regular rate and regular rhythm without murmurs, gallops, or rubs. RESPIRATORY: Clear to auscultation. Breath sounds equal bilaterally. No wheezes , rales, or rhonchi. GASTROINTESTINAL: Abdomen soft, non-tender, nondistended. Normal, active bowel sounds MUSCULOSKELETAL: Extremities without clubbing, cyanosis, or edema. NEURO: awake and alert- oriented to person and place. Medications and IVs Current Medications Carbidopa/Levodopa (Sinemet 25-250 Mg) 1 tab ONCE ONCE PO Last administered on 06/05/16 15:42; Start 06/05/16 at 15:15; Stop 06/05/16 at 15:16; Status DC Sodium Chloride 2 ml 2 ml UNSCH PRN IVF FLUSH AFTER USING IV ACCESS; Start at 15:30 Sodium Chloride 1,000 ml @ 1,000 mls/hr Q1H IV Last administered on 06/05/16 15:43; Start 06/05/16 at 15:16; Stop 06/05/16 at 16:15; Status DC Sodium Chloride 1,000 ml @ 999 mls/hr BOLUS ONCE IV Last administered on 06/05 15:43; Start 06/05/16 at 15:30; Stop 06/05/16 at 16:32; Status DC Sodium Chloride 1,000 ml @ 999 mls/hr BOLUS ONCE IV Last administered on 06/05 15:43; Start 06/05/16 at 15:30; Stop 06/05/16 at 16:32; Status DC Piperacillin Sod/ Tazobactam Sod 100 ml @ 200 mls/hr ONCE ONCE IV Last administered on 06/05/16 16:18; Start 06/05/16 at 15:30; Stop 06/05/16 at 15:59 ; Status DC Vancomycin HCl/ Sodium Chloride (Vancomycin Inj/ NS 250 ml Inj) 250 ml @ 250 mls/hr ONCE ONCE IV Last administered on 06/05/16 15:44; Start 06/05/16 at 15 :30; Stop 06/05/16 at 16:32; Status DC Carbidopa/ Levodopa 1 tab 1 tab ONCE ONCE PO Last administered on 06/05/16 16 :25; Start 06/05/16 at 15:30; Stop 06/05/16 at 15:32; Status DC Norepinephrine Bitartrate 250 ml @ 0 mls/hr TITRATE IV Last administered on 11:43; Start 06/05/16 at 16:15; Stop 06/07/16 at 09:13; Status DC Piperacillin Sod/ Tazobactam Sod 50 ml @ 100 mls/hr Q6H IV ; Start 06/05/16 at 23:00; Stop 06/05/16 at 23:00; Status DC Pharmacy Profile Note (Vancomycin Consult Pharmacy) 0 ml @ 0 mls/hr UNSCH OTHER ; Start 06/05/16 at 16:15; Stop 06/06/16 at 14:58; Status DC Carbidopa/Levodopa (Sinemet 25-250 Mg) 1 tab DAILY PO ; Start 06/06/16 at 09:00 ; Stop 06/06/16 at 09:00; Status DC Patient Own Medication PT OWN MED: NEUPRO PATCH 4 MG/24 ... DAILY TOPICAL ; Start 06/06/16 at 09:00; Status Cancel Carbidopa/Levodopa (Sinemet 25-250 Mg) 1 tab Q6H PO Last administered on 08:42; Start 06/06/16 at 09:00; Stop 06/07/16 at 12:51; Status DC Miscellaneous Medication (ASP Crit: Path resist to other, cult proven) 1 UNSCH X1 PRN XX PHARMACY DOCUMENTATION; Start 06/05/16 at 16:30; Stop 06/06/16 at 16: 29; Status DC Miscellaneous Medication 1 1 UNSCH X1 PRN XX PHARMACY DOCUMENTATION; Start at 16:30; Stop 06/06/16 at 16:29; Status DC Meropenem 500 mg/ Sodium Chloride 100 ml @ 200 mls/hr Q12H IV Last administered on 06/06/16 05:10; Start 06/05/16 at 17:00; Stop 06/06/16 at 11:26 ; Status DC Vancomycin HCl 500 mg/Sodium Chloride 100 ml @ 200 mls/hr ONCE ONCE IV Last administered on 06/05/16 18:30; Start 06/05/16 at 17:00; Stop 06/05/16 at 17:29 ; Status DC Sodium Chloride (NS 1000 ml Inj) 1,000 ml @ 60 mls/hr [id number] IV Last administered on 06/13/16 02:10; Start 06/05/16 at 16:27 Acetaminophen (Tylenol) 650 mg Q6H PRN PO PAIN 1-10 AND/OR FEVER >101F Last administered on 06/07/16 00:19; Start 06/05/16 at 16:30 Pantoprazole Sodium (Protonix Inj) 40 mg DAILY IV Last administered on 09:00; Start 06/06/16 at 09:00 Albuterol/ Ipratropium (Duoneb Neb) 1 ampule Q2HR NEB PRN INH WHEEZING; Start 06/05/16 at 16:30 Enoxaparin Sodium (Lovenox Inj) 30 mg Q24H SQ Last administered on 06/12/16 16 :43; Start 06/05/16 at 17:00 Miscellaneous Information 1 [id number] XX ; Start 06/05/16 at 16:30 Chlorhexidine Gluconate (Chlorhexidine 2% Cloth) Taper DAILY@04 TOP Last administered on 06/11/16 04:00; Start 06/06/16 at 04:00; Stop 06/02/17 at 03:59 Chlorhexidine Gluconate 3 pack 3 pack UNSCH PRN TOP HYGIENIC CARE; Start at 16:30 Fluconazole/ Sodium Chloride 50 ml @ 50 mls/hr Q24H IV Last administered on 18:29; Start 06/05/16 at 18:00; Stop 06/06/16 at 14:59; Status DC Potassium Chloride 100 ml @ 50 mls/hr Q2H PRN IV For Potassium 2.8 - 3.2 mEq/ L Last administered on 06/11/16 12:32; Start 06/06/16 at 08:45; Stop 06/12/16 at 08:26; Status DC Potassium Chloride 100 ml @ 50 mls/hr Q2H PRN IV For Potassium 2.8 - 3.2 mEq/L ; Start 06/06/16 at 08:45; Stop 06/12/16 at 08:26; Status DC Potassium Chloride 100 ml @ 25 mls/hr UNSCH PRN IV For Potassium 3.3 - 3.5 mEq /L Last administered on 06/07/16 08:41; Start 06/06/16 at 08:45; Stop 06/12/16 at 08:26; Status DC Potassium Chloride 100 ml @ 50 mls/hr Q2H PRN IV For Potassium 3.3 - 3.5 mEq/ L Last administered on 06/09/16 08:06; Start 06/06/16 at 08:45; Stop 06/12/16 at 08:27; Status DC Magnesium Sulfate/ Sodium Chloride (Magnesium Sulfate Inj/NS Inj) 100 ml @ 50 mls/hr UNSCH PRN IV For Magnesium 0.9 - 1.1 mg/dL; Start 06/06/16 at 08:45; Stop 06/12/16 at 08:27; Status DC Magnesium Oxide 800 mg 800 mg UNSCH PRN PO For Magnesium 1.2 - 1.6 mg/dL; Start 06/06/16 at 08:45; Stop 06/12/16 at 08:27; Status DC Magnesium Sulfate/ Sodium Chloride (Magnesium Sulfate Inj/NS Inj) 100 ml @ 50 mls/hr UNSCH PRN IV For Magnesium 1.2 - 1.6 mg/dL Last administered on 13:38; Start 06/06/16 at 08:45; Stop 06/12/16 at 08:27; Status DC Potassium Phosphate 2000 mg 2,000 mg Q4H PRN PO For Phosphorus < 2.5 mg/dL Last administered on 06/09/16 17:00; Start 06/06/16 at 08:45; Stop 06/12/16 at 08:27; Status DC Sodium Phosphate/ Sodium Chloride (Sodium Phosphate Inj/NS 250 ml Inj) 250 ml @ 42 mls/hr UNSCH PRN IV For Phosphorus < 2.5 mg/dL; Start 06/06/16 at 08:45; Stop 06/12/16 at 08:27; Status DC Potassium Phosphate 2000 mg 2,000 mg UNSCH PRN PO/TUBE SEE LABEL COMMENTS; Start 06/06/16 at 08:45; Stop 06/12/16 at 08:27; Status DC Potassium Phosphate 30 mmol/ Sodium Chloride 260 ml @ 42 mls/hr UNSCH PRN IV SEE LABEL COMMENTS; Start 06/06/16 at 08:45; Stop 06/12/16 at 08:27; Status DC Fluconazole/ Sodium Chloride 50 ml @ 50 mls/hr Q24H IV ; Start 06/06/16 at 09:30 ; Status UNV Vancomycin HCl/ Sodium Chloride (Vancomycin Inj/ NS 250 ml Inj) 262.5 ml @ 250 mls/hr Q24H IV ; Start 06/06/16 at 18:00; Stop 06/06/16 at 18:00; Status DC Miscellaneous Information SPECIFIC LAB TO BE DRAWN:VANCOMYCIN TROUGH DATE TO... ONCE ONCE XX ; Start 06/07/16 at 17:45; Stop 06/07/16 at 17:45; Status DC Meropenem 1000 mg/ Sodium Chloride 100 ml @ 200 mls/hr Q8H IV ; Start 06/06/16 at 13:00; Status UNV Sodium Chloride 1,000 ml @ 999 mls/hr BOLUS ONCE IV Last administered on 06/06 11:44; Start 06/06/16 at 12:00; Stop 06/06/16 at 13:00; Status DC Meropenem/Sodium Chloride (Merrem Inj/NS Inj) 100 ml @ 200 mls/hr Q8H IV Last administered on 06/13/16 05:12; Start 06/06/16 at 13:00 Donepezil HCl (Aricept) 10 mg DAILY PO Last administered on 06/12/16 10:28; Start 06/06/16 at 17:00 Olanzapine (ZyPREXA) 5 mg HS PO Last administered on 06/12/16 20:51; Start at 21:00 Pregabalin (Lyrica) 50 mg TID PO Last administered on 06/12/16 17:28; Start at 18:00 Fosphenytoin Sodium 200 mgpe 200 mgpe Q12HR IV ; Start 06/06/16 at 21:00; Stop 06/06/16 at 21:00; Status DC Fosphenytoin Sodium 1000 mgpe/ Sodium Chloride 70 ml @ 280 mls/hr ONCE ONCE IV Last administered on 06/06/16 17:30; Start 06/06/16 at 17:30; Stop at 18:01; Status DC Fosphenytoin Sodium/Sodium Chloride (Cerebyx Inj/NS Inj) 54 ml @ 216 mls/hr Q12HR IV Last administered on 06/09/16 08:04; Start 06/06/16 at 21:00; Stop at 09:53; Status DC Carbidopa/Levodopa (Sinemet 25-250 Mg) 1.5 tab 5 TIMES A DAY PO Last administered on 06/13/16 05:14; Start 06/07/16 at 18:00 Patient Own Medication PT OWN MED: NEUPRO PATCH 4 MG/24 ... Q24H TOPICAL Last administered on 06/12/16 14:00; Start 06/07/16 at 14:00 Miscellaneous Information 1 Q24H T-DERMAL Last administered on 06/11/16 12:33 ; Start 06/07/16 at 14:00 Miscellaneous 1 ea 1 ea UNSCH PRN OTHER SEE LABEL COMMENTS; Start 06/07/16 at 13:15 Norepinephrine Bitartrate (Levophed-Dextrose Drip) 250 ml @ 0 mls/hr TITRATE IV Last administered on 06/08/16 05:51; Start 06/07/16 at 23:45; Stop 06/09/16 at 11:30; Status DC Terbutaline Sulfate (Brethine Inj) 1 mg UNSCH PRN SQ For Extravasation; Start 06/07/16 at 23:45 Albumin Human (Albumin 25% Inj) 25 gm ONCE ONCE IV Last administered on 08:52; Start 06/08/16 at 08:00; Stop 06/08/16 at 08:01; Status DC Albumin Human (Albumin 25% Inj) 25 gm Q12H IV Last administered on 06/09/16 20 :59; Start 06/08/16 at 08:00; Stop 06/10/16 at 07:59; Status DC Midodrine 5 mg 5 mg TID@07,12,17 PO Last administered on 06/09/16 11:13; Start 06/08/16 at 12:00; Stop 06/09/16 at 11:30; Status DC Vancomycin HCl 1000 mg/Sodium Chloride 250 ml @ 250 mls/hr ONCE ONCE IV Last administered on 06/08/16 11:35; Start 06/08/16 at 11:00; Stop 06/08/16 at 11:59 ; Status DC Pharmacy Profile Note 0 ml @ 0 mls/hr UNSCH OTHER ; Start 06/08/16 at 09:45; Stop 06/11/16 at 14:09; Status DC Vancomycin HCl/ Sodium Chloride (Vancomycin Inj/ NS 250 ml Inj) 257.5 ml @ 250 mls/hr Q12H IV Last administered on 06/11/16 11:09; Start 06/08/16 at 23:00; Stop 06/11/16 at 14:09; Status DC Miscellaneous Information SPECIFIC LAB TO BE MYRNA... ONCE ONCE XX Last administered on 06/09/16 22:45; Start 06/09/16 at 22:45; Stop 06/09/16 at 22:46 ; Status DC Fluconazole/ Sodium Chloride 200 ml @ 100 mls/hr Q24H IV Last administered on 06/12/16 13:00; Start 06/08/16 at 13:00 Fosphenytoin Sodium/Sodium Chloride (Cerebyx Inj/NS Inj) 52.6 ml @ 216 mls/hr Q12HR IV Last administered on 06/10/16 04:39; Start 06/10/16 at 06:00; Stop at 08:36; Status DC Midodrine (Proamatine) 10 mg TID@07,12,17 PO Last administered on 06/13/16 05: 15; Start 06/09/16 at 12:00 Alteplase, Recombinant 2 mg 2 mg ONCE ONCE IV FLUSH Last administered on 21:00; Start 06/09/16 at 18:00; Stop 06/09/16 at 18:01; Status DC Fosphenytoin Sodium/Sodium Chloride (Cerebyx Inj/NS Inj) 52.6 ml @ 216 mls/hr Q12H IV Last administered on 06/13/16 05:14; Start 06/11/16 at 06:00 Docusate Sodium (Colace) 100 mg BID PRN PO CONSTIPATION; Start 06/10/16 at 08: 45 Magnesium Hydroxide (Milk Of Magnesia Liq) 30 ml DAILY PRN PO CONSTIPATION Last administered on 06/12/16 16:42; Start 06/10/16 at 08:45 Tolterodine Tartrate 4 mg 4 mg DAILY PO Last administered on 06/12/16 10:28; Start 06/10/16 at 15:30 Sodium Chloride (NS 250 ml Inj) 250 ml @ 250 mls/hr BOLUS ONCE IV Last administered on 06/10/16 19:30; Start 06/10/16 at 19:30; Stop 06/10/16 at 20:29 ; Status DC Bisacodyl (Dulcolax Supp) 10 mg DAILY PRN RECTAL constipation Last administered on 06/12/16 16:44; Start 06/12/16 at 15:00 A/P Assessment and Plan A/P Acute metabolic encephalopathy-improving slowly Advanced Parkinson's disease Bifrontal sharps on EEG -Continue Sinemet -Resumed Zyprexa and Lyrica 06/06 -Encephalopathy seems to be metabolic -Neurology Dr. Brown following - started on fosphenytoin Respiratory insufficiency -improved Left lower lobe infiltrate/pneumonia -Nasal cannula oxygen -DuoNeb every 6 hours when necessary, aggressive pulmonary toilet -See ID section for antibiotics Septic shock -resolved Lactic acidosis Mild troponin elevation -BP stable-off Levophed -continue midodrine . -Mild troponin elevation due to sepsis and renal failure. Acute kidney failure -resolved questionable leak around the suprapubic cath. -Renal failure secondary to dehydration and hypotension-resolved -Monitor renal function closely. -urology consult appreciated; suprapubic cath was exchanged; to be changed every 3-4 weeks. Septic shock -resolved ESBL Ecoi bacteremia 4 out of 4 bottles UTI with GNR, possible ESBL Escherichia coli Left lower lobe infiltrate/pneumonia History of ESBL Escherichia coli UTI in the past Stage IV decubitus ulcer -Continue IV meropenem and Diflucan. -ID is following. -06/05 blood culture 4/4 bottles ESBL Escherichia coli -06/05 Urine culture ESBL Escherichia coli -06/08 blood cultures negative so far -06/11; blood and urine cultures negative so far. -Wound care following -Abx per ID Leukocytosis -improving -Monitor CBC, CMP, coags hypokalemia -replaced. PROPH: -Bilateral lower extremity SCDs. Lovenox 40 mg subcutaneous daily. Protonix 40 mg daily palliative care following. calorie count in progress- airplane dispatch clerk following. continue PT. for transfer to telemetry. d/w the Shantanu Roman MD Jun 13, 2016 08:44
[2016-06-13] MEDS: PREGABALIN 25 MG CAP PO SCH ×2 (09:10→19:01)
[2016-06-13] MEDS: PANTOPRAZOLE SOD 40 MG DELAYED RELEASE TAB PO SCH (09:11)
[2016-06-13] MEDS: TOLTERODINE TARTRATE 4 MG CAP LA PO SCH (09:11)
[2016-06-13] MEDS: DONEPEZIL HCL 5 MG TAB PO SCH (09:11)
--- NOTE | 2016-06-13 11:11 | HHI.HCPN ---
Reason for visit a. To assist with evaluation and management of symptoms including: pain, agitation/hallucinations b. To assist medical decision maker(s) with: better understanding of current medical conditions; weighing benefits/burdens of medical treatment options; making medical treatment decisions. Subjective/Interval History Pt seen today to follow up on comfort, as well as goals/update to family . Remains stable in the ICU, waiting on a regular bed so she can move out of IMC. Her white count continues to normalize. She is afebrile the past couple days. Seen in room with at bedside. The patient is nonverbal during the 25 minutes I am in the room speaking with the . She does not appear to be in pain or to be dyspneic at this time. . Family/friend interactions Patient's is at the bedside; we discussed the trajectory of her decline over the past couple years, her bedbound status, his primary caregiver role in the difficult challenges that it includes, the high likelihood that she will have infections and sepsis again very soon, etc. When discussing CODE STATUS, the patient's is able to say "she actually made that decision in the past and she would never want to be on life support." I asked, so if her heart were to stop tonight, you would want us to let her go peacefully?" He replied, "yes." He is hoping to be able to get her back home "to have more time with her." Advance Directives Living Will: Copy in medical record Health Care Surrogate: Copy in medical record Advance Directive Specifics Date completed: August 2009 Health Care Surrogate(s): Fausto Clai, juan jose Leung . Documented care wishes: Living will details in the usual verbiage that if patient with terminal, end- stage or persistent vegetative condition with no chance of reasonable medical probability of recovery to [place] life-prolonging procedures be withheld for withdrawn when they would only serve to prolong artificially the process of dying, and be permitted to naturally with only the administration of medication deemed necessary to provide comfort care or alleviate pain. Significant change in goals: Initiate DNR status 06/13/16 . Objective Vital Signs Date Time Temp Pulse Resp B/P Pulse Ox O2 Delivery O2 Flow Rate FiO2 06/13/16 08:00 77 16 91/51 98 06/13/16 08:00 Nasal Cannula 2.00 06/13/16 07:39 98 Nasal Cannula 2.00 06/13/16 07:21 98.0 06/13/16 04:00 92 06/13/16 04:00 98.2 92 18 111/58 98 06/13/16 00:00 80 06/13/16 00:00 98.0 80 17 81/41 98 06/12/16 20:00 97.7 95 20 115/59 98 06/12/16 20:00 98 Nasal Cannula 2.00 06/12/16 20:00 95 06/12/16 19:05 99 Nasal Cannula 2.00 06/12/16 16:00 98.2 70 23 121/64 97 06/12/16 12:00 98.0 66 16 111/54 97 Intake & Output 06/13/16 06/13/16 07:00 19:00 Intake Total 1271 ml Output Total 2400 ml Balance -1129 ml Intake Oral 240 ml IV Total 1031 ml Output Urine Total 2400 ml # Bowel Movements 1 Physical Exam . CONSTITUTIONAL/GENERAL: This is a frail, chronically ill appearing pt TUBES/LINES/DRAINS: PIV upper extremity, + subclavian central line , SP catheter with drainage back around; not visualized reported buttock wound , SCDs , NC CARDIOVASCULAR: Regular rate and rhythm without murmurs. No JVD. Peripheral pulses symmetric.trace peripheral edema. RESPIRATORY/CHEST: Symmetric, unlabored respirations. On 2L. Clear to auscultation, decreased air movement. Breath sounds equal bilaterally. GASTROINTESTINAL: Abdomen soft, non-tender, nondistended. No hepato-splenomegaly , or palpable masses. No guarding. Bowel sounds present. GENITOURINARY: Without palpable bladder distension. SP catheter in place, some erythema around S/P catheter MUSCULOSKELETAL: Extremities without clubbing, cyanosis. trace periph edema. No mottling or clubbing. LYMPHATICS: No palpable cervical or supraclavicular adenopathy. NEUROLOGICAL: Awake, nonverbal, occasionally moves arms PSYCHIATRIC: No obvious anxiety/depression/hallucinations . Diagnostic Tests Laboratory Laboratory Tests Test 06/11/16 06/11/16 06/11/16 06/12/16 04:30 11:15 21:20 05:15 Creatinine 0.38 MG/DL 0.46 MG/DL (0.50-1.00) (0.50-1.00) Estimat Glomerular Filtration 168 ML/MIN 135 ML/MIN Rate (>89) (>89) Phenytoin (Dilantin) Level 7.7 MCG/ML 7.6 MCG/ML (10.0-20.0) (10.0-20.0) Sodium Level 144 MEQ/L (136-145) Potassium Level 3.2 MEQ/L (3.5-5.1) Chloride Level 106 MEQ/L (98-107) Carbon Dioxide Level 33.1 MEQ/L (21.0-32.0) Anion Gap 5 MEQ/L (5-15) Blood Urea Nitrogen 5 MG/DL (7-18) Random Glucose 97 MG/DL (74-106) Calcium Level 8.8 MG/DL (8.5-10.1) Urine Color YELLOW (YELLW/STRAW) Urine Turbidity CLEAR (CLEAR) Urine pH 7.0 (5.0-8.5) Urine Specific [place] 1.010 (1.002-1.035) Urine Protein NEG mg/dL (NEG-TRACE) Urine Glucose (UA) NEG mg/dL (NEG) Urine Ketones NEG mg/dL (NEG) Urine Occult Blood NEG (NEG) Urine Nitrite NEG (NEG) Urine Bilirubin NEG (NEG) Urine Urobilinogen LESS THAN 2.0 MG/DL (LESS THAN 2.0) Urine Leukocyte Esterase MOD (NEG) Urine RBC 8 /hpf (0-3) Urine WBC 16 /hpf (0-5) Urine Squamous Epithelial 1 /hpf (0-5) Cells Urine Mucus FEW /lpf (OCC) Microscopic Urinalysis Comment CATH-CULTURE IND Test 06/13/16 04:45 Sodium Level 142 MEQ/L (136-145) Potassium Level 3.7 MEQ/L (3.5-5.1) Chloride Level 104 MEQ/L (98-107) Carbon Dioxide Level 35.3 MEQ/L (21.0-32.0) Anion Gap 3 MEQ/L (5-15) Blood Urea Nitrogen 10 MG/DL (7-18) Creatinine 0.50 MG/DL (0.50-1.00) Estimat Glomerular Filtration 122 ML/MIN Rate (>89) Random Glucose 92 MG/DL (74-106) Calcium Level 9.3 MG/DL (8.5-10.1) Result Diagram: 06/09/16 0415 06/13/16 0445 Microbiology Microbiology Date/Time Procedure Status Source Growth 06/11/16 14:50 Aerobic Blood Culture - Preliminary Resulted Blood Peripheral NO GROWTH IN 1 DAY 06/11/16 14:50 Anaerobic Blood Culture - Preliminary Resulted Blood Peripheral NO GROWTH IN 1 DAY 06/11/16 14:58 Aerobic Blood Culture - Preliminary Resulted Blood Peripheral NO GROWTH IN 1 DAY 06/11/16 14:58 Anaerobic Blood Culture - Preliminary Resulted Blood Peripheral NO GROWTH IN 1 DAY 06/11/16 21:20 Urine Culture - Final Complete Urine Catheterized Urine NO GROWTH IN 48 HOURS. Imaging Last Impressions Chest X-Ray 06/09/16 0600 Signed Impressions: Service Date/Time: Thursday, June 09, 2016 03:49 - CONCLUSION: Worsening left basilar density and probable small pleural effusion. Jay Araujo MD Head CT 06/05/16 1516 Signed Impressions: Service Date/Time: May 15:49 - CONCLUSION: 1. Mild periventricular and subcortical white matter small vessel ischemic changes bilaterally. 2. No acute infarct, acute hemorrhage, mass effect or extra- axial fluid collections. Ruy Donahue MD Procedures 06/05 Triple-lumen right subclavian . Assessment and Plan Disease Oriented Problem List: (1) Septic shock (2) Infection due to ESBL-producing Escherichia coli (3) Sacral decubitus ulcer, stage IV (4) Suprapubic catheter dysfunction (5) Neuropathy (6) Urinary incontinence (7) Altered mental status (8) Renal failure (9) Lactic acidosis (10) Acute kidney failure (11) UTI (urinary tract infection) (12) Acute metabolic encephalopathy (13) Parkinsons disease (14) Neurogenic bladder Symptom Scale: (1) Neuropathy 0-10 Scale: Unable to quantify Comment: *chronic (2) Dyspnea 0-10 Scale: Unable to quantify Comment: worsening left basilar density, probable effusion -- ? aspiration . (3) Hallucinations (4) Malnutrition Pertinent Non-Medical Issues Psychosocial: to her spouse 50+ yrs. Lives at home w spouse, he is PCG. Bedbound/dependent for at least the past year. 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 Her is designated HCS per her living will. Niece is secondary. Ethical issues impacting care: Important Contacts Healthcare surrogate /spouse Fausto Cali [phone] //[phone] alternate [facility] niece Mere Leung [phone] . Prognosis This pt was admitted for AMS; metabolic encephalopathy 2/2 UTI, sepsis. She has known hx dementia, parkinson's, dependent for all care. Appears she can get through current acute hospitalization, however remains very high risk from complications, setbacks, and ongoing hospitalizations. . Code Status: No Code Plan * DO NOT RESUSCITATE, per 06/13/16: patient's is able to say " she actually made that decision in the past and she would never want to be on life support." I asked, "so if her heart were to stop tonight, you would want us to let her go peacefully at that time?" He replied, "yes." * Legal decision maker: Healthcare surrogate /spouse Fausto Cali [phone] //[phone] ; alternate [facility] niece Mere Leung [phone] * Goals: 06/13/16: we discussed the trajectory of her decline over the past couple years, her bedbound status, his primary caregiver role in the difficult challenges that it includes, the high likelihood that she will have infections and sepsis again very soon, etc. When discussing CODE STATUS, the patient's is able to say "she actually made that decision in the past and she would never want to be on life support." I asked, "so if her heart were to stop tonight, you would want us to let her go peacefully at that time?" He replied, "yes." He is hoping to be able to get her back home "to have more time with her." * SYMPTOMS: --neuropathy -chronic neuropathy bilateral lower extremities; currently appears comfortable, on lyrica --pain- reports pt has had ongoing pain to buttocks wound, and discomfort w turning/repositioning--likely multifactorial; on lyrica, has prn Tylenol available-- appearing comfortable now, could consider low dose opiates though cautious use 2/2 risk for resp decline r/t AMS --dyspnea - worsening CXR, passed swallowing eval, risk for further resp decline--respiratory status has remained stable no shortness of breath or increase in FiO2 requirements -- hallucinations/confusion- ongoing hx confusion/hallucinations, 2/2 disease process, likely worsened by sepsis. hallucinations do not appear distressing to pt at this time per family- could consider low dose Haldol if hallucinations/agitation becomes severe- avoid benzos, sedating agents . --Malnutrition--weight loss estimated 60 pounds in one year.[ weight loss of 10 kg from Dec 2015 to current] Eats 2 small meals a day normally. Requires feeding by her . This will likely continue, high risk for further decline, likely not consistently meet caloric demands. Eating 0-10-50% of meals in hospital setting. Likely require PEG tube at some point. Albumin 2.9. Calorie count in process. Still eating when fed, indicates eats very slowly, falls asleep during meals. * Palliative care will continue to follow during hospital course as condition evolves, to assist patient/decision-maker with understanding of medical conditions, weighing benefits/burdens of treatment options, for clarification of goals of treatment. Additionally will assist with any symptoms of palliative concern . Time Spent Total Floor Time (mins): 39 Face to Face Time (mins): 25 >50% Counseling/Coord of Care: Yes (d/w RN) Attestation To help prompt me to consider important information that might be impacting today's encounter and assessment, information from prior notes written by myself or my colleagues may have been "brought forward" into today's note. My signature on this note, however, is an attestation that I personally performed the exam, history, and/or decision-making noted today, and, unless otherwise indicated, the interactions with patient, family, and staff as well as the review of records all occurred today. I also attest that the listed assessment and stated plan reflect my best clinical judgment today based on the combination of historical information, prior notes, and today's exam/ interactions. When time spent is documented, it refers only to time spent today by the signer, or if indicated, combined time spent today by collaborating physician/nurse practitioner. Mira Whitney MD Jun 13, 2016 11:11
--- NOTE | 2016-06-13 12:45 | HHI.PR ---
Review/Management Diagnosis/Plan: (1) Acute metabolic encephalopathy Plan: 2/2 infection/cerebral hypoperfusion improved after iv abx and bp augmentation e.coli bacteremia eeg reviewed; changes likely 2/2 infection; also possibly 2/2 iv abx 06/10, dil 9 corrected 18.75 recs neuro stable d/c cerebryx; change to keppra 250mg bid until off abx and infection cleared pd stable ok for floor d/w pt/spouse/medical follow exam (2) Parkinsons disease Plan: sinemet has been increased to 1.5 tabs 5x/day (3) Infection due to ESBL-producing Escherichia coli Plan: iv abx (4) Sepsis Plan: ccm following Subjective Subjective Comments No acute events reported No headache No chest pain No dyspnea Active Medications Current Medications Medications (Trade) Dose Ordered Sig/Johnny Route Start Time Stop Time Status Last Admin Sodium Chloride 2 ml 2 ml UNSCH PRN IVF 06/05/16 15:30 (NS 1000 ml Inj) 1,000 ml @ 60 mls/hr [id number] IV 06/05/16 16:27 06/13/16 02:10 (Tylenol) 650 mg Q6H PRN PO 06/05/16 16:30 06/07/16 00:19 (Lovenox Inj) 30 mg Q24H SQ 06/05/16 17:00 06/12/16 16:43 Miscellaneous Information 1 [id number] XX 06/05/16 16:30 (Chlorhexidine 2% Cloth) Taper DAILY@04 TOP 06/06/16 04:00 06/02/17 03:59 06/11/16 04:00 Chlorhexidine Gluconate 3 pack 3 pack UNSCH PRN TOP 06/05/16 16:30 (Merrem Inj/NS Inj) 100 ml @ 200 mls/hr Q8H IV 06/06/16 13:00 06/13/16 05:12 (Aricept) 10 mg DAILY PO 06/06/16 17:00 06/13/16 09:11 (ZyPREXA) 5 mg HS PO 06/06/16 21:00 06/12/16 20:51 (Lyrica) 50 mg TID PO 06/06/16 18:00 06/13/16 09:10 Patient Own Medication PT OWN MED: NEUPRO PATCH 4 MG/24 ... Q24H TOPICAL 06/07/16 14:00 06/12/16 14:00 Miscellaneous Information 1 Q24H T-DERMAL 06/07/16 14:00 06/11/16 12:33 (Pill Splitter) 1 ea UNSCH PRN OTHER 06/07/16 13:15 Terbutaline Sulfate 1 mg 1 mg UNSCH PRN SQ 06/07/16 23:45 (Diflucan 400 Mg Premix Bag) 200 ml @ 100 mls/hr Q24H IV 06/08/16 13:00 06/12/16 13:00 (Proamatine) 10 mg TID@07,12,17 PO 06/09/16 12:00 06/13/16 05:15 (Colace) 100 mg BID PRN PO 06/10/16 08:45 (Milk Of [place] Liq) 30 ml DAILY PRN PO 06/10/16 08:45 06/12/16 16:42 (Detrol La) 4 mg DAILY PO 06/10/16 15:30 06/13/16 09:11 (Dulcolax Supp) 10 mg DAILY PRN RECTAL 06/12/16 15:00 06/12/16 16:44 (Protonix) 40 mg DAILY PO 06/13/16 09:00 06/13/16 09:11 (Mycostatin Cream) 1 applic DAILY PRN TOPICAL 06/13/16 08:45 (Keppra) 500 mg Q12HR PO 06/13/16 21:00 Allergies Allergies Coded Allergies *MDRO Multi-Drug Resistant Organism (Verified Adverse Reaction, Unknown, ) Review of Systems All other ROS: ROS reviewed as documented in chart Exam I&O / VS 06/12/16 06/12/16 06/13/16 15:00 23:00 07:00 Intake Total 931 ml 753 ml 518 ml Output Total 1750 ml 1750 ml 650 ml Balance -819 ml -997 ml -132 ml Intake Oral 240 ml 120 ml 120 ml IV Total 691 ml 633 ml 398 ml Output Urine Total 1750 ml 1750 ml 650 ml # Bowel Movements 0 1 0 Vital Signs Date Time Temp Pulse Resp B/P Pulse Ox O2 Delivery O2 Flow Rate FiO2 06/13/16 08:00 77 16 91/51 98 06/13/16 08:00 Nasal Cannula 2.00 06/13/16 07:39 98 Nasal Cannula 2.00 06/13/16 07:21 98.0 06/13/16 04:00 92 06/13/16 04:00 98.2 92 18 111/58 98 06/13/16 00:00 80 06/13/16 00:00 98.0 80 17 81/41 98 06/12/16 20:00 97.7 95 20 115/59 98 06/12/16 20:00 98 Nasal Cannula 2.00 06/12/16 20:00 95 06/12/16 19:05 99 Nasal Cannula 2.00 06/12/16 16:00 98.2 70 23 121/64 97 General: Alert and Oriented, No acute distress Neurologic: Alert Psychiatric: Cooperative Exam Comments awake, ox 2, not to place. follows, facial hypomimia, severe bradykinesia, hypophonic speech, slow eom, face sym, moving ue to gravity, mild ue rigidity; paraplegia x >1 yr Objective Micro and Labs Laboratory Tests Test 06/13/16 04:45 Sodium Level 142 Potassium Level 3.7 Chloride Level 104 Carbon Dioxide Level 35.3 Anion Gap 3 Blood Urea Nitrogen 10 Creatinine 0.50 Estimat Glomerular Filtration 122 Rate Random Glucose 92 Calcium Level 9.3 Date/Time Procedure Status Source Growth 06/11/16 21:20 Urine Culture - Final Complete Urine Catheterized Urine NO GROWTH IN 48 HOURS. 06/11/16 14:58 Aerobic Blood Culture - Preliminary Resulted Blood Peripheral NO GROWTH IN 2 DAYS 06/11/16 14:58 Anaerobic Blood Culture - Preliminary Resulted Blood Peripheral NO GROWTH IN 2 DAYS Problem Qualifiers (1) Sepsis: Qualified Code: A41.51 - Sepsis due to Escherichia coli Marvin Brown MD Jun 13, 2016 12:45
[2016-06-13] MEDS: REMOVE OLD PATCH T-DERMAL SCH (14:00)
[2016-06-13] MEDS: ROTIGOTINE TOPICAL SCH (15:09)
[2016-06-13] MEDS: ENOXAPARIN SODIUM 30 MG/0.3 ML SYRINGE SQ SCH (15:09)
[2016-06-13] MEDS: FLUCONAZOLE 400 MG PREMIX BAG 200 ML IV SCH (15:45)
[2016-06-13] MEDS: levETIRAcetam 500 MG TAB PO SCH (20:23)
[2016-06-13] MEDS: OLANZapine 5 MG TAB PO SCH (20:23)
[2016-06-13] MEDS ORDERED: levETIRAcetam 500 MG TAB PO SCH (21:00)
[2016-06-14] VITALS (7 sets, daily range): BP systolic 98–130; BP diastolic 50–62; PULSE 61–79; RESP 16–20; TEMP 96.8–98.5; O2SAT 91–98
[2016-06-14] MEDS: CHLORHEXIDINE GLUCONATE 2 % 1 PACK (2 CLOTHS) TOP SCH (04:00)
[2016-06-14] MEDS: MEROPENEM 1000 MG/NS 100 ML IV SCH ×6 (05:51→20:19)
[2016-06-14] MEDS: MIDODRINE 5 MG TAB PO SCH ×3 (05:52→18:35)
[2016-06-14] MEDS: CARBIDOPA/LEVODOPA 25 MG/250 MG TAB PO SCH ×5 (05:52→22:58)
[2016-06-14] MEDS: ACETAMINOPHEN 325 MG TAB PO PRN (05:52)
[2016-06-14] MEDS: PANTOPRAZOLE SOD 40 MG DELAYED RELEASE TAB PO SCH (10:29)
[2016-06-14] MEDS: TOLTERODINE TARTRATE 4 MG CAP LA PO SCH (10:29)
[2016-06-14] MEDS: DONEPEZIL HCL 5 MG TAB PO SCH (10:32)
[2016-06-14] MEDS: PREGABALIN 25 MG CAP PO SCH ×3 (10:37→18:36)
[2016-06-14] MEDS: levETIRAcetam 500 MG TAB PO SCH ×2 (10:38→20:17)
--- NOTE | 2016-06-14 11:36 | HHI.PR ---
Subjective Remarks in no acute distress. afebrile. resting comfortably. denies pain. Objective Vitals Vital Signs Date Time Temp Pulse Resp B/P Pulse Ox O2 Delivery O2 Flow Rate FiO2 06/14/16 08:00 97.1 72 18 123/59 91 06/14/16 04:00 97.8 77 18 103/51 94 06/14/16 00:00 98.5 79 20 98/50 98 06/13/16 21:27 98 Nasal Cannula 1.50 06/13/16 20:00 91 06/13/16 20:00 98 Nasal Cannula 1.00 06/13/16 20:00 98.2 86 18 103/55 98 06/13/16 16:00 84 16 98/56 98 06/13/16 12:00 74 16 96/71 94 I/O 06/13/16 06/13/16 06/13/16 06/14/16 06/14/16 06/14/16 07:00 15:00 23:00 07:00 15:00 23:00 Intake Total 518 ml 1106 ml Output Total 650 ml 1500 ml Balance -132 ml -394 ml Intake Oral 120 ml IV Total 398 ml 1106 ml Output Urine Total 650 ml 1500 ml # Bowel Movements 0 3 Result Diagram: 06/13/16 0445 Imaging Last Impressions Chest X-Ray 06/09/16 0600 Signed Impressions: Service Date/Time: Thursday, June 09, 2016 03:49 - CONCLUSION: Worsening left basilar density and probable small pleural effusion. Jay Araujo MD Head CT 06/05/16 1516 Signed Impressions: Service Date/Time: May 15:49 - CONCLUSION: 1. Mild periventricular and subcortical white matter small vessel ischemic changes bilaterally. 2. No acute infarct, acute hemorrhage, mass effect or extra- axial fluid collections. Ryu Donahue MD Objective Remarks GENERAL: in no apparent distress. CARDIOVASCULAR: Regular rate and regular rhythm without murmurs, gallops, or rubs. RESPIRATORY: Clear to auscultation. Breath sounds equal bilaterally. No wheezes , rales, or rhonchi. GASTROINTESTINAL: Abdomen soft, non-tender, nondistended. Normal, active bowel sounds MUSCULOSKELETAL: Extremities without clubbing, cyanosis, or edema. NEURO: awake and alert- oriented to person and place. Medications and IVs Current Medications Carbidopa/Levodopa (Sinemet 25-250 Mg) 1 tab ONCE ONCE PO Last administered on 06/05/16 15:42; Start 06/05/16 at 15:15; Stop 06/05/16 at 15:16; Status DC Sodium Chloride 2 ml 2 ml UNSCH PRN IVF FLUSH AFTER USING IV ACCESS; Start at 15:30 Sodium Chloride 1,000 ml @ 1,000 mls/hr Q1H IV Last administered on 06/05/16 15:43; Start 06/05/16 at 15:16; Stop 06/05/16 at 16:15; Status DC Sodium Chloride 1,000 ml @ 999 mls/hr BOLUS ONCE IV Last administered on 06/05 15:43; Start 06/05/16 at 15:30; Stop 06/05/16 at 16:32; Status DC Sodium Chloride 1,000 ml @ 999 mls/hr BOLUS ONCE IV Last administered on 06/05 15:43; Start 06/05/16 at 15:30; Stop 06/05/16 at 16:32; Status DC Piperacillin Sod/ Tazobactam Sod 100 ml @ 200 mls/hr ONCE ONCE IV Last administered on 06/05/16 16:18; Start 06/05/16 at 15:30; Stop 06/05/16 at 15:59 ; Status DC Vancomycin HCl/ Sodium Chloride (Vancomycin Inj/ NS 250 ml Inj) 250 ml @ 250 mls/hr ONCE ONCE IV Last administered on 06/05/16 15:44; Start 06/05/16 at 15 :30; Stop 06/05/16 at 16:32; Status DC Carbidopa/ Levodopa 1 tab 1 tab ONCE ONCE PO Last administered on 06/05/16 16 :25; Start 06/05/16 at 15:30; Stop 06/05/16 at 15:32; Status DC Norepinephrine Bitartrate 250 ml @ 0 mls/hr TITRATE IV Last administered on 11:43; Start 06/05/16 at 16:15; Stop 06/07/16 at 09:13; Status DC Piperacillin Sod/ Tazobactam Sod 50 ml @ 100 mls/hr Q6H IV ; Start 06/05/16 at 23:00; Stop 06/05/16 at 23:00; Status DC Pharmacy Profile Note (Vancomycin Consult Pharmacy) 0 ml @ 0 mls/hr UNSCH OTHER ; Start 06/05/16 at 16:15; Stop 06/06/16 at 14:58; Status DC Carbidopa/Levodopa (Sinemet 25-250 Mg) 1 tab DAILY PO ; Start 06/06/16 at 09:00 ; Stop 06/06/16 at 09:00; Status DC Patient Own Medication PT OWN MED: NEUPRO PATCH 4 MG/24 ... DAILY TOPICAL ; Start 06/06/16 at 09:00; Status Cancel Carbidopa/Levodopa (Sinemet 25-250 Mg) 1 tab Q6H PO Last administered on 08:42; Start 06/06/16 at 09:00; Stop 06/07/16 at 12:51; Status DC Miscellaneous Medication (ASP Crit: Path resist to other, cult proven) 1 UNSCH X1 PRN XX PHARMACY DOCUMENTATION; Start 06/05/16 at 16:30; Stop 06/06/16 at 16: 29; Status DC Miscellaneous Medication 1 1 UNSCH X1 PRN XX PHARMACY DOCUMENTATION; Start at 16:30; Stop 06/06/16 at 16:29; Status DC Meropenem 500 mg/ Sodium Chloride 100 ml @ 200 mls/hr Q12H IV Last administered on 06/06/16 05:10; Start 06/05/16 at 17:00; Stop 06/06/16 at 11:26 ; Status DC Vancomycin HCl 500 mg/Sodium Chloride 100 ml @ 200 mls/hr ONCE ONCE IV Last administered on 06/05/16 18:30; Start 06/05/16 at 17:00; Stop 06/05/16 at 17:29 ; Status DC Sodium Chloride (NS 1000 ml Inj) 1,000 ml @ 60 mls/hr [id number] IV Last administered on 06/13/16 20:24; Start 06/05/16 at 16:27 Acetaminophen (Tylenol) 650 mg Q6H PRN PO PAIN 1-10 AND/OR FEVER >101F Last administered on 06/14/16 05:52; Start 06/05/16 at 16:30 Pantoprazole Sodium (Protonix Inj) 40 mg DAILY IV Last administered on 09:00; Start 06/06/16 at 09:00; Stop 06/13/16 at 08:45; Status DC Albuterol/ Ipratropium (Duoneb Neb) 1 ampule Q2HR NEB PRN INH WHEEZING; Start 06/05/16 at 16:30 Enoxaparin Sodium (Lovenox Inj) 30 mg Q24H SQ Last administered on 06/13/16 15 :09; Start 06/05/16 at 17:00 Miscellaneous Information 1 [id number] XX ; Start 06/05/16 at 16:30 Chlorhexidine Gluconate (Chlorhexidine 2% Cloth) Taper DAILY@04 TOP Last administered on 06/11/16 04:00; Start 06/06/16 at 04:00; Stop 06/02/17 at 03:59 Chlorhexidine Gluconate 3 pack 3 pack UNSCH PRN TOP HYGIENIC CARE; Start at 16:30 Fluconazole/ Sodium Chloride 50 ml @ 50 mls/hr Q24H IV Last administered on 18:29; Start 06/05/16 at 18:00; Stop 06/06/16 at 14:59; Status DC Potassium Chloride 100 ml @ 50 mls/hr Q2H PRN IV For Potassium 2.8 - 3.2 mEq/ L Last administered on 06/11/16 12:32; Start 06/06/16 at 08:45; Stop 06/12/16 at 08:26; Status DC Potassium Chloride 100 ml @ 50 mls/hr Q2H PRN IV For Potassium 2.8 - 3.2 mEq/L ; Start 06/06/16 at 08:45; Stop 06/12/16 at 08:26; Status DC Potassium Chloride 100 ml @ 25 mls/hr UNSCH PRN IV For Potassium 3.3 - 3.5 mEq /L Last administered on 06/07/16 08:41; Start 06/06/16 at 08:45; Stop 06/12/16 at 08:26; Status DC Potassium Chloride 100 ml @ 50 mls/hr Q2H PRN IV For Potassium 3.3 - 3.5 mEq/ L Last administered on 06/09/16 08:06; Start 06/06/16 at 08:45; Stop 06/12/16 at 08:27; Status DC Magnesium Sulfate/ Sodium Chloride (Magnesium Sulfate Inj/NS Inj) 100 ml @ 50 mls/hr UNSCH PRN IV For Magnesium 0.9 - 1.1 mg/dL; Start 06/06/16 at 08:45; Stop 06/12/16 at 08:27; Status DC Magnesium Oxide 800 mg 800 mg UNSCH PRN PO For Magnesium 1.2 - 1.6 mg/dL; Start 06/06/16 at 08:45; Stop 06/12/16 at 08:27; Status DC Magnesium Sulfate/ Sodium Chloride (Magnesium Sulfate Inj/NS Inj) 100 ml @ 50 mls/hr UNSCH PRN IV For Magnesium 1.2 - 1.6 mg/dL Last administered on 13:38; Start 06/06/16 at 08:45; Stop 06/12/16 at 08:27; Status DC Potassium Phosphate 2000 mg 2,000 mg Q4H PRN PO For Phosphorus < 2.5 mg/dL Last administered on 06/09/16 17:00; Start 06/06/16 at 08:45; Stop 06/12/16 at 08:27; Status DC Sodium Phosphate/ Sodium Chloride (Sodium Phosphate Inj/NS 250 ml Inj) 250 ml @ 42 mls/hr UNSCH PRN IV For Phosphorus < 2.5 mg/dL; Start 06/06/16 at 08:45; Stop 06/12/16 at 08:27; Status DC Potassium Phosphate 2000 mg 2,000 mg UNSCH PRN PO/TUBE SEE LABEL COMMENTS; Start 06/06/16 at 08:45; Stop 06/12/16 at 08:27; Status DC Potassium Phosphate 30 mmol/ Sodium Chloride 260 ml @ 42 mls/hr UNSCH PRN IV SEE LABEL COMMENTS; Start 06/06/16 at 08:45; Stop 06/12/16 at 08:27; Status DC Fluconazole/ Sodium Chloride 50 ml @ 50 mls/hr Q24H IV ; Start 06/06/16 at 09:30 ; Status UNV Vancomycin HCl/ Sodium Chloride (Vancomycin Inj/ NS 250 ml Inj) 262.5 ml @ 250 mls/hr Q24H IV ; Start 06/06/16 at 18:00; Stop 06/06/16 at 18:00; Status DC Miscellaneous Information SPECIFIC LAB TO BE DRAWN:VANCOMYCIN TROUGH DATE TO... ONCE ONCE XX ; Start 06/07/16 at 17:45; Stop 06/07/16 at 17:45; Status DC Meropenem 1000 mg/ Sodium Chloride 100 ml @ 200 mls/hr Q8H IV ; Start 06/06/16 at 13:00; Status UNV Sodium Chloride 1,000 ml @ 999 mls/hr BOLUS ONCE IV Last administered on 06/06 11:44; Start 06/06/16 at 12:00; Stop 06/06/16 at 13:00; Status DC Meropenem/Sodium Chloride (Merrem Inj/NS Inj) 100 ml @ 200 mls/hr Q8H IV Last administered on 06/14/16 05:51; Start 06/06/16 at 13:00 Donepezil HCl (Aricept) 10 mg DAILY PO Last administered on 06/14/16 10:32; Start 06/06/16 at 17:00 Olanzapine (ZyPREXA) 5 mg HS PO Last administered on 06/13/16 20:23; Start at 21:00 Pregabalin (Lyrica) 50 mg TID PO Last administered on 06/14/16 10:37; Start at 18:00 Fosphenytoin Sodium 200 mgpe 200 mgpe Q12HR IV ; Start 06/06/16 at 21:00; Stop 06/06/16 at 21:00; Status DC Fosphenytoin Sodium 1000 mgpe/ Sodium Chloride 70 ml @ 280 mls/hr ONCE ONCE IV Last administered on 06/06/16 17:30; Start 06/06/16 at 17:30; Stop at 18:01; Status DC Fosphenytoin Sodium/Sodium Chloride (Cerebyx Inj/NS Inj) 54 ml @ 216 mls/hr Q12HR IV Last administered on 06/09/16 08:04; Start 06/06/16 at 21:00; Stop at 09:53; Status DC Carbidopa/Levodopa (Sinemet 25-250 Mg) 1.5 tab 5 TIMES A DAY PO Last administered on 06/14/16 10:34; Start 06/07/16 at 18:00 Patient Own Medication PT OWN MED: NEUPRO PATCH 4 MG/24 ... Q24H TOPICAL Last administered on 06/13/16 15:09; Start 06/07/16 at 14:00 Miscellaneous Information 1 Q24H T-DERMAL Last administered on 06/11/16 12:33 ; Start 06/07/16 at 14:00 Miscellaneous 1 ea 1 ea UNSCH PRN OTHER SEE LABEL COMMENTS Last administered on 06/13/16 20:57; Start 06/07/16 at 13:15 Norepinephrine Bitartrate (Levophed-Dextrose Drip) 250 ml @ 0 mls/hr TITRATE IV Last administered on 06/08/16 05:51; Start 06/07/16 at 23:45; Stop 06/09/16 at 11:30; Status DC Terbutaline Sulfate (Brethine Inj) 1 mg UNSCH PRN SQ For Extravasation; Start 06/07/16 at 23:45 Albumin Human (Albumin 25% Inj) 25 gm ONCE ONCE IV Last administered on 08:52; Start 06/08/16 at 08:00; Stop 06/08/16 at 08:01; Status DC Albumin Human (Albumin 25% Inj) 25 gm Q12H IV Last administered on 06/09/16 20 :59; Start 06/08/16 at 08:00; Stop 06/10/16 at 07:59; Status DC Midodrine 5 mg 5 mg TID@07,12,17 PO Last administered on 06/09/16 11:13; Start 06/08/16 at 12:00; Stop 06/09/16 at 11:30; Status DC Vancomycin HCl 1000 mg/Sodium Chloride 250 ml @ 250 mls/hr ONCE ONCE IV Last administered on 06/08/16 11:35; Start 06/08/16 at 11:00; Stop 06/08/16 at 11:59 ; Status DC Pharmacy Profile Note 0 ml @ 0 mls/hr UNSCH OTHER ; Start 06/08/16 at 09:45; Stop 06/11/16 at 14:09; Status DC Vancomycin HCl/ Sodium Chloride (Vancomycin Inj/ NS 250 ml Inj) 257.5 ml @ 250 mls/hr Q12H IV Last administered on 06/11/16 11:09; Start 06/08/16 at 23:00; Stop 06/11/16 at 14:09; Status DC Miscellaneous Information SPECIFIC LAB TO BE MYRNA... ONCE ONCE XX Last administered on 06/09/16 22:45; Start 06/09/16 at 22:45; Stop 06/09/16 at 22:46 ; Status DC Fluconazole/ Sodium Chloride 200 ml @ 100 mls/hr Q24H IV Last administered on 06/13/16 15:45; Start 06/08/16 at 13:00 Fosphenytoin Sodium/Sodium Chloride (Cerebyx Inj/NS Inj) 52.6 ml @ 216 mls/hr Q12HR IV Last administered on 06/10/16 04:39; Start 06/10/16 at 06:00; Stop at 08:36; Status DC Midodrine (Proamatine) 10 mg TID@07,12,17 PO Last administered on 06/14/16 10: 39; Start 06/09/16 at 12:00 Alteplase, Recombinant 2 mg 2 mg ONCE ONCE IV FLUSH Last administered on 21:00; Start 06/09/16 at 18:00; Stop 06/09/16 at 18:01; Status DC Fosphenytoin Sodium/Sodium Chloride (Cerebyx Inj/NS Inj) 52.6 ml @ 216 mls/hr Q12H IV Last administered on 06/13/16 05:14; Start 06/11/16 at 06:00; Stop at 12:03; Status DC Docusate Sodium (Colace) 100 mg BID PRN PO CONSTIPATION; Start 06/10/16 at 08: 45 Magnesium Hydroxide (Milk Of Magnesia Liq) 30 ml DAILY PRN PO CONSTIPATION Last administered on 06/12/16 16:42; Start 06/10/16 at 08:45 Tolterodine Tartrate 4 mg 4 mg DAILY PO Last administered on 06/14/16 10:29; Start 06/10/16 at 15:30 Sodium Chloride (NS 250 ml Inj) 250 ml @ 250 mls/hr BOLUS ONCE IV Last administered on 06/10/16 19:30; Start 06/10/16 at 19:30; Stop 06/10/16 at 20:29 ; Status DC Bisacodyl (Dulcolax Supp) 10 mg DAILY PRN RECTAL constipation Last administered on 06/12/16 16:44; Start 06/12/16 at 15:00 Pantoprazole Sodium (Protonix) 40 mg DAILY PO Last administered on 06/14/16 10: 29; Start 06/13/16 at 09:00 Nystatin (Mycostatin Cream) 1 applic DAILY PRN TOPICAL RASH; Start 06/13/16 at 08:45 Levetriacetam (Keppra) 500 mg Q12HR PO ; Start 06/13/16 at 21:00; Stop 06/13/16 at 21:00; Status DC Levetriacetam (Keppra) 250 mg Q12HR PO Last administered on 06/14/16 10:38; Start 06/13/16 at 21:00 A/P Assessment and Plan A/P Acute metabolic encephalopathy-improving slowly Advanced Parkinson's disease Bifrontal sharps on EEG -Continue Sinemet -Resumed Zyprexa and Lyrica 06/06 -Encephalopathy seems to be metabolic -Neurology Dr. Brown following - Fosphenytoin was dc'ed and started on Keppra Respiratory insufficiency -improved Left lower lobe infiltrate/pneumonia -Nasal cannula oxygen -DuoNeb every 6 hours when necessary, aggressive pulmonary toilet -See ID section for antibiotics Septic shock -resolved Lactic acidosis Mild troponin elevation -BP stable-off Levophed -continue midodrine . -Mild troponin elevation due to sepsis and renal failure. Acute kidney failure -resolved questionable leak around the suprapubic cath. -Renal failure secondary to dehydration and hypotension-resolved -Monitor renal function closely. -urology consult appreciated; suprapubic cath was exchanged; to be changed every 3-4 weeks. Septic shock -resolved ESBL Ecoi bacteremia 4 out of 4 bottles UTI with GNR, possible ESBL Escherichia coli Left lower lobe infiltrate/pneumonia History of ESBL Escherichia coli UTI in the past Stage IV decubitus ulcer -Continue IV meropenem and Diflucan. -ID is following. -06/05 blood culture 4/4 bottles ESBL Escherichia coli -06/05 Urine culture ESBL Escherichia coli -06/08 blood cultures negative so far -06/11; blood and urine cultures negative so far. -Wound care following -Abx per ID Leukocytosis -improving -Monitor CBC, CMP, coags hypokalemia -replaced. PROPH: -Bilateral lower extremity SCDs. Lovenox 40 mg subcutaneous daily. Protonix 40 mg daily palliative care following. calorie count done and it seems that the patient is eating better; continue with the soft diet. technician plant and maintenance following. continue PT. Shantanu Galciia MD Jun 14, 2016 11:36
[2016-06-14] MEDS: ROTIGOTINE TOPICAL SCH (12:52)
[2016-06-14] MEDS: SODIUM CHLOR 0.9% 1000 ML INJ 1,000 ML IV SCH (12:52)
[2016-06-14] MEDS: REMOVE OLD PATCH T-DERMAL SCH (12:53)
[2016-06-14] MEDS: FLUCONAZOLE 400 MG PREMIX BAG 200 ML IV SCH (13:47)
[2016-06-14] MEDS: ENOXAPARIN SODIUM 30 MG/0.3 ML SYRINGE SQ SCH (18:36)
[2016-06-14] MEDS: OLANZapine 5 MG TAB PO SCH (22:58)
[2016-06-15] VITALS (10 sets, daily range): BP systolic 92–142; BP diastolic 55–79; PULSE 16–84; RESP 15–18; TEMP 95.5–98.6; O2SAT 93–96
[2016-06-15] MEDS: CHLORHEXIDINE GLUCONATE 2 % 1 PACK (2 CLOTHS) TOP SCH (04:19)
[2016-06-15] MEDS: MEROPENEM 1000 MG/NS 100 ML IV SCH ×6 (04:50→21:38)
[2016-06-15] MEDS: MIDODRINE 5 MG TAB PO SCH ×3 (06:27→18:01)
[2016-06-15] MEDS: CARBIDOPA/LEVODOPA 25 MG/250 MG TAB PO SCH ×5 (06:27→21:38)
[2016-06-15] MEDS: SODIUM CHLOR 0.9% 1000 ML INJ 1,000 ML IV SCH ×2 (06:28→21:39)
[2016-06-15] MEDS: TOLTERODINE TARTRATE 4 MG CAP LA PO SCH (10:03)
[2016-06-15] MEDS: DONEPEZIL HCL 5 MG TAB PO SCH (10:03)
[2016-06-15] MEDS: levETIRAcetam 500 MG TAB PO SCH ×2 (10:03→21:38)
[2016-06-15] MEDS: PANTOPRAZOLE SOD 40 MG DELAYED RELEASE TAB PO SCH (10:03)
[2016-06-15] MEDS: PREGABALIN 25 MG CAP PO SCH ×3 (10:04→18:01)
--- NOTE | 2016-06-15 11:13 | HHI.PR ---
Subjective Remarks resting comfortably with no distress. afebrile. denies pain. BP stable. at the bedside. Objective Vitals Vital Signs Date Time Temp Pulse Resp B/P Pulse Ox O2 Delivery O2 Flow Rate FiO2 06/15/16 09:45 95 Nasal Cannula 2.00 06/15/16 08:05 70 06/15/16 08:00 97.0 74 15 102/71 95 06/15/16 04:00 96.5 84 16 100/55 96 06/15/16 02:26 82 06/15/16 00:00 96.7 82 16 124/62 93 06/14/16 20:15 95 Nasal Cannula 2.00 06/14/16 20:00 96.8 72 20 112/57 95 06/14/16 16:00 97.3 70 16 117/60 95 06/14/16 16:00 95 Nasal Cannula 2.00 06/14/16 12:00 98.0 76 16 130/62 92 I/O 06/14/16 06/14/16 06/14/16 06/15/16 06/15/16 06/15/16 07:00 15:00 23:00 07:00 15:00 23:00 Intake Total 1160 ml 914 ml Output Total 1275 ml 900 ml Balance -115 ml 14 ml Intake Oral 200 ml IV Total 1160 ml 714 ml Output Urine Total 1275 ml 900 ml Result Diagram: 06/13/16 0445 Imaging Last Impressions Chest X-Ray 06/09/16 0600 Signed Impressions: Service Date/Time: Thursday, June 09, 2016 03:49 - CONCLUSION: Worsening left basilar density and probable small pleural effusion. Jay Araujo MD Head CT 06/05/16 1516 Signed Impressions: Service Date/Time: May 15:49 - CONCLUSION: 1. Mild periventricular and subcortical white matter small vessel ischemic changes bilaterally. 2. No acute infarct, acute hemorrhage, mass effect or extra- axial fluid collections. Ruy Donahue MD Objective Remarks GENERAL: in no apparent distress. CARDIOVASCULAR: Regular rate and regular rhythm without murmurs, gallops, or rubs. RESPIRATORY: Clear to auscultation. Breath sounds equal bilaterally. No wheezes , rales, or rhonchi. GASTROINTESTINAL: Abdomen soft, non-tender, nondistended. Normal, active bowel sounds MUSCULOSKELETAL: Extremities without clubbing, cyanosis, or edema. NEURO: awake and alert- oriented to person and place. Medications and IVs Current Medications Carbidopa/Levodopa (Sinemet 25-250 Mg) 1 tab ONCE ONCE PO Last administered on 06/05/16 15:42; Start 06/05/16 at 15:15; Stop 06/05/16 at 15:16; Status DC Sodium Chloride 2 ml 2 ml UNSCH PRN IVF FLUSH AFTER USING IV ACCESS; Start at 15:30 Sodium Chloride 1,000 ml @ 1,000 mls/hr Q1H IV Last administered on 06/05/16 15:43; Start 06/05/16 at 15:16; Stop 06/05/16 at 16:15; Status DC Sodium Chloride 1,000 ml @ 999 mls/hr BOLUS ONCE IV Last administered on 06/05 15:43; Start 06/05/16 at 15:30; Stop 06/05/16 at 16:32; Status DC Sodium Chloride 1,000 ml @ 999 mls/hr BOLUS ONCE IV Last administered on 06/05 15:43; Start 06/05/16 at 15:30; Stop 06/05/16 at 16:32; Status DC Piperacillin Sod/ Tazobactam Sod 100 ml @ 200 mls/hr ONCE ONCE IV Last administered on 06/05/16 16:18; Start 06/05/16 at 15:30; Stop 06/05/16 at 15:59 ; Status DC Vancomycin HCl/ Sodium Chloride (Vancomycin Inj/ NS 250 ml Inj) 250 ml @ 250 mls/hr ONCE ONCE IV Last administered on 06/05/16 15:44; Start 06/05/16 at 15 :30; Stop 06/05/16 at 16:32; Status DC Carbidopa/ Levodopa 1 tab 1 tab ONCE ONCE PO Last administered on 06/05/16 16 :25; Start 06/05/16 at 15:30; Stop 06/05/16 at 15:32; Status DC Norepinephrine Bitartrate 250 ml @ 0 mls/hr TITRATE IV Last administered on 11:43; Start 06/05/16 at 16:15; Stop 06/07/16 at 09:13; Status DC Piperacillin Sod/ Tazobactam Sod 50 ml @ 100 mls/hr Q6H IV ; Start 06/05/16 at 23:00; Stop 06/05/16 at 23:00; Status DC Pharmacy Profile Note (Vancomycin Consult Pharmacy) 0 ml @ 0 mls/hr UNSCH OTHER ; Start 06/05/16 at 16:15; Stop 06/06/16 at 14:58; Status DC Carbidopa/Levodopa (Sinemet 25-250 Mg) 1 tab DAILY PO ; Start 06/06/16 at 09:00 ; Stop 06/06/16 at 09:00; Status DC Patient Own Medication PT OWN MED: NEUPRO PATCH 4 MG/24 ... DAILY TOPICAL ; Start 06/06/16 at 09:00; Status Cancel Carbidopa/Levodopa (Sinemet 25-250 Mg) 1 tab Q6H PO Last administered on 08:42; Start 06/06/16 at 09:00; Stop 06/07/16 at 12:51; Status DC Miscellaneous Medication (ASP Crit: Path resist to other, cult proven) 1 UNSCH X1 PRN XX PHARMACY DOCUMENTATION; Start 06/05/16 at 16:30; Stop 06/06/16 at 16: 29; Status DC Miscellaneous Medication 1 1 UNSCH X1 PRN XX PHARMACY DOCUMENTATION; Start at 16:30; Stop 06/06/16 at 16:29; Status DC Meropenem 500 mg/ Sodium Chloride 100 ml @ 200 mls/hr Q12H IV Last administered on 06/06/16 05:10; Start 06/05/16 at 17:00; Stop 06/06/16 at 11:26 ; Status DC Vancomycin HCl 500 mg/Sodium Chloride 100 ml @ 200 mls/hr ONCE ONCE IV Last administered on 06/05/16 18:30; Start 06/05/16 at 17:00; Stop 06/05/16 at 17:29 ; Status DC Sodium Chloride (NS 1000 ml Inj) 1,000 ml @ 60 mls/hr [id number] IV Last administered on 06/15/16 06:28; Start 06/05/16 at 16:27 Acetaminophen (Tylenol) 650 mg Q6H PRN PO PAIN 1-10 AND/OR FEVER >101F Last administered on 06/14/16 05:52; Start 06/05/16 at 16:30 Pantoprazole Sodium (Protonix Inj) 40 mg DAILY IV Last administered on 09:00; Start 06/06/16 at 09:00; Stop 06/13/16 at 08:45; Status DC Albuterol/ Ipratropium (Duoneb Neb) 1 ampule Q2HR NEB PRN INH WHEEZING; Start 06/05/16 at 16:30 Enoxaparin Sodium (Lovenox Inj) 30 mg Q24H SQ Last administered on 06/14/16 18: 36; Start 06/05/16 at 17:00 Miscellaneous Information 1 [id number] XX ; Start 06/05/16 at 16:30 Chlorhexidine Gluconate (Chlorhexidine 2% Cloth) Taper DAILY@04 TOP Last administered on 06/11/16 04:00; Start 06/06/16 at 04:00; Stop 06/02/17 at 03:59 Chlorhexidine Gluconate 3 pack 3 pack UNSCH PRN TOP HYGIENIC CARE; Start at 16:30 Fluconazole/ Sodium Chloride 50 ml @ 50 mls/hr Q24H IV Last administered on 18:29; Start 06/05/16 at 18:00; Stop 06/06/16 at 14:59; Status DC Potassium Chloride 100 ml @ 50 mls/hr Q2H PRN IV For Potassium 2.8 - 3.2 mEq/ L Last administered on 06/11/16 12:32; Start 06/06/16 at 08:45; Stop 06/12/16 at 08:26; Status DC Potassium Chloride 100 ml @ 50 mls/hr Q2H PRN IV For Potassium 2.8 - 3.2 mEq/L ; Start 06/06/16 at 08:45; Stop 06/12/16 at 08:26; Status DC Potassium Chloride 100 ml @ 25 mls/hr UNSCH PRN IV For Potassium 3.3 - 3.5 mEq /L Last administered on 06/07/16 08:41; Start 06/06/16 at 08:45; Stop 06/12/16 at 08:26; Status DC Potassium Chloride 100 ml @ 50 mls/hr Q2H PRN IV For Potassium 3.3 - 3.5 mEq/ L Last administered on 06/09/16 08:06; Start 06/06/16 at 08:45; Stop 06/12/16 at 08:27; Status DC Magnesium Sulfate/ Sodium Chloride (Magnesium Sulfate Inj/NS Inj) 100 ml @ 50 mls/hr UNSCH PRN IV For Magnesium 0.9 - 1.1 mg/dL; Start 06/06/16 at 08:45; Stop 06/12/16 at 08:27; Status DC Magnesium Oxide 800 mg 800 mg UNSCH PRN PO For Magnesium 1.2 - 1.6 mg/dL; Start 06/06/16 at 08:45; Stop 06/12/16 at 08:27; Status DC Magnesium Sulfate/ Sodium Chloride (Magnesium Sulfate Inj/NS Inj) 100 ml @ 50 mls/hr UNSCH PRN IV For Magnesium 1.2 - 1.6 mg/dL Last administered on 13:38; Start 06/06/16 at 08:45; Stop 06/12/16 at 08:27; Status DC Potassium Phosphate 2000 mg 2,000 mg Q4H PRN PO For Phosphorus < 2.5 mg/dL Last administered on 06/09/16 17:00; Start 06/06/16 at 08:45; Stop 06/12/16 at 08:27; Status DC Sodium Phosphate/ Sodium Chloride (Sodium Phosphate Inj/NS 250 ml Inj) 250 ml @ 42 mls/hr UNSCH PRN IV For Phosphorus < 2.5 mg/dL; Start 06/06/16 at 08:45; Stop 06/12/16 at 08:27; Status DC Potassium Phosphate 2000 mg 2,000 mg UNSCH PRN PO/TUBE SEE LABEL COMMENTS; Start 06/06/16 at 08:45; Stop 06/12/16 at 08:27; Status DC Potassium Phosphate 30 mmol/ Sodium Chloride 260 ml @ 42 mls/hr UNSCH PRN IV SEE LABEL COMMENTS; Start 06/06/16 at 08:45; Stop 06/12/16 at 08:27; Status DC Fluconazole/ Sodium Chloride 50 ml @ 50 mls/hr Q24H IV ; Start 06/06/16 at 09:30 ; Status UNV Vancomycin HCl/ Sodium Chloride (Vancomycin Inj/ NS 250 ml Inj) 262.5 ml @ 250 mls/hr Q24H IV ; Start 06/06/16 at 18:00; Stop 06/06/16 at 18:00; Status DC Miscellaneous Information SPECIFIC LAB TO BE DRAWN:VANCOMYCIN TROUGH DATE TO... ONCE ONCE XX ; Start 06/07/16 at 17:45; Stop 06/07/16 at 17:45; Status DC Meropenem 1000 mg/ Sodium Chloride 100 ml @ 200 mls/hr Q8H IV ; Start 06/06/16 at 13:00; Status UNV Sodium Chloride 1,000 ml @ 999 mls/hr BOLUS ONCE IV Last administered on 06/06 11:44; Start 06/06/16 at 12:00; Stop 06/06/16 at 13:00; Status DC Meropenem/Sodium Chloride (Merrem Inj/NS Inj) 100 ml @ 200 mls/hr Q8H IV Last administered on 06/15/16 04:50; Start 06/06/16 at 13:00 Donepezil HCl (Aricept) 10 mg DAILY PO Last administered on 06/15/16 10:03; Start 06/06/16 at 17:00 Olanzapine (ZyPREXA) 5 mg HS PO Last administered on 06/14/16 22:58; Start at 21:00 Pregabalin (Lyrica) 50 mg TID PO Last administered on 06/15/16 10:04; Start at 18:00 Fosphenytoin Sodium 200 mgpe 200 mgpe Q12HR IV ; Start 06/06/16 at 21:00; Stop 06/06/16 at 21:00; Status DC Fosphenytoin Sodium 1000 mgpe/ Sodium Chloride 70 ml @ 280 mls/hr ONCE ONCE IV Last administered on 06/06/16 17:30; Start 06/06/16 at 17:30; Stop at 18:01; Status DC Fosphenytoin Sodium/Sodium Chloride (Cerebyx Inj/NS Inj) 54 ml @ 216 mls/hr Q12HR IV Last administered on 06/09/16 08:04; Start 06/06/16 at 21:00; Stop at 09:53; Status DC Carbidopa/Levodopa (Sinemet 25-250 Mg) 1.5 tab 5 TIMES A DAY PO Last administered on 06/15/16 10:04; Start 06/07/16 at 18:00 Patient Own Medication PT OWN MED: NEUPRO PATCH 4 MG/24 ... Q24H TOPICAL Last administered on 06/14/16 12:52; Start 06/07/16 at 14:00 Miscellaneous Information 1 Q24H T-DERMAL Last administered on 06/14/16 12:53; Start 06/07/16 at 14:00 Miscellaneous 1 ea 1 ea UNSCH PRN OTHER SEE LABEL COMMENTS Last administered on 06/13/16 20:57; Start 06/07/16 at 13:15 Norepinephrine Bitartrate (Levophed-Dextrose Drip) 250 ml @ 0 mls/hr TITRATE IV Last administered on 06/08/16 05:51; Start 06/07/16 at 23:45; Stop 06/09/16 at 11:30; Status DC Terbutaline Sulfate (Brethine Inj) 1 mg UNSCH PRN SQ For Extravasation; Start 06/07/16 at 23:45 Albumin Human (Albumin 25% Inj) 25 gm ONCE ONCE IV Last administered on 08:52; Start 06/08/16 at 08:00; Stop 06/08/16 at 08:01; Status DC Albumin Human (Albumin 25% Inj) 25 gm Q12H IV Last administered on 06/09/16 20 :59; Start 06/08/16 at 08:00; Stop 06/10/16 at 07:59; Status DC Midodrine 5 mg 5 mg TID@07,12,17 PO Last administered on 06/09/16 11:13; Start 06/08/16 at 12:00; Stop 06/09/16 at 11:30; Status DC Vancomycin HCl 1000 mg/Sodium Chloride 250 ml @ 250 mls/hr ONCE ONCE IV Last administered on 06/08/16 11:35; Start 06/08/16 at 11:00; Stop 06/08/16 at 11:59 ; Status DC Pharmacy Profile Note 0 ml @ 0 mls/hr UNSCH OTHER ; Start 06/08/16 at 09:45; Stop 06/11/16 at 14:09; Status DC Vancomycin HCl/ Sodium Chloride (Vancomycin Inj/ NS 250 ml Inj) 257.5 ml @ 250 mls/hr Q12H IV Last administered on 06/11/16 11:09; Start 06/08/16 at 23:00; Stop 06/11/16 at 14:09; Status DC Miscellaneous Information SPECIFIC LAB TO BE ... ONCE ONCE XX Last administered on 06/09/16 22:45; Start 06/09/16 at 22:45; Stop 06/09/16 at 22:46 ; Status DC Fluconazole/ Sodium Chloride 200 ml @ 100 mls/hr Q24H IV Last administered on 06/14/16 13:47; Start 06/08/16 at 13:00 Fosphenytoin Sodium/Sodium Chloride (Cerebyx Inj/NS Inj) 52.6 ml @ 216 mls/hr Q12HR IV Last administered on 06/10/16 04:39; Start 06/10/16 at 06:00; Stop at 08:36; Status DC Midodrine (Proamatine) 10 mg TID@07,12,17 PO Last administered on 06/15/16 06: 27; Start 06/09/16 at 12:00 Alteplase, Recombinant 2 mg 2 mg ONCE ONCE IV FLUSH Last administered on 21:00; Start 06/09/16 at 18:00; Stop 06/09/16 at 18:01; Status DC Fosphenytoin Sodium/Sodium Chloride (Cerebyx Inj/NS Inj) 52.6 ml @ 216 mls/hr Q12H IV Last administered on 06/13/16 05:14; Start 06/11/16 at 06:00; Stop at 12:03; Status DC Docusate Sodium (Colace) 100 mg BID PRN PO CONSTIPATION; Start 06/10/16 at 08: 45 Magnesium Hydroxide (Milk Of Magnesia Liq) 30 ml DAILY PRN PO CONSTIPATION Last administered on 06/12/16 16:42; Start 06/10/16 at 08:45 Tolterodine Tartrate 4 mg 4 mg DAILY PO Last administered on 06/15/16 10:03; Start 06/10/16 at 15:30 Sodium Chloride (NS 250 ml Inj) 250 ml @ 250 mls/hr BOLUS ONCE IV Last administered on 06/10/16 19:30; Start 06/10/16 at 19:30; Stop 06/10/16 at 20:29 ; Status DC Bisacodyl (Dulcolax Supp) 10 mg DAILY PRN RECTAL constipation Last administered on 06/12/16 16:44; Start 06/12/16 at 15:00 Pantoprazole Sodium (Protonix) 40 mg DAILY PO Last administered on 06/15/16 10: 03; Start 06/13/16 at 09:00 Nystatin (Mycostatin Cream) 1 applic DAILY PRN TOPICAL RASH; Start 06/13/16 at 08:45 Levetriacetam (Keppra) 500 mg Q12HR PO ; Start 06/13/16 at 21:00; Stop 06/13/16 at 21:00; Status DC Levetriacetam (Keppra) 250 mg Q12HR PO Last administered on 06/15/16 10:03; Start 06/13/16 at 21:00 A/P Assessment and Plan A/P Acute metabolic encephalopathy-improving slowly Advanced Parkinson's disease Bifrontal sharps on EEG -Continue Sinemet -Resumed Zyprexa and Lyrica 06/06 -Encephalopathy seems to be metabolic -Neurology Dr. Brown following - Fosphenytoin was dc'ed and started on Keppra Respiratory insufficiency -improved Left lower lobe infiltrate/pneumonia -Nasal cannula oxygen -DuoNeb every 6 hours when necessary, aggressive pulmonary toilet -See ID section for antibiotics Septic shock -resolved -BP stable-off Levophed -continue midodrine . Mild troponin elevation; due to sepsis and renal failure. Acute kidney failure -resolved questionable leak around the suprapubic cath. -Renal failure secondary to dehydration and hypotension-resolved -Monitor renal function closely. -urology consult appreciated; suprapubic cath was exchanged; to be changed every 3-4 weeks. Septic shock -resolved ESBL Ecoi bacteremia UTI with GNR, possible ESBL Escherichia coli Left lower lobe infiltrate/pneumonia History of ESBL Escherichia coli UTI in the past Stage IV decubitus ulcer -Continue IV meropenem and Diflucan. -ID is following. -06/05 blood culture 06/17 bottles ESBL Escherichia coli -06/05 Urine culture ESBL Escherichia coli -06/08 blood cultures negative so far -06/11; blood and urine cultures negative so far. -Wound care following -Abx per ID Leukocytosis -improving -Monitor CBC, CMP, coags hypokalemia -replaced. PROPH: -Bilateral lower extremity SCDs. Lovenox 40 mg subcutaneous daily. Protonix 40 mg daily palliative care following. calorie count done and it seems that the patient is eating better; continue with the soft diet. account general manager following. continue PT. Discharge Planning dc planning early this week if stable and when cleared by ID. Shantanu Galicia MD Jun 15, 2016 11:13
[2016-06-15] MEDS: ROTIGOTINE TOPICAL SCH (12:35)
[2016-06-15] MEDS: REMOVE OLD PATCH T-DERMAL SCH (12:35)
[2016-06-15] MEDS: FLUCONAZOLE 400 MG PREMIX BAG 200 ML IV SCH (13:12)
[2016-06-15] MEDS: ENOXAPARIN SODIUM 30 MG/0.3 ML SYRINGE SQ SCH (18:02)
[2016-06-15] MEDS: OLANZapine 5 MG TAB PO SCH (21:38)
[2016-06-16] VITALS (8 sets, daily range): BP systolic 94–127; BP diastolic 55–78; PULSE 68–84; RESP 18–20; TEMP 97.4–99.5; O2SAT 94–96
[2016-06-16] MEDS: CHLORHEXIDINE GLUCONATE 2 % 1 PACK (2 CLOTHS) TOP SCH (04:00)
[2016-06-16] MEDS: CARBIDOPA/LEVODOPA 25 MG/250 MG TAB PO SCH ×5 (04:58→21:46)
[2016-06-16] MEDS: MEROPENEM 1000 MG/NS 100 ML IV SCH ×6 (04:58→21:44)
[2016-06-16] MEDS: MIDODRINE 5 MG TAB PO SCH ×3 (05:03→17:49)
[2016-06-16] MEDS: levETIRAcetam 500 MG TAB PO SCH ×2 (08:31→21:45)
[2016-06-16] MEDS: PREGABALIN 25 MG CAP PO SCH ×3 (08:31→17:49)
[2016-06-16] MEDS: DONEPEZIL HCL 5 MG TAB PO SCH (08:32)
[2016-06-16] MEDS: PANTOPRAZOLE SOD 40 MG DELAYED RELEASE TAB PO SCH (08:32)
--- NOTE | 2016-06-16 09:30 | HHI.HCPN ---
Reason for visit a. To assist with evaluation and management of symptoms including: pain, agitation/hallucinations b. To assist medical decision maker(s) with: better understanding of current medical conditions; weighing benefits/burdens of medical treatment options; making medical treatment decisions. Subjective/Interval History LATE ENTRY this patient was actually seen and this note actually entered on 06/13/16/ due to error in the electronic filing process note appears as . Pt seen today to follow up on comfort, as well as goals/update to family . Remains stable in the ICU. BP stable. Other vital signs stable. Has transfer out of ICU order. Blood culture 06/08no growth to date. Repeat cultures obtained yesterday, pending. Calorie count ongoing. Ate 2590% of meals yesterday per documentation. No bowel movement since admission her documentation, does have prn MOM, Colace available. in the past had indicated that patient had alternating constipation with diarrhea in the home setting. Bowel sounds present, abdominal exam negative. No visitors present at bedside during my exam. Patient more alert today. She is pleasant, partially oriented (oriented to family, hospital, thinks she is in [place], unable to state why she is in the hospital). She indicates that she is feeling "pretty good" today . She denies pain, denies shortness of breath. Discussed with primary nurse, if arrives later and has any additional questions or would like palliative update she will notify me. . Advance Directives Living Will: Copy in medical record Health Care Surrogate: Copy in medical record Advance Directive Specifics Date completed: August 2009 Health Care Surrogate(s): Fausto Cali, juan jose Leung . Documented care wishes: Living will details in the usual verbiage that if patient with terminal, end- stage or persistent vegetative condition with no chance of reasonable medical probability of recovery directs life-prolonging procedures be withheld for withdrawn when they would only serve to prolong artificially the process of dying, and be permitted to naturally with only the administration of medication deemed necessary to provide comfort care or alleviate pain. Objective Vital Signs Date Time Temp Pulse Resp B/P Pulse Ox O2 Delivery O2 Flow Rate FiO2 06/12/16 12:00 98.0 66 16 111/54 97 06/12/16 08:35 100 Nasal Cannula 2.00 06/12/16 08:00 Nasal Cannula 2.00 06/12/16 08:00 98.1 80 20 131/72 100 06/12/16 06:00 66 06/12/16 04:00 70 06/12/16 04:00 97.8 79 17 116/56 99 06/12/16 02:00 76 06/12/16 00:00 98.4 78 16 117/56 98 06/12/16 00:00 78 06/11/16 22:00 92 06/11/16 21:01 98 Nasal Cannula 2.00 06/11/16 20:00 76 06/11/16 20:00 99 Nasal Cannula 2.00 06/11/16 20:00 97.6 76 16 144/66 99 06/11/16 18:00 87 06/11/16 16:00 98.2 73 16 124/60 99 06/11/16 16:00 73 Intake & Output 06/12/16 06/12/16 07:00 19:00 Intake Total 1341 ml Output Total 2525 ml Balance -1184 ml Intake Oral 200 ml IV Total 1141 ml Output Urine Total 2525 ml # Bowel Movements 0 Physical Exam CONSTITUTIONAL/GENERAL: This is a frail, chronically ill appearing pt TUBES/LINES/DRAINS: PIV upper extremity, + subclavian central line , SP catheter , SCDs, NC CARDIOVASCULAR: Regular rate and rhythm without murmurs. Peripheral pulses symmetric.trace peripheral edema. RESPIRATORY/CHEST: Symmetric, unlabored respirations. On 2L. Clear to auscultation, decreased air movement. Breath sounds equal bilaterally. GASTROINTESTINAL: Abdomen soft, non-tender, nondistended. No hepato-splenomegaly , or palpable masses. No guarding. Bowel sounds normoactive GENITOURINARY: Without palpable bladder distension. SP catheter in place, some erythema around S/P catheter MUSCULOSKELETAL: Extremities without clubbing, cyanosis. trace periph edema. No mottling or clubbing. NEUROLOGICAL: Alert, partially oriented x2. Cooperative, pleasant, follows commands. Moves extremities with significant weakness, very limited ROM. PSYCHIATRIC: No obvious anxiety/depression/hallucinations . Diagnostic Tests Laboratory Laboratory Tests Test 06/09/16 06/10/16 06/11/16 06/11/16 23:30 06:30 04:30 11:15 Vancomycin Level Trough 13.6 MCG/ML (5.0-10.0) Phenytoin (Dilantin) Level 9.1 MCG/ML 7.7 MCG/ML (10.0-20.0) (10.0-20.0) Creatinine 0.38 MG/DL 0.46 MG/DL (0.50-1.00) (0.50-1.00) Estimat Glomerular Filtration 168 ML/MIN 135 ML/MIN Rate (>89) (>89) Sodium Level 144 MEQ/L (136-145) Potassium Level 3.2 MEQ/L (3.5-5.1) Chloride Level 106 MEQ/L (98-107) Carbon Dioxide Level 33.1 MEQ/L (21.0-32.0) Anion Gap 5 MEQ/L (5-15) Blood Urea Nitrogen 5 MG/DL (7-18) Random Glucose 97 MG/DL (74-106) Calcium Level 8.8 MG/DL (8.5-10.1) Test 06/11/16 06/12/16 21:20 05:15 Urine Color YELLOW (YELLW/STRAW) Urine Turbidity CLEAR (CLEAR) Urine pH 7.0 (5.0-8.5) Urine Specific [place] 1.010 (1.002-1.035) Urine Protein NEG mg/dL (NEG-TRACE) Urine Glucose (UA) NEG mg/dL (NEG) Urine Ketones NEG mg/dL (NEG) Urine Occult Blood NEG (NEG) Urine Nitrite NEG (NEG) Urine Bilirubin NEG (NEG) Urine Urobilinogen LESS THAN 2.0 MG/DL (LESS THAN 2.0) Urine Leukocyte Esterase MOD (NEG) Urine RBC 8 /hpf (0-3) Urine WBC 16 /hpf (0-5) Urine Squamous Epithelial 1 /hpf (0-5) Cells Urine Mucus FEW /lpf (OCC) Microscopic Urinalysis Comment CATH-CULTURE IND Phenytoin (Dilantin) Level 7.6 MCG/ML (10.0-20.0) Result Diagram: 06/09/16 0415 06/11/16 1115 Microbiology Microbiology Date/Time Procedure Status Source Growth 06/11/16 14:50 Aerobic Blood Culture - Preliminary Resulted Blood Peripheral NO GROWTH IN 1 DAY 06/11/16 14:50 Anaerobic Blood Culture - Preliminary Resulted Blood Peripheral NO GROWTH IN 1 DAY 06/11/16 14:58 Aerobic Blood Culture - Preliminary Resulted Blood Peripheral NO GROWTH IN 1 DAY 06/11/16 14:58 Anaerobic Blood Culture - Preliminary Resulted Blood Peripheral NO GROWTH IN 1 DAY 06/11/16 21:20 Urine Culture - Preliminary Resulted Urine Catheterized Urine NO GROWTH IN 24 HOURS. Procedures 06/05 Triple-lumen right subclavian Assessment and Plan Disease Oriented Problem List: (1) Suprapubic catheter dysfunction (2) Neuropathy (3) Urinary incontinence (4) Altered mental status (5) Renal failure (6) Septic shock (7) Lactic acidosis (8) Acute kidney failure (9) UTI (urinary tract infection) (10) Infection due to ESBL-producing Escherichia coli (11) Acute metabolic encephalopathy (12) Sacral decubitus ulcer, stage IV (13) Parkinsons disease (14) Neurogenic bladder Symptom Scale: (1) Neuropathy 0-10 Scale: Unable to quantify Comment: *chronic (2) Dyspnea 0-10 Scale: Unable to quantify Comment: worsening left basilar density, probable effusion -- ? aspiration . (3) Hallucinations (4) Malnutrition (5) Constipation Pertinent Non-Medical Issues Psychosocial: to her spouse 50+ yrs. Lives at home w spouse, he is PCG. Bedbound/dependent for at least the past year. Is a triplet, supported by her 2 sisters, as well as niece, and Spiritual: [employer] Legal:Patient unable to participate in decision-making due to dementia, AMS. Her is designated HCS per her living will. Niece is secondary. Ethical issues impacting care: Important Contacts Healthcare surrogate /spouse Fausto Cali [phone] //[phone] alternate [facility] niece Mere Leung [phone] . Prognosis This pt was admitted for AMS; metabolic encephalopathy 2/2 UTI, sepsis. She has known hx dementia, parkinson's, dependent for all care. Appears she can get through current acute hospitalization, however remains very high risk from complications, setbacks, and ongoing hospitalizations. . Code Status: Full Code Plan * Legal decision maker: Healthcare surrogate /spouse Fausto Cali [phone] //[phone] ; alternate HCS niece Mere Leung [phone] * Goals: 06/11/16no change in treatment goalsgoals remain aggressive. Lengthy discussion with family members 06/09/16. Much review of disease progression and trajectory; as well as recent hospitalizations in recurrent infections. Exploration patient remains high risk for continued infections, other combinations and setbacks related to both disease progression and debilitated status. Review of possible interventions in the future including feeding tube, resuscitation etc. All questions answered. No changes elected as of today however they're going to talk more regarding CODE STATUS. Goals for now semi-aggressive though they will be continuing to review her living will which details she would not want heroic or artificial measures and the presence of end-stage, terminal, or vegetative conditions. They also share that patient had about a year ago verbalized she had no quality of life and "just wanted to ". They are open to ongoing discussions regarding conditions prognosis and goals. * CODE STATUS: Full code * SYMPTOMS: --neuropathy -chronic neuropathy bilateral lower extremities; currently appears comfortable, on lyrica --pain- reports pt has had ongoing pain to buttocks wound, and discomfort w turning/repositioning--likely multifactorial; on lyrica, has prn Tylenol available-- appearing comfortable now, could consider low dose opiates though cautious use 2/2 risk for resp decline r/t AMS --dyspnea - worsening CXR, passed swallowing eval, risk for further resp decline--respiratory status has remained stable no shortness of breath or increase in FiO2 requirements -- hallucinations/confusion- ongoing hx confusion/hallucinations, 2/2 disease process, likely worsened by sepsis. hallucinations do not appear distressing to pt at this time per family- could consider low dose Haldol if hallucinations/agitation becomes severe- avoid benzos, sedating agents . --Malnutrition--weight loss estimated 60 pounds in one year.[ weight loss of 10 kg from Dec 2015 to current] Eats 2 small meals a day normally. Requires feeding by her . This will likely continue, high risk for further decline, likely not consistently meet caloric demands. Eating 0-10-50% of meals in hospital setting-- ate 25-90% of meals yesterday. Likely require PEG tube at some point. Albumin 2.9. Calorie count in process. Still eating when fed, indicates eats very slowly, falls asleep during meals. -- constipation- no BM since admission, Hx per ROS of constipation/diarrhea, likely 2/2 bedbound, disease process-- order PRN dulcolax, disimpaction, nurse report hard stool in rectal vault. * Palliative care will continue to follow during hospital course as condition evolves, to assist patient/decision-maker with understanding of medical conditions, weighing benefits/burdens of treatment options, for clarification of goals of treatment. Additionally will assist with any symptoms of palliative concern . Time Spent Total Floor Time (mins): 25 >50% Counseling/Coord of Care: Yes (d/w RN ,attending ) Attestation To help prompt me to consider important information that might be impacting today's encounter and assessment, information from prior notes written by myself or my colleagues may have been "brought forward" into today's note. My signature on this note, however, is an attestation that I personally performed the exam, history, and/or decision-making noted today, and, unless otherwise indicated, the interactions with patient, family, and staff as well as the review of records all occurred today. I also attest that the listed assessment and stated plan reflect my best clinical judgment today based on the combination of historical information, prior notes, and today's exam/ interactions. When time spent is documented, it refers only to time spent today by the signer, or if indicated, combined time spent today by collaborating physician/nurse practitioner. Sheryl Mckeon Jun 12, 2016 15:45
--- NOTE | 2016-06-16 09:58 | HHI.PR ---
Subjective Remarks resting comfortably with no distress. denies pain. no fever. no new complaints. Objective Vitals Vital Signs Date Time Temp Pulse Resp B/P Pulse Ox O2 Delivery O2 Flow Rate FiO2 06/16/16 08:00 97.7 68 18 127/69 95 06/16/16 04:54 95 Nasal Cannula 2.00 06/16/16 04:52 97.7 81 19 122/62 95 06/16/16 00:00 97.4 75 18 94/55 94 06/15/16 23:24 82 06/15/16 22:30 95 Nasal Cannula 2.00 06/15/16 20:32 97.7 82 18 92/73 95 06/15/16 17:55 95 Nasal Cannula 1.00 06/15/16 17:49 95.5 16 18 142/79 95 06/15/16 12:00 98.6 74 18 124/63 96 I/O 06/15/16 06/15/16 06/15/16 06/16/16 06/16/16 06/16/16 07:00 15:00 23:00 07:00 15:00 23:00 Intake Total 914 ml 1177 ml 435 ml 240 ml Output Total 900 ml 2750 ml 400 ml 1000 ml Balance 14 ml -1573 ml 35 ml -760 ml Intake Oral 200 ml 125 ml 240 ml IV Total 714 ml 1052 ml 435 ml Output Urine Total 900 ml 2750 ml 400 ml 1000 ml Result Diagram: 06/13/16 0445 Imaging Last Impressions Chest X-Ray 06/09/16 0600 Signed Impressions: Service Date/Time: Thursday, June 09, 2016 03:49 - CONCLUSION: Worsening left basilar density and probable small pleural effusion. Jay Araujo MD Head CT 06/05/16 1516 Signed Impressions: Service Date/Time: May 15:49 - CONCLUSION: 1. Mild periventricular and subcortical white matter small vessel ischemic changes bilaterally. 2. No acute infarct, acute hemorrhage, mass effect or extra- axial fluid collections. Ruy Donahue MD Objective Remarks GENERAL: in no apparent distress. CARDIOVASCULAR: Regular rate and regular rhythm without murmurs, gallops, or rubs. RESPIRATORY: Clear to auscultation. Breath sounds equal bilaterally. No wheezes , rales, or rhonchi. GASTROINTESTINAL: Abdomen soft, non-tender, nondistended. Normal, active bowel sounds MUSCULOSKELETAL: Extremities without clubbing, cyanosis, or edema. NEURO: awake and alert- oriented to person and place. Procedures none Medications and IVs Current Medications Carbidopa/Levodopa (Sinemet 25-250 Mg) 1 tab ONCE ONCE PO Last administered on 06/05/16 15:42; Start 06/05/16 at 15:15; Stop 06/05/16 at 15:16; Status DC Sodium Chloride 2 ml 2 ml UNSCH PRN IVF FLUSH AFTER USING IV ACCESS; Start at 15:30 Sodium Chloride 1,000 ml @ 1,000 mls/hr Q1H IV Last administered on 06/05/16 15:43; Start 06/05/16 at 15:16; Stop 06/05/16 at 16:15; Status DC Sodium Chloride 1,000 ml @ 999 mls/hr BOLUS ONCE IV Last administered on 06/05 15:43; Start 06/05/16 at 15:30; Stop 06/05/16 at 16:32; Status DC Sodium Chloride 1,000 ml @ 999 mls/hr BOLUS ONCE IV Last administered on 06/05 15:43; Start 06/05/16 at 15:30; Stop 06/05/16 at 16:32; Status DC Piperacillin Sod/ Tazobactam Sod 100 ml @ 200 mls/hr ONCE ONCE IV Last administered on 06/05/16 16:18; Start 06/05/16 at 15:30; Stop 06/05/16 at 15:59 ; Status DC Vancomycin HCl/ Sodium Chloride (Vancomycin Inj/ NS 250 ml Inj) 250 ml @ 250 mls/hr ONCE ONCE IV Last administered on 06/05/16 15:44; Start 06/05/16 at 15 :30; Stop 06/05/16 at 16:32; Status DC Carbidopa/ Levodopa 1 tab 1 tab ONCE ONCE PO Last administered on 06/05/16 16 :25; Start 06/05/16 at 15:30; Stop 06/05/16 at 15:32; Status DC Norepinephrine Bitartrate 250 ml @ 0 mls/hr TITRATE IV Last administered on 11:43; Start 06/05/16 at 16:15; Stop 06/07/16 at 09:13; Status DC Piperacillin Sod/ Tazobactam Sod 50 ml @ 100 mls/hr Q6H IV ; Start 06/05/16 at 23:00; Stop 06/05/16 at 23:00; Status DC Pharmacy Profile Note (Vancomycin Consult Pharmacy) 0 ml @ 0 mls/hr UNSCH OTHER ; Start 06/05/16 at 16:15; Stop 06/06/16 at 14:58; Status DC Carbidopa/Levodopa (Sinemet 25-250 Mg) 1 tab DAILY PO ; Start 06/06/16 at 09:00 ; Stop 06/06/16 at 09:00; Status DC Patient Own Medication PT OWN MED: NEUPRO PATCH 4 MG/24 ... DAILY TOPICAL ; Start 06/06/16 at 09:00; Status Cancel Carbidopa/Levodopa (Sinemet 25-250 Mg) 1 tab Q6H PO Last administered on 08:42; Start 06/06/16 at 09:00; Stop 06/07/16 at 12:51; Status DC Miscellaneous Medication (ASP Crit: Path resist to other, cult proven) 1 UNSCH X1 PRN XX PHARMACY DOCUMENTATION; Start 06/05/16 at 16:30; Stop 06/06/16 at 16: 29; Status DC Miscellaneous Medication 1 1 UNSCH X1 PRN XX PHARMACY DOCUMENTATION; Start at 16:30; Stop 06/06/16 at 16:29; Status DC Meropenem 500 mg/ Sodium Chloride 100 ml @ 200 mls/hr Q12H IV Last administered on 06/06/16 05:10; Start 06/05/16 at 17:00; Stop 06/06/16 at 11:26 ; Status DC Vancomycin HCl 500 mg/Sodium Chloride 100 ml @ 200 mls/hr ONCE ONCE IV Last administered on 06/05/16 18:30; Start 06/05/16 at 17:00; Stop 06/05/16 at 17:29 ; Status DC Sodium Chloride (NS 1000 ml Inj) 1,000 ml @ 60 mls/hr [id number] IV Last administered on 06/15/16 21:39; Start 06/05/16 at 16:27 Acetaminophen (Tylenol) 650 mg Q6H PRN PO PAIN 1-10 AND/OR FEVER >101F Last administered on 06/14/16 05:52; Start 06/05/16 at 16:30 Pantoprazole Sodium (Protonix Inj) 40 mg DAILY IV Last administered on 09:00; Start 06/06/16 at 09:00; Stop 06/13/16 at 08:45; Status DC Albuterol/ Ipratropium (Duoneb Neb) 1 ampule Q2HR NEB PRN INH WHEEZING; Start 06/05/16 at 16:30 Enoxaparin Sodium (Lovenox Inj) 30 mg Q24H SQ Last administered on 06/15/16 18: 02; Start 06/05/16 at 17:00 Miscellaneous Information 1 Q361D XX ; Start 06/05/16 at 16:30 Chlorhexidine Gluconate (Chlorhexidine 2% Cloth) Taper DAILY@04 TOP Last administered on 06/11/16 04:00; Start 06/06/16 at 04:00; Stop 06/02/17 at 03:59 Chlorhexidine Gluconate 3 pack 3 pack UNSCH PRN TOP HYGIENIC CARE; Start at 16:30 Fluconazole/ Sodium Chloride 50 ml @ 50 mls/hr Q24H IV Last administered on 18:29; Start 06/05/16 at 18:00; Stop 06/06/16 at 14:59; Status DC Potassium Chloride 100 ml @ 50 mls/hr Q2H PRN IV For Potassium 2.8 - 3.2 mEq/ L Last administered on 06/11/16 12:32; Start 06/06/16 at 08:45; Stop 06/12/16 at 08:26; Status DC Potassium Chloride 100 ml @ 50 mls/hr Q2H PRN IV For Potassium 2.8 - 3.2 mEq/L ; Start 06/06/16 at 08:45; Stop 06/12/16 at 08:26; Status DC Potassium Chloride 100 ml @ 25 mls/hr UNSCH PRN IV For Potassium 3.3 - 3.5 mEq /L Last administered on 06/07/16 08:41; Start 06/06/16 at 08:45; Stop 06/12/16 at 08:26; Status DC Potassium Chloride 100 ml @ 50 mls/hr Q2H PRN IV For Potassium 3.3 - 3.5 mEq/ L Last administered on 06/09/16 08:06; Start 06/06/16 at 08:45; Stop 06/12/16 at 08:27; Status DC Magnesium Sulfate/ Sodium Chloride (Magnesium Sulfate Inj/NS Inj) 100 ml @ 50 mls/hr UNSCH PRN IV For Magnesium 0.9 - 1.1 mg/dL; Start 06/06/16 at 08:45; Stop 06/12/16 at 08:27; Status DC Magnesium Oxide 800 mg 800 mg UNSCH PRN PO For Magnesium 1.2 - 1.6 mg/dL; Start 06/06/16 at 08:45; Stop 06/12/16 at 08:27; Status DC Magnesium Sulfate/ Sodium Chloride (Magnesium Sulfate Inj/NS Inj) 100 ml @ 50 mls/hr UNSCH PRN IV For Magnesium 1.2 - 1.6 mg/dL Last administered on 13:38; Start 06/06/16 at 08:45; Stop 06/12/16 at 08:27; Status DC Potassium Phosphate 2000 mg 2,000 mg Q4H PRN PO For Phosphorus < 2.5 mg/dL Last administered on 06/09/16 17:00; Start 06/06/16 at 08:45; Stop 06/12/16 at 08:27; Status DC Sodium Phosphate/ Sodium Chloride (Sodium Phosphate Inj/NS 250 ml Inj) 250 ml @ 42 mls/hr UNSCH PRN IV For Phosphorus < 2.5 mg/dL; Start 06/06/16 at 08:45; Stop 06/12/16 at 08:27; Status DC Potassium Phosphate 2000 mg 2,000 mg UNSCH PRN PO/TUBE SEE LABEL COMMENTS; Start 06/06/16 at 08:45; Stop 06/12/16 at 08:27; Status DC Potassium Phosphate 30 mmol/ Sodium Chloride 260 ml @ 42 mls/hr UNSCH PRN IV SEE LABEL COMMENTS; Start 06/06/16 at 08:45; Stop 06/12/16 at 08:27; Status DC Fluconazole/ Sodium Chloride 50 ml @ 50 mls/hr Q24H IV ; Start 06/06/16 at 09:30 ; Status UNV Vancomycin HCl/ Sodium Chloride (Vancomycin Inj/ NS 250 ml Inj) 262.5 ml @ 250 mls/hr Q24H IV ; Start 06/06/16 at 18:00; Stop 06/06/16 at 18:00; Status DC Miscellaneous Information SPECIFIC LAB TO BE DRAWN:VANCOMYCIN TROUGH DATE TO... ONCE ONCE XX ; Start 06/07/16 at 17:45; Stop 06/07/16 at 17:45; Status DC Meropenem 1000 mg/ Sodium Chloride 100 ml @ 200 mls/hr Q8H IV ; Start 06/06/16 at 13:00; Status UNV Sodium Chloride 1,000 ml @ 999 mls/hr BOLUS ONCE IV Last administered on 06/06 11:44; Start 06/06/16 at 12:00; Stop 06/06/16 at 13:00; Status DC Meropenem/Sodium Chloride (Merrem Inj/NS Inj) 100 ml @ 200 mls/hr Q8H IV Last administered on 06/16/16 04:58; Start 06/06/16 at 13:00 Donepezil HCl (Aricept) 10 mg DAILY PO Last administered on 06/16/16 08:32; Start 06/06/16 at 17:00 Olanzapine (ZyPREXA) 5 mg HS PO Last administered on 06/15/16 21:38; Start at 21:00 Pregabalin (Lyrica) 50 mg TID PO Last administered on 06/16/16 08:31; Start at 18:00 Fosphenytoin Sodium 200 mgpe 200 mgpe Q12HR IV ; Start 06/06/16 at 21:00; Stop 06/06/16 at 21:00; Status DC Fosphenytoin Sodium 1000 mgpe/ Sodium Chloride 70 ml @ 280 mls/hr ONCE ONCE IV Last administered on 06/06/16 17:30; Start 06/06/16 at 17:30; Stop at 18:01; Status DC Fosphenytoin Sodium/Sodium Chloride (Cerebyx Inj/NS Inj) 54 ml @ 216 mls/hr Q12HR IV Last administered on 06/09/16 08:04; Start 06/06/16 at 21:00; Stop at 09:53; Status DC Carbidopa/Levodopa (Sinemet 25-250 Mg) 1.5 tab 5 TIMES A DAY PO Last administered on 06/16/16 04:58; Start 06/07/16 at 18:00 Patient Own Medication PT OWN MED: NEUPRO PATCH 4 MG/24 ... Q24H TOPICAL Last administered on 06/15/16 12:35; Start 06/07/16 at 14:00 Miscellaneous Information 1 Q24H T-DERMAL Last administered on 06/15/16 12:35; Start 06/07/16 at 14:00 Miscellaneous 1 ea 1 ea UNSCH PRN OTHER SEE LABEL COMMENTS Last administered on 06/13/16 20:57; Start 06/07/16 at 13:15 Norepinephrine Bitartrate (Levophed-Dextrose Drip) 250 ml @ 0 mls/hr TITRATE IV Last administered on 06/08/16 05:51; Start 06/07/16 at 23:45; Stop 06/09/16 at 11:30; Status DC Terbutaline Sulfate (Brethine Inj) 1 mg UNSCH PRN SQ For Extravasation; Start 06/07/16 at 23:45 Albumin Human (Albumin 25% Inj) 25 gm ONCE ONCE IV Last administered on 08:52; Start 06/08/16 at 08:00; Stop 06/08/16 at 08:01; Status DC Albumin Human (Albumin 25% Inj) 25 gm Q12H IV Last administered on 06/09/16 20 :59; Start 06/08/16 at 08:00; Stop 06/10/16 at 07:59; Status DC Midodrine 5 mg 5 mg TID@07,12,17 PO Last administered on 06/09/16 11:13; Start 06/08/16 at 12:00; Stop 06/09/16 at 11:30; Status DC Vancomycin HCl 1000 mg/Sodium Chloride 250 ml @ 250 mls/hr ONCE ONCE IV Last administered on 06/08/16 11:35; Start 06/08/16 at 11:00; Stop 06/08/16 at 11:59 ; Status DC Pharmacy Profile Note 0 ml @ 0 mls/hr UNSCH OTHER ; Start 06/08/16 at 09:45; Stop 06/11/16 at 14:09; Status DC Vancomycin HCl/ Sodium Chloride (Vancomycin Inj/ NS 250 ml Inj) 257.5 ml @ 250 mls/hr Q12H IV Last administered on 06/11/16 11:09; Start 06/08/16 at 23:00; Stop 06/11/16 at 14:09; Status DC Miscellaneous Information SPECIFIC LAB TO BE MYRNA... ONCE ONCE XX Last administered on 06/09/16 22:45; Start 06/09/16 at 22:45; Stop 06/09/16 at 22:46 ; Status DC Fluconazole/ Sodium Chloride 200 ml @ 100 mls/hr Q24H IV Last administered on 06/15/16 13:12; Start 06/08/16 at 13:00 Fosphenytoin Sodium/Sodium Chloride (Cerebyx Inj/NS Inj) 52.6 ml @ 216 mls/hr Q12HR IV Last administered on 06/10/16 04:39; Start 06/10/16 at 06:00; Stop at 08:36; Status DC Midodrine (Proamatine) 10 mg TID@07,12,17 PO Last administered on 06/16/16 05: 03; Start 06/09/16 at 12:00 Alteplase, Recombinant 2 mg 2 mg ONCE ONCE IV FLUSH Last administered on 21:00; Start 06/09/16 at 18:00; Stop 06/09/16 at 18:01; Status DC Fosphenytoin Sodium/Sodium Chloride (Cerebyx Inj/NS Inj) 52.6 ml @ 216 mls/hr Q12H IV Last administered on 06/13/16 05:14; Start 06/11/16 at 06:00; Stop at 12:03; Status DC Docusate Sodium (Colace) 100 mg BID PRN PO CONSTIPATION; Start 06/10/16 at 08: 45 Magnesium Hydroxide (Milk Of Magnesia Liq) 30 ml DAILY PRN PO CONSTIPATION Last administered on 06/12/16 16:42; Start 06/10/16 at 08:45 Tolterodine Tartrate 4 mg 4 mg DAILY PO Last administered on 06/15/16 10:03; Start 06/10/16 at 15:30 Sodium Chloride (NS 250 ml Inj) 250 ml @ 250 mls/hr BOLUS ONCE IV Last administered on 06/10/16 19:30; Start 06/10/16 at 19:30; Stop 06/10/16 at 20:29 ; Status DC Bisacodyl (Dulcolax Supp) 10 mg DAILY PRN RECTAL constipation Last administered on 06/12/16 16:44; Start 06/12/16 at 15:00 Pantoprazole Sodium (Protonix) 40 mg DAILY PO Last administered on 06/16/16 08: 32; Start 06/13/16 at 09:00 Nystatin (Mycostatin Cream) 1 applic DAILY PRN TOPICAL RASH Last administered on 06/15/16 12:33; Start 06/13/16 at 08:45 Levetriacetam (Keppra) 500 mg Q12HR PO ; Start 06/13/16 at 21:00; Stop 06/13/16 at 21:00; Status DC Levetriacetam (Keppra) 250 mg Q12HR PO Last administered on 06/16/16 08:31; Start 06/13/16 at 21:00 A/P Assessment and Plan A/P Acute metabolic encephalopathy-improving slowly Advanced Parkinson's disease Bifrontal sharps on EEG -Continue Sinemet -Resumed Zyprexa and Lyrica 06/06 -Encephalopathy seems to be metabolic -Neurology Dr. Brown following - started on Keppra ( until off Abx). Respiratory insufficiency -improved Left lower lobe infiltrate/pneumonia -Nasal cannula oxygen -DuoNeb every 6 hours when necessary, aggressive pulmonary toilet -See ID section for antibiotics Septic shock -resolved -BP stable- -continue midodrine . Mild troponin elevation; due to sepsis and renal failure. Acute kidney failure -resolved questionable leak around the suprapubic cath. -Renal failure secondary to dehydration and hypotension-resolved -Monitor renal function closely. -urology consult appreciated; suprapubic cath was exchanged; to be changed every 3-4 weeks. Septic shock -resolved ESBL Ecoi bacteremia UTI with GNR, possible ESBL Escherichia coli Left lower lobe infiltrate/pneumonia History of ESBL Escherichia coli UTI in the past Stage IV decubitus ulcer -Continue IV meropenem and Diflucan. -ID is following. -06/05 blood culture 06/17 bottles ESBL Escherichia coli -06/05 Urine culture ESBL Escherichia coli -06/08 blood cultures negative so far -06/11; blood and urine cultures negative so far. -Wound care following -Abx per ID Leukocytosis -improving -Monitor CBC, CMP, coags hypokalemia -replaced. PROPH: -Bilateral lower extremity SCDs. Lovenox 40 mg subcutaneous daily. Protonix 40 mg daily palliative care following. calorie count done and it seems that the patient is eating better; continue with the soft diet. coal carrier following. continue PT. Discharge Planning dc planning early this week when cleared by ID. case management consulted for [facility]. plan was previously d/w the patient's . Shantanu Galicia MD Jun 16, 2016 09:58
[2016-06-16] MEDS ORDERED: [UNRECOGNIZED DRUG - CODE] PO (10:04)
[2016-06-16] MEDS ORDERED: MIDO5TAB PO (10:04)
--- NOTE | 2016-06-16 10:04 | HHI.FF ---
Face to Face Verification Diagnosis: (1) Septic shock (2) Infection due to ESBL-producing Escherichia coli Physical Therapy Order: Evaluate and Treat Home Health Nursing Order: Medical education Signs/symptoms of disease process Medication education-adverse effect Nursing assessment with vital signs I have seen patient Anastasiya Cali on 06/16/16. My clinical findings support the need for the requested home health care services because: Ltd mobility - disease progression I certify that my clinical findings support that this patient is homebound because: Unsteady gait/balance Shantanu Galicia MD Jun 16, 2016 10:04
[2016-06-16] MEDS: TOLTERODINE TARTRATE 4 MG CAP LA PO SCH (10:22)
[2016-06-16] MEDS: REMOVE OLD PATCH T-DERMAL SCH (13:24)
[2016-06-16] MEDS: ROTIGOTINE TOPICAL SCH (13:24)
[2016-06-16] MEDS: FLUCONAZOLE 400 MG PREMIX BAG 200 ML IV SCH (13:26)
--- NOTE | 2016-06-16 17:37 | HHI.IDPN ---
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 Vital Signs Date Time Temp Pulse Resp B/P Pulse Ox O2 Delivery O2 Flow Rate FiO2 06/16/16 16:00 98.8 84 18 119/78 96 06/16/16 15:54 80 06/16/16 13:47 Nasal Cannula 2.00 06/16/16 12:00 97.9 76 20 105/59 94 06/16/16 10:30 95 Nasal Cannula 2.00 06/16/16 08:00 97.7 68 18 127/69 95 06/16/16 04:54 95 Nasal Cannula 2.00 06/16/16 04:52 97.7 81 19 122/62 95 06/16/16 00:00 97.4 75 18 94/55 94 06/15/16 23:24 82 06/15/16 22:30 95 Nasal Cannula 2.00 06/15/16 20:32 97.7 82 18 92/73 95 06/15/16 17:55 95 Nasal Cannula 1.00 06/15/16 17:49 95.5 16 18 142/79 95 06/15/16 06/15/16 06/16/16 15:00 23:00 07:00 Intake Total 1177 ml 435 ml Output Total 2750 ml 400 ml Balance -1573 ml 35 ml Intake Oral 125 ml IV Total 1052 ml 435 ml Output Urine Total 2750 ml 400 ml Imaging Last Impressions Chest X-Ray 06/09/16 0600 Signed Impressions: Service Date/Time: Thursday, June 09, 2016 03:49 - CONCLUSION: Worsening left basilar density and probable small pleural effusion. Jay Araujo MD Head CT 06/05/16 1516 Signed Impressions: Service Date/Time: May 15:49 - CONCLUSION: 1. Mild periventricular and subcortical white matter small vessel ischemic changes bilaterally. 2. No acute infarct, acute hemorrhage, mass effect or extra- axial fluid collections. Ruy Donahue MD Physical Exam CONSTITUTIONAL/GENERAL: This is an adequately nourished elderly female patient , in no apparent distress. TUBES/LINES/DRAINS: R SC TLC in place wo e/o infx SKIN: No jaundice, rashes, or lesions. Skin temperature appropriate. Not diaphoretic. CARDIOVASCULAR: Regular rate and rhythm without murmurs, gallops, or rubs. No JVD. Peripheral pulses symmetric. RESPIRATORY/CHEST: Symmetric, unlabored respirations. Clear to auscultation. Breath sounds equal bilaterally. No wheezes, rales, or rhonchi. GASTROINTESTINAL: Abdomen soft, non-tender, nondistended. No hepato-splenomegaly , or palpable masses. No guarding. Bowel sounds present. GENITOURINARY: Without palpable bladder distension. SP catheter in place with clear yellow urine MUSCULOSKELETAL: Extremities without clubbing, cyanosis, + trace edema. Cogwheel rigidity present LYMPHATICS: No palpable cervical or supraclavicular adenopathy. NEUROLOGICAL: awake, alert; incoherent speech Assessment & Plan Remarks Sepsis 2/2 bacteremia and UTI ESBL E.coli in urine, pseudomonas species plus dar in urine: Suprapubic cath related cystitis. Pseudomonas bacteruria - PSAE I to imipenem ESBL E.coli bacteremia and Aspiration pneumonia in health care setting. acute metabolic encephalopathy: ? seizures, metabolic, meds. Advanced parkinsons disease. H/o ESBL, PSAE UTIs in past. H/o recent PSAE UTI was on levaquin. Fever - resolved MS back to b/l Recs: Continue Meropenem IV thru 06/19 cont high dose diflucan ? fungemia vs fungal cystitis. x 1-2 weeks; PO form OK dw Mine Barcenas MD Jun 16, 2016 17:37
[2016-06-16] MEDS: ENOXAPARIN SODIUM 30 MG/0.3 ML SYRINGE SQ SCH (17:48)
[2016-06-16] MEDS: OLANZapine 5 MG TAB PO SCH (21:46)
[2016-06-16] MEDS: SODIUM CHLOR 0.9% 1000 ML INJ 1,000 ML IV SCH (21:47)
[2016-06-17] VITALS (8 sets, daily range): BP systolic 107–134; BP diastolic 53–67; PULSE 69–83; RESP 17–19; TEMP 97.2–99.5; O2SAT 92–97
[2016-06-17] MEDS: CHLORHEXIDINE GLUCONATE 2 % 1 PACK (2 CLOTHS) TOP SCH (04:48)
[2016-06-17] MEDS: CARBIDOPA/LEVODOPA 25 MG/250 MG TAB PO SCH ×4 (06:16→18:54)
[2016-06-17] MEDS: MEROPENEM 1000 MG/NS 100 ML IV SCH ×6 (06:17→22:14)
[2016-06-17] MEDS: MIDODRINE 5 MG TAB PO SCH ×2 (07:00→13:38)
--- NOTE | 2016-06-17 08:22 | HHI.PR ---
Review/Management Diagnosis/Plan: (1) Acute metabolic encephalopathy Plan: 2/2 infection/cerebral hypoperfusion improved after iv abx and bp augmentation e.coli bacteremia eeg reviewed; changes likely 2/2 infection; also possibly 2/2 iv abx recs continue [facility] palliative care following severe, advanced parkinsons with worsening 2/2 recent infection (2) Parkinsons disease Plan: sinemet has been increased to 1.5 tabs 5x/day (3) Infection due to ESBL-producing Escherichia coli Plan: iv abx (4) Sepsis Plan: ccm following Subjective Subjective Comments No acute events reported No headache No chest pain No dyspnea Active Medications Current Medications Medications (Trade) Dose Ordered Sig/Johnny Route Start Time Stop Time Status Last Admin Sodium Chloride 2 ml 2 ml UNSCH PRN IVF 06/05/16 15:30 (NS 1000 ml Inj) 1,000 ml @ 60 mls/hr [id number] IV 06/05/16 16:27 06/16/16 21:47 (Tylenol) 650 mg Q6H PRN PO 06/05/16 16:30 06/14/16 05:52 (Lovenox Inj) 30 mg Q24H SQ 06/05/16 17:00 06/16/16 17:48 Miscellaneous Information 1 Q361D XX 06/05/16 16:30 (Chlorhexidine 2% Cloth) Taper DAILY@04 TOP 06/06/16 04:00 06/02/17 03:59 06/11/16 04:00 Chlorhexidine Gluconate 3 pack 3 pack UNSCH PRN TOP 06/05/16 16:30 (Merrem Inj/NS Inj) 100 ml @ 200 mls/hr Q8H IV 06/06/16 13:00 06/17/16 06:17 (Aricept) 10 mg DAILY PO 06/06/16 17:00 06/16/16 08:32 (ZyPREXA) 5 mg HS PO 06/06/16 21:00 06/16/16 21:46 (Lyrica) 50 mg TID PO 06/06/16 18:00 06/16/16 17:49 Patient Own Medication PT OWN MED: NEUPRO PATCH 4 MG/24 ... Q24H TOPICAL 06/07/16 14:00 06/16/16 13:24 Miscellaneous Information 1 Q24H T-DERMAL 06/07/16 14:00 06/16/16 13:24 (Pill Splitter) 1 ea UNSCH PRN OTHER 06/07/16 13:15 06/13/16 20:57 Terbutaline Sulfate 1 mg 1 mg UNSCH PRN SQ 06/07/16 23:45 (Diflucan 400 Mg Premix Bag) 200 ml @ 100 mls/hr Q24H IV 06/08/16 13:00 06/16/16 13:26 (Proamatine) 10 mg TID@,,17 PO 06/09/16 12:00 06/16/16 17:49 (Colace) 100 mg BID PRN PO 06/10/16 08:45 (Milk Of Magnesia Liq) 30 ml DAILY PRN PO 06/10/16 08:45 06/12/16 16:42 (Detrol La) 4 mg DAILY PO 06/10/16 15:30 06/16/16 10:22 (Dulcolax Supp) 10 mg DAILY PRN RECTAL 06/12/16 15:00 06/12/16 16:44 (Protonix) 40 mg DAILY PO 06/13/16 09:00 06/16/16 08:32 (Mycostatin Cream) 1 applic DAILY PRN TOPICAL 06/13/16 08:45 06/15/16 12:33 (Keppra) 250 mg Q12HR PO 06/13/16 21:00 06/16/16 21:45 Allergies Allergies Coded Allergies *MDRO Multi-Drug Resistant Organism (Verified Adverse Reaction, Unknown, ) Review of Systems All other ROS: ROS reviewed as documented in chart Exam I&O / VS 06/16/16 06/16/16 06/17/16 15:00 23:00 07:00 Intake Total 240 ml Output Total 1000 ml 1700 ml 400 ml Balance -760 ml -1700 ml -400 ml Intake Oral 240 ml Output Urine Total 1000 ml 1700 ml 400 ml # Bowel Movements 1 Vital Signs Date Time Temp Pulse Resp B/P Pulse Ox O2 Delivery O2 Flow Rate FiO2 06/17/16 05:40 98.6 83 19 125/59 94 06/17/16 00:00 99.5 79 19 118/67 93 06/16/16 21:00 75 06/16/16 20:00 99.5 84 19 100/59 96 06/16/16 19:40 Nasal Cannula 2.00 06/16/16 16:00 98.8 84 18 119/78 96 06/16/16 15:54 80 06/16/16 13:47 Nasal Cannula 2.00 06/16/16 12:00 97.9 76 20 105/59 94 06/16/16 10:30 95 Nasal Cannula 2.00 General: Alert and Oriented, No acute distress Neurologic: Alert Psychiatric: Cooperative Exam Comments awake, ox 1-2, not to place. follows, facial hypomimia, severe bradykinesia, hypophonic speech, slow eom, face sym, moving ue to gravity 2-3/5, mild ue rigidity; paraplegia x >1 yr Problem Qualifiers (1) Sepsis: Qualified Code: A41.51 - Sepsis due to Escherichia coli Marvin Brown MD Jun 17, 2016 08:22
[2016-06-17] MEDS: TOLTERODINE TARTRATE 4 MG CAP LA PO SCH (09:00)
[2016-06-17] MEDS: PREGABALIN 25 MG CAP PO SCH ×3 (10:14→18:53)
[2016-06-17] MEDS: levETIRAcetam 500 MG TAB PO SCH ×2 (10:14→22:13)
[2016-06-17] MEDS: PANTOPRAZOLE SOD 40 MG DELAYED RELEASE TAB PO SCH (10:14)
[2016-06-17] MEDS: DONEPEZIL HCL 5 MG TAB PO SCH (10:15)
[2016-06-17] MEDS: FLUCONAZOLE 400 MG PREMIX BAG 200 ML IV SCH (13:26)
[2016-06-17] MEDS: REMOVE OLD PATCH T-DERMAL SCH (14:00)
--- NOTE | 2016-06-17 17:58 | HHI.PR ---
Subjective Remarks Follow-up for Parkinson's disease, UTI, ESBL Escherichia coli bacteremia. Patient is resting well in bed. She wakes up easily on verbal commands. Denies any acute concerns. is at bedside. Objective Vitals Vital Signs Date Time Temp Pulse Resp B/P Pulse Ox O2 Delivery O2 Flow Rate FiO2 06/17/16 16:00 97.3 79 18 134/63 97 06/17/16 14:28 15 06/17/16 12:16 97.2 83 18 113/58 93 06/17/16 08:47 94 Nasal Cannula 2.00 06/17/16 08:00 83 06/17/16 08:00 97.8 81 18 107/53 92 06/17/16 05:40 98.6 83 19 125/59 94 06/17/16 00:00 99.5 79 19 118/67 93 06/16/16 21:00 75 06/16/16 20:00 99.5 84 19 100/59 96 06/16/16 19:40 Nasal Cannula 2.00 I/O 06/16/16 06/16/16 06/16/16 06/17/16 06/17/16 06/17/16 07:00 15:00 23:00 07:00 15:00 23:00 Intake Total 435 ml 240 ml 853 ml Output Total 400 ml 1000 ml 1700 ml 400 ml Balance 35 ml -760 ml -1700 ml -400 ml 853 ml Intake Oral 240 ml 120 ml IV Total 435 ml 733 ml Output Urine Total 400 ml 1000 ml 1700 ml 400 ml # Bowel Movements 1 Result Diagram: 06/13/16 0445 Imaging Last Impressions Chest X-Ray 06/09/16 0600 Signed Impressions: Service Date/Time: Thursday, June 09, 2016 03:49 - CONCLUSION: Worsening left basilar density and probable small pleural effusion. Jay Araujo MD Head CT 06/05/16 1516 Signed Impressions: Service Date/Time: May 15:49 - CONCLUSION: 1. Mild periventricular and subcortical white matter small vessel ischemic changes bilaterally. 2. No acute infarct, acute hemorrhage, mass effect or extra- axial fluid collections. Ruy Donahue MD Objective Remarks GENERAL: Alert, NAD. SKIN: Warm and dry. HEAD: Normocephalic. EYES: No scleral icterus. No injection or drainage. NECK: Supple, trachea midline. No JVD or lymphadenopathy. CARDIOVASCULAR: Regular rate and rhythm without murmurs, gallops, or rubs. RESPIRATORY: Breath sounds equal bilaterally. No accessory muscle use. GASTROINTESTINAL: Abdomen soft, non-tender, nondistended. MUSCULOSKELETAL: No cyanosis, or edema. BACK: Nontender without obvious deformity. No CVA tenderness. Procedures EEG 06/10/2016 IMPRESSION Diffuse slowing consistent with a moderate diffuse encephalopathy and some bitemporal frontal sharply contoured alpha waves are seen. No spikes or sharp waves are noted. Clinical correlation is needed. A/P Problem List: (1) Septic shock ICD Code: A41.9 Status: Acute (2) UTI (urinary tract infection) ICD Code: N39.0 Status: Acute (3) Acute metabolic encephalopathy ICD Code: G93.41 Status: Acute (4) Acute kidney failure ICD Code: N17.9 Status: Acute (5) Lactic acidosis ICD Code: E87.2 Status: Acute (6) Infection due to ESBL-producing Escherichia coli ICD Code: A49.8 Status: Acute (7) Parkinsons disease ICD Code: G20 Status: Chronic (8) Neurogenic bladder ICD Code: N31.9 Status: Chronic (9) Sacral decubitus ulcer, stage IV ICD Code: L89.154 Status: Acute Assessment and Plan Acute metabolic encephalopathy-improving slowly Advanced Parkinson's disease Bifrontal sharps on EEG -Continue Sinemet -Resumed Zyprexa and Lyrica 06/06 -Encephalopathy seems to be metabolic -Neurology Dr. Brown following - started on Keppra ( until off Abx). Abx to continue until 06/19/2016. Respiratory insufficiency -improved Left lower lobe infiltrate/pneumonia -Nasal cannula oxygen -DuoNeb every 6 hours when necessary, aggressive pulmonary toilet Acute kidney failure -resolved questionable leak around the suprapubic cath. -Renal failure secondary to dehydration and hypotension-resolved -Monitor renal function closely. -urology consult appreciated; suprapubic cath was exchanged; to be changed every 3-4 weeks. Septic shock -resolved ESBL Ecoi bacteremia UTI with GNR, possible ESBL Escherichia coli Left lower lobe infiltrate/pneumonia History of ESBL Escherichia coli UTI in the past Stage IV decubitus ulcer -Continue IV meropenem and Diflucan. -ID is following. -06/05 blood culture 06/17 bottles ESBL Escherichia coli -06/05 Urine culture ESBL Escherichia coli -06/08 blood cultures negative so far -06/11; blood and urine cultures negative so far. -Wound care following Leukocytosis -improving -Monitor CBC, CMP, coags Hypokalemia - K+ improved to 3.7. DNR. Lovenox 30mg Q24hrs. Discussed with patient's regarding possible hospice. At this point, he does not want to consider hospice. Probable discharge home with home health on 06/19/2016. Problem Qualifiers (1) UTI (urinary tract infection): Qualified Code: N39.0 - Urinary tract infection without hematuria, site unspecified Theodora Byrd DO Jun 17, 2016 17:58 with the soft diet. layout former following. continue PT. Problem Qualifiers (1) UTI (urinary tract infection): Qualified Code: N39.0 - Urinary tract infection without hematuria, site unspecified Theodora Byrd DO Jun 17, 2016 5:58 pm
[2016-06-17] MEDS: ENOXAPARIN SODIUM 30 MG/0.3 ML SYRINGE SQ SCH (18:54)
[2016-06-17] MEDS: OLANZapine 5 MG TAB PO SCH (22:13)
[2016-06-18] VITALS (7 sets, daily range): BP systolic 105–127; BP diastolic 56–67; PULSE 72–89; RESP 16–19; TEMP 95.5–98.2; O2SAT 93–97
[2016-06-18] MEDS: CARBIDOPA/LEVODOPA 25 MG/250 MG TAB PO SCH ×7 (00:21→22:41)
[2016-06-18] MEDS: SODIUM CHLOR 0.9% 1000 ML INJ 1,000 ML IV SCH ×2 (01:12→18:08)
[2016-06-18] MEDS: CHLORHEXIDINE GLUCONATE 2 % 1 PACK (2 CLOTHS) TOP SCH ×2 (04:00→22:41)
[2016-06-18] MEDS: MEROPENEM 1000 MG/NS 100 ML IV SCH ×6 (06:20→22:40)
[2016-06-18] MEDS: MIDODRINE 5 MG TAB PO SCH ×4 (06:20→18:08)
--- NOTE | 2016-06-18 07:56 | HHI.PR ---
Review/Management Diagnosis/Plan: (1) Acute metabolic encephalopathy Plan: 2/2 infection/cerebral hypoperfusion improved after iv abx and bp augmentation e.coli bacteremia eeg reviewed; changes likely 2/2 infection; also possibly 2/2 iv abx recs neuro stable continue [facility] palliative care following severe, advanced parkinsons with worsening 2/2 recent infection (2) Parkinsons disease Plan: sinemet has been increased to 1.5 tabs 5x/day (3) Infection due to ESBL-producing Escherichia coli Plan: iv abx (4) Sepsis Plan: ccm following Subjective Subjective Comments No acute events reported No headache No chest pain No dyspnea Active Medications Current Medications Medications (Trade) Dose Ordered Sig/Johnny Route Start Time Stop Time Status Last Admin Sodium Chloride 2 ml 2 ml UNSCH PRN IVF 06/05/16 15:30 (NS 1000 ml Inj) 1,000 ml @ 60 mls/hr [id number] IV 06/05/16 16:27 06/18/16 01:12 (Tylenol) 650 mg Q6H PRN PO 06/05/16 16:30 06/14/16 05:52 (Lovenox Inj) 30 mg Q24H SQ 06/05/16 17:00 06/17/16 18:54 Miscellaneous Information 1 Q361D XX 06/05/16 16:30 (Chlorhexidine 2% Cloth) Taper DAILY@04 TOP 06/06/16 04:00 06/02/17 03:59 06/11/16 04:00 Chlorhexidine Gluconate 3 pack 3 pack UNSCH PRN TOP 06/05/16 16:30 (Merrem Inj/NS Inj) 100 ml @ 200 mls/hr Q8H IV 06/06/16 13:00 06/18/16 06:20 (Aricept) 10 mg DAILY PO 06/06/16 17:00 06/17/16 10:15 (ZyPREXA) 5 mg HS PO 06/06/16 21:00 06/17/16 22:13 (Lyrica) 50 mg TID PO 06/06/16 18:00 06/17/16 18:53 Patient Own Medication PT OWN MED: NEUPRO PATCH 4 MG/24 ... Q24H TOPICAL 06/07/16 14:00 06/16/16 13:24 Miscellaneous Information 1 Q24H T-DERMAL 06/07/16 14:00 06/16/16 13:24 (Pill Splitter) 1 ea UNSCH PRN OTHER 06/07/16 13:15 06/13/16 20:57 Terbutaline Sulfate 1 mg 1 mg UNSCH PRN SQ 06/07/16 23:45 (Diflucan 400 Mg Premix Bag) 200 ml @ 100 mls/hr Q24H IV 06/08/16 13:00 06/17/16 13:26 (Proamatine) 10 mg TID@07,12,17 PO 06/09/16 12:00 06/18/16 06:20 (Colace) 100 mg BID PRN PO 06/10/16 08:45 (Milk Of Magnesia Liq) 30 ml DAILY PRN PO 06/10/16 08:45 06/12/16 16:42 (Detrol La) 4 mg DAILY PO 06/10/16 15:30 06/17/16 09:00 (Dulcolax Supp) 10 mg DAILY PRN RECTAL 06/12/16 15:00 06/12/16 16:44 (Protonix) 40 mg DAILY PO 06/13/16 09:00 06/17/16 10:14 (Mycostatin Cream) 1 applic DAILY PRN TOPICAL 06/13/16 08:45 06/15/16 12:33 (Keppra) 250 mg Q12HR PO 06/13/16 21:00 06/17/16 22:13 Allergies Allergies Coded Allergies *MDRO Multi-Drug Resistant Organism (Verified Adverse Reaction, Unknown, ) Review of Systems All other ROS: ROS reviewed as documented in chart Exam I&O / VS 06/17/16 06/17/16 06/18/16 15:00 23:00 07:00 Intake Total 1093 ml 240 ml Output Total 1300 ml 1150 ml Balance -207 ml -910 ml Intake Oral 360 ml 240 ml IV Total 733 ml Output Urine Total 1300 ml 1150 ml # Bowel Movements 1 Vital Signs Date Time Temp Pulse Resp B/P Pulse Ox O2 Delivery O2 Flow Rate FiO2 06/18/16 05:42 97.2 77 17 120/56 95 06/18/16 00:57 97.6 82 17 111/56 95 06/17/16 21:00 Nasal Cannula 2.00 06/17/16 21:00 69 06/17/16 20:22 97.6 77 17 121/56 97 06/17/16 18:23 Nasal Cannula 2.00 06/17/16 18:18 Nasal Cannula 2.00 06/17/16 16:00 97.3 79 18 134/63 97 06/17/16 14:28 15 06/17/16 12:16 97.2 83 18 113/58 93 06/17/16 08:47 94 Nasal Cannula 2.00 06/17/16 08:00 83 06/17/16 08:00 97.8 81 18 107/53 92 General: Alert and Oriented, No acute distress Neurologic: Alert Psychiatric: Cooperative Exam Comments awake, ox 1-2, not to date, being fed breakfast. follows, facial hypomimia, severe bradykinesia, hypophonic speech, slow eom, face sym, moving ue to gravity 2-3/5, mild ue rigidity; paraplegia x >1 yr Problem Qualifiers (1) Sepsis: Qualified Code: A41.51 - Sepsis due to Escherichia coli Marvin Brown MD Jun 18, 2016 07:56
[2016-06-18] MEDS: levETIRAcetam 500 MG TAB PO SCH (09:24)
[2016-06-18] MEDS: DONEPEZIL HCL 5 MG TAB PO SCH (09:24)
[2016-06-18] MEDS: PREGABALIN 25 MG CAP PO SCH ×4 (09:24→18:08)
[2016-06-18] MEDS: TOLTERODINE TARTRATE 4 MG CAP LA PO SCH (09:24)
[2016-06-18] MEDS: PANTOPRAZOLE SOD 40 MG DELAYED RELEASE TAB PO SCH (09:24)
--- NOTE | 2016-06-18 12:04 | HHI.HCPN ---
Reason for visit a. To assist with evaluation and management of symptoms including: pain, agitation/hallucinations b. To assist medical decision maker(s) with: better understanding of current medical conditions; weighing benefits/burdens of medical treatment options; making medical treatment decisions. Subjective/Interval History Pt seen today to follow up on comfort, as well as goals/update to family . Remains stable; has been transferred out of the ICU. Tolerating room air. Discharge planning in progress, probable DC in the next day or so home with home health. has been serving as her primary caregiver in the home setting and will continue to do so. Oral intake slightly improved, eating 50 75 percent of 2 meals per day fed by . Urine output adequate, clear via suprapubic catheter. Having daily bowel movements. Patient seen in room with at bedside. She is alert, partially oriented. She knows she may be going home soon she is looking forward to this. No apparent distress, she denies pain or discomfort. Gently explore hospital trajectory and possible discharge home in the coming days with the , he indicates that he feels she is doing better as evidenced by she is out of the ICU and able to go home. I did gently explore with him that she remains high risk for ongoing infections and complications secondary to her disease progression and debilitated status. He indicates he understands this. He wishes to continue to care for at the home setting, and he would seek hospital care again she become acutely ill again. Gently explore with him DNR status and offer community DNR. He is initially reluctant to use is not certain why he would need this for the home setting, I advised that if she would not want resuscitation or invasive measures here in the hospital and this would allow that to be honored in the home setting as well, he agrees to this. Goals remain aggressive short of resuscitation. Medical attending in as I am concluding my exam. . Advance Directives Living Will: Copy in medical record Health Care Surrogate: Copy in medical record Advance Directive Specifics Date completed: August 2009 Health Care Surrogate(s): juan jose Gallegos . Documented care wishes: Living will details in the usual verbiage that if patient with terminal, end- stage or persistent vegetative condition with no chance of reasonable medical probability of recovery directs life-prolonging procedures be withheld for withdrawn when they would only serve to prolong artificially the process of dying, and be permitted to naturally with only the administration of medication deemed necessary to provide comfort care or alleviate pain. Objective Vital Signs Date Time Temp Pulse Resp B/P Pulse Ox O2 Delivery O2 Flow Rate FiO2 06/18/16 08:45 97 Nasal Cannula 2.00 06/18/16 08:00 96.6 82 16 127/67 93 06/18/16 05:42 97.2 77 17 120/56 95 06/18/16 00:57 97.6 82 17 111/56 95 06/17/16 21:00 Nasal Cannula 2.00 06/17/16 21:00 69 06/17/16 20:22 97.6 77 17 121/56 97 06/17/16 18:23 Nasal Cannula 2.00 06/17/16 18:18 Nasal Cannula 2.00 06/17/16 16:00 97.3 79 18 134/63 97 06/17/16 14:28 15 06/17/16 12:16 97.2 83 18 113/58 93 Intake & Output 06/18/16 06/18/16 07:00 19:00 Intake Total 240 ml Output Total 1150 ml Balance -910 ml Intake Oral 240 ml Output Urine Total 1150 ml # Bowel Movements 1 Physical Exam CONSTITUTIONAL/GENERAL: This is a frail, chronically ill appearing pt TUBES/LINES/DRAINS: PIV upper extremity, SP catheter, SCDs CARDIOVASCULAR: Regular rate and rhythm without murmurs. Peripheral pulses symmetric RESPIRATORY/CHEST: Symmetric, unlabored respirations. On room air. Clear to auscultation, decreased air movement. Breath sounds equal bilaterally. GASTROINTESTINAL: Abdomen soft, non-tender, nondistended. No hepato-splenomegaly , or palpable masses. No guarding. Bowel sounds normoactive GENITOURINARY: Without palpable bladder distension. SP catheter in place, clear yellow urine. MUSCULOSKELETAL: Extremities without clubbing, cyanosis.No mottling or clubbing. NEUROLOGICAL: Alert, partially oriented x2. Cooperative, pleasant, follows commands. Moves extremities with significant weakness, very limited ROM. PSYCHIATRIC: No obvious anxiety/depression/hallucinations . Diagnostic Tests Imaging Last Impressions Chest X-Ray 06/09/16 0600 Signed Impressions: Service Date/Time: Thursday, June 09, 2016 03:49 - CONCLUSION: Worsening left basilar density and probable small pleural effusion. Jay Araujo MD Head CT 06/05/16 8056 Signed Impressions: Service Date/Time: May 15:49 - CONCLUSION: 1. Mild periventricular and subcortical white matter small vessel ischemic changes bilaterally. 2. No acute infarct, acute hemorrhage, mass effect or extra- axial fluid collections. Ruy Donahue MD Procedures 06/05 Triple-lumen right subclavian Assessment and Plan Disease Oriented Problem List: (1) Suprapubic catheter dysfunction (2) Neuropathy (3) Urinary incontinence (4) Altered mental status (5) Renal failure (6) Septic shock (7) Lactic acidosis (8) Acute kidney failure (9) UTI (urinary tract infection) (10) Infection due to ESBL-producing Escherichia coli (11) Acute metabolic encephalopathy (12) Sacral decubitus ulcer, stage IV (13) Parkinsons disease (14) Neurogenic bladder Symptom Scale: (1) Neuropathy 0-10 Scale: Unable to quantify Comment: *chronic (2) Dyspnea 0-10 Scale: Unable to quantify Comment: *resolved . (3) Hallucinations Comment: *resolved (4) Malnutrition (5) Constipation Comment: *resolved Pertinent Non-Medical Issues Psychosocial: to her spouse 50+ yrs. Lives at home w spouse, he is PCG. Bedbound/dependent for at least the past year. Is a triplet, supported by her 2 sisters, as well as niece, and Spiritual: Baptism Legal:Patient unable to participate in decision-making due to dementia, AMS. Her is designated HCS per her living will. Niece is secondary. Ethical issues impacting care: Important Contacts Healthcare surrogate /spouse Fausto Cali [phone] //[phone] alternate HCS niece Mere Leung [phone] . Prognosis This pt was admitted for AMS; metabolic encephalopathy 2/2 UTI, sepsis. She has known hx dementia, parkinson's, dependent for all care. Appears she can get through current acute hospitalization, however remains very high risk from complications, setbacks, and ongoing hospitalizations. . Code Status: Full Code Plan * Legal decision maker: Healthcare surrogate /spouse Fausto Cali [phone] //[phone] ; alternate HCS niece Mere Leung [phone] * Goals: 06/11/16no change in treatment goalsgoals remain aggressive. Lengthy discussion with family members 06/09/16. Much review of disease progression and trajectory; as well as recent hospitalizations in recurrent infections. Exploration patient remains high risk for continued infections, other combinations and setbacks related to both disease progression and debilitated status. Review of possible interventions in the future including feeding tube, resuscitation etc. All questions answered. No changes elected as of today however they're going to talk more regarding CODE STATUS. Goals for now semi-aggressive though they will be continuing to review her living will which details she would not want heroic or artificial measures and the presence of end-stage, terminal, or vegetative conditions. They also share that patient had about a year ago verbalized she had no quality of life and "just wanted to ". They are open to ongoing discussions regarding conditions prognosis and goals. * CODE STATUS: DNR -- [facility] DNR to go home with patient * SYMPTOMS: --neuropathy -chronic neuropathy bilateral lower extremities; currently appears comfortable, on lyrica --pain- reports pt has had ongoing pain to buttocks wound, and discomfort w turning/repositioning--likely multifactorial; on lyrica, has prn Tylenol available-- appearing comfortable now, could consider low dose opiates though cautious use 2/2 risk for resp decline r/t AMS --dyspnea - worsening CXR, passed swallowing eval, risk for further resp decline--respiratory status has remained stable -- hallucinations/confusion- ongoing hx confusion/hallucinations, 2/2 disease process, likely worsened by sepsis. hallucinations did not appear distressing to pt at this time per family- could consider low dose Haldol if hallucinations/agitation becomes severe- avoid benzos, sedating agents . NO FURTHER HALLUCINATIONS REPORTED --Malnutrition--weight loss estimated 60 pounds in one year.[ weight loss of 10 kg from Dec 2015 to current] Eats 2 small meals a day normally. Requires feeding by her . This will likely continue, high risk for further decline, likely not consistently meet caloric demands. Eating 0-10% of simon in hospital initially, though has since improved. With ongoing progression of disease process, Likely require PEG tube at some point- though not now. Albumin 2.9. Per calorie counts consuming a few 100 jero below daily recommended. Eating 5075 percent of 2 meals per day, meals fed by -- constipation- no BM since admission, Hx per ROS of constipation/diarrhea, likely 2/2 bedbound, disease process-- PRN dulcolax,colace available. RESOLVED. Constipation will likely be an ongoing issue for this patient, continue to monitor-- recommend scheduled daily colace given her hx of constipation, discussed this with the patient at bedside, as she will be going home soon. I also recommended he utilize Dulcolax suppository the first day the patient with no bowel movement, to avoid prolonged constipation. * Palliative care will continue to follow during hospital course as condition evolves, to assist patient/decision-maker with understanding of medical conditions, weighing benefits/burdens of treatment options, for clarification of goals of treatment. Additionally will assist with any symptoms of palliative concern . Time Spent Total Floor Time (mins): 25 >50% Counseling/Coord of Care: Yes (discussed with medical attending) Attestation To help prompt me to consider important information that might be impacting today's encounter and assessment, information from prior notes written by myself or my colleagues may have been "brought forward" into today's note. My signature on this note, however, is an attestation that I personally performed the exam, history, and/or decision-making noted today, and, unless otherwise indicated, the interactions with patient, family, and staff as well as the review of records all occurred today. I also attest that the listed assessment and stated plan reflect my best clinical judgment today based on the combination of historical information, prior notes, and today's exam/ interactions. When time spent is documented, it refers only to time spent today by the signer, or if indicated, combined time spent today by collaborating physician/nurse practitioner. Sheryl Mckeon Jun 18, 2016 12:04
[2016-06-18] MEDS: ROTIGOTINE TOPICAL SCH (13:34)
[2016-06-18] MEDS: FLUCONAZOLE 400 MG PREMIX BAG 200 ML IV SCH (13:35)
[2016-06-18] MEDS: REMOVE OLD PATCH T-DERMAL SCH (13:39)
--- NOTE | 2016-06-18 17:44 | HHI.PR ---
Subjective Remarks Follow-up for Parkinson's disease, UTI, ESBL Escherichia coli bacteremia. Patient is doing well. No acute concerns. is at bedside. Objective Vitals Vital Signs Date Time Temp Pulse Resp B/P Pulse Ox O2 Delivery O2 Flow Rate FiO2 06/18/16 16:00 95.5 78 19 115/66 95 06/18/16 12:00 95.5 72 16 105/57 95 06/18/16 08:45 97 Nasal Cannula 2.00 06/18/16 08:00 96.6 82 16 127/67 93 06/18/16 05:42 97.2 77 17 120/56 95 06/18/16 00:57 97.6 82 17 111/56 95 06/17/16 21:00 Nasal Cannula 2.00 06/17/16 21:00 69 06/17/16 20:22 97.6 77 17 121/56 97 06/17/16 18:23 Nasal Cannula 2.00 06/17/16 18:18 Nasal Cannula 2.00 I/O 06/17/16 06/17/16 06/17/16 06/18/16 06/18/16 06/18/16 07:00 15:00 23:00 07:00 15:00 23:00 Intake Total 1093 ml 240 ml 300 ml Output Total 400 ml 1300 ml 1150 ml 1100 ml Balance -400 ml -207 ml -910 ml -800 ml Intake Oral 360 ml 240 ml 300 ml IV Total 733 ml Output Urine Total 400 ml 1300 ml 1150 ml 1100 ml # Bowel Movements 1 0 Imaging Last Impressions Chest X-Ray 06/09/16 0600 Signed Impressions: Service Date/Time: Thursday, June 09, 2016 03:49 - CONCLUSION: Worsening left basilar density and probable small pleural effusion. Jay Araujo MD Head CT 06/05/16 1516 Signed Impressions: Service Date/Time: May 15:49 - CONCLUSION: 1. Mild periventricular and subcortical white matter small vessel ischemic changes bilaterally. 2. No acute infarct, acute hemorrhage, mass effect or extra- axial fluid collections. Ruy Donahue MD Objective Remarks GENERAL: Alert, NAD. SKIN: Warm and dry. HEAD: Normocephalic. EYES: No scleral icterus. No injection or drainage. NECK: Supple, trachea midline. No JVD or lymphadenopathy. CARDIOVASCULAR: Regular rate and rhythm without murmurs, gallops, or rubs. RESPIRATORY: Breath sounds equal bilaterally. No accessory muscle use. GASTROINTESTINAL: Abdomen soft, non-tender, nondistended. MUSCULOSKELETAL: No cyanosis, or edema. BACK: Nontender without obvious deformity. No CVA tenderness. Procedures EEG 06/10/2016 IMPRESSION Diffuse slowing consistent with a moderate diffuse encephalopathy and some bitemporal frontal sharply contoured alpha waves are seen. No spikes or sharp waves are noted. Clinical correlation is needed. A/P Problem List: (1) Septic shock ICD Code: A41.9 Status: Acute (2) UTI (urinary tract infection) ICD Code: N39.0 Status: Acute (3) Acute metabolic encephalopathy ICD Code: G93.41 Status: Acute (4) Acute kidney failure ICD Code: N17.9 Status: Acute (5) Lactic acidosis ICD Code: E87.2 Status: Acute (6) Infection due to ESBL-producing Escherichia coli ICD Code: A49.8 Status: Acute (7) Parkinsons disease ICD Code: G20 Status: Chronic (8) Neurogenic bladder ICD Code: N31.9 Status: Chronic (9) Sacral decubitus ulcer, stage IV ICD Code: L89.154 Status: Acute Assessment and Plan Acute metabolic encephalopathy-improving slowly Advanced Parkinson's disease Bifrontal sharps on EEG -Continue Sinemet -Resumed Zyprexa and Lyrica 06/06 -Encephalopathy seems to be metabolic -Neurology Dr. Brown following - started on Keppra ( until off Abx). Abx to continue until 06/19/2016. - Likely discharge home with home health on 06/19/2016. Respiratory insufficiency -improved Left lower lobe infiltrate/pneumonia -Nasal cannula oxygen -DuoNeb every 6 hours when necessary, aggressive pulmonary toilet Acute kidney failure -resolved questionable leak around the suprapubic cath. -Renal failure secondary to dehydration and hypotension-resolved -Monitor renal function closely. -urology consult appreciated; suprapubic cath was exchanged; to be changed every 3-4 weeks. Septic shock -resolved ESBL Ecoi bacteremia UTI with GNR, possible ESBL Escherichia coli Left lower lobe infiltrate/pneumonia History of ESBL Escherichia coli UTI in the past Stage IV decubitus ulcer -Continue IV meropenem and Diflucan. -ID is following. -06/05 blood culture bottles ESBL Escherichia coli -06/05 Urine culture ESBL Escherichia coli -06/08 blood cultures negative so far -06/11; blood and urine cultures negative so far. -Wound care following Leukocytosis -improving -Monitor CBC, CMP, coags Hypokalemia - K+ improved to 3.7. DNR. Lovenox 30mg Q24hrs. Discussed with patient's regarding possible hospice. At this point, he does not want to consider hospice. . Problem Qualifiers (1) UTI (urinary tract infection): Qualified Code: N39.0 - Urinary tract infection without hematuria, site unspecified Theodora Byrd DO Jun 18, 2016 5:44 pm
[2016-06-18] MEDS: ENOXAPARIN SODIUM 30 MG/0.3 ML SYRINGE SQ SCH (18:07)
[2016-06-18] MEDS: OLANZapine 5 MG TAB PO SCH (21:00)
[2016-06-18] MEDS: levETIRAcetam 250 MG TAB PO SCH (23:03)
[2016-06-19] VITALS: BP_SYST 117; BP_SYST 83; BP_DIAS 44; BP_DIAS 65; PULSE 99; RESP 18; TEMP 98; O2SAT 94
[2016-06-19] MEDS: MEROPENEM 1000 MG/NS 100 ML IV SCH ×4 (05:09→12:47)
[2016-06-19] MEDS: CARBIDOPA/LEVODOPA 25 MG/250 MG TAB PO SCH ×3 (05:09→12:47)
[2016-06-19] MEDS: MIDODRINE 5 MG TAB PO SCH ×3 (06:05→12:47)
[2016-06-19 08:00] VITALS: BP 117/57; PULSE 90; PULSE 98; RESP 20; TEMP 98.2; O2SAT 91
[2016-06-19] MEDS: PANTOPRAZOLE SOD 40 MG DELAYED RELEASE TAB PO SCH (09:44)
[2016-06-19] MEDS: TOLTERODINE TARTRATE 4 MG CAP LA PO SCH (09:44)
[2016-06-19] MEDS: DONEPEZIL HCL 5 MG TAB PO SCH (09:44)
[2016-06-19] MEDS: PREGABALIN 25 MG CAP PO SCH ×2 (09:44→12:47)
[2016-06-19] MEDS: levETIRAcetam 250 MG TAB PO SCH (09:44)
[2016-06-19] MEDS: SODIUM CHLOR 0.9% 1000 ML INJ 1,000 ML IV SCH (09:45)
[2016-06-19 12:00] VITALS: BP 139/67; PULSE 83; RESP 20; TEMP 96.4; O2SAT 95
[2016-06-19] MEDS: REMOVE OLD PATCH T-DERMAL SCH (12:47)
[2016-06-19] MEDS: FLUCONAZOLE 400 MG PREMIX BAG 200 ML IV SCH (12:47)
[2016-06-19] MEDS: ROTIGOTINE TOPICAL SCH (12:48)
[2016-06-19] MEDS ORDERED: LEVE250 PO (14:38)
[2016-06-19 16:00] VITALS: BP 122/68; PULSE 79; RESP 20; TEMP 96.5; O2SAT 96
--- NOTE | 2016-06-19 17:00 | HHI.DS ---
Discharge Summary Admission Date Jun 05, 2016 at 4:15 pm Discharge Date: Jun 19, 2016 Admitting Diagnosis septic shock, UTI, altered mental status (1) Septic shock ICD Code: A41.9 Diagnosis: Principal (2) UTI (urinary tract infection) ICD Code: N39.0 Diagnosis: Principal (3) Acute metabolic encephalopathy ICD Code: G93.41 Diagnosis: Principal (4) Acute kidney failure ICD Code: N17.9 Diagnosis: Principal (5) Lactic acidosis ICD Code: E87.2 Diagnosis: Principal (6) Infection due to ESBL-producing Escherichia coli ICD Code: A49.8 Diagnosis: Secondary (7) Parkinsons disease ICD Code: G20 Diagnosis: Secondary (8) Neurogenic bladder ICD Code: N31.9 Diagnosis: Secondary (9) Sacral decubitus ulcer, stage IV ICD Code: L89.154 Diagnosis: Secondary Procedures EEG 06/10/2016 IMPRESSION Diffuse slowing consistent with a moderate diffuse encephalopathy and some bitemporal frontal sharply contoured alpha waves are seen. No spikes or sharp waves are noted. Clinical correlation is needed. Brief History - From Admission Patient is a 70-year-old female who is bedbound from advanced Parkinson's disease, dementia, sacral decubitus ulcer, history of TIA who was brought to emergency room with history of unresponsiveness and altered mental status. Apparently was unable to wake her up this afternoon. Her baseline GCS is 15 as per paramedics. EMS reported a temperature of 100.2 axillary and blood pressure was in the 90s systolic, GCS 8 and maintaining airway. In the ER initial systolic blood pressure was 65, patient received a total of 5 L normal saline boluses. Despite aggressive resuscitation patient remained hypotensive and Dr. Romo placed the right subclavian central line. Levophed to be started. I evaluated the patient in the emergency department, she looks critically ill and in septic shock. White count was 32.4 with 90% neutrophils, creatinine was 2.28 and UA showed evidence of UTI. Patient received vancomycin and Zosyn in the ED. I will continue vancomycin and start patient on meropenem renally dosed due to history of ESBL E coli. Also placed on Diflucan 100 mg IV daily. Patient has a large stage IV sacral decubitus ulcer but this does not look infected. Patient has a history of recurrent cystitis and sepsis. Previous urine cultures were reviewed. 05/15/16 culture PSAE sensitive to Zosyn, urine culture on 01/04/16 had ESBL Escherichia coli, Pseudomonas and enterococcus. Imaging Last Impressions Chest X-Ray 06/09/16 0600 Signed Impressions: Service Date/Time: Thursday, June 09, 2016 03:49 - CONCLUSION: Worsening left basilar density and probable small pleural effusion. Jay Araujo MD Head CT 06/05/16 1516 Signed Impressions: Service Date/Time: , June 05, 2016 15:49 - CONCLUSION: 1. Mild periventricular and subcortical white matter small vessel ischemic changes bilaterally. 2. No acute infarct, acute hemorrhage, mass effect or extra- axial fluid collections. Ruy Donahue MD PE at Discharge GENERAL: Alert, NAD. SKIN: Warm and dry. HEAD: Normocephalic. EYES: No scleral icterus. No injection or drainage. NECK: Supple, trachea midline. No JVD or lymphadenopathy. CARDIOVASCULAR: Regular rate and rhythm without murmurs, gallops, or rubs. RESPIRATORY: Breath sounds equal bilaterally. No accessory muscle use. GASTROINTESTINAL: Abdomen soft, non-tender, nondistended. MUSCULOSKELETAL: No cyanosis, or edema. BACK: Nontender without obvious deformity. No CVA tenderness. Pt update on day of discharge Patient is doing well. states patient is at her baseline. No acute concerns. Wants to go home with home health. Hospital Course Acute metabolic encephalopathy-improving slowly Advanced Parkinson's disease Bifrontal sharps on EEG -Continue Sinemet -Resumed Zyprexa and Lyrica 06/06 -Encephalopathy seems to be metabolic -Neurology Dr. Brown following - started on Keppra ( until off Abx). Abx to continue until 06/19/2016. - Likely discharge home with home health on 06/19/2016. Respiratory insufficiency -improved Left lower lobe infiltrate/pneumonia -Nasal cannula oxygen -DuoNeb every 6 hours when necessary, aggressive pulmonary toilet Acute kidney failure -resolved questionable leak around the suprapubic cath. -Renal failure secondary to dehydration and hypotension-resolved -Monitor renal function closely. -urology consult appreciated; suprapubic cath was exchanged; to be changed every 3-4 weeks. Septic shock -resolved ESBL Ecoi bacteremia UTI with GNR, possible ESBL Escherichia coli Left lower lobe infiltrate/pneumonia History of ESBL Escherichia coli UTI in the past Stage IV decubitus ulcer -Continue IV meropenem and Diflucan. -ID is following. -06/05 blood culture 06/17 bottles ESBL Escherichia coli -06/05 Urine culture ESBL Escherichia coli -06/08 blood cultures negative so far -06/11; blood and urine cultures negative so far. -Wound care following Leukocytosis -improving -Monitor CBC, CMP, coags Hypokalemia - K+ improved to 3.7. Pt Condition on Discharge: Stable Discharge Disposition: Disch w/ Home Health Serv Discharge Time: > 30 minutes Discharge Instructions DIET: Follow Instructions for: As Tolerated, No Restrictions Activities you can perform: Continue Bedrest Follow up Referrals: Neurology PCP Follow-up New Medications: Carbidopa-Levodopa (Sinemet) 25-250 Mg Tab 1.5 TAB PO 5 TIMES A DAY parkinson's disease Days 30 Ref 0 TAB Levetiracetam (Keppra) 250 Mg Tab 250 MG PO Q12HR Seizure Control #60 TAB Midodrine (Midodrine) 5 Mg Tab 10 MG PO TID@07,12,17 hypotension Days 30 Ref 0 TAB Continued Medications: Ascorbic Acid (Vitamin C) 500 Mg Cap 500 MG PO BID Nutritional Supplement Ref 0 CAP Benzonatate (Tessalon Perles) 100 Mg Cap 100 MG PO TID PRN COUGH Ref 0 CAP Donepezil (Donepezil) 10 Mg Tab 10 MG PO DAILY Dementia #30 Ref 0 TAB Fesoterodine ER (Toviaz ER) 4 mg Chevy 4 MG PO DAILY Overactive bladder #60 Ref 2 TAB Nystatin Topical (Nystatin Topical) 100,000 unit/gm Cream 1 APPLIC TOPICAL DAILY PRN RASH #15 Ref 0 GM Olanzapine (Zyprexa) 5 Mg Tab 5 MG PO HS #30 Ref 0 TAB Pregabalin (Lyrica) 50 Mg Cap 50 MG PO TID #90 Ref 0 CAP Rotigotine Patch 24 HR (Neupro Patch 24 HR) 4 Mg/24 Hr Patch 4 MG T-DERMAL DAILY Parkinson Disease Mgmt Ref 0 PATCH Discontinued Medications: Carbidopa-Levodopa (Carbidopa-Levodopa) 25-250 Mg Tab 1 TAB PO 4 x daily Parkinson Disease Mgmt #90 Ref 0 TAB Theodora Byrd DO Jun 19, 2016 17:00
== END 2016-06-19 16:49 | disposition home health service (06) | DRG 698 ==
LOC: NEPC 14:40 → NEDH 16:15 → HIMN 20:15 → N05A 06-14 00:23
PROVIDERS: ADMIT Internal Medicine; ATTEND Hospitalist
PROC: 05H533Z Insertion of Infusion Device into Right Subclavian Vein, Percutaneous Approach (ICD-10-PCS; principal; 2016-06-05)
PROC: 0T2BX0Z Change Drainage Device in Bladder, External Approach (ICD-10-PCS; 2016-06-10)
DX: T83.510A Infection and inflammatory reaction due to cystostomy catheter, initial encounter (principal); A41.51 Sepsis due to Escherichia coli [E. coli]; R65.21 Severe sepsis with septic shock; J69.0 Pneumonitis due to inhalation of food and vomit; G93.41 Metabolic encephalopathy; L89.154 Pressure ulcer of sacral region, stage 4; N17.9 Acute kidney failure, unspecified; E46 Unspecified protein-calorie malnutrition; E87.2 Acidosis; N30.90 Cystitis, unspecified without hematuria; B37.49 Other urogenital candidiasis; F03.90 Unspecified dementia, unspecified severity, without behavioral disturbance, psychotic disturbance, mood disturbance, and anxiety; B96.20 Unspecified Escherichia coli [E. coli] as the cause of diseases classified elsewhere; Z16.12 Extended spectrum beta lactamase (ESBL) resistance; N31.9 Neuromuscular dysfunction of bladder, unspecified; B96.5 Pseudomonas (aeruginosa) (mallei) (pseudomallei) as the cause of diseases classified elsewhere; E86.0 Dehydration; E87.6 Hypokalemia; G20 Parkinson's disease; I10 Essential (primary) hypertension; N32.89 Other specified disorders of bladder; Y84.6 Urinary catheterization as the cause of abnormal reaction of the patient, or of later complication, without mention of misadventure at the time of the procedure; Z74.01 Bed confinement status; Z86.73 Personal history of transient ischemic attack (TIA), and cerebral infarction without residual deficits; Z87.440 Personal history of urinary (tract) infections; Z68.23 Body mass index [BMI] 23.0-23.9, adult
CPT/HCPCS: 36556; 36600; 70450; 71010; 80048; 80053; 80185; 80202; 80307; 81001; 82140; 82550; 82552; 82565; 82805; 83605; 83735; 84100; 84132; 84443; 84484; 85007; 85025; 85027; 85610; 87040; 87077; 87086; 87106; 87186; 87205; 87641; 93005; 95819; 96361; 96374; 99292; C9113; J1450; J1650; J2185; J2543; J2997; J3370; J3475; J3480; J7030; J7050; P9047; Q2009

== ENCOUNTER 2017-01-07 00:56 | Emergency (ER) | payer MEDICARE, BC ==
[~2017-01-07] VITALS: Ht 160 cm; Wt 63.6 kg
[~2017-01-07 00:56] MED LIST changes: -CARB25TA12 PO; +LEVA500T20 PO; +LEVE250 PO; +MIDO5TAB PO; +[UNRECOGNIZED DRUG - CODE] PO
[2017-01-07 01:02] VITALS: BP 98/51; PULSE 79; RESP 18; TEMP 97.6; O2SAT 94
[2017-01-07 01:15] VITALS: BP 98/51; PULSE 79; RESP 18; TEMP 97.6; O2SAT 94
[2017-01-07] MEDS ORDERED: SODIUM CHLORIDE 0.9% FLUSH 10 ML FLUSH IV FLUSH PRN ×2 (01:15)
--- NOTE | 2017-01-07 01:17 | PD ---
HPI Chief Complaint: pelvic pain Time Seen by Provider: 01:15 Travel History International Travel<30 days: No Contact w/Intl Traveler<30days: No Traveled to known affect area: No History of Present Illness HPI 71-year-old female with history of Parkinson's disease, neurogenic bladder, suprapubic catheter, here with her for evaluation of pelvic pain and vaginal burning/itching. The patient has frequent UTIs and has been on antibiotics for about 3 weeks, most recently was on Bactrim which she finished about a week ago. She was evaluated by her home health nurse and was told that she possibly has a yeast infection. The patient has some suprapubic discomfort which is mild. She was given a dose of oxycodone earlier this evening by her because she was complaining of vaginal burning. She has otherwise been acting like her usual self. No fevers. No vomiting. No diarrhea. PFSH Past Medical History Hx Anticoagulant Therapy: Yes (325 MG ASA DAILY) Arthritis: No Asthma: Yes Autoimmune Disease: No Blood Disorders: No Anxiety: No Depression: No Heart Rhythm Problems: No Cancer: No Cardiovascular Problems: Yes (ORTHOSTATIC HYPOTENSION) High Cholesterol: No Chemotherapy: No Congestive Heart Failure: No COPD: No Cerebrovascular Accident: Yes (TIA 2013) Dementia: Yes Diabetes: No Diminished Hearing: No Endocrine: No Gastrointestinal Disorders: Yes (hx constipation) GERD: No Glaucoma: No Genitourinary: Yes (incontinence, frequent UTI's,suprapubic cath ) Headaches: No Hepatitis: No Hiatal Hernia: No Hypertension: No Immune Disorder: No Implanted Vascular Access Dvce: Yes Kidney Stones: No Musculoskeletal: Yes (non ambulatory hx of back surgery and cervical spine) Neurologic: Yes (NEUROPATHY FEET, PARKINSON'S, short term memory loss, confusion) Parkinson's Disease: Yes Psychiatric: Yes (r/t parkinson's, confused, short term memory loss) Reproductive: No Respiratory: Yes (ASTHMA) Integumentary: Yes (PRESSURE ULCER LEFT BUTTOCKS WITH WOUND VAC @ 120HHMG) Immunizations Current: Yes Migraines: No Myocardial Infarction: No Radiation Therapy: No Renal Failure: No Seizures: No Sickle Cell Disease: No Sleep Apnea: No Thyroid Disease: No Ulcer: No PNEUMOCCOCAL Vaccine (Year): 2007 Menopausal: Yes : 0 Past Surgical History Abdominal Surgery: No AICD: No Appendectomy: Yes Arteriovenous Shunt: No Body Medical Devices: CERVICAL HARDWARE Cardiac Surgery: No Cholecystectomy: No Ear Surgery: No Endocrine Surgery: No Eye Surgery: Yes (BILATERAL CATARACT SURGERY) Genitourinary Surgery: Yes (SP CATHETER PLACED X 3 LAST PLACEMENT ONE MONTH AGO ) Gynecologic Surgery: Yes (HYSTERECTOMY) Hysterectomy: Yes Insulin Pump: No Joint Replacement: No Neurologic Surgery: Yes (LUMBAR SURGERY X 2, CERVICAL FUSION) Oral Surgery: No Pacemaker: No Thoracic Surgery: No Other Surgery: Yes (ULNAR NERVE REPAIR LEFT- 1996) Social History Alcohol Use: No Tobacco Use: No Substance Use: No Allergies-Medications (Allergen,Severity, Reaction): Coded Allergies: *MDRO Multi-Drug Resistant Organism (Verified Adverse Reaction, Unknown, 01/07/17) ESBL E. coli Urine 08/2016 ESBL+E.COLI (urine) - 2011, 2012, 2014, 01/04/16; (blood) - 2011; (urine & blood)-06/05/16 VRE (urine/blood) - 2011 MRSA PCR Screen POSITIVE- 06/05/16 Reported Meds & Prescriptions Reported Meds & Active Scripts Active Diflucan (Fluconazole) 150 Mg Tab 150 Mg PO ONCE Miconazole 7 Vaginal Cream 2% Cream 1 Appl VAGINAL HS 1 vaginal applicatorful at bedtime Toviaz ER (Fesoterodine Fumarate) 4 mg Chevy 4 Mg PO DAILY Midodrine 5 Mg Tab 10 Mg PO TID@07,12,17 30 Days Sinemet (Carbidopa/Levodopa) 25-250 Mg Tab 1.5 Tab PO 5 TIMES A DAY 30 Days Reported Donepezil 10 Mg Tab 10 Mg PO DAILY Nystatin Topical (Nystatin) 100,000 unit/gm Cream 1 Applic TOPICAL DAILY PRN Review of Systems Except as stated in HPI: all other systems reviewed are Neg Physical Exam Narrative GENERAL: Well-developed, well-nourished, elderly-appearing female, awake, alert , no apparent distress. SKIN: Focused skin assessment warm/dry. HEAD: Atraumatic. Normocephalic. EYES: Pupils equal and round. No scleral icterus. No injection or drainage. ENT: No nasal bleeding or discharge. Mucous membranes pink and moist. NECK: Trachea midline. No JVD. CARDIOVASCULAR: Regular rate and rhythm. RESPIRATORY: No accessory muscle use. Clear to auscultation. Breath sounds equal bilaterally. GASTROINTESTINAL: Abdomen soft, nondistended. Suprapubic catheter with small amount of surrounding discharge without warmth or erythema, without foul- smelling purulence. Mild suprapubic tenderness without rebound or guarding. CHILD CARE COUNSELOR: Exam performed in the presence of female nurse. External genitalia with erythema with satellite lesions consistent with candidiasis. MUSCULOSKELETAL: No obvious deformities. No clubbing. No cyanosis. No edema. NEUROLOGICAL: Awake and alert. No obvious cranial nerve deficits. Motor grossly within normal limits. Normal speech. PSYCHIATRIC: Appropriate mood and affect; insight and judgment normal. Data Data Last Documented VS Vital Signs Date Time Temp Pulse Resp B/P (MAP) Pulse Ox O2 Delivery O2 Flow Rate FiO2 01/07/17 01:18 66 18 119/59 (79) 97 Room Air 01/07/17 01:15 97.6 Orders Orders Complete Blood Count With Diff (01/07/17 01:15) Comprehensive Metabolic Panel (01/07/17 01:15) Prothrombin Time / Inr (Pt) (01/07/17:15) Act Partial Throm Time (Ptt) (01/07/17:15) Urinalysis - C+S If Indicated (01/07/17 01:15) Ct Abd/Pel W Iv Contrast(Rout) (01/07/17 01:15) Iv Access Insert/Monitor (01/07/17:15) Ecg Monitoring (01/07/17:15) Oximetry (01/07/17 01:15) Sodium Chloride 0.9% Flush (Ns Flush) (01/07/17 01:15) Wet Prep Profile (01/07/17 01:15) Fluconazole (Diflucan) (01/07/17 02:15) Miconazole 2% Vag Cream (Monistat 7 Vag (01/07/17 03:00) Iohexol 350 Inj (Omnipaque 350 Inj) (01/07/17 02:21) Urine Culture (01/07/17 02:35) Sulfamet-Trimeth Ds 800-160 Mg (Bactrim (01/07/17 03:15) Labs Laboratory Tests Test 01/07/17 01:24 01/07/17 01:40 01/07/17 02:35 White Blood Count 12.5 TH/MM3 Red Blood Count 4.92 MIL/MM3 Hemoglobin 14.4 GM/DL Hematocrit 43.1 % Mean Corpuscular Volume 87.6 FL Mean Corpuscular Hemoglobin 29.2 PG Mean Corpuscular Hemoglobin Concent 33.4 % Red Cell Distribution Width 14.8 % Platelet Count 284 TH/MM3 Mean Platelet Volume 7.4 FL Neutrophils (%) (Auto) 64.3 % Lymphocytes (%) (Auto) 25.7 % Monocytes (%) (Auto) 6.5 % Eosinophils (%) (Auto) 2.7 % Basophils (%) (Auto) 0.8 % Neutrophils # (Auto) 8.1 TH/MM3 Lymphocytes # (Auto) 3.2 TH/MM3 Monocytes # (Auto) 0.8 TH/MM3 Eosinophils # (Auto) 0.3 TH/MM3 Basophils # (Auto) 0.1 TH/MM3 CBC Comment DIFF FINAL Differential Comment Prothrombin Time 10.7 SEC Prothromb Time International Ratio 1.0 RATIO Activated Partial Thromboplast Time 25.9 SEC Blood Urea Nitrogen 23 MG/DL Creatinine 0.66 MG/DL Random Glucose 102 MG/DL Total Protein 7.1 GM/DL Albumin 3.6 GM/DL Calcium Level 9.4 MG/DL Alkaline Phosphatase 99 U/L Aspartate Amino Transf (AST/SGOT) 11 U/L Alanine Aminotransferase (ALT/SGPT) 10 U/L Total Bilirubin 0.7 MG/DL Sodium Level 140 MEQ/L Potassium Level 3.3 MEQ/L Chloride Level 107 MEQ/L Carbon Dioxide Level 24.5 MEQ/L Anion Gap 9 MEQ/L Estimat Glomerular Filtration Rate 89 ML/MIN Clue Cells (Wet Prep) NONE SEEN Vaginal Trichomonas (Wet Prep) NONE SEEN Vaginal Yeast (Wet Prep) NONE SEEN Urine Collection Type CATH Urine Color YELLOW Urine Turbidity MARKED Urine pH 6.0 Urine Specific [place] 1.017 Urine Protein 100 mg/dL Urine Glucose (UA) NEG mg/dL Urine Ketones NEG mg/dL Urine Occult Blood LARGE Urine Nitrite POS Urine Bilirubin NEG Urine Leukocyte Esterase MOD Urine RBC 25-49 /hpf Urine WBC INNUM /hpf Urine WBC Clumps MOD Urine Squamous Epithelial Cells > 8 /hpf Urine Calcium Oxalate Crystals FEW /hpf Urine Bacteria MANY /hpf Urine Yeast (Budding) MANY Microscopic Urinalysis Comment CULTURE INDICATED MDM Medical Decision Making Medical Screen Exam Complete: Yes Emergency Medical Condition: Yes Medical Record Reviewed: Yes Differential Diagnosis UTI, cystitis, vulvovaginal candidiasis, colitis, diverticulitis Narrative Course Vital signs reviewed. CBC is essentially unremarkable. BMP is essentially unremarkable. Wet prep is negative for use, negative for clue cells, negative for Trichomonas. UA is suggestive of UTI with yeast in her urine as well. CT abdomen pelvis: CONCLUSION: 1. Constipation. 2. Suprapubic catheter. 3. Scattered diverticulosis without diverticulitis. Patient's clinical exam findings are consistent with vulvovaginal candidiasis. She was given a dose of Diflucan here in the emergency department as well as intravaginal miconazole. She will be given a prescription for intravaginal miconazole as well as another dose of Diflucan to be taken in 72 hours should her symptoms not resolve. Her abdominal exam is benign. She'll be started on Bactrim for her UTI. Both the patient and the patient's were made aware of all findings. Plan is to have her follow-up with her primary care physician this week. They were informed on when to return to the emergency department. They verbalized understanding and agreement with plan. Diagnosis Primary Impression: Vulvovaginal candidiasis Additional Impression: UTI (urinary tract infection) Qualified Codes: N30.01 - Acute cystitis with hematuria Referrals: Primary Care Physician 3 days Additional Instructions: Follow-up with your primary care physician this week. Take medications as prescribed. Return to the emergency department for worsening symptoms or any other concerns. Scripts Sulfamethoxazole-Trimethoprim (Bactrim DS) 800-160 Mg Tab 1 TAB PO BID for Infection, #20 TAB 0 Refills Prov: Saturnino Ovalle MD 01/07/17 Fluconazole (Diflucan) 150 Mg Tab 150 MG PO ONCE for Infection, #1 TAB 0 Refills Prov: Saturnino Ovalle MD 01/07/17 Miconazole 7 Vaginal Cream (Miconazole 7 Vaginal Cream) 2% Cream 1 APPL VAGINAL HS for Infection, #1 BOX 0 Refills 1 vaginal applicatorful at bedtime Prov: Saturnino Ovalle MD 01/07/17 Disposition: DISCHARGE HOME Condition: Stable Saturnino Ovalle MD Jan 07, 2017 01:17
[2017-01-07 01:18] VITALS: BP 119/59; PULSE 66; RESP 18; O2SAT 97
[2017-01-07 01:41] LABS: AUTOMATED NEUTROPHIL # 8.1 TH/MM3 (1.8-7.7); BASOPHIL # 0.1 TH/MM3 (0-0.2); BASOPHIL % 0.8 % (0.0-2.0); CHLORIDE 107 MEQ/L (98-107); EOSINOPHIL # 0.3 TH/MM3 (0-0.4); EOSINOPHIL % 2.7 % (0.0-4.0); HEMATOCRIT 43.1 % (35.0-46.0); HEMOGLOBIN 14.4 GM/DL (11.6-15.3); LYMPH % 25.7 % (9.0-44.0); LYMPHOCYTE # 3.2 TH/MM3 (1.0-4.8); MEAN CELL VOLUME 87.6 FL (80.0-100.0); MEAN CORPUSCULAR HEMOGLOBIN 29.2 PG (27.0-34.0); MEAN CORPUSCULAR HGB CONC 33.4 % (32.0-36.0); MEAN PLATELET VOLUME 7.4 FL (7.0-11.0); MONO % 6.5 % (0.0-8.0); MONOCYTE # 0.8 TH/MM3 (0-0.9); NEUT % 64.3 % (16.0-70.0); PLATELET COUNT 284 TH/MM3 (150-450); RED BLOOD COUNT 4.92 MIL/MM3 (4.00-5.30); RED CELL DISTRIBUTION WIDTH 14.8 % (11.6-17.2); SODIUM (NA) 140 MEQ/L (136-145); WHITE BLOOD COUNT 12.5 TH/MM3 (4.0-11.0)
[2017-01-07 01:44] LABS: CALCIUM 9.4 MG/DL (8.5-10.1)
[2017-01-07 01:45] LABS: ALBUMIN 3.6 GM/DL (3.4-5.0); BICARBONATE 24.5 MEQ/L (21.0-32.0); BLOOD UREA NITROGEN 23 MG/DL (7-18); GLUCOSE,RANDOM 102 MG/DL (74-106)
[2017-01-07 01:47] LABS: PROTHROMBIN TIME - PATIENT 10.7 SEC (9.8-11.6)
[2017-01-07 01:48] LABS: ALT (GPT) 10 U/L (10-53); AST (GOT) 11 U/L (15-37); CREATININE 0.66 MG/DL (0.50-1.00); GLOMERULAR FILTRATION RATE 89 ML/MIN (>89)
[2017-01-07 01:50] LABS: TOTAL BILIRUBIN ADULT 0.7 MG/DL (0.2-1.0); TOTAL PROTEIN 7.1 GM/DL (6.4-8.2)
[2017-01-07 01:51] LABS: ALKALINE PHOSPHATASE 99 U/L (45-117)
[2017-01-07] MEDS ORDERED: MICOCRE VAGINAL ×2 (02:12)
[2017-01-07] MEDS ORDERED: FLUCONAZOLE 100 MG TAB PO ONE ×2 (02:15)
[2017-01-07] MEDS ORDERED: CLOTRIMAZOLE 1% VAG CREAM 45 GM TUBE VAGINAL ONE ×2 (02:15)
[2017-01-07] MEDS ORDERED: IOHEXOL 350 MG/ML 10 ML VIAL (for RAD DIAG) IVCONTRAST ONE ×2 (02:21)
--- NOTE | 2017-01-07 02:28 | RADRPT ---
EXAM DATE/TIME: 01/07/2017 02:05 [facility] COMPARISON: CT ABDOMEN & PELVIS W CONTRAST, September 01, 2011, 19:12. INDICATIONS : Abdominal and pelvic pain. IV CONTRAST: 75 cc Omnipaque 350 (iohexol) IV ORAL CONTRAST: No oral contrast ingested. RADIATION DOSE: 8.07 CTDIvol (mGy) MEDICAL HISTORY : Parkinson's. SURGICAL HISTORY : Appendectomy. Hysterectomy.Suprapubic catheter. ENCOUNTER: Initial ACUITY: 3 weeks PAIN SCALE: 5/10 LOCATION: pelvis TECHNIQUE: Volumetric scanning of the abdomen and pelvis was performed. Using automated exposure control and ad justment of the mA and/or kV according to patient size, radiation dose was kept as low as reasonably achievable to obtain optimal diagnostic quality images. DICOM format image data is available electro nically for review and comparison. FINDINGS: LOWER LUNGS: The visualized lower lungs are clear. LIVER: Homogeneous density without lesion. There is no dilation of the biliary tree. No calcified gallston es. SPLEEN: Normal size without lesion. PANCREAS: Within normal limits. KIDNEYS: Normal in size and shape. There is no mass, stone or hydronephrosis. ADRENAL GLANDS: Within normal limits. VASCULAR: There is no aortic aneurysm. BOWEL/MESENTERY: Copious stool in the rectum. There is no free intraperitoneal air or fluid. ABDOMINAL WALL: Within normal limits. RETROPERITONEUM: There is small lymphadenopathy. BLADDER: No wall thickening or mass. Suprapubic catheter. REPRODUCTIVE: Within normal limits. INGUINAL: There is no lymphadenopathy or hernia. MUSCULOSKELETAL: Scattered degenerative changes. CONCLUSION: 1. Constipation. 2. Suprapubic catheter. 3. Scattered diverticulosis without diverticulitis. Jay Araujo MD on January 07, 2017 at 2:23 Board Certified Radiologist. This report was verified electronically.
[2017-01-07] MEDS ORDERED: DIFL150T PO ×2 (02:33)
[2017-01-07 02:41] LABS: BILIRUBIN, URINE NEG (NEG); BLOOD, URINE LARGE (NEG); GLUCOSE,URINE NEG (NEG); KETONE, URINE NEG (NEG); NITRITE,URINE POS (NEG); URINE LEUKOCYTE ESTERASE MOD (NEG)
[2017-01-07] MEDS ORDERED: MICONAZOLE NITRATE 200 MG VAG SUPP VAGINAL ONE ×2 (02:45)
[2017-01-07 02:54] LABS: URINE COLOR YELLOW (YELLW/STRAW); WBC, URINE INNUM /hpf (0-5); WHITE BLOOD CELL CLUMPS MOD
[2017-01-07 02:55] LABS: BACTERIA, URINE MANY /hpf; CALCIUM OXALATE CRYSTALS,URINE FEW /hpf; SQUAMOUS EPITHELIAL CELL URINE > 8 /hpf (0-5)
[2017-01-07] MEDS ORDERED: MICONAZOLE NITRATE 2% VAG CREAM 45 GM VAGINAL ONE ×2 (03:00)
[2017-01-07] MEDS ORDERED: BACT800T5 PO ×2 (03:03)
[2017-01-07] MEDS ORDERED: SULFAMETHOXAZOLE-TRIMETHOPRIM DS 800-160 MG TAB PO ONE ×2 (03:15)
[2017-01-07 03:17] VITALS: BP 119/48
== END 2017-01-07 03:36 | disposition home or self-care (01) ==
LOC: PHED 00:56
DX: B37.3 Candidiasis of vulva and vagina (principal); N39.0 Urinary tract infection, site not specified; J45.909 Unspecified asthma, uncomplicated; K59.00 Constipation, unspecified; Z79.01 Long term (current) use of anticoagulants
CPT/HCPCS: 74177; 80053; 81001; 85025; 85610; 85730; 87086; 87210; 99285; Q9967